=== PATIENT | male | born 1955 | race Caucasian/White ===

== ENCOUNTER 2017-05-09 07:26 | Observation (INO) | payer BC ==
[2017-05-09] MEDS ORDERED: SODIUM CHLORIDE 0.9% 1,000 ML IV STA (07:40)
[2017-05-09 07:41] LABS: Glucose,Whole Blood 170 mg/dL (75-99)
[2017-05-09 07:57] LABS: Basophils % (A) 0 %; CH 27.5; CHCM 32.9; Eosinophils # (A) 0.3 k/uL (0-0.7); Eosinophils % (A) 3 %; HCT 51.4 % (39.0-53.0); HGB 16.5 gm/dL (13.0-17.5); Luc # (Auto) 0.07; Luc % (Auto) 1; Lymphocytes # (A) 0.9 k/uL (1.0-4.8); Lymphocytes % (A) 9 %; MCH 27.1 pg (25.0-35.0); MCHC 32.1 g/dL (31.0-37.0); MCV 84.2 fL (80.0-100.0); Mean Platelet Volume 7.1; Monocytes # (A) 0.5 k/uL (0-1.0); Monocytes % (A) 5 %; Neutrophils # (A) 8.4 k/uL (1.3-7.7); Neutrophils % (A) 83 %; RDW 15.7 % (11.5-15.5); WBC 10.1 k/uL (3.8-10.6); WBC (Perox) 9.92
[2017-05-09 08:10] LABS: Partial Thromboplastin Time 23.2 sec (22.0-30.0); Prothrombin Time 9.5 sec (9.0-12.0)
--- NOTE | 2017-05-09 08:14 | XR ---
EXAMINATION TYPE: XR chest 2V DATE OF EXAM: 05/09/2017 COMPARISON: NONE HISTORY: Weakness and lightheadedness. TECHNIQUE: Frontal and lateral views of the chest are obtained. FINDINGS: Somewhat low lung volumes are present. There is no focal air space opacity, pleural effusio n, or pneumothorax seen. The cardiac silhouette size is within normal limits. There is multilevel sp urring in the thoracic spine. IMPRESSION: Low lung volumes without suspicious acute process.
[2017-05-09 08:22] LABS: ALT 59 U/L (21-72); AST 27 U/L (17-59); Alcohol <10 mg/dL; Alkaline Phosphatase 99 U/L (38-126); Anion Gap 13 mmol/L; Blood Urea Nitrogen 27 mg/dL (9-20); Calcium 10.1 mg/dL (8.4-10.2); Carbon Dioxide 23 mmol/L (22-30); Chloride 99 mmol/L (98-107); Glucose 185 mg/dL (74-99); Magnesium 2.1 mg/dL (1.6-2.3); Non-African American GFR(MDRD) >60 (>60 ml/min/1.73 sqM); Phosphorus 3.5 mg/dL (2.5-4.5); Potassium 4.6 mmol/L (3.5-5.1); Sodium 135 mmol/L (137-145); Total Bilirubin 0.6 mg/dL (0.2-1.3); Total Protein 7.4 g/dL (6.3-8.2)
[2017-05-09] MEDS ORDERED: SODIUM CHLORIDE 0.9% 500 ML IV STA (08:31)
[2017-05-09 08:33] LABS: Creatine Kinase 112 U/L (55-170)
--- NOTE | 2017-05-09 08:35 | ED ---
General Adult HPI - General Chief complaint: Dizziness Stated complaint: headache,nausea Time Seen by Provider: 05/09/17 07:38 Source: patient, RN notes reviewed, old records reviewed Mode of arrival: ambulatory Limitations: no limitations - History of Present Illness Initial comments: This is a 7-year-old male to the ER for evaluation of dizziness. Patient followed dizzy lightheaded and short of breath earlier today after work. 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 Patient has no prior issue of similar symptoms. Patient does admit to stroke about 8 years ago which symptoms had resolved. And patient admits vertiginous event about 2 weeks ago with the room was various suddenly spinning around as he got up out of bed but that has completely resolved. No symptoms of spinning today. No headache or chest pain. No shortness of breath currently. Patient does have history of diabetes and hypertension, no cardiac evaluation prior - Related Data Home Medications Medication Instructions Recorded Confirmed Aspirin [Adult Low Dose Aspirin EC] 81 mg PO DAILY 05/09/17 05/09/17 Dapagliflozin Propanediol [Farxiga] 10 mg PO DAILY 05/09/17 05/09/17 Lisinopril-Hctz 20-12.5 mg 1 tab PO BID 05/09/17 05/09/17 [Zestoretic 20-12.5] amLODIPine [Norvasc] 5 mg PO DAILY 05/09/17 05/09/17 metFORMIN HCL [Glucophage] 500 mg PO BID 05/09/17 05/09/17 Allergies Allergy/AdvReac Type Severity Reaction Status Date / Time Penicillins Allergy Itching Verified 05/09/17 08:21 Review of Systems ROS Statement: Those systems with pertinent positive or pertinent negative responses have been documented in the HPI. ROS Other: All systems not noted in ROS Statement are negative. Past Medical History Past Medical History: Diabetes Mellitus, Hypertension History of Any Multi-Drug Resistant Organisms: None Reported Past Surgical History: Tonsillectomy Past Psychological History: No Psychological Hx Reported Smoking Status: Never smoker Past Alcohol Use History: None Reported Past Drug Use History: None Reported General Exam Limitations: no limitations General appearance: alert, in no apparent distress Head exam: Present: atraumatic, normocephalic, normal inspection Eye exam: Present: normal appearance, PERRL, EOMI. Absent: scleral icterus, conjunctival injection, periorbital swelling ENT exam: Present: normal exam, mucous membranes moist Neck exam: Present: normal inspection. Absent: tenderness, meningismus, lymphadenopathy Respiratory exam: Present: normal lung sounds bilaterally. Absent: respiratory distress, wheezes, rales, rhonchi, stridor Cardiovascular Exam: Present: regular rate, normal rhythm, normal heart sounds. Absent: systolic murmur, diastolic murmur, rubs, gallop, clicks GI/Abdominal exam: Present: soft, normal bowel sounds. Absent: distended, tenderness, guarding, rebound, rigid Extremities exam: Present: normal inspection, full ROM, normal capillary refill. Absent: tenderness, pedal edema, joint swelling, calf tenderness Back exam: Present: normal inspection Neurological exam: Present: alert, oriented X3, CN II-XII intact Psychiatric exam: Present: normal affect, normal mood Skin exam: Present: warm, dry, intact, normal color. Absent: rash Course Vital Signs 05/09/17 05/09/17 05/09/17 07:30 08:28 10:00 Temperature 98.1 F Pulse Rate 116 H 95 99 Respiratory 18 18 18 Rate Blood Pressure 155/92 147/77 112/79 O2 Sat by Pulse 99 98 98 Oximetry - Reevaluation(s) Reevaluation #1: 05/09/17 10:43 Patient gets up still heart rate elevated in the 130s with activity, heart rate at 116 currently with rest EKG Findings - EKG Comments: EKG Findings:: EKG shows sinus tachycardia rate of 107, WA 150, QRS 96, QTc 440 Medical Decision Making - Medical Decision Making 61 male with nonspecific dizziness lightheadedness nausea not feeling right, patient does have history of high blood pressure diabetes, no prior cardiac evaluation history of TIA will be kept for cardiac observation - Lab Data Result diagrams: 05/09/17 07:44 05/09/17 07:44 Lab Results 05/09/17 05/09/17 05/09/17 Range/Units 07:38 07:44 07:44 WBC (3.8-10.6) k/uL RBC (4.30-5.90) m/uL Hgb (13.0-17.5) gm/dL Hct (39.0-53.0) % MCV (80.0-100.0) fL MCH (25.0-35.0) pg MCHC (31.0-37.0) g/dL RDW (11.5-15.5) % Plt Count (150-450) k/uL Neutrophils % % Lymphocytes % % Monocytes % % Eosinophils % % Basophils % % Neutrophils # (1.3-7.7) k/uL Lymphocytes # (1.0-4.8) k/uL Monocytes # (0-1.0) k/uL Eosinophils # (0-0.7) k/uL Basophils # (0-0.2) k/uL PT (9.0-12.0) sec INR (<1.2) APTT (22.0-30.0) sec D-Dimer (<0.60) mg/L FEU Sodium 135 L (137-145) mmol/L Potassium 4.6 (3.5-5.1) mmol/L Chloride 99 (98-107) mmol/L Carbon Dioxide 23 (22-30) mmol/L Anion Gap 13 mmol/L BUN 27 H (9-20) mg/dL Creatinine 1.04 (0.66-1.25) mg/dL Est GFR (MDRD) Af Amer >60 (>60 ml/min/1.73 sqM) Est GFR (MDRD) Non-Af >60 (>60 ml/min/1.73 sqM) Glucose 185 H (74-99) mg/dL POC Glucose (mg/dL) 170 H (75-99) mg/dL POC Glu Veterinary Surgeon ID Christa Richardn Plasma Lactic Acid Trevin (0.7-2.0) mmol/L Calcium 10.1 (8.4-10.2) mg/dL Phosphorus 3.5 (2.5-4.5) mg/dL Magnesium 2.1 (1.6-2.3) mg/dL Total Bilirubin 0.6 (0.2-1.3) mg/dL AST 27 (17-59) U/L ALT 59 (21-72) U/L Alkaline Phosphatase 99 (38-126) U/L Total Creatine Kinase 112 (55-170) U/L CK-MB (CK-2) 2.3 (0.0-2.4) ng/mL CK-MB (CK-2) Rel Index 2.1 Troponin I <0.012 (0.000-0.034) ng/mL Total Protein 7.4 (6.3-8.2) g/dL Albumin 4.6 (3.5-5.0) g/dL Lipase 67 (23-300) U/L TSH 1.570 (0.465-4.680) mIU/L Serum Alcohol <10 mg/dL 05/09/17 05/09/17 05/09/17 Range/Units 07:44 07:44 07:44 WBC 10.1 (3.8-10.6) k/uL RBC 6.10 H (4.30-5.90) m/uL Hgb 16.5 (13.0-17.5) gm/dL Hct 51.4 (39.0-53.0) % MCV 84.2 (80.0-100.0) fL MCH 27.1 (25.0-35.0) pg MCHC 32.1 (31.0-37.0) g/dL RDW 15.7 H (11.5-15.5) % Plt Count 246 (150-450) k/uL Neutrophils % 83 % Lymphocytes % 9 % Monocytes % 5 % Eosinophils % 3 % Basophils % 0 % Neutrophils # 8.4 H (1.3-7.7) k/uL Lymphocytes # 0.9 L (1.0-4.8) k/uL Monocytes # 0.5 (0-1.0) k/uL Eosinophils # 0.3 (0-0.7) k/uL Basophils # 0.0 (0-0.2) k/uL PT 9.5 (9.0-12.0) sec INR 1.0 (<1.2) APTT 23.2 (22.0-30.0) sec D-Dimer 0.35 (<0.60) mg/L FEU Sodium (137-145) mmol/L Potassium (3.5-5.1) mmol/L Chloride (98-107) mmol/L Carbon Dioxide (22-30) mmol/L Anion Gap mmol/L BUN (9-20) mg/dL Creatinine (0.66-1.25) mg/dL Est GFR (MDRD) Af Amer (>60 ml/min/1.73 sqM) Est GFR (MDRD) Non-Af (>60 ml/min/1.73 sqM) Glucose (74-99) mg/dL POC Glucose (mg/dL) (75-99) mg/dL POC Glu Veterinary Surgeon ID Plasma Lactic Acid Trevin 1.5 (0.7-2.0) mmol/L Calcium (8.4-10.2) mg/dL Phosphorus (2.5-4.5) mg/dL Magnesium (1.6-2.3) mg/dL Total Bilirubin (0.2-1.3) mg/dL AST (17-59) U/L ALT (21-72) U/L Alkaline Phosphatase (38-126) U/L Total Creatine Kinase (55-170) U/L CK-MB (CK-2) (0.0-2.4) ng/mL CK-MB (CK-2) Rel Index Troponin I (0.000-0.034) ng/mL Total Protein (6.3-8.2) g/dL Albumin (3.5-5.0) g/dL Lipase (23-300) U/L TSH (0.465-4.680) mIU/L Serum Alcohol mg/dL - Radiology Data Radiology results: report reviewed (Chest x-ray negative, CT brain negative), image reviewed Disposition Clinical Impression: Dizziness, Chest pain, Tachycardia Disposition: ADMITTED IP TO THIS [facility] Condition: Undetermined Referrals: Lakeisha Cleveland MD [Primary Care Provider] - 1-2 days
[2017-05-09 08:44] LABS: Creatine Kinase MB 2.3 ng/mL (0.0-2.4); Troponin I <0.012 ng/mL (0.000-0.034)
--- NOTE | 2017-05-09 09:04 | CT ---
EXAMINATION TYPE: CT brain wo con DATE OF EXAM: 05/09/2017 HISTORY: lightheaded for [address] DLP: 1198 mGycm. Automated Exposure Control for Dose Reduction was Utilized. TECHNIQUE: CT scan of the head is performed without contrast. COMPARISON: MRI brain 03/26/2012. FINDINGS: There is no acute intracranial hemorrhage or midline shift identified. There is diffuse v entricular and sulcal prominence consistent with diffuse age-related cerebral atrophy. There is low- attenuation in the periventricular white matter consistent with chronic small vessel ischemic change. Mild mucosal thickening involving inferior aspect of both maxillary sinuses is present otherwise par anasal sinuses are clear. Globes are intact bilaterally. No suspicious opacification of mastoid air cells is present. IMPRESSION: No acute intracranial hemorrhage or midline shift. There is mild to moderate diffuse ag e-related cerebral atrophy and chronic small vessel ischemic change redemonstrated without significan t change from prior MRI.
[2017-05-09] MEDS ORDERED: NITROGLYCERIN SL TABS 0.4 MG TAB SUBLINGUAL PRN (10:44)
[2017-05-09] MEDS ORDERED: ASPIRIN 81 MG PO STA (10:44)
[2017-05-09] MEDS ORDERED: SODIUM CHLORIDE 0.9% 1,000 ML IV SCH ×2 (10:45→13:15)
[2017-05-09 12:12] LABS: Glucose,Whole Blood 132 mg/dL (75-99)
[2017-05-09] MEDS ORDERED: LISINOPRIL-HCTZ 20-12.5 MG 1 EACH TAB PO SCH (13:15)
--- NOTE | 2017-05-09 14:24 | US ---
EXAMINATION TYPE: US carotid duplex BILAT DATE OF EXAM: 05/09/2017 COMPARISON: NONE CLINICAL HISTORY: dizziness. Near syncope EXAM MEASUREMENTS: RIGHT: Peak Systolic Velocity (PSV) cm/sec ----- Right CCA: 74.0 ----- Right ICA: 73.6 ----- Right ECA: 154.3 ICA/CCA ratio: 1.0 RIGHT: End Diastole cm/sec ----- Right CCA: 22.7 ----- Right ICA: 14.2 ----- Right ECA: 27.0 LEFT: Peak Systolic Velocity (PSV) cm/sec ----- Left CCA: 101.7 ----- Left ICA: 77.2 ----- Left ECA: 172.2 ICA/CCA ratio: 0.8 LEFT: End Diastole cm/sec ----- Left CCA: 30.5 ----- Left ICA: 25.1 ----- Left ECA: 24.0 VERTEBRALS (direction of flow): Right Vertebral: Antegrade Left Vertebral: Antegrade Rhythm: Normal Patient had short thick neck, technically difficult study. No significant velocity elevations. Grayscale, color Doppler, spectral Doppler imaging performed of the carotid arteries. Atheromatous ch anges are present at the carotid bulbs, proximal internal carotid arteries IMPRESSION: No hemodynamic significant stenosis of the proximal internal carotid arteries bilaterall y by Doppler criteria, an indirect measurement of carotid stenosis
--- NOTE | 2017-05-09 14:55 | CONS ---
CONSULTATION Mario Srinivasan is a gentleman who sees Dr. Cleveland in the outpatient setting. He has a history of type 2 diabetes mellitus, obesity, and also underlying hypertensive cardiovascular disease. He had an episode of lightheadedness, dizziness, near syncope about a 1-1/2 weeks ago and he was found to have upper respiratory infection, treated with antibiotics and bronchodilators and after that he felt better, but again this morning he had an episode when he felt lightheaded, did not quite pass out. Did not have as much dizziness, but he did feel lightheaded, felt concerned, had a sharp pain in the chest and came into the hospital. He has a remote history of CVA with good recovery. No documented evidence of any CAD or prior myocardial infarction. At the time of my evaluation, he feels well. He is resting comfortably and apparently he has received some IV fluids and feels much better without absolutely no symptoms. PAST MEDICAL HISTORY: 1. Type 2 diabetes mellitus. 2. History of CVA, details unclear. 3. Hypertensive cardiovascular disease. 4. No documented evidence of prior myocardial infarction. MEDICATIONS: At home include metformin 500 mg b.i.d., amlodipine 5 mg daily, lisinopril hydrochlorothiazide 20/12.5 one b.i.d. He also takes Farxiga and aspirin 81 mg daily. ALLERGIES: PENICILLIN. On examination, blood pressure is 130/80, pulse rate is about 94 per minute. HEENT: Unremarkable. Fundus was not examined by me. Neck is supple. There is no JVD. I do not hear a carotid bruit. Heart exam reveals S1, S2 with distant heart sounds. No significant murmurs. Lungs are clear. Abdomen is soft, nontender. Lower extremities reveal palpable pulses. No edema. Central nervous system is normal. EKG revealed a sinus mechanism with poor R-wave progression over precordial leads, raising the possibility of prior anterior TX without acute changes. Laboratory data suggests a normal D-dimer, troponin initial level is normal. His renal function appears to be normal. TSH is normal. IMPRESSION: 1. Atypical chest pain. 2. Dizziness and lightheadedness, probably some dehydration or a labyrinthitis-type issue should also be considered. 3. Type 2 diabetes mellitus. 4. Hypertension under fair control. 5. Cannot exclude coronary artery disease given the abnormal EKG, but no evidence to suggest any active ongoing myocardial ischemia. RECOMMENDATIONS: Given his dizzy episodes, I am recommending a carotid Doppler. Because of abnormal EKG and possibility of prior TX on the EKG, I will do an echocardiogram as well. We will obtain serial troponins and based on clinical course,. I will make further recommendations. Additionally, I will hydrate him with normal saline 75 mL/hour and obtain orthostatic vital signs in a few hours. Discussed my thoughts in detail with the patient. Thank you very much for the consult. QIAN / CHRISTINA: [id number] /
[2017-05-09 15:21] LABS: Creatine Kinase 90 U/L (55-170)
[2017-05-09 15:33] LABS: Troponin I <0.012 ng/mL (0.000-0.034)
--- NOTE | 2017-05-09 16:27 | P.HPIM ---
History of Present Illness H&P Date: 05/09/17 Chief Complaint: Dizziness This is a 61-year-old male with a past medical history of hypertension, diabetes type 2, history of CVA with mild right-sided weakness came to the ER for evaluation of dizziness. Patient followed dizzy lightheaded and short of breath yesterday morning after work. 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 Patient says that he rarely gets a break. Patient has no prior issue of similar symptoms. Patient does admit to stroke about 8 years ago which symptoms had resolved. And patient admits vertiginous event about 2 weeks ago with the room was various suddenly spinning around as he got up out of bed but that has completely resolved. No symptoms of spinning today. No headache or chest pain. No shortness of breath currently. Patient was found to have elevated BUN 27 on admission. Currently on IV fluids. Currently patient denied any dizziness or lightheadedness. Able to walk in the hallway. EKG showed sinus tachycardia CT head showed no acute intracranial hemorrhage or midline shift. There is diffuse ventricular and sulcal prominence consistent with diffuse age-related cerebral atrophy. Chest x-ray showed no acute cardiopulmonary process Review of Systems Constitutional: Patient denies any fever or chills . No generalized weakness or weight loss. Abdomen: Patient denied nausea vomiting and diarrhea and abdominal pain. Cardiovascular: Patient denies any chest pain or short of breath no palpitations. Respiratory: patient denied any cough is from production. No shortness of breath Neurologic: Patient denied any numbness or tingling headache. Musculoskeletal: Patient denies any complaints of joint swelling or deformity. Skin: Negative Psychiatric: Negative Endocrine: No heat or cold intolerance. No recent weight gain. Genitourinary: No dysuria or hematuria. All other 14 point ROS negative except the above Past Medical History Past Medical History: Diabetes Mellitus, Hypertension Additional Past Medical History / Comment(s): Recent bronchitis-completed ABX/ steroid, NIDDM type II, neuropathy R foot, 2009 CVA with very slight R sided weakness, recent vertigo, high cholesterol-not on RX yet, bilateral carpal tunnel syndrome. History of Any Multi-Drug Resistant Organisms: None Reported Past Surgical History: Tonsillectomy Past Anesthesia/Blood Transfusion Reactions: No Reported Reaction Past Psychological History: No Psychological Hx Reported Additional Psychological History / Comment(s): Pt resides alone in his apartment. 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 He drives. He has a glucometer. Smoking Status: Never smoker Past Alcohol Use History: None Reported Past Drug Use History: None Reported - Past Family History Father Additional Family Medical History / Comment(s): Father after a head injury with ruptured blood vessel at the age of 54 yrs. Mother Family Medical History: Cancer Additional Family Medical History / Comment(s): Mother had cervical cancer as a young person. She of colon cancer at the age of 72 yrs. Medications and Allergies Home Medications Medication Instructions Recorded Confirmed Type Aspirin [Adult Low Dose Aspirin EC] 81 mg PO DAILY 05/09/17 05/09/17 History Dapagliflozin Propanediol [Farxiga] 10 mg PO DAILY 05/09/17 05/09/17 History Lisinopril-Hctz 20-12.5 mg 1 tab PO BID 05/09/17 05/09/17 History [Zestoretic 20-12.5] amLODIPine [Norvasc] 5 mg PO DAILY 05/09/17 05/09/17 History metFORMIN HCL [Glucophage] 500 mg PO BID 05/09/17 05/09/17 History Allergies Allergy/AdvReac Type Severity Reaction Status Date / Time Penicillins Allergy Itching Verified 05/09/17 08:21 Physical Exam Vitals: Vital Signs Temp Pulse Pulse Pulse Pulse Pulse Resp 05/09/17 15:14 86 97 86 18 05/09/17 12:00 97.2 F L 97 18 05/09/17 11:12 105 H 18 05/09/17 10:00 99 18 05/09/17 08:28 95 18 05/09/17 07:30 98.1 F 116 H 18 BP BP BP BP BP Pulse Ox 05/09/17 15:14 137/77 118/68 113/69 96 05/09/17 12:00 136/77 95 05/09/17 11:12 133/81 95 05/09/17 10:00 112/79 98 05/09/17 08:28 147/77 98 05/09/17 07:30 155/92 99 Intake and Output 05/09/17 05/09/17 05/09/17 06:59 14:59 22:59 Other: Voiding Method Toilet Weight 122.2 kg Patient Weight 12/13/17 06:59 Weight 122.2 kg PHYSICAL EXAMINATION: Patient is lying in the bed comfortably, no acute distress, awake alert and oriented.. HEENT: Normocephalic. Neck is supple. Pupils reactive. Nostrils clear. Oral cavity is moist. Ears reveal no drainage. Neck reveals no JVD, carotid bruits, or thyromegaly. CHEST EXAMINATION: Trachea is central. Symmetrical expansion. Lung maldonado clear to auscultation and percussion. CARDIAC: Normal S1, S2 with no gallops. No murmurs ABDOMEN: Soft. Bowel sounds normal. No organomegaly. No abdominal bruits. Extremities: reveal no edema. No clubbing or cyanosis Neurologically awake, alert, oriented x3 with well-coordinated movements. No focal deficits noted Skin: No rash or skin lesions. Psychiatric: Cooperative. Nonsuicidal Musculoskeletal: No joint swelling or deformity. Normal range of motion. Results CBC & Chem 7: 05/09/17 07:44 05/09/17 07:44 Labs: Abnormal Lab Results - Last 24 Hours (Table) 05/09/17 05/09/17 05/09/17 Range/Units 07:38 07:44 07:44 RBC 6.10 H (4.30-5.90) m/uL RDW 15.7 H (11.5-15.5) % Neutrophils # 8.4 H (1.3-7.7) k/uL Lymphocytes # 0.9 L (1.0-4.8) k/uL Sodium 135 L (137-145) mmol/L BUN 27 H (9-20) mg/dL Glucose 185 H (74-99) mg/dL POC Glucose (mg/dL) 170 H (75-99) mg/dL 05/09/17 Range/Units 12:10 RBC (4.30-5.90) m/uL RDW (11.5-15.5) % Neutrophils # (1.3-7.7) k/uL Lymphocytes # (1.0-4.8) k/uL Sodium (137-145) mmol/L BUN (9-20) mg/dL Glucose (74-99) mg/dL POC Glucose (mg/dL) 132 H (75-99) mg/dL Thrombosis Risk Factor Assmnt - DVT/VTE Prophylaxis DVT/VTE Prophylaxis: Pharmacologic Prophylaxis ordered - Choose All That Apply Any of the Below Risk Factors Present?: Yes Each Factor Represents 1 point: Age 41-60 years, Obesity (BMI >25) Other Risk Factors: No Other congenital or acquired thrombophilia - If yes, enter type in comment: No Thrombosis Risk Factor Assessment Total Risk Factor Score: 2 Thrombosis Risk Factor Assessment Level: Low Risk Assessment and Plan Assessment: Dizziness and lightheadedness likely due to dehydration and volume depletion. Possible benign proximal positional vertigo Atypical chest pain. We'll rule out ACS Hypertension Hyperlipidemia Diabetes type 2 [id number] History of CVA with very minimal right upper extremity weakness DVT prophylaxis Morbid obesity with BMI 42.2 Plan: Patient will be continued on telemetry monitoring. Carotid duplex showed no significant stenosis. 2-D echo was ordered. Continue with serial troponins second and third troponin. 2-D echocardiogram was ordered as per cardiology. We will continue with IV hydration and follow closely. Orthostatic vitals was ordered but patient is already getting IV fluids at this time. We will continue to follow closely. Further recommendations based on the clinical course. Time with Patient: Greater than 30
[2017-05-09 17:15] LABS: Glucose,Whole Blood 132 mg/dL (75-99)
[2017-05-09] MEDS: amLODIPine 5 MG TAB PO SCH (17:47)
[2017-05-09 20:22] LABS: Creatine Kinase 85 U/L (55-170)
[2017-05-09 20:35] LABS: Troponin I <0.012 ng/mL (0.000-0.034)
[2017-05-09 20:52] LABS: Glucose,Whole Blood 154 mg/dL (75-99)
[2017-05-09] MEDS: METOPROLOL TARTRATE 25 MG TAB PO SCH (22:12)
[2017-05-09] MEDS: LISINOPRIL-HCTZ 20-12.5 MG 1 EACH TAB PO SCH (22:13)
[2017-05-10 00:34] VITALS: TEMP 98.1
[2017-05-10 03:14] LABS: Cholesterol 202 mg/dL (<200); HDL Cholesterol 55 mg/dL (40-60)
[2017-05-10 06:45] LABS: Glucose,Whole Blood 108 mg/dL (75-99)
[2017-05-10 08:32] VITALS: BP 111/77; PULSE 67; RESP 16
[2017-05-10] MEDS ORDERED: ASPIRIN 325 MG TAB PO SCH (09:00)
[2017-05-10] MEDS ORDERED: ASPIRIN 81 MG PO SCH (09:00)
[2017-05-10] MEDS ORDERED: ATORVASTATIN 80 MG TAB PO SCH (09:00)
[2017-05-10] MEDS: METOPROLOL TARTRATE 25 MG TAB PO SCH (09:14)
[2017-05-10] MEDS: LISINOPRIL-HCTZ 20-12.5 MG 1 EACH TAB PO SCH (09:14)
[2017-05-10] MEDS: amLODIPine 5 MG TAB PO SCH (09:14)
--- NOTE | 2017-05-10 11:52 | P.PN ---
Subjective Progress Note Date: 05/10/17 Mr. Srinivasan is a 61-year-old male past medical history significant for hypertension, diabetes mellitus and history of CVA. He presented to the hospital yesterday with an episode of dizziness and near syncope. He was recently being treated for an upper respiratory infection with antibiotics and steroids. We are seeing him today in follow-up. Diagnostic imaging performed yesterday is unremarkable. Telemetry tracings are unremarkable and show no signs of arrhythmia. He was hydrated through the night with sodium chloride. Serial cardiac enzymes are negative, blood pressure 111/77. Objective - Vital Signs Vital signs: Vital Signs Temp 98.1 F 05/10/17 08:00 Pulse 67 05/10/17 08:00 Resp 16 05/10/17 08:00 BP 111/77 05/10/17 08:00 Pulse Ox 96 05/10/17 08:00 Intake & Output 05/09/17 05/10/17 05/10/17 18:59 06:59 18:59 Intake Total 360 118 Balance 360 118 Weight 122.2 kg Intake: Oral 360 118 Other: Voiding Method Toilet Toilet Toilet # Voids 4 - Exam GENERAL: Well-appearing, well-nourished and in no acute distress. NECK: Supple without JVD or thyromegaly. LUNGS: Breath sounds clear to auscultation bilaterally. Respiration equal and unlabored. No wheezes, rales or rhonchi. HEART: Regular rate and rhythm without murmurs, rubs or gallops. S1 and S2 heard. EXTREMITIES: Normal range of motion, no edema. No clubbing or cyanosis. Peripheral pulses intact and strong. - Labs CBC & Chem 7: 05/09/17 07:44 05/09/17 07:44 Labs: Abnormal Lab Results - Last 24 Hours (Table) 05/09/17 05/09/17 05/09/17 Range/Units 07:44 12:10 17:13 POC Glucose (mg/dL) 132 H 132 H (75-99) mg/dL Cholesterol 202 H (<200) mg/dL LDL Cholesterol, Calc 125 H (0-99) mg/dL 05/09/17 05/10/17 Range/Units 20:51 06:36 POC Glucose (mg/dL) 154 H 108 H (75-99) mg/dL Cholesterol (<200) mg/dL LDL Cholesterol, Calc (0-99) mg/dL Assessment and Plan Assessment: ASSESSMENT 1. Dizziness most likely secondary to some dehydration and possible labyrinthitis type issue with recent URI. 2. Hypertension 3. Diabetes mellitus, type II PLAN Orthostatic blood pressures obtained yesterday did show a systolic drop with movement from sitting to standing. This may be secondary to dehydration. We have discussed slow movements from sitting to standing with increased water intake. From a cardiac perspective he is stable. He shows no signs of an acute arrhythmia or an acute coronary event. He should follow-up with Dr. NYDIA Araiza as an outpatient in 2-3 weeks. Nurse Practitioner note has been reviewed, I agree with a documented findings and plan of care. Patient was seen and examined.
--- NOTE | 2017-05-10 11:57 | ECHOF ---
Referral Reason:dizzy shortness of breath MEASUREMENTS -------- HEIGHT: 170.2 cm WEIGHT: 122.0 kg BP: 136/77 RVIDd: 3.0 cm (< 3.3) IVSd: 1.3 cm (0.6 - 1.1) LVIDd: 4.1 cm (3.9 - 5.3) LVPWd: 1.3 cm (0.6 - 1.1) IVSs: 1.7 cm LVIDs: 2.9 cm LVPWs: 1.5 cm LA Diam: 3.5 cm (2.7 - 3.8) LAESV Index (A-L): 18.58 ml/m Ao Diam: 3.4 cm (2.0 - 3.7) AV Cusp: 2.5 cm (1.5 - 2.6) MV EXCURSION: 15.965 mm (> 18.000) MV EF SLOPE: 87 mm/s (70 - 150) EPSS: 0.5 cm MV E Kit: 0.81 m/s MV DecT: 281 ms MV A Kit: 0.87 m/s MV E/A Ratio: 0.93 FINDINGS -------- Sinus rhythm. This was a technically good study. The left ventricular size is normal. There is mild concentric left ventricular hypertrophy. Overa ll left ventricular systolic function is normal with, an EF between 55 - 60 %. The right ventricle is normal in size. Normal LA size by volume 22+/-6 ml/m2. The right atrium is normal in size. There is mild aortic valve sclerosis. The mitral valve is normal. The tricuspid valve appears structurally normal. Trace/mild (physiologic) pulmonic regurgitation. The aortic root size is normal. IVC Not well visulized. There is no pericardial effusion. CONCLUSIONS -------- 1. Sinus rhythm. 2. This was a technically good study. 3. The left ventricular size is normal. 4. There is mild concentric left ventricular hypertrophy. 5. Overall left ventricular systolic function is normal with, an EF between 55 - 60 %. 6. The right ventricle is normal in size. 7. Normal LA size by volume 22+/-6 ml/m2. 8. The right atrium is normal in size. 9. There is mild aortic valve sclerosis. 10. The mitral valve is normal. 11. The tricuspid valve appears structurally normal. 12. Trace/mild (physiologic) pulmonic regurgitation. 13. The aortic root size is normal. 14. IVC Not well visulized. 15. There is no pericardial effusion. DIV[employer] MANAGER: Leonie Jenkins RDCS
[2017-05-10 12:00] LABS: Glucose,Whole Blood 116 mg/dL (75-99)
--- NOTE | 2017-05-10 23:07 | P.DS ---
Providers Date of admission: 05/09/17 10:44 Expected date of discharge: 05/10/17 Attending physician: Lucita Ventura Consults: 05/09/17 10:44 Consult Physician Urgent Consulting Provider: Moses Encarnacion Consult Reason/Comments: tachycardia Do you want consulting provider notified?: Yes [facility] Course: Discharge diagnosis Dizziness and lightheadedness likely due to dehydration and volume depletion. Possible benign proximal positional vertigo. Resolved now Atypical chest pain. ruled out ACS Hypertension Hyperlipidemia Diabetes type 2 [id number] History of CVA with very minimal right upper extremity weakness DVT prophylaxis Morbid obesity with BMI 42.2 Hospital course This is a 61-year-old male with a past medical history of hypertension, diabetes type 2, history of CVA with mild right-sided weakness came to the ER for evaluation of dizziness. Patient followed dizzy lightheaded and short of breath yesterday morning after work. 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 Patient says that he rarely gets a break. Patient has no prior issue of similar symptoms. Patient does admit to stroke about 8 years ago which symptoms had resolved. And patient admits vertiginous event about 2 weeks ago with the room was various suddenly spinning around as he got up out of bed but that has completely resolved. No symptoms of spinning today. No headache or chest pain. No shortness of breath currently. Patient was found to have elevated BUN 27 on admission. Currently on IV fluids. Currently patient denied any dizziness or lightheadedness. Able to walk in the hallway. EKG showed sinus tachycardia CT head showed no acute intracranial hemorrhage or midline shift. There is diffuse ventricular and sulcal prominence consistent with diffuse age-related cerebral atrophy. Chest x-ray showed no acute cardiopulmonary process 2-D echo showed normal ejection fraction Carotid duplex showed no significant stenosis Patient was continued on telemetry monitoring. Troponin 3 negative. Carotid duplex showed no significant stenosis. 2-D echo was ordered. Showed normal ejection fraction.continued with IV hydration and followed closely. Orthostatic vitals were positive. Patient did improve clinically with IV hydration. Patient was seen by cardiology and they wanted no further workup at this time. Otherwise patient is ambulating the hallway without any complaints of dizziness or lightheadedness. Patient is stable to discharge home. Discharge PHYSICAL EXAMINATION: Patient is lying in the bed comfortably, no acute distress, awake alert and oriented.. HEENT: Normocephalic. Neck is supple. Pupils reactive. Nostrils clear. Oral cavity is moist. Ears reveal no drainage. Neck reveals no JVD, carotid bruits, or thyromegaly. CHEST EXAMINATION: Trachea is central. Symmetrical expansion. Lung maldonado clear to auscultation and percussion. CARDIAC: Normal S1, S2 with no gallops. No murmurs ABDOMEN: Soft. Bowel sounds normal. No organomegaly. No abdominal bruits. Extremities: reveal no edema. No clubbing or cyanosis Neurologically awake, alert, oriented x3 with well-coordinated movements. No focal deficits noted Skin: No rash or skin lesions. Psychiatric: Operative. Nonsuicidal Musculoskeletal: No joint swelling or deformity. Normal range of motion. Patient Condition at Discharge: Undetermined Plan - Discharge Summary Discharge Rx Participant: No New Discharge Prescriptions: Continue amLODIPine [Norvasc] 5 mg PO DAILY metFORMIN HCL [Glucophage] 500 mg PO BID Lisinopril-Hctz 20-12.5 mg [Zestoretic 20-12.5] 1 tab PO BID Dapagliflozin Propanediol [Farxiga] 10 mg PO DAILY Aspirin [Adult Low Dose Aspirin EC] 81 mg PO DAILY Discharge Medication List Aspirin [Adult Low Dose Aspirin EC] 81 mg PO DAILY 05/09/17 [History] Dapagliflozin Propanediol [Farxiga] 10 mg PO DAILY 05/09/17 [History] Lisinopril-Hctz 20-12.5 mg [Zestoretic 20-12.5] 1 tab PO BID 05/09/17 [History] amLODIPine [Norvasc] 5 mg PO DAILY 05/09/17 [History] metFORMIN HCL [Glucophage] 500 mg PO BID 05/09/17 [History] Follow up Appointment(s)/Referral(s): Lakeisha Cleveland MD [Primary Care Provider] - 1-2 days Patient Instructions/Handouts: Dehydration (GEN), Dizziness (GEN) Discharge Disposition: HOME SELF-CARE
== END 2017-05-10 13:14 | disposition home or self-care (01) ==
LOC: EC 07:26 → 3OBS 10:44
PROVIDERS: ADMIT Hospitalist; ATTEND Hospitalist
DX: R42 Dizziness and giddiness (principal); E86.0 Dehydration; R07.89 Other chest pain; I11.9 Hypertensive heart disease without heart failure; E78.5 Hyperlipidemia, unspecified; E11.40 Type 2 diabetes mellitus with diabetic neuropathy, unspecified; I69.351 Hemiplegia and hemiparesis following cerebral infarction affecting right dominant side; Z68.41 Body mass index [BMI] 40.0-44.9, adult; E66.01 Morbid (severe) obesity due to excess calories; R06.02 Shortness of breath; R00.0 Tachycardia, unspecified; R55 Syncope and collapse; Z88.0 Allergy status to penicillin; Z79.84 Long term (current) use of oral hypoglycemic drugs; Z79.82 Long term (current) use of aspirin; Z79.899 Other long term (current) drug therapy; R94.31 Abnormal electrocardiogram [ECG] [EKG]
CPT/HCPCS: 96361 ×6; 96360 ×2; 99285; 36415; 93005; 93306; 85379; 80061; 80053; 82550; 82553; 83605; 83690; 83735; 84100; 84443; 84484; 85025; 85610; 85730; 80320; 71020; 93880; 70450; G0378 ×2

== ENCOUNTER 2019-08-20 05:12 | Inpatient (IN) | payer BC, OTHER ==
[2019-08-20] MEDS ORDERED: SODIUM CHLORIDE 0.9% 1,000 ML IV ONE ×2 (05:18→06:50)
--- NOTE | 2019-08-20 05:21 | ED ---
Altered Mental Status HPI <Harlan Richard - Last Filed: 08/20/19 08:26> - General Source: EMS Mode of arrival: EMS Limitations: altered mental status - History of Present Illness MD Complaint: altered mental status -: unknown Severity: severe Consistency of Symptoms: unknown <LizziePablo - Last Filed: 08/20/19 21:21> - General Stated Complaint: Altered Mental Status Time Seen by Provider: 08/20/19 05:18 - History of Present Illness Initial Comments: This patient is a 64-year-old man who is brought here by EMS to have evaluation. The patient was reportedly found lying in his driveway by neighbor. He was we aring clothes but they were wet. The patient is not able to give any history. He does answer simple yes and no questions but appears to be delirious. He does state no when asked if he is having any pain. (Pablo Samuel) - Related Data Home Medications Medication Instructions Recorded Confirmed No Known Home Medications 08/20/19 08/20/19 Allergies Allergy/AdvReac Type Severity Reaction Status Date / Time Penicillins Allergy Itching Verified 08/20/19 09:18 Review of Systems ROS Other: All systems not noted in ROS Statement are negative. <Jose ManuelHarlan - Last Filed: 08/20/19 08:26> ROS Other: All systems not noted in ROS Statement are negative. Limitations: ROS unobtainable due to patients medical condition <LucasanthonyPablo - Last Filed: 08/20/19 21:21> ROS Statement: Those systems with pertinent positive or pertinent negative responses have been documented in the HPI. Past Medical History Past Medical History: Diabetes Mellitus, Hypertension Additional Past Medical History / Comment(s): Recent bronchitis-completed ABX/steroid, NIDDM type II, neuropathy R foot, 2009 CVA with very slight R sided weakness, recent vertigo, high cholesterol-not on RX yet, bilateral carpal tunnel syndrome. History of Any Multi-Drug Resistant Organisms: None Reported Past Surgical History: Tonsillectomy Past Anesthesia/Blood Transfusion Reactions: No Reported Reaction Past Psychological History: No Psychological Hx Reported Additional Psychological History / Comment(s): Pt resides alone in his apartment. 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 He drives. He has a glucometer. Smoking Status: Never smoker Past Alcohol Use History: None Reported Past Drug Use History: None Reported - Past Family History Father Additional Family Medical History / Comment(s): Father after a head injury with ruptured blood vessel at the age of 54 yrs. Mother Family Medical History: Cancer Additional Family Medical History / Comment(s): Mother had cervical cancer as a young person. She of colon cancer at the age of 72 yrs. <LizziePablo - Last Filed: 08/20/19 21:21> General Exam General appearance: alert Head exam: Present: atraumatic, normocephalic Eye exam: Present: normal appearance, PERRL, EOMI. Absent: scleral icterus, conjunctival injection Neck exam: Present: normal inspection, full ROM. Absent: tenderness Respiratory exam: Present: normal lung sounds bilaterally. Absent: respiratory distress, wheezes, rales, rhonchi, stridor, chest wall tenderness, accessory muscle use Cardiovascular Exam: Present: normal rhythm, tachycardia, normal heart sounds. Absent: systolic murmur, diastolic murmur, rubs, gallop GI/Abdominal exam: Present: soft. Absent: distended, tenderness, guarding, rebound, rigid, mass, pulsatile mass Extremities exam: Present: normal inspection. Absent: tenderness, pedal edema, calf tenderness Back exam: Present: normal inspection. Absent: vertebral tenderness Neurological exam: Present: alert, CN II-XII intact, other (Patient is alert but is not oriented. He is able to follow only simple single step commands. GCS =13 (E=4, V=3, M=6)). Absent: motor sensory deficit Expanded Neurological exam: Present: protecting the airway Patient oriented to: Present: person Cranial nerves: EOM's Intact: Abnormal Right, Gag Reflex: Normal Upper motor neuron: Romario Neglect: Abnormal Right Motor strength exam: RUE: 4, LUE: 5, RLE: 4, LLE: 5 Eye Response: (4) open spontaneously Motor Response: (6) obeys commands Verbal Response: (3) inappropriate words Skin exam: Present: warm, dry, intact, normal color, abrasion (Patient has abrasions to bilateral hands and forearms, as well as his knees and feet.) <LizziePablo - Last Filed: 08/20/19 21:21> Course <Pablo Samuel - Last Filed: 08/20/19 21:21> Vital Signs 08/20/19 08/20/19 08/20/19 05:14 05:20 05:30 Temperature 98.9 F Pulse Rate 110 H 116 H 120 H Respiratory 18 18 19 Rate Blood Pressure 177/120 173/128 192/133 O2 Sat by Pulse 97 98 97 Oximetry 08/20/19 08/20/19 08/20/19 05:45 06:00 06:15 Temperature Pulse Rate 116 H 123 H 120 H Respiratory 18 19 18 Rate Blood Pressure 183/117 183/137 209/118 O2 Sat by Pulse 98 97 98 Oximetry 08/20/19 08/20/19 08/20/19 06:30 06:45 07:00 Temperature Pulse Rate 125 H 120 H 115 H Respiratory 17 17 18 Rate Blood Pressure 172/122 129/82 174/129 O2 Sat by Pulse 97 98 98 Oximetry 08/20/19 08/20/19 08/20/19 07:24 08:05 08:38 Temperature Pulse Rate 118 H 112 H Respiratory 16 22 Rate Blood Pressure 176/141 134/90 145/97 O2 Sat by Pulse 100 99 Oximetry 08/20/19 09:05 Temperature Pulse Rate 116 H Respiratory 22 Rate Blood Pressure O2 Sat by Pulse 99 Oximetry - Reevaluation(s) Reevaluation #1: 08/20/19 06:31 Case D/W Dr. Andrade, interventionalist who will review the CTs (Pablo Samuel) Medical Decision Making - Lab Data Result diagrams: 08/20/19 05:26 08/20/19 05:26 - Radiology Data Radiology results: report reviewed (Computed tomography scan of the brain shows no acute intercranial hemorrhage or shift. Atrophy and chronic small vessel ischemia.), image reviewed (1 view chest x-ray shows mild cardiac megaly without acute process) <Harlan Richard - Last Filed: 08/20/19 08:26> - Lab Data Result diagrams: 08/20/19 05:26 08/20/19 05:26 - EKG Data -: EKG Interpreted by Me EKG shows normal: sinus rhythm, axis (Normal), intervals (Normal), QRS complexes (Normal), ST-T waves (Normal) Rate: tachycardia (Rate approximately 117 bpm) <Pablo Samuel - Last Filed: 08/20/19 21:21> - Medical Decision Making 0 8:23 AM Case endorsed to me by Dr. Gamboa with presumed stroke. He did speak with Dr. Kidd a decision was made that patient was not a TPA candidate. Patient reexamined and reevaluated by myself, Dr. Richard. Patient has limited verbal capability and is unable to provide further history. Patient is unable to comply with CTA despite several doses of Ativan. This can be reattempted in the near future. Case was discussed in detail with Dr. Choudhary, who will admit covering for hospital call. He is made aware of this. He is in agreement with plan at this time. Neurology will be placed on consult. Blood pressure is improving on its own. Patient moves all extremities however does have some weakness of his right arm. Patient has difficulty following commands. Heart rate tachycardic Lungs: Clear to auscultation Capillary Refill less than 2 seconds Radial pulses 2/4 bilateral Skin: No rash Chart reviewed. (Harlan Richard) - Lab Data Lab Results 08/20/19 08/20/19 08/20/19 Range/Units 05:17 05:19 05:26 WBC (3.8-10.6) k/uL RBC (4.30-5.90) m/uL Hgb (13.0-17.5) gm/dL Hct (39.0-53.0) % MCV (80.0-100.0) fL MCH (25.0-35.0) pg MCHC (31.0-37.0) g/dL RDW (11.5-15.5) % Plt Count (150-450) k/uL Neutrophils % % Lymphocytes % % Monocytes % % Eosinophils % % Basophils % % Neutrophils # (1.3-7.7) k/uL Lymphocytes # (1.0-4.8) k/uL Monocytes # (0-1.0) k/uL Eosinophils # (0-0.7) k/uL Basophils # (0-0.2) k/uL PT (9.0-12.0) sec INR (<1.2) APTT (22.0-30.0) sec VBG pH 7.29 L (7.31-7.41) VBG pCO2 47 (37-51) mmHg VBG HCO3 22 L (24-28) mmol/L Sodium (137-145) mmol/L Potassium (3.5-5.1) mmol/L Chloride (98-107) mmol/L Carbon Dioxide (22-30) mmol/L Anion Gap mmol/L BUN (9-20) mg/dL Creatinine (0.66-1.25) mg/dL Est GFR (CKD-EPI)AfAm (>60 ml/min/1.73 sqM) Est GFR (CKD-EPI)NonAf (>60 ml/min/1.73 sqM) Glucose (74-99) mg/dL POC Glucose (mg/dL) 538 H 501 H (75-99) mg/dL POC Glu Personal Lines Account Manager Vangie Balbuena Vangie Lactic Ac Sepsis Rflx Plasma Lactic Acid Trevin (0.7-2.0) mmol/L Calcium (8.4-10.2) mg/dL Total Bilirubin (0.2-1.3) mg/dL AST (17-59) U/L ALT (4-49) U/L Alkaline Phosphatase (38-126) U/L Ammonia (<30) umol/L CK-MB (CK-2) (0.0-2.4) ng/mL Troponin I (0.000-0.034) ng/mL Total Protein (6.3-8.2) g/dL Albumin (3.5-5.0) g/dL Triglycerides (<150) mg/dL Cholesterol (<200) mg/dL LDL Cholesterol, Calc (0-99) mg/dL HDL Cholesterol (40-60) mg/dL Urine Color Urine Appearance (Clear) Urine pH (5.0-8.0) Ur Specific [place] (1.001-1.035) Urine Protein (Negative) Urine Glucose (UA) (Negative) Urine Ketones (Negative) Urine Blood (Negative) Urine Nitrite (Negative) Urine Bilirubin (Negative) Urine Urobilinogen (<2.0) mg/dL Ur Leukocyte Esterase (Negative) Urine RBC (0-5) /hpf Urine WBC (0-5) /hpf Amorphous Sediment (None) /hpf Urine Mucus (None) /hpf Urine Opiates Screen (NotDetected) Ur Oxycodone Screen (NotDetected) Urine Methadone Screen (NotDetected) Ur Propoxyphene Screen (NotDetected) Ur Barbiturates Screen (NotDetected) U Tricyclic Antidepress (NotDetected) Ur Phencyclidine Scrn (NotDetected) Ur Amphetamines Screen (NotDetected) U Methamphetamines Scrn (NotDetected) U Benzodiazepines Scrn (NotDetected) Urine Cocaine Screen (NotDetected) U Marijuana (THC) Screen (NotDetected) Serum Alcohol mg/dL Acetone, Qual (Negative) 08/20/19 08/20/19 08/20/19 Range/Units 05:26 05:26 05:26 WBC 12.7 H (3.8-10.6) k/uL RBC 6.34 H (4.30-5.90) m/uL Hgb 16.8 (13.0-17.5) gm/dL Hct 52.3 (39.0-53.0) % MCV 82.5 (80.0-100.0) fL MCH 26.5 (25.0-35.0) pg MCHC 32.2 (31.0-37.0) g/dL RDW 13.6 (11.5-15.5) % Plt Count 247 (150-450) k/uL Neutrophils % 86 % Lymphocytes % 9 % Monocytes % 3 % Eosinophils % 1 % Basophils % 0 % Neutrophils # 10.9 H (1.3-7.7) k/uL Lymphocytes # 1.2 (1.0-4.8) k/uL Monocytes # 0.4 (0-1.0) k/uL Eosinophils # 0.1 (0-0.7) k/uL Basophils # 0.0 (0-0.2) k/uL PT 9.8 (9.0-12.0) sec INR 0.9 (<1.2) APTT 20.6 L (22.0-30.0) sec VBG pH (7.31-7.41) VBG pCO2 (37-51) mmHg VBG HCO3 (24-28) mmol/L Sodium (137-145) mmol/L Potassium (3.5-5.1) mmol/L Chloride (98-107) mmol/L Carbon Dioxide (22-30) mmol/L Anion Gap mmol/L BUN (9-20) mg/dL Creatinine (0.66-1.25) mg/dL Est GFR (CKD-EPI)AfAm (>60 ml/min/1.73 sqM) Est GFR (CKD-EPI)NonAf (>60 ml/min/1.73 sqM) Glucose (74-99) mg/dL POC Glucose (mg/dL) (75-99) mg/dL POC Glu Personal Lines Account Manager ID Lactic Ac Sepsis Rflx Plasma Lactic Acid Trevin (0.7-2.0) mmol/L Calcium (8.4-10.2) mg/dL Total Bilirubin (0.2-1.3) mg/dL AST (17-59) U/L ALT (4-49) U/L Alkaline Phosphatase (38-126) U/L Ammonia (<30) umol/L CK-MB (CK-2) (0.0-2.4) ng/mL Troponin I (0.000-0.034) ng/mL Total Protein (6.3-8.2) g/dL Albumin (3.5-5.0) g/dL Triglycerides (<150) mg/dL Cholesterol (<200) mg/dL LDL Cholesterol, Calc (0-99) mg/dL HDL Cholesterol (40-60) mg/dL Urine Color Urine Appearance (Clear) Urine pH (5.0-8.0) Ur Specific [place] (1.001-1.035) Urine Protein (Negative) Urine Glucose (UA) (Negative) Urine Ketones (Negative) Urine Blood (Negative) Urine Nitrite (Negative) Urine Bilirubin (Negative) Urine Urobilinogen (<2.0) mg/dL Ur Leukocyte Esterase (Negative) Urine RBC (0-5) /hpf Urine WBC (0-5) /hpf Amorphous Sediment (None) /hpf Urine Mucus (None) /hpf Urine Opiates Screen (NotDetected) Ur Oxycodone Screen (NotDetected) Urine Methadone Screen (NotDetected) Ur Propoxyphene Screen (NotDetected) Ur Barbiturates Screen (NotDetected) U Tricyclic Antidepress (NotDetected) Ur Phencyclidine Scrn (NotDetected) Ur Amphetamines Screen (NotDetected) U Methamphetamines Scrn (NotDetected) U Benzodiazepines Scrn (NotDetected) Urine Cocaine Screen (NotDetected) U Marijuana (THC) Screen (NotDetected) Serum Alcohol mg/dL Acetone, Qual Negative (Negative) 08/20/19 08/20/19 08/20/19 Range/Units 05:26 05:26 05:26 WBC (3.8-10.6) k/uL RBC (4.30-5.90) m/uL Hgb (13.0-17.5) gm/dL Hct (39.0-53.0) % MCV (80.0-100.0) fL MCH (25.0-35.0) pg MCHC (31.0-37.0) g/dL RDW (11.5-15.5) % Plt Count (150-450) k/uL Neutrophils % % Lymphocytes % % Monocytes % % Eosinophils % % Basophils % % Neutrophils # (1.3-7.7) k/uL Lymphocytes # (1.0-4.8) k/uL Monocytes # (0-1.0) k/uL Eosinophils # (0-0.7) k/uL Basophils # (0-0.2) k/uL PT (9.0-12.0) sec INR (<1.2) APTT (22.0-30.0) sec VBG pH (7.31-7.41) VBG pCO2 (37-51) mmHg VBG HCO3 (24-28) mmol/L Sodium 132 L (137-145) mmol/L Potassium 4.2 (3.5-5.1) mmol/L Chloride 96 L (98-107) mmol/L Carbon Dioxide 20 L (22-30) mmol/L Anion Gap 16 mmol/L BUN 20 (9-20) mg/dL Creatinine 0.77 (0.66-1.25) mg/dL Est GFR (CKD-EPI)AfAm >90 (>60 ml/min/1.73 sqM) Est GFR (CKD-EPI)NonAf >90 (>60 ml/min/1.73 sqM) Glucose 532 H* (74-99) mg/dL POC Glucose (mg/dL) (75-99) mg/dL POC Glu Personal Lines Account Manager ID Lactic Ac Sepsis Rflx Plasma Lactic Acid Trevin 4.4 H* (0.7-2.0) mmol/L Calcium 9.8 (8.4-10.2) mg/dL Total Bilirubin 0.7 (0.2-1.3) mg/dL AST 25 (17-59) U/L ALT 21 (4-49) U/L Alkaline Phosphatase 175 H (38-126) U/L Ammonia 16 (<30) umol/L CK-MB (CK-2) 2.3 (0.0-2.4) ng/mL Troponin I <0.012 (0.000-0.034) ng/mL Total Protein 6.8 (6.3-8.2) g/dL Albumin 4.6 (3.5-5.0) g/dL Triglycerides (<150) mg/dL Cholesterol (<200) mg/dL LDL Cholesterol, Calc (0-99) mg/dL HDL Cholesterol (40-60) mg/dL Urine Color Urine Appearance (Clear) Urine pH (5.0-8.0) Ur Specific [place] (1.001-1.035) Urine Protein (Negative) Urine Glucose (UA) (Negative) Urine Ketones (Negative) Urine Blood (Negative) Urine Nitrite (Negative) Urine Bilirubin (Negative) Urine Urobilinogen (<2.0) mg/dL Ur Leukocyte Esterase (Negative) Urine RBC (0-5) /hpf Urine WBC (0-5) /hpf Amorphous Sediment (None) /hpf Urine Mucus (None) /hpf Urine Opiates Screen (NotDetected) Ur Oxycodone Screen (NotDetected) Urine Methadone Screen (NotDetected) Ur Propoxyphene Screen (NotDetected) Ur Barbiturates Screen (NotDetected) U Tricyclic Antidepress (NotDetected) Ur Phencyclidine Scrn (NotDetected) Ur Amphetamines Screen (NotDetected) U Methamphetamines Scrn (NotDetected) U Benzodiazepines Scrn (NotDetected) Urine Cocaine Screen (NotDetected) U Marijuana (THC) Screen (NotDetected) Serum Alcohol <10 mg/dL Acetone, Qual (Negative) 08/20/19 08/20/19 08/20/19 Range/Units 05:26 05:52 06:06 WBC (3.8-10.6) k/uL RBC (4.30-5.90) m/uL Hgb (13.0-17.5) gm/dL Hct (39.0-53.0) % MCV (80.0-100.0) fL MCH (25.0-35.0) pg MCHC (31.0-37.0) g/dL RDW (11.5-15.5) % Plt Count (150-450) k/uL Neutrophils % % Lymphocytes % % Monocytes % % Eosinophils % % Basophils % % Neutrophils # (1.3-7.7) k/uL Lymphocytes # (1.0-4.8) k/uL Monocytes # (0-1.0) k/uL Eosinophils # (0-0.7) k/uL Basophils # (0-0.2) k/uL PT (9.0-12.0) sec INR (<1.2) APTT (22.0-30.0) sec VBG pH (7.31-7.41) VBG pCO2 (37-51) mmHg VBG HCO3 (24-28) mmol/L Sodium (137-145) mmol/L Potassium (3.5-5.1) mmol/L Chloride (98-107) mmol/L Carbon Dioxide (22-30) mmol/L Anion Gap mmol/L BUN (9-20) mg/dL Creatinine (0.66-1.25) mg/dL Est GFR (CKD-EPI)AfAm (>60 ml/min/1.73 sqM) Est GFR (CKD-EPI)NonAf (>60 ml/min/1.73 sqM) Glucose (74-99) mg/dL POC Glucose (mg/dL) (75-99) mg/dL POC Glu Personal Lines Account Manager ID Lactic Ac Sepsis Rflx Y Plasma Lactic Acid Trevin (0.7-2.0) mmol/L Calcium (8.4-10.2) mg/dL Total Bilirubin (0.2-1.3) mg/dL AST (17-59) U/L ALT (4-49) U/L Alkaline Phosphatase (38-126) U/L Ammonia (<30) umol/L CK-MB (CK-2) (0.0-2.4) ng/mL Troponin I (0.000-0.034) ng/mL Total Protein (6.3-8.2) g/dL Albumin (3.5-5.0) g/dL Triglycerides 173 H (<150) mg/dL Cholesterol 239 H (<200) mg/dL LDL Cholesterol, Calc 160 H (0-99) mg/dL HDL Cholesterol 44 (40-60) mg/dL Urine Color Light Yellow Urine Appearance Clear (Clear) Urine pH 5.5 (5.0-8.0) Ur Specific [place] 1.035 (1.001-1.035) Urine Protein 1+ H (Negative) Urine Glucose (UA) 4+ H (Negative) Urine Ketones 2+ H (Negative) Urine Blood Negative (Negative) Urine Nitrite Negative (Negative) Urine Bilirubin Negative (Negative) Urine Urobilinogen <2.0 (<2.0) mg/dL Ur Leukocyte Esterase Negative (Negative) Urine RBC <1 (0-5) /hpf Urine WBC 2 (0-5) /hpf Amorphous Sediment Rare H (None) /hpf Urine Mucus Rare H (None) /hpf Urine Opiates Screen Not Detected (NotDetected) Ur Oxycodone Screen Not Detected (NotDetected) Urine Methadone Screen Not Detected (NotDetected) Ur Propoxyphene Screen Not Detected (NotDetected) Ur Barbiturates Screen Not Detected (NotDetected) U Tricyclic Antidepress Not Detected (NotDetected) Ur Phencyclidine Scrn Not Detected (NotDetected) Ur Amphetamines Screen Not Detected (NotDetected) U Methamphetamines Scrn Not Detected (NotDetected) U Benzodiazepines Scrn Not Detected (NotDetected) Urine Cocaine Screen Not Detected (NotDetected) U Marijuana (THC) Screen Not Detected (NotDetected) Serum Alcohol mg/dL Acetone, Qual (Negative) 08/20/19 Range/Units 07:02 WBC (3.8-10.6) k/uL RBC (4.30-5.90) m/uL Hgb (13.0-17.5) gm/dL Hct (39.0-53.0) % MCV (80.0-100.0) fL MCH (25.0-35.0) pg MCHC (31.0-37.0) g/dL RDW (11.5-15.5) % Plt Count (150-450) k/uL Neutrophils % % Lymphocytes % % Monocytes % % Eosinophils % % Basophils % % Neutrophils # (1.3-7.7) k/uL Lymphocytes # (1.0-4.8) k/uL Monocytes # (0-1.0) k/uL Eosinophils # (0-0.7) k/uL Basophils # (0-0.2) k/uL PT (9.0-12.0) sec INR (<1.2) APTT (22.0-30.0) sec VBG pH (7.31-7.41) VBG pCO2 (37-51) mmHg VBG HCO3 (24-28) mmol/L Sodium (137-145) mmol/L Potassium (3.5-5.1) mmol/L Chloride (98-107) mmol/L Carbon Dioxide (22-30) mmol/L Anion Gap mmol/L BUN (9-20) mg/dL Creatinine (0.66-1.25) mg/dL Est GFR (CKD-EPI)AfAm (>60 ml/min/1.73 sqM) Est GFR (CKD-EPI)NonAf (>60 ml/min/1.73 sqM) Glucose (74-99) mg/dL POC Glucose (mg/dL) 333 H (75-99) mg/dL POC Glu Personal Lines Account Manager ID Monday, Tamara Lactic Ac Sepsis Rflx Plasma Lactic Acid Trevin (0.7-2.0) mmol/L Calcium (8.4-10.2) mg/dL Total Bilirubin (0.2-1.3) mg/dL AST (17-59) U/L ALT (4-49) U/L Alkaline Phosphatase (38-126) U/L Ammonia (<30) umol/L CK-MB (CK-2) (0.0-2.4) ng/mL Troponin I (0.000-0.034) ng/mL Total Protein (6.3-8.2) g/dL Albumin (3.5-5.0) g/dL Triglycerides (<150) mg/dL Cholesterol (<200) mg/dL LDL Cholesterol, Calc (0-99) mg/dL HDL Cholesterol (40-60) mg/dL Urine Color Urine Appearance (Clear) Urine pH (5.0-8.0) Ur Specific [place] (1.001-1.035) Urine Protein (Negative) Urine Glucose (UA) (Negative) Urine Ketones (Negative) Urine Blood (Negative) Urine Nitrite (Negative) Urine Bilirubin (Negative) Urine Urobilinogen (<2.0) mg/dL Ur Leukocyte Esterase (Negative) Urine RBC (0-5) /hpf Urine WBC (0-5) /hpf Amorphous Sediment (None) /hpf Urine Mucus (None) /hpf Urine Opiates Screen (NotDetected) Ur Oxycodone Screen (NotDetected) Urine Methadone Screen (NotDetected) Ur Propoxyphene Screen (NotDetected) Ur Barbiturates Screen (NotDetected) U Tricyclic Antidepress (NotDetected) Ur Phencyclidine Scrn (NotDetected) Ur Amphetamines Screen (NotDetected) U Methamphetamines Scrn (NotDetected) U Benzodiazepines Scrn (NotDetected) Urine Cocaine Screen (NotDetected) U Marijuana (THC) Screen (NotDetected) Serum Alcohol mg/dL Acetone, Qual (Negative) Disposition Is patient prescribed a controlled substance at d/c from ED?: No Decision Time: 08:26 <Harlan Richard - Last Filed: 08/20/19 08:26> <Pablo Samuel - Last Filed: 08/20/19 21:21> Clinical Impression: Altered mental status, Hyperglycemia, Lactic acidosis, Tachycardia, Hypertension, Aphasia Narrative: suspected ischemic stroke (Pablo Samuel) Disposition: ADMITTED IP TO THIS HOSP Condition: Critical
[2019-08-20 05:22] LABS: Glucose,Whole Blood 538 mg/dL (75-99)
[2019-08-20 05:22] LABS: Glucose,Whole Blood 501 mg/dL (75-99)
[2019-08-20] MEDS ORDERED: ONDANSETRON 4 MG/2 ML VIAL IVP STA (05:34)
[2019-08-20 05:46] LABS: Basophils % (A) 0 %; Eosinophils # (A) 0.1 k/uL (0-0.7); Eosinophils % (A) 1 %; HCT 52.3 % (39.0-53.0); HGB 16.8 gm/dL (13.0-17.5); Lymphocytes # (A) 1.2 k/uL (1.0-4.8); Lymphocytes % (A) 9 %; MCH 26.5 pg (25.0-35.0); MCHC 32.2 g/dL (31.0-37.0); MCV 82.5 fL (80.0-100.0); Mean Platelet Volume 7.7; Monocytes # (A) 0.4 k/uL (0-1.0); Monocytes % (A) 3 %; Neutrophils # (A) 10.9 k/uL (1.3-7.7); Neutrophils % (A) 86 %; Platelet Count 247 k/uL (150-450); RBC 6.34 m/uL (4.30-5.90); RDW 13.6 % (11.5-15.5); WBC 12.7 k/uL (3.8-10.6)
[2019-08-20 05:47] LABS: VBG PH 7.29 (7.31-7.41)
[2019-08-20] MEDS ORDERED: INSULIN REGULAR 100 UNIT/ML VIAL IV STA (05:48)
[2019-08-20 05:58] LABS: ALT 21 U/L (4-49); AST 25 U/L (17-59); African American GFR (CKD) >90 (>60 ml/min/1.73 sqM); Albumin 4.6 g/dL (3.5-5.0); Alcohol <10 mg/dL; Alkaline Phosphatase 175 U/L (38-126); Anion Gap 16 mmol/L; Blood Urea Nitrogen 20 mg/dL (9-20); Calcium 9.8 mg/dL (8.4-10.2); Carbon Dioxide 20 mmol/L (22-30); Chloride 96 mmol/L (98-107); Non-African American GFR(CKD) >90 (>60 ml/min/1.73 sqM); Potassium 4.2 mmol/L (3.5-5.1); Sodium 132 mmol/L (137-145); Total Bilirubin 0.7 mg/dL (0.2-1.3); Total Protein 6.8 g/dL (6.3-8.2)
[2019-08-20 06:05] LABS: Amorphous Sediment,Urine Rare /hpf; Appearance,Urine Clear (Clear); Bilirubin,Urine Negative (Negative); Blood,Urine Negative (Negative); Color,Urine Light Yellow; Glucose,Urine (UA) 4+ (Negative); Leukocyte Esterase,Urine Negative (Negative); Mucus,Urine Rare /hpf; Nitrite,Urine Negative (Negative); PH, Urine 5.5 (5.0-8.0); Protein,Urine 1+ (Negative); RBC,Urine <1 /hpf (0-5); Specific Gravity,Urine 1.035 (1.001-1.035); Urobilinogen,Urine <2.0 mg/dL (<2.0); WBC,Urine 2 /hpf (0-5)
[2019-08-20 06:06] LABS: Glucose 532 mg/dL (74-99); Lactic Acid, Venous 4.4 mmol/L (0.7-2.0)
--- NOTE | 2019-08-20 06:07 | CT ---
EXAMINATION TYPE: CT brain wo con DATE OF EXAM: 08/20/2019 HISTORY: AMS CT DLP: 1158.4 mGycm. Automated Exposure Control for Dose Reduction was Utilized. TECHNIQUE: CT scan of the head is performed without contrast. COMPARISON: CT brain May 09, 2017. FINDINGS: There is no acute intracranial hemorrhage or midline shift identified. There is diffuse v entricular and sulcal prominence consistent with diffuse age-related cerebral atrophy. There is low- attenuation in the periventricular white matter consistent with chronic small vessel ischemic change. The globes are intact and the visualized sinuses are clear. IMPRESSION: No acute intracranial hemorrhage or midline shift. There is moderate diffuse age-relate d cerebral atrophy and chronic small vessel ischemic change redemonstrated. No significant change fr om prior.
--- NOTE | 2019-08-20 06:07 | XR ---
EXAMINATION TYPE: XR chest 1V portable DATE OF EXAM: 08/20/2019 COMPARISON: Chest x-ray May 09, 2017. HISTORY: Altered mental status and weakness. TECHNIQUE: Single AP portable frontal semiupright view of the chest is obtained. FINDINGS: Low lung volumes are present. Overlying EKG leads. There is no focal air space opacity, ple ural effusion, or pneumothorax seen. The cardiac silhouette size is mildly enlarged. Osseous structu res are intact. IMPRESSION: Mild cardiomegaly without acute pulmonary process.
[2019-08-20 06:09] LABS: INR 0.9 (<1.2); Prothrombin Time 9.8 sec (9.0-12.0)
[2019-08-20 06:20] LABS: Creatine Kinase MB 2.3 ng/mL (0.0-2.4); Troponin I <0.012 ng/mL (0.000-0.034)
[2019-08-20 06:29] LABS: Partial Thromboplastin Time 20.6 sec (22.0-30.0)
[2019-08-20] MEDS ORDERED: LORazepam 2 MG/ML INJ IV STA ×3 (06:30→07:26)
[2019-08-20 06:35] LABS: Ketones,Urine 2+ (Negative)
[2019-08-20 06:44] LABS: Amphetamine Screen,Urine Not Detected (NotDetected); Barbiturate Screen,Urine Not Detected (NotDetected); Benzodiazepines Screen,Urine Not Detected (NotDetected); Cocaine Screen,Urine Not Detected (NotDetected); Methadone Screen, Urine Not Detected (NotDetected); Opiate Screen,Urine Not Detected (NotDetected); Oxycodone Screen, Urine Not Detected (NotDetected); Phencyclidine Screen,Urine Not Detected (NotDetected); Tricyclic Antidepressant,Urine Not Detected (NotDetected); Urn Cannabinoid Scrn Not Detected (NotDetected)
[2019-08-20] MEDS ORDERED: SODIUM CHLORIDE 0.9% 1,000 ML IV STA (06:50)
[2019-08-20 07:04] LABS: Glucose,Whole Blood 333 mg/dL (75-99)
[2019-08-20] MEDS ORDERED: ESMOLOL IN SODIUM CHLORIDE PMX 2.5 GM in SALINE 1 250ML.BAG IV ONE (07:28)
[2019-08-20] MEDS ORDERED: ASPIRIN 325 MG TAB PO STA (08:27)
[2019-08-20] MEDS ORDERED: SODIUM CHLORIDE 0.9% 1,000 ML IV SCH (08:30)
[2019-08-20 08:51] LABS: Glucose,Whole Blood 322 mg/dL (75-99)
--- NOTE | 2019-08-20 09:31 | US ---
EXAMINATION TYPE: US carotid duplex BILAT DATE OF EXAM: 08/20/2019 COMPARISON: Carotid US dictated 05/09/2017. CLINICAL HISTORY: Stenosis. Altered mental status. Very limited due to patient unable to be still EXAM MEASUREMENTS: RIGHT: Peak Systolic Velocity (PSV) cm/sec ----- Right CCA: 49.6 ----- Right ICA: 53.1 ----- Right ECA: 98.4 ICA/CCA ratio: 1.1 RIGHT: End Diastole cm/sec ----- Right CCA: 0.0 ----- Right ICA: 0.0 ----- Right ECA: 11.1 LEFT: Peak Systolic Velocity (PSV) cm/sec ----- Left CCA: 61.9 ----- Left ICA: 76.2 ----- Left ECA: 108.1 ICA/CCA ratio: 1.2 LEFT: End Diastole cm/sec ----- Left CCA: 0.0 ----- Left ICA: 15.4 ----- Left ECA: 11.1 VERTEBRALS (direction of flow): Right Vertebral: Antegrade Left Vertebral: Antegrade Rhythm: Normal Martinez scale images show mild eccentric plaque left carotid bulb level. Velocity measurements and ratio s remain within normal limits bilaterally. IMPRESSION: No hemodynamically significant stenosis seen in either internal carotid artery. No signi ficant change from prior. Criteria for Assigning % of Stenosis / Diameter reduction (Estimation based on the indirect measurements of the internal carotid artery velocities (ICA PSV). 1. Normal (no stenosis)=ICA PSV < 125 cm/s: ratio < 2.0: ICA EDV<40 cm/s. 2. Less than 50% stenosis=ICA PSV < 125 cm/s: ratio < 2.0: ICA EDV<40 cm/s. 3. 50 to 69% stenosis=ICA PSV of 125 to 230 cm/s: ration 2.0 ? 4.0: ICA EDV 40-100 cm/s. 4. Greater than 70% stenosis to near occlusion= ICA PSV > 230 cm/s: ratio > 4.0: ICA EDV > 100 cm/s. 5. Near occlusion= ICA PSV velocities may be low or undetectable: variable ratio and ICA EDV. 6. Total occlusion=unable to detect flow.
[2019-08-20 09:45] LABS: Glucose,Whole Blood 333 mg/dL (75-99)
--- NOTE | 2019-08-20 10:34 | P.HPIM ---
History of Present Illness 63-year-old male that was brought in after he was found lying in the driveway by the neighbors. Patient is unable to provide any history to me patient received a few doses of Ativan the process of obtaining CT angios the head and neck. Although we were unable to obtain this test that patient is unable to provide any history probably because of Ativan apparently he was negative even before Ativan. Patient urine drug screen is negative chest x-ray did not show any infection UDS is negative for any drugs. Urine analysis did not show any infection does have glucose in the urine patient is hyperglycemic with blood sugars above 500 beyond that there is no other significant abnormality. Patient blood pressure was elevated as well which has come down with aspirin or any patient does have leukocytosis without any fever. Carotid Doppler and CT of the head are essentially within normal limits. I'm obtaining EEG patient will be continued on IV fluids and as needed insulin subcutaneous patient but sugars have come down to 300. Review of Systems Unable to obtain Past Medical History Past Medical History: Diabetes Mellitus, Hypertension Additional Past Medical History / Comment(s): Recent bronchitis-completed ABX/steroid, NIDDM type II, neuropathy R foot, 2009 CVA with very slight R sided weakness, recent vertigo, high cholesterol-not on RX yet, bilateral carpal tunnel syndrome. History of Any Multi-Drug Resistant Organisms: None Reported Past Surgical History: Tonsillectomy Past Anesthesia/Blood Transfusion Reactions: No Reported Reaction Past Psychological History: No Psychological Hx Reported Additional Psychological History / Comment(s): Pt resides alone in his apartment. 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 He drives. He has a glucometer. Smoking Status: Never smoker Past Alcohol Use History: None Reported Past Drug Use History: None Reported - Past Family History Father Additional Family Medical History / Comment(s): Father after a head injury with ruptured blood vessel at the age of 54 yrs. Mother Family Medical History: Cancer Additional Family Medical History / Comment(s): Mother had cervical cancer as a young person. She of colon cancer at the age of 72 yrs. Medications and Allergies Home Medications Medication Instructions Recorded Confirmed Type No Known Home Medications 08/20/19 08/20/19 History Allergies Allergy/AdvReac Type Severity Reaction Status Date / Time Penicillins Allergy Itching Verified 08/20/19 09:18 Physical Exam Vitals: Vital Signs Temp Pulse Pulse Resp BP BP Pulse Ox 08/20/19 09:40 99.1 F 115 H 20 184/98 97 08/20/19 09:05 116 H 22 99 08/20/19 08:38 112 H 22 145/97 99 08/20/19 08:05 118 H 16 134/90 100 08/20/19 07:24 176/141 08/20/19 07:00 115 H 18 174/129 98 08/20/19 06:45 120 H 17 129/82 98 08/20/19 06:30 125 H 17 172/122 97 08/20/19 06:15 120 H 18 209/118 98 08/20/19 06:00 123 H 19 183/137 97 08/20/19 05:45 116 H 18 183/117 98 08/20/19 05:30 120 H 19 192/133 97 08/20/19 05:20 116 H 18 173/128 98 08/20/19 05:14 98.9 F 110 H 18 177/120 97 Intake and Output 08/19/19 08/20/19 08/20/19 22:59 06:59 14:59 Output Total 1500 Balance -1500 Output: Urine 1500 Other: Weight 104.326 kg PHYSICAL EXAMINATION: GENERAL: Patient is drowsy arousable but unable to obtain any history from the patient. HEENT: Pupils are round and equally reacting to light. EOMI. No scleral icterus. No conjunctival pallor. Normocephalic, atraumatic. No pharyngeal erythema. No thyromegaly. CARDIOVASCULAR: S1 and S2 present. No murmurs, rubs, or gallops. PULMONARY: Chest is clear to auscultation, no wheezing or crackles. ABDOMEN: Soft, nontender, nondistended, normoactive bowel sounds. No palpable organomegaly. Has a Stovall catheter in place MUSCULOSKELETAL: No joint swelling or deformity. EXTREMITIES: No cyanosis, clubbing, or pedal edema. NEUROLOGICAL: Unable to assess does move all his 4 limbs SKIN: No rashes. Results CBC & Chem 7: 08/20/19 05:26 08/20/19 05:26 Labs: Abnormal Lab Results - Last 24 Hours (Table) 08/20/19 08/20/19 08/20/19 Range/Units 05:17 05:19 05:26 WBC (3.8-10.6) k/uL RBC (4.30-5.90) m/uL Neutrophils # (1.3-7.7) k/uL APTT (22.0-30.0) sec VBG pH 7.29 L (7.31-7.41) VBG HCO3 22 L (24-28) mmol/L Sodium (137-145) mmol/L Chloride (98-107) mmol/L Carbon Dioxide (22-30) mmol/L Glucose (74-99) mg/dL POC Glucose (mg/dL) 538 H 501 H (75-99) mg/dL Plasma Lactic Acid Trevin (0.7-2.0) mmol/L Alkaline Phosphatase (38-126) U/L Urine Protein (Negative) Urine Glucose (UA) (Negative) Urine Ketones (Negative) Amorphous Sediment (None) /hpf Urine Mucus (None) /hpf 08/20/19 08/20/19 08/20/19 Range/Units 05:26 05:26 05:26 WBC 12.7 H (3.8-10.6) k/uL RBC 6.34 H (4.30-5.90) m/uL Neutrophils # 10.9 H (1.3-7.7) k/uL APTT 20.6 L (22.0-30.0) sec VBG pH (7.31-7.41) VBG HCO3 (24-28) mmol/L Sodium 132 L (137-145) mmol/L Chloride 96 L (98-107) mmol/L Carbon Dioxide 20 L (22-30) mmol/L Glucose 532 H* (74-99) mg/dL POC Glucose (mg/dL) (75-99) mg/dL Plasma Lactic Acid Trevin (0.7-2.0) mmol/L Alkaline Phosphatase 175 H (38-126) U/L Urine Protein (Negative) Urine Glucose (UA) (Negative) Urine Ketones (Negative) Amorphous Sediment (None) /hpf Urine Mucus (None) /hpf 08/20/19 08/20/19 08/20/19 Range/Units 05:26 05:52 07:02 WBC (3.8-10.6) k/uL RBC (4.30-5.90) m/uL Neutrophils # (1.3-7.7) k/uL APTT (22.0-30.0) sec VBG pH (7.31-7.41) VBG HCO3 (24-28) mmol/L Sodium (137-145) mmol/L Chloride (98-107) mmol/L Carbon Dioxide (22-30) mmol/L Glucose (74-99) mg/dL POC Glucose (mg/dL) 333 H (75-99) mg/dL Plasma Lactic Acid Trevin 4.4 H* (0.7-2.0) mmol/L Alkaline Phosphatase (38-126) U/L Urine Protein 1+ H (Negative) Urine Glucose (UA) 4+ H (Negative) Urine Ketones 2+ H (Negative) Amorphous Sediment Rare H (None) /hpf Urine Mucus Rare H (None) /hpf 08/20/19 08/20/19 Range/Units 08:49 09:42 WBC (3.8-10.6) k/uL RBC (4.30-5.90) m/uL Neutrophils # (1.3-7.7) k/uL APTT (22.0-30.0) sec VBG pH (7.31-7.41) VBG HCO3 (24-28) mmol/L Sodium (137-145) mmol/L Chloride (98-107) mmol/L Carbon Dioxide (22-30) mmol/L Glucose (74-99) mg/dL POC Glucose (mg/dL) 322 H 333 H (75-99) mg/dL Plasma Lactic Acid Trevin (0.7-2.0) mmol/L Alkaline Phosphatase (38-126) U/L Urine Protein (Negative) Urine Glucose (UA) (Negative) Urine Ketones (Negative) Amorphous Sediment (None) /hpf Urine Mucus (None) /hpf Assessment and Plan Plan: Encephalopathy most probably metabolic: Etiology is not clear probably hyperglycemia and intravascular depletion is contributing to that patient was started on IV fluids no evidence of sepsis at this time. We'll Allso obtain an EEG. Patient received quite a bit of Ativan because of which his probably still drowsy now. Possibility of stroke is low -Hypertension, essential uncontrolled will monitor the blood pressure depending on that will start him on antidepressant medications. -Hypoglycemia without DKA but cannot rule out hyperosmolar state his blood sugars have come down because of which he will not require any IV insulin pat ient will be started on sliding scale insulin with need to verify his home medications -hyponatremia probably pseudohyponatremia from hyperglycemia -DVT prophylaxis. Heparin
[2019-08-20] MEDS: SODIUM CHLORIDE 0.9% 1,000 ML IV SCH ×2 (10:39→14:39)
[2019-08-20 11:23] LABS: Glucose,Whole Blood 279 mg/dL (75-99)
[2019-08-20] MEDS: INSULIN ASPART (NovoLOG) 100 UNIT/ML VIAL SQ SCH ×2 (11:45→17:39)
--- NOTE | 2019-08-20 13:00 | ECHOF ---
Referral Reason:Thrombus MEASUREMENTS -------- HEIGHT: 172.7 cm WEIGHT: 104.3 kg BP: 145/97 RVIDd: 3.2 cm (< 3.3) IVSd: 1.3 cm (0.6 - 1.1) LVIDd: 4.2 cm (3.9 - 5.3) LVPWd: 1.2 cm (0.6 - 1.1) IVSs: 1.7 cm LVIDs: 3.7 cm LVPWs: 1.5 cm LA Diam: 4.0 cm (2.7 - 3.8) Ao Diam: 3.3 cm (2.0 - 3.7) AV Cusp: 2.1 cm (1.5 - 2.6) LA Diam: 4.1 cm (2.7 - 3.8) MV EXCURSION: 12.148 mm (> 18.000) MV EF SLOPE: 114 mm/s (70 - 150) EPSS: 0.8 cm MV E Kit: 1.14 m/s MV DecT: 71 ms MV A Kit: 0.04 m/s MV E/A Ratio: 31.56 RAP: 5.00 mmHg RVSP: 12.45 mmHg FINDINGS -------- Atrial fibrillation. This was a techncally difficult study with suboptimal views, , Lumason utilized for enhancement of im ages. The left ventricular size is normal. There is mild concentric left ventricular hypertrophy. Overa ll left ventricular systolic function is mildly impaired with, an EF between 45 - 50 %. The right ventricle is normal in size. The left atrial size is normal. The right atrial size is normal. 5.0mg OF Lumason UTLIZED: 2 OR MORE WALL SEGMENTS NOT VISUALIZED. There is mild aortic valve sclerosis. There is no evidence of aortic regurgitation. Mild mitral annular calcification present. Mild mitral regurgitation is present. Mild tricuspid regurgitation present. Right ventricular systolic pressure is normal at < 35 mmHg. There is no evidence of pulmonary hypertension. There is no pulmonic regurgitation present. The aortic root size is normal. There is no pericardial effusion. CONCLUSIONS -------- 1. Atrial fibrillation. 2. This was a techncally difficult study with suboptimal views, , Lumason utilized for enhancement of images. 3. The left ventricular size is normal. 4. There is mild concentric left ventricular hypertrophy. 5. Overall left ventricular systolic function is mildly impaired with, an EF between 45 - 50 %. 6. The right ventricle is normal in size. 7. The left atrial size is normal. 8. The right atrial size is normal. 9. 5.0mg OF Lumason UTLIZED: 2 OR MORE WALL SEGMENTS NOT VISUALIZED. 10. There is mild aortic valve sclerosis. 11. Mild mitral annular calcification present. 12. Mild mitral regurgitation is present. 13. Mild tricuspid regurgitation present. 14. Right ventricular systolic pressure is normal at < 35 mmHg. 15. There is no evidence of pulmonary hypertension. 16. There is no pulmonic regurgitation present. 17. The aortic root size is normal. 18. There is no pericardial effusion. SLACK LINE YARDER: Arlyn Hansen RDCS
--- NOTE | 2019-08-20 14:44 | P.CNNES ---
History of Present Illness Consult date: 08/20/19 Requesting physician: Harlan Richard Reason for Consult: Altered mental status, possible CVA History of Present Illness: Patient is a 64-year-old male brought to the hospital by EMS at 5:12 AM today, after he was reportedly found laying in his driveway on his knees and forearms by a neighbor. Patient not able to provide history on arrival. According to EMS flow sheet, when they arrived, his GCS was 11. EMS noted abrasions on the patient forearms. Unknown time of last time he was seen well. His blood glucose was 139. Patient was unable to answer questions. Patient's blood pressure was 190/127, pulse rate for 14, saturation 100% impression 98.7. When he arrived to the ER, patient was able to answer simple questions. CTA was attempted, but patient was not cooperative despite giving multiple doses of Ativan. Patient underwent CT head showed no acute intracranial hemorrhage or midline shift. There is moderate diffuse age-related cerebral atrophy and chronic small vessel ischemic change redemonstrated. No significant change from prior study. Chest x-ray showed mild cardiomegaly without acute process. EKG showed sinus tachycardia, septal infarct, age undetermined. 2-D echo showed atrial fibrillation. Left-ventricular size is normal. Mild concentric LVH. EF is 45-50%. Left atrial size is normal. There is mild aortic valve sclerosis. Patient's WBC is 12.7 hemoglobin 16.8 and platelets 247. PT/PTT normal. VBG showed pH 7.29, pCO2 47. Sodium 132 potassium 4.2 and renal functions normal. Patient's blood glucose is 532, A1c 7.2 on 12/02/2015. Rheumatoid factor negative, ANH and dsDNA negative in 2014. Patient had a carotid Doppler, which revealed no hemodynamically significant stenosis in either ICA. Antegrade flow in both vertebral arteries. Patient is currently on aspirin 325 mg, heparin subcu and NovoLog. No family members have been contacted. He has a brother who apparently had . Patient still not able to speak any words. He did open eyes, but appears enc ephalopathic. Right side appears slightly weaker than the left as per examination below. Review of Systems ROS unobtainable: due to mental status Past Medical History Past Medical History: Diabetes Mellitus, Hyperlipidemia, Hypertension Additional Past Medical History / Comment(s): NIDDM type II, neuropathy R foot, 2009 CVA with very slight R sided weakness, bronchitis, vertigo, bilateral ca rpal tunnel syndrome. History of Any Multi-Drug Resistant Organisms: None Reported Past Surgical History: Tonsillectomy Past Anesthesia/Blood Transfusion Reactions: No Reported Reaction Smoking Status: Never smoker - Past Family History Father Additional Family Medical History / Comment(s): Father after a head injury with ruptured blood vessel at the age of 54 yrs. Mother Family Medical History: Cancer Additional Family Medical History / Comment(s): Mother had cervical cancer as a young person. She of colon cancer at the age of 72 yrs. Medications and Allergies Home Medications Medication Instructions Recorded Confirmed Type No Known Home Medications 08/20/19 08/20/19 History Allergies Allergy/AdvReac Type Severity Reaction Status Date / Time Penicillins Allergy Itching Verified 08/20/19 09:18 Physical Examination - Vital Signs Vital Signs: Vital Signs Temp Pulse Pulse Resp BP BP Pulse Ox 08/20/19 11:23 99.6 F 117 H 20 167/89 97 08/20/19 09:40 99.1 F 115 H 20 184/98 97 08/20/19 09:05 116 H 22 99 08/20/19 08:38 112 H 22 145/97 99 08/20/19 08:05 118 H 16 134/90 100 08/20/19 07:24 176/141 08/20/19 07:00 115 H 18 174/129 98 08/20/19 06:45 120 H 17 129/82 98 08/20/19 06:30 125 H 17 172/122 97 08/20/19 06:15 120 H 18 209/118 98 08/20/19 06:00 123 H 19 183/137 97 08/20/19 05:45 116 H 18 183/117 98 08/20/19 05:30 120 H 19 192/133 97 08/20/19 05:20 116 H 18 173/128 98 08/20/19 05:14 98.9 F 110 H 18 177/120 97 Intake and Output 08/19/19 08/20/19 08/20/19 22:59 06:59 14:59 Output Total 1500 Balance -1500 Output: Urine 1500 Other: Voiding Method Indwelling Catheter Weight 104.326 kg 104.326 kg On examination patient is a 64-year-old male, who is somewhat disheveled, has multiple bruises over his forearms, back of his hands. He has a lot of dirt on his extremities. Patient not able to speak any words. He does say "yes" but did not tell me his name, or name any objects that are presented. Face appears symmetric. Pupils are round and reacting. Visual maldonado could not be tested. He keeps his eyes closed. Patient's right arm appears slightly weaker than the left. He does move his right arm, but not as well as left. He moves his legs equally. Reflexes symmetric and plantars are withdrawal. Tone is equal bilaterally. No obvious seizure activity noted. No obvious bruit S1 and S2 audible. Results - Laboratory Findings CBC and BMP: 08/20/19 05:26 08/20/19 05:26 Abnormal Lab Findings: Abnormal Labs 08/20/19 08/20/19 08/20/19 05:17 05:19 05:26 WBC RBC Neutrophils # APTT VBG pH 7.29 L VBG HCO3 22 L Sodium Chloride Carbon Dioxide Glucose POC Glucose (mg/dL) 538 H 501 H Plasma Lactic Acid Trevin Alkaline Phosphatase Urine Protein Urine Glucose (UA) Urine Ketones Amorphous Sediment Urine Mucus 08/20/19 08/20/19 08/20/19 05:26 05:26 05:26 WBC 12.7 H RBC 6.34 H Neutrophils # 10.9 H APTT 20.6 L VBG pH VBG HCO3 Sodium 132 L Chloride 96 L Carbon Dioxide 20 L Glucose 532 H* POC Glucose (mg/dL) Plasma Lactic Acid Trevin Alkaline Phosphatase 175 H Urine Protein Urine Glucose (UA) Urine Ketones Amorphous Sediment Urine Mucus 08/20/19 08/20/19 08/20/19 05:26 05:52 07:02 WBC RBC Neutrophils # APTT VBG pH VBG HCO3 Sodium Chloride Carbon Dioxide Glucose POC Glucose (mg/dL) 333 H Plasma Lactic Acid Trevin 4.4 H* Alkaline Phosphatase Urine Protein 1+ H Urine Glucose (UA) 4+ H Urine Ketones 2+ H Amorphous Sediment Rare H Urine Mucus Rare H 08/20/19 08/20/19 08/20/19 08:49 09:42 11:21 WBC RBC Neutrophils # APTT VBG pH VBG HCO3 Sodium Chloride Carbon Dioxide Glucose POC Glucose (mg/dL) 322 H 333 H 279 H Plasma Lactic Acid Trevin Alkaline Phosphatase Urine Protein Urine Glucose (UA) Urine Ketones Amorphous Sediment Urine Mucus Assessment and Plan Assessment: * 64-year-old male admitted after he was found unresponsive in the driveway, now with altered mental status. Patient appears aphasic, with slight weakness of the right arm as compared to the left. Rule out acute CVA. Patient's blood sugar at the scene was 139. Rule out toxic metabolic encephalopathy. * Diabetes, poorly controlled * Atrial fibrillation noted on 2-D echo report. * Hyponatremia Plan: * Patient has evidence of mild focality to the examination. Also has evidence of possible atrial fibrillation documented on the 2-D echo report. CVA with aphasia is the likely possibility. Suggest cardiology consultation. Patient does have mild leukocytosis and low-grade temperature. No definitive signs of intracranial infection at this time. * Agree with checking MRI of the brain to evaluate for an acute stroke, and MRA of the head. * Carotid Doppler showed no hemodynamically significant stenosis of either ICA. Antegrade flow in both vertebral arteries. * Await EEG to evaluate for encephalopathy. * We will check hemoglobin A1c, fasting a.m. lipid panel. * Continue telemetry monitoring. * Patient has received aspirin in the ER. Continue aspirin 325 mg daily.
[2019-08-20] MEDS: HEPARIN SODIUM,PORCINE 5,000 UNIT/ML 1 ML VIAL SQ SCH (15:19)
[2019-08-20 15:32] LABS: Cholesterol 239 mg/dL (<200); HDL Cholesterol 44 mg/dL (40-60); LDL Cholesterol,Calculated 160 mg/dL (0-99); Triglycerides 173 mg/dL (<150)
[2019-08-20 17:26] LABS: Glucose,Whole Blood 227 mg/dL (75-99)
[2019-08-21] MEDS: HEPARIN SODIUM,PORCINE 5,000 UNIT/ML 1 ML VIAL SQ SCH ×4 (00:06→23:39)
[2019-08-21] MEDS: INSULIN ASPART (NovoLOG) 100 UNIT/ML VIAL SQ SCH ×5 (00:06→21:18)
[2019-08-21] MEDS: SODIUM CHLORIDE 0.9% 1,000 ML IV SCH (00:11)
[2019-08-21 00:24] LABS: Glucose,Whole Blood 205 mg/dL (75-99)
[2019-08-21 03:27] LABS: Hemoglobin A1C 15.3 % (4.0-6.0)
[2019-08-21 06:12] LABS: Glucose,Whole Blood 202 mg/dL (75-99)
[2019-08-21 06:31] LABS: HCT 44.2 % (39.0-53.0); HGB 14.5 gm/dL (13.0-17.5); MCH 27.3 pg (25.0-35.0); MCHC 32.8 g/dL (31.0-37.0); MCV 83.3 fL (80.0-100.0); Mean Platelet Volume 7.4; Platelet Count 205 k/uL (150-450); WBC 10.2 k/uL (3.8-10.6)
[2019-08-21 06:42] LABS: African American GFR (CKD) >90 (>60 ml/min/1.73 sqM); Anion Gap 7 mmol/L; Blood Urea Nitrogen 20 mg/dL (9-20); Carbon Dioxide 24 mmol/L (22-30); Chloride 104 mmol/L (98-107); Cholesterol 189 mg/dL (<200); Glucose 223 mg/dL (74-99); HDL Cholesterol 39 mg/dL (40-60); LDL Cholesterol,Calculated 121 mg/dL (0-99); Non-African American GFR(CKD) >90 (>60 ml/min/1.73 sqM); Sodium 135 mmol/L (137-145); Triglycerides 144 mg/dL (<150)
[2019-08-21] MEDS: ASPIRIN 325 MG TAB PO SCH (08:08)
[2019-08-21 11:08] VITALS: BMI 36.0
[2019-08-21] MEDS: LISINOPRIL 10 MG TAB PO SCH (11:20)
[2019-08-21] MEDS: metFORMIN 500 MG TAB PO SCH ×2 (11:20→16:06)
[2019-08-21] MEDS: LINAGLIPTIN 5 MG TABLET PO SCH (11:20)
--- NOTE | 2019-08-21 11:42 | P.PN ---
Subjective 64-year-old the female was admitted secondary to significant confusion, altered mental status and unresponsiveness patient is presently alert oriented 3. May try to get medication list for the patient patient is apparently diabetic has not seen primary care physician for longtime has not been taking his medications patient probably has metabolic encephalopathy because of hyperglycemia and electrolyte derangement. Possibility of stroke is low although I'm still awaiting on MRA results. Patient will be started on lisinopril does have decrea sed ejection fraction of 45-50% hopefully this is transient echocardiogram need to be repeated in 3-6 months patient is euvolemic IV fluids will be discontinued patient is able to drink water. Physical therapy evaluated the patient is recommending subacute rehabilitation. social group worker will evaluate the patient as well. Patient was started on oral hypoglycemic agents will continue to monitor his blood sugars. Disposition to subacute rehabilitation whenever he is accepted there. Constitutional: Denied any fatigue denied any fever. Cardio vascular: denied any chest pain, palpitations Gastrointestinal denied any nausea vomiting Pulmonary: Denied any shortness of breath cough Neurologic denied any new focal deficits All inpatient medications were reviewed and appropriate changes in these medications as dictated in the interval history and assessment and plan. Objective - Vital Signs Vital signs: Vital Signs Temp 98.5 F 08/21/19 08:40 Pulse 91 08/21/19 08:40 Resp 18 08/21/19 08:40 BP 157/94 08/21/19 08:40 Pulse Ox 96 08/21/19 08:40 Intake & Output 08/20/19 08/21/19 08/21/19 18:59 06:59 18:59 Intake Total 1050 800 Output Total 2750 850 500 Balance -1700 -50 -500 Weight 104.326 kg 107.5 kg 107.5 kg Intake: IV 1050 750 Sodium Chloride 0.9% 1, 1000 750 000 ml @ 125 mls/hr IV . Q8H ANGELITO Rx#:[id number] 1 gm In 50 Sodium Chloride 0.9% 50 ml @ 100 mls/hr IVPB ONCE STA Rx#:[id number] Oral 50 Output: Urine 2750 850 500 Uretheral (Stovall) 300 500 Other: Voiding Method Indwelling Catheter Indwelling Catheter Indwelling Catheter - Exam PHYSICAL EXAMINATION: GENERAL: The patient is alert and oriented x3, not in any acute distress. Well developed, well nourished. HEENT: Pupils are round and equally reacting to light. EOMI. No scleral icterus. No conjunctival pallor. Normocephalic, atraumatic. No pharyngeal erythema. No thyromegaly. CARDIOVASCULAR: S1 and S2 present. No murmurs, rubs, or gallops. PULMONARY: Chest is clear to auscultation, no wheezing or crackles. ABDOMEN: Soft, nontender, nondistended, normoactive bowel sounds. No palpable organomegaly. MUSCULOSKELETAL: No joint swelling or deformity. EXTREMITIES: No cyanosis, clubbing, or pedal edema. NEUROLOGICAL: Gross neurological examination did not reveal any focal deficits. SKIN: All table bruises from fall and lying on the floor - Labs CBC & Chem 7: 08/21/19 05:43 08/21/19 05:43 Labs: Abnormal Lab Results - Last 24 Hours (Table) 08/20/19 08/20/19 08/20/19 Range/Units 05:26 05:26 17:25 Sodium (137-145) mmol/L Glucose (74-99) mg/dL POC Glucose (mg/dL) 227 H (75-99) mg/dL Hemoglobin A1c 15.3 H (4.0-6.0) % Triglycerides 173 H (<150) mg/dL Cholesterol 239 H (<200) mg/dL LDL Cholesterol, Calc 160 H (0-99) mg/dL HDL Cholesterol (40-60) mg/dL 08/20/19 08/21/19 08/21/19 Range/Units 23:57 05:43 06:01 Sodium 135 L (137-145) mmol/L Glucose 223 H (74-99) mg/dL POC Glucose (mg/dL) 205 H 202 H (75-99) mg/dL Hemoglobin A1c (4.0-6.0) % Triglycerides (<150) mg/dL Cholesterol (<200) mg/dL LDL Cholesterol, Calc 121 H (0-99) mg/dL HDL Cholesterol 39 L (40-60) mg/dL Microbiology - Last 24 Hours (Table) 08/20/19 05:26 Blood Culture - Preliminary Blood No Growth after 24 hours Assessment and Plan Plan: Encephalopathy most probably metabolic: Etiology is not clear probably hyperg lycemia and intravascular depletion and the left might abnormalities all of which improved and patient is alert oriented 3. Patient is awaiting MRI as recommended by neurology echocardiogram was done as a part of for a stroke workup showed decreased EF of around 50-50% although patient is not in heart failure exacerbation. -Generalized deconditioning: Patient will need the placement in subacute rehabilitation -congestive heart failure possible chronic systolic dysfunction without any acute exacerbation patient was started on lisinopril will not require any Lasix at this time -Hypertension, essential uncontrolled patient is being started on lisinopril -Hypoglycemia without DKA hyperglycemia improved patient was started on Januvia and metformin -hyponatremia probably pseudohyponatremia from hyperglycemia improved now -DVT prophylaxis. Heparin
[2019-08-21 11:54] LABS: Glucose,Whole Blood 202 mg/dL (75-99)
--- NOTE | 2019-08-21 14:29 | P.PN ---
Subjective Progress Note Date: 08/21/19 Patient much more alert and awake. Patient still appears slightly encephalopathic/delirious. Patient apparently getting a bath. Patient denies any history of seizures. Patient states that he does remember passing out, and then woke up in the hospital. He has history of CVA in 2008, which affected the right side. Objective - Vital Signs Vital signs: Vital Signs Temp 98.2 F 08/21/19 12:19 Pulse 99 08/21/19 12:19 Resp 18 08/21/19 12:19 BP 154/84 08/21/19 12:19 Pulse Ox 96 08/21/19 12:19 Intake & Output 08/20/19 08/21/19 08/21/19 18:59 06:59 18:59 Intake Total 1050 800 Output Total 2750 850 500 Balance -1700 -50 -500 Weight 104.326 kg 107.5 kg 107.5 kg Intake: IV 1050 750 Sodium Chloride 0.9% 1, 1000 750 000 ml @ 125 mls/hr IV . [facility] Rx#:[id number] cefTRIAXone 1 gm In 50 Sodium Chloride 0.9% 50 ml @ 100 mls/hr IVPB ONCE STA Rx#:[id number] Oral 50 Output: Urine 2750 850 500 Uretheral (Stovall) 300 500 Other: Voiding Method Indwelling Catheter Indwelling Catheter Incontinent - Exam Patient is alert and awake. States that he is in [facility]. He states it's end of June and the year is 2019. He thinks he is 56 years old. He knows name of the current president. Patient's speech is mildly slurred. At times difficult to understand. Patient sometimes rambles. Face is symmetric. Visual maldonado are full. He does move her extremities well, he does have poor posture while sitting, and tends to veer to one or the other side. - Labs CBC & Chem 7: 08/21/19 05:43 08/21/19 05:43 Labs: Abnormal Lab Results - Last 24 Hours (Table) 08/20/19 08/20/19 08/20/19 Range/Units 05:26 05:26 17:25 Sodium (137-145) mmol/L Glucose (74-99) mg/dL POC Glucose (mg/dL) 227 H (75-99) mg/dL Hemoglobin A1c 15.3 H (4.0-6.0) % Triglycerides 173 H (<150) mg/dL Cholesterol 239 H (<200) mg/dL LDL Cholesterol, Calc 160 H (0-99) mg/dL HDL Cholesterol (40-60) mg/dL 08/20/19 08/21/19 08/21/19 Range/Units 23:57 05:43 06:01 Sodium 135 L (137-145) mmol/L Glucose 223 H (74-99) mg/dL POC Glucose (mg/dL) 205 H 202 H (75-99) mg/dL Hemoglobin A1c (4.0-6.0) % Triglycerides (<150) mg/dL Cholesterol (<200) mg/dL LDL Cholesterol, Calc 121 H (0-99) mg/dL HDL Cholesterol 39 L (40-60) mg/dL 08/21/19 Range/Units 11:52 Sodium (137-145) mmol/L Glucose (74-99) mg/dL POC Glucose (mg/dL) 202 H (75-99) mg/dL Hemoglobin A1c (4.0-6.0) % Triglycerides (<150) mg/dL Cholesterol (<200) mg/dL LDL Cholesterol, Calc (0-99) mg/dL HDL Cholesterol (40-60) mg/dL Microbiology - Last 24 Hours (Table) 08/20/19 05:26 Blood Culture - Preliminary Blood No Growth after 24 hours Assessment and Plan Assessment: * 64-year-old male admitted after he was found unresponsive in the driveway, with altered mental status. Patient has mild encephalopathy at this time. Mentation is much improved today as compared to yesterday. Rule out acute CVA. Patient's blood sugar at the scene was 139. Rule out toxic metabolic encephalopathy. * Diabetes, poorly controlled * Atrial fibrillation noted on 2-D echo report. * Hyponatremia Plan: * Patient has clinically improved. Still has significant gait imbalance, rule out CVA. Await MRI and MRA of the brain. * Carotid Doppler showed no hemodynamically significant stenosis of either ICA. Antegrade flow in both vertebral arteries. * EEG showed showed mild background slowing and disorganization, consistent with encephalopathy. No epileptiform activity was seen. * Hemoglobin A1c 15.3, consistent with very poorly controlled diabetes, need to optimize control of diabetes to target A1c <7.0. * We will check B12, folate, RPR, TSH, vitamin B1 level. We will start thiamine 100 mg daily. * Fasting a.m. lipid panel with cholesterol 189, LDL 121, HDL 39 and triglycerides 144. We will start Lipitor 20 mg daily. * Telemetry monitoring showed no evidence of atrial fibrillation, only sinus rhythm, controlled at rate 90 with some PVCs.. * Continue aspirin 325 mg daily. Addendum 4:07 pm: MRI of the brain revealed scattered small foci of acute ischemic change left lee radiate and subcortical white matter with an additional subcortical ischemic changes within the posterior right centrum semiovale. As reviewed the MRI on the computer, and agree with the findings. MRA of brain appears normal, official report still pending. Patient's 2-D echo report documented "atrial fibrillation". Suggest cardiology consultation for possible GIOVANNY, and also to rule out atrial fibrillation. Patient may be a candidate for long-term anticoagulation.
--- NOTE | 2019-08-21 15:42 | MR ---
EXAMINATION TYPE: MR brain wo con DATE OF EXAM: 08/21/2019 COMPARISON: None HISTORY: Altered mental status CONTRAST: Performed utilizing 0 mL intravenous Gadavist gadolinium contrast. TECHNIQUE: Multiplanar, multiecho imaging on a 3.0 Meg magnet is performed through the brain. Stud y is performed within 24 hours of arrival to the hospital. Fast protocol was utilized due to patient condition. The craniovertebral junction is normal. The pituitary is normal. Diffusion-weighted imaging is performed. There is some faint increased signal within the left lee radiata. A left parietal subcortical white matter change in the deep white matter change within the subcortical white matter of the parietal and occipital lobes is present. Series 305 images 200, 192, 176, 160. Small focus in the subcortical right centrum semiovale is present. Series 305 image 192. Sm all foci of acute ischemic change is present. Periventricular white matter changes are present. There is a focus of increased signal within the rig ht thalamus. Findings are compatible with chronic white matter ischemic changes. Couple of these do c orrelate with the diffusion-weighted imaging at the acute ischemic change areas. Ventricles and sulci are prominent for the patient age. IMPRESSIONS: 1. Scattered small foci of acute ischemic change left lee radiata and subcortical white matter wit h an additional subcortical ischemic change within the posterior right centrum semiovale. 2. Prominent atrophy with periventricular chronic appearing white matter ischemic type changes discus sed above.
--- NOTE | 2019-08-21 15:50 | EEG ---
ELECTROENCEPHALOGRAM REPORT DATE OF SERVICE: 08/21/2019 PREAMBLE: This is a 64-year-old male who was admitted for altered mental status. This study is performed to evaluate for any epileptiform activity. EEG FINDINGS: A routine 21-channel awake digital EEG recording was accomplished utilizing the 10/20 international system with bipolar and referential montages. The background consists of well-developed, moderately well-regulated, mixed frequency of 7-8 Hz, intermixed with some theta and delta activity. Background does not seem to be clearly reactive to eye opening and closing. Photic driving response was not clearly seen. Some drowsiness was seen, but deeper stages of sleep were not attained. No focal or generalized epileptiform activity was seen. IMPRESSION: This is a mildly abnormal EEG due to background slowing and disorganization. This is suggestive of mild generalized cerebral dysfunction, nonspecific etiology, can be seen with encephalopathies of metabolic, vascular or degenerative causes. No epileptiform activity was seen. MMODL / IJN: [id number] / [id number]
[2019-08-21] MEDS: THIAMINE 100 MG TAB PO SCH (16:06)
[2019-08-21] MEDS: ATORVASTATIN 20 MG TAB PO SCH (16:06)
--- NOTE | 2019-08-21 16:12 | MR ---
EXAMINATION TYPE: MR angio head wo con DATE OF EXAM: 08/21/2019 COMPARISON: 11/25/2011 HISTORY: Altered mental status CONTRAST: None TECHNIQUE: Multiplanar multiecho imaging on a 3.0 Meg magnet is performed through the [place]. 3-D [id number] imaging is performed. Source images are reviewed on the computer in the axi al plane. Reconstructed images rotating on the computer are reviewed. Motion artifact on source imag es causes some limitation. FINDINGS: The internal carotid arteries bifurcate normally into A1 and M1 segments. The A2 segments are normal. Middle cerebral artery branches are normal. Anterior communicating artery is patent. The right posterior communicating artery is absent. The left posterior communicating artery is absent. Vertebrobasilar arteries within the [id number] are normal. Posterior cerebral vasculature is norm al. No suspicious aneurysm or aneurysmal dilatation is evident. No obstructions are identified. No significant flow-limiting stenosis is evident. IMPRESSIONS: 1. NORMAL MRA [place].
[2019-08-21 16:57] LABS: Glucose,Whole Blood 303 mg/dL (75-99)
[2019-08-21 20:52] LABS: Glucose,Whole Blood 430 mg/dL (75-99)
[2019-08-21 23:42] LABS: Glucose,Whole Blood 176 mg/dL (75-99)
[2019-08-22 06:54] LABS: Glucose,Whole Blood 194 mg/dL (75-99)
[2019-08-22] MEDS: INSULIN ASPART (NovoLOG) 100 UNIT/ML VIAL SQ SCH ×4 (08:34→20:14)
[2019-08-22] MEDS: ASPIRIN 325 MG TAB PO SCH (08:35)
[2019-08-22] MEDS: HEPARIN SODIUM,PORCINE 5,000 UNIT/ML 1 ML VIAL SQ SCH ×3 (08:35→23:59)
[2019-08-22] MEDS: ATORVASTATIN 20 MG TAB PO SCH (08:35)
[2019-08-22] MEDS: metFORMIN 500 MG TAB PO SCH ×2 (08:35→17:14)
[2019-08-22] MEDS: THIAMINE 100 MG TAB PO SCH (08:35)
[2019-08-22] MEDS: LISINOPRIL 10 MG TAB PO SCH (08:35)
[2019-08-22 11:10] LABS: Glucose,Whole Blood 246 mg/dL (75-99)
[2019-08-22] MEDS: LINAGLIPTIN 5 MG TABLET PO SCH (13:31)
--- NOTE | 2019-08-22 14:49 | P.PN ---
Subjective Progress Note Date: 08/22/19 Principal diagnosis: 64-year-old male was admitted secondary to significant confusion, altered mental status and unresponsiveness patient is presently alert oriented 3. May try to get medication list for the patient patient is apparently diabetic has not seen primary care physician for longtime has not been taking his medications patient probably has metabolic encephalopathy because of hyperglycemia and electrolyte derangement. Possibility of stroke is low although I'm still awaiting on MRA results. Patient will be started on lisinopril does have decreased ejection fraction of 45-50% hopefully this is transient echocardiogram need to be repeated in 3-6 months patient is euvolemic IV fluids will be discontinued patient is able to drink water. Physical therapy evaluated the patient is recommending subacute rehabilitation. personal service workers will evaluate the patient as well. Patient was started on oral hypoglycemic agents will continue to monitor his blood sugars. Disposition to subacute rehabilitation whenever he is accepted there. Constitutional: Denied any fatigue denied any fever. Cardio vascular: denied any chest pain, palpitations Gastrointestinal denied any nausea vomiting Pulmonary: Denied any shortness of breath cough Neurologic denied any new focal deficits 08/22/2019 Patient is seen and evaluated in follow-up today and is much more alert and re sponsive today. Patient is being evaluated by speech pathology and currently undergoing cognition testing. Per tech at the bedside his mentation is much improved from yesterday. Neurology is following. Yesterday patient underwent EEG showing some background slowing and disorganization suggestive of generalized cerebral dysfunction mild degree with no epileptiform perform activity seen. MRI of the brain was done showing scattered small foci of acute ischemic change left lee radiata and subcortical white matter with an additional subcortical ischemic change within the posterior right centrum semiovale and prominent atrophy with periventricular chronic appearing white matter ischemic type changes. MRA of the brain showed normal MRA [place]. Case management and social work following as patient is now agreeable to rehab upon discharge for continued PT/OT therapy. Plan is for possible [facility] once accepted and insurance is verified. Currently no reports of chest pain, shortness of breath, or palpitations. Patient is afebrile. No reports of nausea or vomiting and patient is tolerating diet. Patient bilateral lower extremity strength is 4-5 and upper extremity strength is also 4-5 showing some right-sided residual drifting noted of the upper extremity. Objective - Vital Signs Vital signs: Vital Signs Temp 98.2 F 08/22/19 11:03 Pulse 91 08/22/19 11:03 Resp 18 08/22/19 11:03 BP 183/97 08/22/19 11:03 Pulse Ox 96 08/22/19 11:03 Intake & Output 08/21/19 08/22/19 08/22/19 18:59 06:59 18:59 Intake Total 597 220 Output Total 700 Balance -103 220 Weight 107.5 kg Intake: Oral 597 220 Output: Urine 700 Uretheral (Stovall) 500 Other: Voiding Method Incontinent Incontinent # Voids 1 400 1 - Exam GENERAL: The patient is alert and oriented x3, not in any acute distress. Well developed, well nourished. HEENT: Pupils are round and equally reacting to light. EOMI. No scleral icterus. No conjunctival pallor. Normocephalic, atraumatic. No pharyngeal erythema. No thyromegaly. CARDIOVASCULAR: S1 and S2 present. No murmurs, rubs, or gallops. PULMONARY: Chest is clear to auscultation, no wheezing or crackles. ABDOMEN: Soft, nontender, nondistended, normoactive bowel sounds. No palpable organomegaly. MUSCULOSKELETAL: No joint swelling or deformity. EXTREMITIES: No cyanosis, clubbing, or pedal edema. 4/5 strength noted of the bilateral upper extremities with some right-sided residual drifting noted. 4/5 strength noted in bilateral lower extremities NEUROLOGICAL: Gross neurological examination did not reveal any focal deficits. SKIN: Multiple bruises noted on the hands, knees, and lower extremities from fall and lying on the floor - Labs CBC & Chem 7: 08/21/19 05:43 08/21/19 05:43 Labs: Abnormal Lab Results - Last 24 Hours (Table) 08/21/19 08/21/19 08/21/19 Range/Units 16:56 20:51 23:41 POC Glucose (mg/dL) 303 H 430 H 176 H (75-99) mg/dL 08/22/19 08/22/19 Range/Units 06:52 11:06 POC Glucose (mg/dL) 194 H 246 H (75-99) mg/dL Microbiology - Last 24 Hours (Table) 08/20/19 05:26 Blood Culture - Preliminary Blood No Growth after 48 hours Assessment and Plan Assessment: -Encephalopathy most probably metabolic: Etiology is not clear probably hyperglycemia and intravascular depletion, all of which improved and patient is alert oriented 3. Patient underwent MRI showing scattered small foci of acute ischemic change left lee radiata and subcortical white matter with an celsa tional subcortical ischemic change within the posterior right centrum semi- ovale, and prominent atrophy with periventricular chronic appearing white matter ischemic type changes noted. Head MRA done showing normal MRA [place]. Neurology is following. -Generalized deconditioning: Patient will need the placement in subacute rehabilitation, social work following for possible placement at [facility] for continued rehab once insurance is verified. -congestive heart failure possible chronic systolic dysfunction without any acute exacerbation patient was started on lisinopril will not require any Lasix at this time. echocardiogram was done as a part of for a stroke workup showed decreased EF of around 50-55% although patient is not in heart failure exacerbation. -Hypertension, essential uncontrolled. Lisinopril initiated. -Hypoglycemia without DKA hyperglycemia improved patient was started on Januvia and metformin -hyponatremia probably pseudohyponatremia from hyperglycemia, improved now -DVT prophylaxis with subq heparin
[2019-08-22 16:48] LABS: Glucose,Whole Blood >600 mg/dL (75-99)
[2019-08-22 16:48] LABS: Glucose,Whole Blood 213 mg/dL (75-99)
--- NOTE | 2019-08-22 16:52 | P.PN ---
Subjective Progress Note Date: 08/22/19 Patient now fully alert and awake, still perplexed how he passed out and woke up in the hospital. Patient is noticing right-sided weakness including right facial droopiness. This is new since arrival to the hospital. Patient denies any history of seizures. He has history of CVA in 2008, which affected the right side. Objective - Vital Signs Vital signs: Vital Signs Temp 98.2 F 08/22/19 11:03 Pulse 97 08/22/19 16:42 Resp 18 08/22/19 11:03 BP 168/96 08/22/19 16:42 Pulse Ox 96 08/22/19 11:03 Intake & Output 08/21/19 08/22/19 08/22/19 18:59 06:59 18:59 Intake Total 597 220 Output Total 700 Balance -103 220 Weight 107.5 kg Intake: Oral 597 220 Output: Urine 700 Uretheral (Stovall) 500 Other: Voiding Method Incontinent Incontinent # Voids 1 400 1 - Exam Patient is alert and awake. States that he is in [facility], in [facility]. He thinks it's June and the year is 2019. Knows name of t he current president. Patient's speech is mildly slurred. No aphasia. On cranial nerve examination, pupils are round and reactive to light, visual maldonado are full on confrontation. Patient has very subtle right-sided asymmetry. Patient has right pronator drift. The strength is normal in the left arm and left leg. His right deltoid is 3, optometric coordinator 5-, biceps and triceps appears normal. Ankle dorsiflexion is 5-, hip flexion appears fairly normal. Sensation is slightly decreased in the right arm as compared to left. - Labs CBC & Chem 7: 08/21/19 05:43 08/21/19 05:43 Labs: Abnormal Lab Results - Last 24 Hours (Table) 08/21/19 08/21/19 08/21/19 Range/Units 16:56 20:51 23:41 POC Glucose (mg/dL) 303 H 430 H 176 H (75-99) mg/dL 08/22/19 08/22/19 Range/Units 06:52 11:06 POC Glucose (mg/dL) 194 H 246 H (75-99) mg/dL Microbiology - Last 24 Hours (Table) 08/20/19 05:26 Blood Culture - Preliminary Blood No Growth after 48 hours Assessment and Plan Assessment: * 64-year-old male admitted after he was found unresponsive in the driveway, with altered mental status. Patient's metabolic encephalopathy seems to have resolved. * Acute ischemic stroke, multiple small foci, the larger one involving left lee radiata. Patient has mild right hemiparesis. * Diabetes, poorly controlled * Atrial fibrillation noted on 2-D echo report. * Hyponatremia Plan: * Patient has multifocal strokes. Patient's right hemiparesis slightly worse today. We will start Plavix 75 mg daily along with aspirin. * Carotid Doppler showed no hemodynamically significant stenosis of either ICA. Antegrade flow in both vertebral arteries. * EEG showed showed mild background slowing and disorganization, consistent with encephalopathy. No epileptiform activity was seen. * Hemoglobin A1c 15.3, consistent with very poorly controlled diabetes, need to optimize control of diabetes to target A1c <7.0. * B12, folate and vitamin B1 level still pending, RPR nonreactive, TSH normal. Continue thiamine 100 mg daily. * Fasting a.m. lipid panel with cholesterol 189, LDL 121, HDL 39 and triglycerides 144. Continue Lipitor 20 mg daily. * Suggest cardiology consultation for possible GIOVANNY, and also to rule out atrial fibrillation. Patient may be a candidate for long-term anticoagulation.
[2019-08-22 17:01] LABS: Folate, Serum 14.7 ng/mL
[2019-08-22] MEDS: CLOPIDOGREL 75 MG TAB PO SCH (17:14)
[2019-08-22 20:08] LABS: Glucose,Whole Blood 267 mg/dL (75-99)
[2019-08-22 20:08] LABS: Glucose,Whole Blood 555 mg/dL (75-99)
[2019-08-23 07:14] LABS: Glucose,Whole Blood 312 mg/dL (75-99)
[2019-08-23 07:39] LABS: Basophils % (A) 0 %; Eosinophils # (A) 0.2 k/uL (0-0.7); Eosinophils % (A) 2 %; HCT 45.3 % (39.0-53.0); HGB 14.7 gm/dL (13.0-17.5); Lymphocytes # (A) 1.2 k/uL (1.0-4.8); Lymphocytes % (A) 15 %; MCH 26.7 pg (25.0-35.0); MCHC 32.4 g/dL (31.0-37.0); MCV 82.4 fL (80.0-100.0); Mean Platelet Volume 7.2; Monocytes # (A) 0.6 k/uL (0-1.0); Monocytes % (A) 7 %; Neutrophils # (A) 5.8 k/uL (1.3-7.7); Neutrophils % (A) 74 %; Platelet Count 209 k/uL (150-450); RDW 13.7 % (11.5-15.5); WBC 7.8 k/uL (3.8-10.6)
[2019-08-23 08:00] LABS: African American GFR (CKD) >90 (>60 ml/min/1.73 sqM); Anion Gap 9 mmol/L; Blood Urea Nitrogen 20 mg/dL (9-20); Calcium 9.3 mg/dL (8.4-10.2); Carbon Dioxide 24 mmol/L (22-30); Chloride 103 mmol/L (98-107); Glucose 217 mg/dL (74-99); Non-African American GFR(CKD) >90 (>60 ml/min/1.73 sqM); Potassium 3.7 mmol/L (3.5-5.1); Sodium 136 mmol/L (137-145)
[2019-08-23] MEDS: metFORMIN 500 MG TAB PO SCH (08:48)
[2019-08-23] MEDS: CLOPIDOGREL 75 MG TAB PO SCH (08:48)
[2019-08-23] MEDS: HEPARIN SODIUM,PORCINE 5,000 UNIT/ML 1 ML VIAL SQ SCH ×2 (08:48→16:14)
[2019-08-23] MEDS: ASPIRIN 325 MG TAB PO SCH (08:48)
[2019-08-23] MEDS: INSULIN ASPART (NovoLOG) 100 UNIT/ML VIAL SQ SCH ×2 (08:48→12:30)
[2019-08-23] MEDS: THIAMINE 100 MG TAB PO SCH (08:49)
[2019-08-23] MEDS: LINAGLIPTIN 5 MG TABLET PO SCH (08:49)
[2019-08-23] MEDS ORDERED: HYDROCHLOROTHIAZIDE 25 MG TAB PO SCH (09:00)
[2019-08-23] MEDS ORDERED: LISINOPRIL 20 MG TAB PO SCH (09:00)
[2019-08-23] MEDS ORDERED: ATORVASTATIN 40 MG TAB PO SCH (09:00)
[2019-08-23] MEDS ORDERED: fentaNYL (PF) 50 MCG/ML 2 ML AMP ONE (09:03)
--- NOTE | 2019-08-23 09:15 | P.CRDCN ---
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 He denies prior history of coronary artery disease and does not follow in the office with a nib inspector for any reason. We have been asked to see in consultation for GIOVANNY. He presented to the hospital 08/20/2019 after being found altered on the ground in his driveway. EMS reports indicate his blood pressure was 190/107 and blood sugar was 139 on arrival. MRI obtained revealed scattered small foci of acute ischemic change left lee radiata and subcortical white matter ischemia within the posterior right centrum semiovale with prominent atrophy. He has been diagnosed with a CVA and is being closely followed by radiology. He is seen and examined sitting up in bed in no acute distress. He is somewhat confused regrading the circumstances of his hospitalization as well as his past medical history. He denies prior cardiac history and has never been seen in our office. He does not recall the circumstances prior to his episode. He denies ever feeling palpitations. He has no chest pain, shortness of breath, dizziness, nausea, vomiting or diaphoresis. Echocardiogram obtained on admission revealed impaired LV systolic function with ejection fraction 45-50%, mild MR, mild TR and a documented rhythm is atrial fibrillation. However, this is not an appropriate diagnostic tool to diagnose a- fib. Bilateral carotid Doppler reveals no hemodynamically significant stenosis. DIAGNOSTICS EKG reveals sinus tachycardia heart rate 117 with poor . Chest xray on admission revealed mild cardiomegaly with no acute process. Laboratory reviewed, CBC unremarkable, sodium 136, potassium 3.7, creatinine 0.6, LDL 121, HDL 39. Home medications have yet to be verified, he has been non-compliant with taking any medications recently. He has been started on aspirin 325 mg daily, plavix 75 mg daily, atorvastatin 20 mg daily and lisinopril 10 mg daily. Back in 2016 when he was seen in consultation by Dr. Araiza he was on lisinopril, amlodipine and hydrochlorothiazide. REVIEW OF SYSTEMS At the time of my exam: CONSTITUTIONAL: Denies fever or chills. CARDIOVASCULAR: Denies chest pain, shortness of breath, orthopnea, PND or palpitations. RESPIRATORY: Denies cough. GASTROINTESTINAL: Denies abdominal pain, diarrhea, constipation, nausea or vomiting. MUSCULOSKELETAL: Denies myalgias. NEUROLOGIC: Denies numbness, tingling or weakness. ENDOCRINE: Denies fatigue, weight change, polydipsia or polyurina. GENITOURINARY: Denies burning, hematuria or urgency with micturation. HEMATOLOGIC: Denies history of anemia or bleeding. PHYSICAL EXAMINATION Blood pressure 179/104 heart rate 85 afebrile and maintaining oxygen saturation on room air. CONSTITUTIONAL: No apparent distress. HEENT: Head is normocephalic. Pupils are equal, round. Sclerae anicteric. Mucous membranes of the mouth are moist. No JVD. No carotid bruit. CHEST EXAMINATION: Lungs are clear to auscultation. No chest wall tenderness is noted on palpation or with deep breathing. HEART EXAMINATION: Regular rate and rhythm. S1, S2 heard. No murmurs, gallops or rub. ABDOMEN: Soft, nontender. Positive bowel sounds. EXTREMITIES: 2+ peripheral pulses, no lower extremity edema and no calf tenderness. NEUROLOGIC EXAMINATION: Patient is awake, alert and oriented. ASSESSMENT Acute CVA Hypertension, uncontrolled Lactic acidosis, resolved Hyperglycemia on admission Diabetes mellitus Dyslipidemia Obesity, BMI 36 PLAN He was seen and evaluated prior to eating breakfast. We will schedule him for a GIOVANNY this morning to assess for LV thrombus or PFO. As far as atrial fibrillation diagnosis, apply cardiac monitor technician for the duration of his hospital stay. If no definitive diagnosis can be made we will consider outpatient event monitoring and possible loop recorder placement. Increase lisinopril to 20 mg daily and initiate hydrochlorothiazide 25 mg daily for optimal blood pressure control. Increase atorvastatin to 40 mg daily. Follow up in the office with Dr. Encarnacion for further testing regarding possible arrhythmia. Thank you kindly for this consultation. Nurse Practitioner note has been reviewed, I agree with a documented findings and plan of care. Patient was seen and examined. Past Medical History Past Medical History: Diabetes Mellitus, Hypertension Additional Past Medical History / Comment(s): Recent bronchitis-completed ABX/st eroid, NIDDM type II, neuropathy R foot, 2009 CVA with very slight R sided weakness, recent vertigo, high cholesterol-not on RX yet, bilateral carpal tunnel syndrome. History of Any Multi-Drug Resistant Organisms: None Reported Past Surgical History: Tonsillectomy Past Anesthesia/Blood Transfusion Reactions: No Reported Reaction Past Psychological History: No Psychological Hx Reported Additional Psychological History / Comment(s): Pt resides alone in his apartment. 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 He drives. He has a glucometer. Smoking Status: Never smoker Past Alcohol Use History: None Reported Past Drug Use History: None Reported - Past Family History Father Additional Family Medical History / Comment(s): Father after a head injury with ruptured blood vessel at the age of 54 yrs. Mother Family Medical History: Cancer Additional Family Medical History / Comment(s): Mother had cervical cancer as a young person. She of colon cancer at the age of 72 yrs. Medications and Allergies Home Medications Medication Instructions Recorded Confirmed Type No Known Home Medications 08/20/19 08/20/19 History Allergies Allergy/AdvReac Type Severity Reaction Status Date / Time Penicillins Allergy Itching Verified 08/20/19 09:18 Physical Exam Vitals: Vital Signs Temp Pulse Pulse Resp BP Pulse Ox 08/23/19 05:00 98.2 F 85 16 179/104 97 08/22/19 20:45 98.7 F 91 22 155/95 94 L 08/22/19 16:42 97 168/96 08/22/19 16:39 95 180/98 08/22/19 11:03 98.2 F 91 18 183/97 96 Intake and Output 08/22/19 08/23/19 08/23/19 22:59 06:59 14:59 Intake Total 480 590 Balance 480 590 Intake: Oral 480 590 Other: Voiding Method Toilet Urinal Incontinent # Voids 1 3 Results 08/23/19 07:08 08/23/19 07:08 CBC 08/23/19 Range/Units 07:08 WBC 7.8 (3.8-10.6) k/uL RBC 5.50 (4.30-5.90) m/uL Hgb 14.7 (13.0-17.5) gm/dL Hct 45.3 (39.0-53.0) % Plt Count 209 (150-450) k/uL Comprehensive Metabolic Panel 08/23/19 Range/Units 07:08 Sodium 136 L (137-145) mmol/L Potassium 3.7 (3.5-5.1) mmol/L Chloride 103 (98-107) mmol/L Carbon Dioxide 24 (22-30) mmol/L BUN 20 (9-20) mg/dL Creatinine 0.60 L (0.66-1.25) mg/dL Glucose 217 H (74-99) mg/dL Calcium 9.3 (8.4-10.2) mg/dL Current Medications Generic Name Dose Route Start Last Admin Trade Name Dennis PRN Reason Stop Dose Admin Aspirin 325 mg 08/21/19 09:00 08/22/19 08:35 Aspirin PO 325 mg DAILY ANGELITO Administration Atorvastatin Calcium 20 mg 08/21/19 14:45 08/22/19 08:35 Lipitor PO 20 mg DAILY ANGELITO Administration Clopidogrel Bisulfate 75 mg 08/22/19 15:45 08/22/19 17:14 Plavix PO 75 mg DAILY ANGELITO Administration Heparin Sodium (Porcine) 5,000 unit 08/20/19 16:00 08/22/19 23:59 Heparin SQ 5,000 unit Q8HR ANGELITO Administration Insulin Aspart 0 unit 08/21/19 17:30 08/22/19 20:14 Novolog SQ 6 unit ACHS ANGELITO Administration Protocol Linagliptin 5 mg 08/21/19 10:15 08/22/19 13:31 Tradjenta PO 5 mg DAILY ANGELITO Administration Lisinopril 10 mg 08/21/19 09:15 08/22/19 08:35 Zestril PO 10 mg DAILY ANGELITO Administration Metformin HCl 500 mg 08/21/19 10:15 08/22/19 17:14 Glucophage PO 500 mg BID-W/MEALS ANGELITO Administration Thiamine HCl 100 mg 08/21/19 14:45 08/22/19 08:35 Vitamin B-1 PO 100 mg DAILY ANGELITO Administration Intake and Output 08/22/19 08/23/19 08/23/19 22:59 06:59 14:59 Intake Total 480 590 Balance 480 590 Intake: Oral 480 590 Other: Voiding Method Toilet Urinal Incontinent # Voids 1 3 08/23/19 07:08 08/23/19 07:08
[2019-08-23] MEDS ORDERED: BENZOCAINE SPRAY 1 CAN TOPICAL ONE (09:43)
[2019-08-23] MEDS ORDERED: SODIUM CHLORIDE 0.9% 500 ML 500 ML IV ONE (09:43)
[2019-08-23] MEDS ORDERED: MIDAZOLAM 2 MG/2 ML VIAL IV ONE ×2 (09:58→10:01)
[2019-08-23] MEDS ORDERED: fentaNYL (PF) 50 MCG/ML 2 ML AMP IV ONE (09:58)
--- NOTE | 2019-08-23 10:19 | P.PCN ---
Date of Procedure: 08/23/19 Operative Findings: TRANSESOPHAGEAL ECHOCARDIOGRAM CORPORATE AFFAIRS MANAGER: RISSA PARDO MD, RPVI INDICATION: This is a very pleasant 61-year-old gentleman with hypertension and dyslipidemia who was admitted to the hospital with a stroke. The GIOVANNY is to rule out any cardiac source of embolization. SEDATION: Conscious sedation with a sedation level of 15 minutes COMPLICATION: None PROCEDURE DESCRIPTION: After obtaining an informed consent, the patient was brought to transesophageal echocardiogram room. Pulse oximetry and heart monitors were attached to the p atient. The patient throat was sprayed using lidocaine. The patient was turned into left lateral position. After that a bite guard was placed. After an appropriate conscious sedation was initiated, the transesophageal echocardiogram was advanced through a bite guard into the mid esophagus. A 2-D echocardiogram images, color Doppler images, continuous wave images, pulse-wave images, of various cardiac structure were performed. After that the transesophageal echocardiogram probe was advanced into the stomach and fixed to obtain transgastric view was. The probe was brought into the mid esophagus. Inter- atrial septum was interrogated using 2D images, color Doppler images, and then contrast study. After that transesophageal echocardiogram was withdrawn out and upon withdrawing the descending thoracic aorta all the way up to the arch was evaluated. FINDING: The left ventricular dimension and systolic function appeared to be within normal limits. Ejection fraction appeared to be in the range of 50-55%. There was mild concentric LVH seen. The right ventricle is of normal size and function. The left atrium appeared to be mildly dilated. Left atrial appendage appeared to be normal without any evidence of thrombus. The interatrial septum appears to be intact without any evidence of shunt. The aortic valve appeared to be thickened and calcified without stenosis and without regurgitations. The mitral valve seems to be thickened with mild to moderate MR. There was mild tricuspid regurgitation seen. The pulmonic valve was not well visualized. CONCLUSION: 1. No evidence of cardiac source of embolization 2. Intact interatrial septum without any evidence of shunt or PFO 3. Normal left atrial appendage without any thrombus 4. Normal left ventricular dimension and systolic function 5. Mild concentric left ventricular hypertrophy 6. Aortic sclerosis without stenosis and without insufficiency 7. Thickened anterior and posterior mitral leaflet was [id number] MR 8. Normal tricuspid valve was mild TR only 9. Normal aortic root dimension 10 Mild atherosclerotic plaque was seen in the descending aorta
[2019-08-23 12:28] LABS: Glucose,Whole Blood 186 mg/dL (75-99)
--- NOTE | 2019-08-23 12:36 | P.PN ---
Subjective Progress Note Date: 08/23/19 Patient now fully alert and awake, sitting in the chair, very pleasant, in no distress. He states that he is exercising his legs. His bruises have improved. Right side feels better. He was able to walk to the bathroom, felt more steady. No new focal symptoms. Patient denies any history of seizures. He has history of CVA in 2009, which affected the right side. Objective - Vital Signs Vital signs: Vital Signs Temp 98.2 F 08/23/19 10:27 Pulse 106 H 08/23/19 10:30 Resp 16 08/23/19 10:27 BP 154/103 08/23/19 10:27 Pulse Ox 96 08/23/19 10:27 Intake & Output 08/22/19 08/23/19 08/23/19 18:59 06:59 18:59 Intake Total 1070 200 Balance 1070 200 Intake: IV 200 Oral 1070 Other: Voiding Method Toilet Toilet Urinal Urinal Incontinent Incontinent # Voids 2 3 - Exam Patient is alert and awake. Patient is fairly well oriented. Patient's speech is mildly slurred. No aphasia. On cranial nerve examination, pupils are round and reactive to light, visual maldonado are full on confrontation. Patient has very subtle right-sided asymmetry. Patient has right pronator drift. Patient has bilateral weak deltoids, right more than left. Suspect some degree of arthritis/rotator cuff issues. Otherwise strength is normal in the left arm and left leg. His right deltoid is 3, tile mechanic 5-, biceps and triceps appears normal. Ankle dorsiflexion is 5-, hip flexion appears fairly normal. Sensation is slightly decreased in the right arm as compared to left. Patient has ataxia for [id number] testing on the right. - Labs CBC & Chem 7: 08/23/19 07:08 08/23/19 07:08 Labs: Abnormal Lab Results - Last 24 Hours (Table) 08/22/19 08/22/19 08/22/19 Range/Units 16:45 16:46 20:04 Sodium (137-145) mmol/L Creatinine (0.66-1.25) mg/dL Glucose (74-99) mg/dL POC Glucose (mg/dL) >600 H 213 H 555 H (75-99) mg/dL 03/08/23/19 08/23/19 Range/Units 20:06 07:08 07:12 Sodium 136 L (137-145) mmol/L Creatinine 0.60 L (0.66-1.25) mg/dL Glucose 217 H (74-99) mg/dL POC Glucose (mg/dL) 267 H 312 H (75-99) mg/dL 08/23/19 Range/Units 12:22 Sodium (137-145) mmol/L Creatinine (0.66-1.25) mg/dL Glucose (74-99) mg/dL POC Glucose (mg/dL) 186 H (75-99) mg/dL Microbiology - Last 24 Hours (Table) 08/20/19 05:26 Blood Culture - Preliminary Blood No Growth after 72 hours Assessment and Plan Assessment: * 64-year-old male admitted after he was found unresponsive in the driveway, with altered mental status. Patient's metabolic encephalopathy seems to have resolved. * Acute ischemic stroke, multiple small foci, the larger one involving left lee radiata. Patient has mild right hemiparesis. * Diabetes, poorly controlled * Hyponatremia Plan: * Patient has multifocal strokes. Patient's right hemiparesis slightly worse today. Continue dual antiplatelet medications including Plavix 75 mg daily along with aspirin. * Patient had a GIOVANNY performed today, which revealed no evidence of cardiac source of embolization. Intact interatrial septum without evidence of shunt or PFO. Normal left atrial appendage without any thrombus. Normal left ventricular dimension and systolic function. Mild concentric LVH. Aortic valve sclerosis without stenosis. * Carotid Doppler showed no hemodynamically significant stenosis of either ICA. Antegrade flow in both vertebral arteries. * EEG showed showed mild background slowing and disorganization, consistent with encephalopathy. No epileptiform activity was seen. * Hemoglobin A1c 15.3, consistent with very poorly controlled diabetes, need to optimize control of diabetes to target A1c <7.0. * B12 705, folate 14.7 and vitamin B1 level still pending, RPR nonreactive, TSH normal. Continue thiamine 100 mg daily. * Fasting a.m. lipid panel with cholesterol 189, LDL 121, HDL 39 and triglycerides 144. Continue Lipitor 20 mg daily. * No evidence of atrial fibrillation at this time. Patient may need an event monitor as outpatient. * Neurologically clear for discharge to rehab or home with PT, as recommended by PT and OT.
[2019-08-23 14:19] VITALS: BP 130/81
[2019-08-23 14:20] VITALS: PULSE 94; RESP 20; TEMP 97.7
[2019-08-23] MEDS ORDERED: SODIUM CHLORIDE 0.9% 1,000 ML IV STA (14:40)
--- NOTE | 2019-08-23 16:07 | P.DS ---
Providers Date of admission: 08/20/19 08:27 Expected date of discharge: 08/23/19 Attending physician: Heriberto Choudhary Consults: 08/20/19 08:28 Consult Physician Urgent Consulting Provider: Hardeep Elias Consult Reason/Comments: ams, eval for possible cva Do you want consulting provider notified?: Yes 08/22/19 15:31 Consult Physician Routine Consulting Provider: Esteban Hernandez Consult Reason/Comments: QUESTIONABLE AFIB, EVAL FOR POSSIBLE CVA, MAY NEED GIOVANNY Do you want consulting provider notified?: Yes Primary care physician: Stated None Hospital Course: Final diagnosis -Encephalopathy most probably metabolic: Etiology is not clear probably hyperglycemia and intravascular depletion -Generalized deconditioning -congestive heart failure possible chronic systolic dysfunction without any acute exacerbation, EF 50-55% -Hypertension, essential uncontrolled -Hypoglycemia without DKA hyperglycemia -hyponatremia probably pseudohyponatremia from hyperglycemia -DVT prophylaxis Discharge disposition Patient is being discharged in a stable condition with guarded prognosis to home and will continue with home care in the outpatient setting. Patient will need to reestablish with Dr. Cleveland. Patient will also be following up with cardiology in the outpatient setting. Total time taken is 35 minutes. History of present illness This is a 64-year-old male who was recently admitted with significant confusion, altered mental status and unresponsiveness and was being closely monitored. Patient is noncompliant with outpatient follow-up and medications and has no insurance. Patient was being seen and evaluated by cardiology and neurology and being worked up for possibility of acute stroke. During hospitalization patient underwent an echo showing an EF of 45-50% and also underwent GIOVANNY which was normal. Patient underwent EEG showing background slowing and disorganization suggestive of generalized cerebral dysfunction of mild degree with no seizure- like activity noted. An MRI of the brain was done showing scattered small foci of acute ischemic changes. MRA was normal. Per patient he did have a stroke back in 2008 with some right-sided deficits. Patient continues to have some right side upper extremity drifting and weakness that is slightly improved. Patient's mentation and speech has improved. Patient was seen and evaluated by PT/OT recommending rehab but given he has no insurance there are no accepting facilities at this time without insurance. Will be going home with home care and will need to reestablish with primary care provider. Patient has a neighbor Sharri that lives nearby and helps him out. Patient received a walker prior to discharge and will be getting medications filled here before discharge as well. Patient was also given a glucometer for continued testing in the outpatient setting as his blood sugars have been elevated. Patient was initiated on aspirin and Plavix, lisinopril and hydrochlorothiazide for blood pressure control, and metformin and glipizide for tighter diabetes control. Currently no reports of chest pain, shortness of breath, or palpitations. Patient is afebrile. No reports of nausea or vomiting and patient is tolerating diet. Guarded prognosis. On exam vital signs are stable. Temp is 97.7F, pulse is 114, respirations are 20, blood pressure is 130/81, oxygen saturation is 97% on room air. Cardio S1, S2 are muffled. Respiratory shows clear to auscultation. Abdomen is soft and nontender. Nervous system shows no focal deficits with some mild right side upper extremity 4/5 strength. Please refer to medication reconciliation sheet for a list of medications. Patient Condition at Discharge: Stable Plan - Discharge Summary Discharge Rx Participant: No New Discharge Prescriptions: New Aspirin 325 mg PO DAILY 30 Days #30 tab metFORMIN HCL [Glucophage] 500 mg PO BID-W/MEALS 30 Days #60 tab Hydrochlorothiazide [Hydrodiuril] 25 mg PO DAILY 30 Days #30 tab Atorvastatin [Lipitor] 40 mg PO DAILY 30 Days #30 tab Clopidogrel [Plavix] 75 mg PO DAILY 30 Days #30 tab Thiamine [Vitamin B-1] 100 mg PO DAILY 30 Days #30 tab Lisinopril [Zestril] 20 mg PO DAILY 30 Days #30 tab glipiZIDE [Glucotrol] 5 mg PO BID 30 Days #60 tab Discharge Medication List Aspirin 325 mg PO DAILY 30 Days #30 tab 08/23/19 [Rx] Atorvastatin [Lipitor] 40 mg PO DAILY 30 Days #30 tab 08/23/19 [Rx] Clopidogrel [Plavix] 75 mg PO DAILY 30 Days #30 tab 08/23/19 [Rx] Hydrochlorothiazide [Hydrodiuril] 25 mg PO DAILY 30 Days #30 tab 08/23/19 [Rx] Lisinopril [Zestril] 20 mg PO DAILY 30 Days #30 tab 08/23/19 [Rx] Thiamine [Vitamin B-1] 100 mg PO DAILY 30 Days #30 tab 08/23/19 [Rx] glipiZIDE [Glucotrol] 5 mg PO BID 30 Days #60 tab 08/23/19 [Rx] metFORMIN HCL [Glucophage] 500 mg PO BID-W/MEALS 30 Days #60 tab 08/23/19 [Rx] Follow up Appointment(s)/Referral(s): Lakeisha Cleveland MD [REFERRING] - 1-2 Days (PLEASE CALL AND SCHEDULE APPOINTMENT ) Moses Encarnacion MD [STAFF PHYSICIAN] - 09/09/19 1:30 pm [facility], [NON-STAFF] - 1 Week Patient Instructions/Handouts: Type 2 Diabetes in Adults: New Diagnosis (DC), Altered Mental Status (GEN), Tachycardia (GEN) Activity/Diet/Wound Care/Special Instructions: Patient is using indigent funds for medications and prescriptions sent to [facility] in [facility] Activity Limited until follow-up Continue diabetic diet Continue with medications Follow up with cardiology in the outpatient setting Obtain medical insurance Follow-up with primary care provider in the outpatient setting Continue to monitor blood sugars and keep a diary of the readings and bring with primary care follow-up appointment. Discharge Disposition: HOME WITH HOME HEALTH SERVICES
== END 2019-08-23 16:32 | disposition home health service (06) | DRG 64 ==
LOC: EC 05:12 → 3SCARD 08:27 → 5NMEDONC 08-21 21:56 → 6NMEDSUR 08-23 12:07
PROVIDERS: ADMIT Internal Medicine; ATTEND Internal Medicine
DX: I63.9 Cerebral infarction, unspecified (principal); G93.41 Metabolic encephalopathy; G81.91 Hemiplegia, unspecified affecting right dominant side; E87.2 Acidosis; E87.1 Hypo-osmolality and hyponatremia; I50.22 Chronic systolic (congestive) heart failure; R47.01 Aphasia; E11.42 Type 2 diabetes mellitus with diabetic polyneuropathy; E86.9 Volume depletion, unspecified; E11.65 Type 2 diabetes mellitus with hyperglycemia; G83.21 Monoplegia of upper limb affecting right dominant side; R29.711 NIHSS score 11; I08.3 Combined rheumatic disorders of mitral, aortic and tricuspid valves; I48.91 Unspecified atrial fibrillation; E78.5 Hyperlipidemia, unspecified; E66.9 Obesity, unspecified; D72.829 Elevated white blood cell count, unspecified; R40.2421 Glasgow coma scale score 9-12, in the field [EMT or ambulance]; I11.0 Hypertensive heart disease with heart failure; R32 Unspecified urinary incontinence; G56.03 Carpal tunnel syndrome, bilateral upper limbs; S50.812A Abrasion of left forearm, initial encounter; S50.811A Abrasion of right forearm, initial encounter; S60.512A Abrasion of left hand, initial encounter; S60.511A Abrasion of right hand, initial encounter; S80.212A Abrasion, left knee, initial encounter; S80.211A Abrasion, right knee, initial encounter; S90.812A Abrasion, left foot, initial encounter; S90.811A Abrasion, right foot, initial encounter; Z68.36 Body mass index [BMI] 36.0-36.9, adult; E78.00 Pure hypercholesterolemia, unspecified; Z88.0 Allergy status to penicillin; T50.916A Underdosing of multiple unspecified drugs, medicaments and biological substances, initial encounter; Z91.128 Patient's intentional underdosing of medication regimen for other reason; Z80.0 Family history of malignant neoplasm of digestive organs
CPT/HCPCS: 36415; 70450; 70544; 70551; 71045; 80048; 80053; 80061; 80306; 80320; 81001; 82009; 82140; 82553; 82607; 82746; 82803; 83036; 83605; 84425; 84443; 84484; 85025; 85027; 85610; 85730; 86780; 87040; 93005; 93306; 93312; 93325; 93880; 95816; 96361; 96365; 96374; 96375; 96376; 99285

== ENCOUNTER 2020-12-31 13:37 | Emergency (ER) | payer BC, OTHER ==
[2020-12-31 13:44] VITALS: BP 125/70; PULSE 122; RESP 16; TEMP 98.1
--- NOTE | 2020-12-31 14:02 | ED ---
Fall HPI - General Chief Complaint: Fall Stated Complaint: fall, L eye injury Time Seen by Provider: 12/31/20 13:45 Source: patient Mode of arrival: wheelchair - History of Present Illness Initial Comments: 65-year-old male presents to emergency department with a chief complaint of injury to the head. Status occurred yesterday while he was attempting to take the garbage out. Patient reports he bumped his left side of the head. States he noticed small amounts of bleeding and swelling on the left periorbital region. States he woke up this morning and noticed his whole eye is black. He denies any visual changes or discharge from the eye. Denies any pain with extra ocular movements. Is not on blood thinners. There was no loss of consciousness at the time of incident. - Related Data Home Medications Medication Instructions Recorded Confirmed No Known Home Medications 12/31/20 12/31/20 Allergies Allergy/AdvReac Type Severity Reaction Status Date / Time Penicillins Allergy Itching Verified 12/31/20 14:17 Review of Systems ROS Statement: Those systems with pertinent positive or pertinent negative responses have been documented in the HPI. ROS Other: All systems not noted in ROS Statement are negative. Past Medical History Past Medical History: Diabetes Mellitus, Hypertension Additional Past Medical History / Comment(s): Recent bronchitis-completed ABX /steroid, NIDDM type II, neuropathy R foot, 2009 CVA with very slight R sided weakness, recent vertigo, high cholesterol-not on RX yet, bilateral carpal tunnel syndrome. History of Any Multi-Drug Resistant Organisms: None Reported Past Surgical History: Tonsillectomy Past Anesthesia/Blood Transfusion Reactions: No Reported Reaction Past Psychological History: No Psychological Hx Reported Smoking Status: Former smoker Past Alcohol Use History: None Reported Past Drug Use History: None Reported - Past Family History Father Additional Family Medical History / Comment(s): Father after a head injury with ruptured blood vessel at the age of 54 yrs. Mother Family Medical History: Cancer Additional Family Medical History / Comment(s): Mother had cervical cancer as a young person. She of colon cancer at the age of 72 yrs. General Exam Limitations: no limitations General appearance: alert, in no apparent distress Head exam: Present: atraumatic, normocephalic, normal inspection. Absent: other (negative Allen sign, raccoon eyes, hemotympanum.) Eye exam: Present: normal appearance, PERRL, EOMI, periorbital swelling, periorbital tenderness, other (Left periorbital swelling. Left-sided hematoma. Hyphema) Pupils: Present: normal accommodation ENT exam: Present: normal exam, normal oropharynx, mucous membranes moist, TM's normal bilaterally, normal external ear exam Neck exam: Present: normal inspection, full ROM Respiratory exam: Present: normal lung sounds bilaterally. Absent: respiratory distress Cardiovascular Exam: Present: regular rate, normal rhythm, normal heart sounds Extremities exam: Present: normal inspection, full ROM. Absent: tenderness Back exam: Present: normal inspection, full ROM. Absent: tenderness Neurological exam: Present: alert, oriented X3 Psychiatric exam: Present: normal affect, normal mood Skin exam: Present: warm, dry, intact, normal color Course Vital Signs 12/31/20 13:40 Temperature 98.1 F Pulse Rate 122 H Respiratory 16 Rate Blood Pressure 125/70 O2 Sat by Pulse 95 Oximetry Medical Decision Making - Medical Decision Making 65-year-old male presents to emergency department with a chief complaint of injury to the head. On physical examination, left-sided periorbital hematoma. Hyphema noted in the left eye. He has no difficulty seeing. CT of the brain and C-spine shows no acute findings. CT of the facial bones reveals no fractures or dislocations. Only mild soft tissue swelling. Patient will be discharged and advised to apply cold compresses. Return parameters were thoroughly discussed patient is an attending agreeable. Case discussed physician. Disposition Clinical Impression: Fall, Head injury, Periorbital hematoma Disposition: HOME SELF-CARE Condition: Stable Instructions (If sedation given, give patient instructions): Fall Prevention (ED), Hematoma (ED) Additional Instructions: Please return to the Emergency Department if symptoms worsen or any other concerns. Is patient prescribed a controlled substance at d/c from ED?: No Referrals: None,Stated [Primary Care Provider] - 1-2 days Time of Disposition: 14:55
--- NOTE | 2020-12-31 14:44 | CT ---
EXAMINATION TYPE: CT brain aj petty DATE OF EXAM: 12/31/2020 COMPARISON: HISTORY: fall, left orbital contusion CT DLP: 1278.3 mGycm, Automated exposure control for dose reduction was used. CONTRAST: Patient injected with mL of . CT of the brain is performed utilizing 3 mm thick sections through the posterior fossa and 3 mm thick sections through the remaining calvarium. Study is performed within 24 hours of arrival to the hospital. No abnormal hyperdensity is present to suggest an acute intracranial hemorrhage. No mass lesion is evident. No acute infarcts are evident. Periventricular white matter hypodensity is present, likely on the ba sis of chronic white matter ischemic changes. Ventricles and sulci are prominent for the patient age. There is soft tissue swelling over the left lateral orbital region. Small hematoma may be present wi th the tip 1.1 cm. No underlying fractures evident. IMPRESSIONS: 1. Atrophy with periventricular white matter ischemic-type changes. Findings appear stable from cris rison. 2. Small hematoma and soft tissue swelling left periorbital region CT cervical spine. COMPARISON: None CT of the cervical spine is performed in the axial plane at 2 mm thick sections. Reconstructed image s in the coronal, and sagittal plane are reviewed on the computer. No acute fractures are evident. There is kyphosis through the cervical spine centered at approximately C5. Loss of disc height is present throughout the cervical spine but greatest at C5-6 C6-7 and C7-T1. Vertebral body heights are preserved. No spinal canal stenosis is evident. Uncovertebral joint hypertrophy is present. This is contributing to moderate foraminal stenosis bilat erally at C3-4. Moderate right and severe left foraminal stenosis is present at C5-6. Endplate spurri ng extends from the superior endplate of C6 into the left paracentral region. Correlate with left C6 radicular symptoms. Moderate to severe left and moderate right foraminal stenosis is present C6-7. IMPRESSIONS: 1. No acute osseous abnormality. 2. Degenerative disc changes. 3. Foraminal narrowing discussed above. 4. Endplate spurring and left paracentral region and C6. Correlate with left C6 radicular symptoms.
--- NOTE | 2020-12-31 14:46 | CT ---
EXAMINATION TYPE: CT facial bones wo con DATE OF EXAM: 12/31/2020 COMPARISON: CT brain HISTORY: fall, left orbital contusion CT DLP: 410.4 mGycm CONTRAST: 0 mL of Isovue 300 The paranasal sinuses are examined in the axial plane at 2 mm thick sections. Reconstructed images i n the coronal plane were obtained. There is soft tissue swelling over the left periorbital region laterally. This may have a small hemat naga measuring 1.1 cm in depth. Fractures evident. The maxillary sinuses are clear. Mild mucosal thickening is throughout the ethmoid air cells. The s phenoid sinuses are clear. The frontal sinuses are clear. The septum is evaluated. There is septal deviation to the right. The ostiomeatal units are patent. IMPRESSIONS: 1. No acute fractures. 2. Soft tissue swelling left periorbital region
== END 2020-12-31 15:04 | disposition home or self-care (01) ==
LOC: EC 13:37
DX: S00.12XA Contusion of left eyelid and periocular area, initial encounter (principal); E11.9 Type 2 diabetes mellitus without complications; I10 Essential (primary) hypertension; Z90.89 Acquired absence of other organs; Z87.891 Personal history of nicotine dependence; Z88.0 Allergy status to penicillin; W18.09XA Striking against other object with subsequent fall, initial encounter
CPT/HCPCS: 70450; 70486; 72125; 99283; 99284

== ENCOUNTER 2021-02-08 00:37 | Inpatient (IN) | payer OTHER ==
[2021-02-08] MEDS ORDERED: SODIUM CHLORIDE 0.9% 1,000 ML IV STA ×2 (01:09)
--- NOTE | 2021-02-08 01:09 | ED ---
Weakness HPI - General Stated complaint: Altered Mental Time Seen by Provider: 02/08/21 00:40 - Related Data Home Medications Medication Instructions Recorded Confirmed No Known Home Medications 12/31/20 12/31/20 Allergies Allergy/AdvReac Type Severity Reaction Status Date / Time Penicillins Allergy Itching Verified 02/08/21 01:16 Review of Systems ROS Statement: Those systems with pertinent positive or pertinent negative responses have been documented in the HPI. ROS Other: All systems not noted in ROS Statement are negative. Past Medical History Past Medical History: Diabetes Mellitus, Hypertension Additional Past Medical History / Comment(s): Recent bronchitis-completed ABX/steroid, NIDDM type II, neuropathy R foot, 2009 CVA with very slight R sided weakness, recent vertigo, high cholesterol-not on RX yet, bilateral carpal tunnel syndrome. History of Any Multi-Drug Resistant Organisms: None Reported Past Surgical History: Tonsillectomy Past Anesthesia/Blood Transfusion Reactions: No Reported Reaction Past Psychological History: No Psychological Hx Reported Smoking Status: Former smoker Past Alcohol Use History: None Reported Past Drug Use History: None Reported - Past Family History Father Additional Family Medical History / Comment(s): Father after a head injury with ruptured blood vessel at the age of 54 yrs. Mother Family Medical History: Cancer Additional Family Medical History / Comment(s): Mother had cervical cancer as a young person. She of colon cancer at the age of 72 yrs. Course Vital Signs 02/08/21 01:10 Temperature 98.7 F Pulse Rate 107 H Respiratory 18 Rate Blood Pressure 139/89 O2 Sat by Pulse 98 Oximetry EKG Findings - EKG Comments: EKG Findings:: EKG is sinus rhythm 87 NH 158 QRS 94 QTC 474 Medical Decision Making - Lab Data Result diagrams: 02/08/21 01:20 02/08/21 01:20 Lab Results 02/08/21 02/08/21 02/08/21 Range/Units 01:20 01:20 01:20 WBC 9.8 (3.8-10.6) k/uL RBC 5.17 (4.30-5.90) m/uL Hgb 13.9 (13.0-17.5) gm/dL Hct 41.9 (39.0-53.0) % MCV 81.0 (80.0-100.0) fL MCH 26.9 (25.0-35.0) pg MCHC 33.2 (31.0-37.0) g/dL RDW 14.1 (11.5-15.5) % Plt Count 341 (150-450) k/uL MPV 6.7 Neutrophils % 75 % Lymphocytes % 16 % Monocytes % 5 % Eosinophils % 2 % Basophils % 1 % Neutrophils # 7.3 (1.3-7.7) k/uL Lymphocytes # 1.6 (1.0-4.8) k/uL Monocytes # 0.5 (0-1.0) k/uL Eosinophils # 0.2 (0-0.7) k/uL Basophils # 0.1 (0-0.2) k/uL PT 10.6 (9.0-12.0) sec INR 1.0 (<1.2) APTT 23.5 (22.0-30.0) sec Sodium 126 L (137-145) mmol/L Potassium 4.5 (3.5-5.1) mmol/L Chloride 88 L (98-107) mmol/L Carbon Dioxide 27 (22-30) mmol/L Anion Gap 11 mmol/L BUN 15 (9-20) mg/dL Creatinine 0.62 L (0.66-1.25) mg/dL Est GFR (CKD-EPI)AfAm >90 (>60 ml/min/1.73 sqM) Est GFR (CKD-EPI)NonAf >90 (>60 ml/min/1.73 sqM) Glucose 450 H (74-99) mg/dL Plasma Lactic Acid Trevin (0.7-2.0) mmol/L Calcium 9.6 (8.4-10.2) mg/dL Phosphorus 3.7 (2.5-4.5) mg/dL Magnesium 1.9 (1.6-2.3) mg/dL Total Bilirubin 0.8 (0.2-1.3) mg/dL AST 22 (17-59) U/L ALT 15 (4-49) U/L Alkaline Phosphatase 156 H (38-126) U/L Creatine Kinase 141 (55-170) U/L Total Protein 6.2 L (6.3-8.2) g/dL Albumin 3.7 (3.5-5.0) g/dL Serum Alcohol <10 mg/dL 02/08/21 Range/Units 01:20 WBC (3.8-10.6) k/uL RBC (4.30-5.90) m/uL Hgb (13.0-17.5) gm/dL Hct (39.0-53.0) % MCV (80.0-100.0) fL MCH (25.0-35.0) pg MCHC (31.0-37.0) g/dL RDW (11.5-15.5) % Plt Count (150-450) k/uL MPV Neutrophils % % Lymphocytes % % Monocytes % % Eosinophils % % Basophils % % Neutrophils # (1.3-7.7) k/uL Lymphocytes # (1.0-4.8) k/uL Monocytes # (0-1.0) k/uL Eosinophils # (0-0.7) k/uL Basophils # (0-0.2) k/uL PT (9.0-12.0) sec INR (<1.2) APTT (22.0-30.0) sec Sodium (137-145) mmol/L Potassium (3.5-5.1) mmol/L Chloride (98-107) mmol/L Carbon Dioxide (22-30) mmol/L Anion Gap mmol/L BUN (9-20) mg/dL Creatinine (0.66-1.25) mg/dL Est GFR (CKD-EPI)AfAm (>60 ml/min/1.73 sqM) Est GFR (CKD-EPI)NonAf (>60 ml/min/1.73 sqM) Glucose (74-99) mg/dL Plasma Lactic Acid Trevin 1.5 (0.7-2.0) mmol/L Calcium (8.4-10.2) mg/dL Phosphorus (2.5-4.5) mg/dL Magnesium (1.6-2.3) mg/dL Total Bilirubin (0.2-1.3) mg/dL AST (17-59) U/L ALT (4-49) U/L Alkaline Phosphatase (38-126) U/L Creatine Kinase (55-170) U/L Total Protein (6.3-8.2) g/dL Albumin (3.5-5.0) g/dL Serum Alcohol mg/dL Disposition Referrals: None,Stated [Primary Care Provider] - 1-2 days
--- NOTE | 2021-02-08 01:41 | XR ---
EXAMINATION TYPE: XR chest 2V DATE OF EXAM: 02/08/2021 COMPARISON: 08/20/2019 HISTORY: Weakness TECHNIQUE: FINDINGS: Heart and mediastinum are normal. Lungs are clear. Diaphragm is normal. Bony thorax is inta ct. Pulmonary vascularity is normal. IMPRESSION: Normal chest. No change.
[2021-02-08 01:51] LABS: Basophils # (A) 0.1 k/uL (0-0.2); Basophils % (A) 1 %; Eosinophils # (A) 0.2 k/uL (0-0.7); Eosinophils % (A) 2 %; HCT 41.9 % (39.0-53.0); HGB 13.9 gm/dL (13.0-17.5); Lymphocytes # (A) 1.6 k/uL (1.0-4.8); Lymphocytes % (A) 16 %; MCH 26.9 pg (25.0-35.0); MCHC 33.2 g/dL (31.0-37.0); Mean Platelet Volume 6.7; Monocytes # (A) 0.5 k/uL (0-1.0); Monocytes % (A) 5 %; Neutrophils # (A) 7.3 k/uL (1.3-7.7); Neutrophils % (A) 75 %; Platelet Count 341 k/uL (150-450); RBC 5.17 m/uL (4.30-5.90); RDW 14.1 % (11.5-15.5); WBC 9.8 k/uL (3.8-10.6)
[2021-02-08 02:00] LABS: Partial Thromboplastin Time 23.5 sec (22.0-30.0); Prothrombin Time 10.6 sec (9.0-12.0)
[2021-02-08 02:03] LABS: ALT 15 U/L (4-49); AST 22 U/L (17-59); African American GFR (CKD) >90 (>60 ml/min/1.73 sqM); Albumin 3.7 g/dL (3.5-5.0); Alcohol <10 mg/dL; Alkaline Phosphatase 156 U/L (38-126); Anion Gap 11 mmol/L; Blood Urea Nitrogen 15 mg/dL (9-20); Calcium 9.6 mg/dL (8.4-10.2); Carbon Dioxide 27 mmol/L (22-30); Chloride 88 mmol/L (98-107); Creatine Kinase 141 U/L (55-170); Glucose 450 mg/dL (74-99); Magnesium 1.9 mg/dL (1.6-2.3); Non-African American GFR(CKD) >90 (>60 ml/min/1.73 sqM); Phosphorus 3.7 mg/dL (2.5-4.5); Potassium 4.5 mmol/L (3.5-5.1); Sodium 126 mmol/L (137-145); Total Bilirubin 0.8 mg/dL (0.2-1.3); Total Protein 6.2 g/dL (6.3-8.2)
[2021-02-08] MEDS ORDERED: NALOXONE 0.4 MG/ML 1 ML VIAL IV PRN (02:23)
[2021-02-08] MEDS ORDERED: ONDANSETRON 4 MG/2 ML VIAL IVP PRN (02:23)
[2021-02-08] MEDS ORDERED: INSULIN REGULAR 100 UNIT/ML VIAL (IV) IV ONE (02:46)
[2021-02-08] MEDS ORDERED: SODIUM CHLORIDE 0.9% 1,000 ML IV ONE (02:48)
[2021-02-08] MEDS: SODIUM CHLORIDE 0.9% 1,000 ML IV SCH ×3 (02:53→19:09)
[2021-02-08] MEDS ORDERED: cefTRIAXone IN SWFI 1,000 MG/10 ML SYRINGE IVP STA (03:00)
[2021-02-08 03:23] LABS: Amorphous Sediment,Urine Rare /hpf; Appearance,Urine Turbid (Clear); Bacteria,Urine Many /hpf; Bilirubin,Urine Negative (Negative); Blood,Urine Small (Negative); Color,Urine Light Yellow; Glucose,Urine (UA) 4+ (Negative); Ketones,Urine 1+ (Negative); Leukocyte Esterase,Urine Large (Negative); Mucus,Urine Rare /hpf; Nitrite,Urine Negative (Negative); PH, Urine 5.5 (5.0-8.0); Protein,Urine Trace (Negative); RBC,Urine 6 /hpf (0-5); Specific Gravity,Urine 1.025 (1.001-1.035); Squamous Epithelial Cell,Urine <1 /hpf (0-4); Urobilinogen,Urine <2.0 mg/dL (<2.0); WBC,Urine >182 /hpf (0-5)
--- NOTE | 2021-02-08 03:39 | P.HPIM ---
History of Present Illness H&P Date: 02/08/21 The patient is a 65-year-old male with a PMH of type II DM, hypertension, hyperlipidemia who presented to the emergency room after he was found in the floor of his apartment covered in feces. The patient reports that this past , he was putting his groceries away in the fridge that her friend had brought him when he slipped on some spilled milk. He fell on the floor of his kitchen, and was subsequently not able to get back up. He crawled onto his living room carpet where he laid on the ground for the following 2 days. Earlier today, the patient started yelling to try and get the attention of his neighbors, one of whom subsequently heard him, and came in to get him off the ground. The patient was found covered in feces and appeared to be dehydrated. EMS was subsequently activated and the patient was brought into the emergency room. The patient denied having any pain. Reported no trauma from the fall and states that he just felt "too weak"to get up off the ground. She denied any prior history of such falls. He further denied experiencing loss of consciousness, chest discomfort, shortness of breath, or palpitations. Denied nausea, vomiting, abdominal pain, diarrhea. Laboratory evaluation in the emergency room was remarkable for troponin of 0.224, glucose 450, sodium 126, chloride 88, proBNP 96, and creatinine kinase of 141. EKG revealed normal sinus rhythm at [address]/T-wave changes noted as reviewed by me. Chest x-ray was unremarkable. Review of systems: Pertinent positives and negatives as discussed in HPI, a complete review of systems was performed and all other systems are negative. Physical examination: General: Disheveled, no distress, appears older than stated age, normal weight Derm: Bruising throughout arms and legs in multiple stages of healing, warm, dry Head: atraumatic, normocephalic, symmetric Eyes: EOMI, no lid lag, anicteric sclera, pupils equal round reactive to light ENT: Nose and ears atraumatic, no thrush, no pharyngeal erythema Neck: No thyromegaly, no cervical lymphadenopathy, trachea midline, supple Mouth: no lip lesion, mucus membranes moist Cardiovascular: S1S2 reg, no murmur, positive posterior tibial pulse bilateral, no edema, capillary refill less than 2 seconds Lungs: CTA bilateral, no rhonchi, no rales , no accessory muscle use Abdominal: soft, nontender to palpation, no guarding, no appreciable org anomegaly, normal bowel sounds Ext: no gross muscle atrophy, muscle strength 4 out of 5 in all 4 extremities grossly, no contractures, Neuro: CN II-XI grossly intact, light touch intact all 4 extremities, finger to nose within normal limits, Psych: Alert, oriented, appropriate affect Assessment/plan Severe hypochloremic hyponatremia -Likely due to poor oral intake -Continue IV fluids and monitor BMP Debility with fall -Fall precautions -PT evaluation Troponin elevation, possibly due to recent LA -Patient denying any complaints -Cardiac monitoring -Trend troponin -Cardiology consult Type II DM with hyperglycemia -Check A1c -Levemir 10 units daily at bedtime -Lispro insulin sliding scale blood glucose monitoring UTI -Continue with ceftriaxone -Follow-up urine culture DVT prophylaxis -Heparin subcu The patient is admitted with an anticipated greater than 2 midnight stay for evaluation of elev troponin CODE STATUS: Full Code Discussed with: Patient Anticipated discharge date: 2-[address]: [facility] Past Medical History Past Medical History: Diabetes Mellitus, Hypertension Additional Past Medical History / Comment(s): Recent bronchitis-completed ABX/steroid, NIDDM type II, neuropathy R foot, 2009 CVA with very slight R sided weakness, recent vertigo, high cholesterol-not on RX yet, bilateral carpal tunnel syndrome. History of Any Multi-Drug Resistant Organisms: None Reported Past Surgical History: Tonsillectomy Past Anesthesia/Blood Transfusion Reactions: No Reported Reaction Past Psychological History: No Psychological Hx Reported Smoking Status: Former smoker Past Alcohol Use History: None Reported Past Drug Use History: None Reported - Past Family History Father Additional Family Medical History / Comment(s): Father after a head injury with ruptured blood vessel at the age of 54 yrs. Mother Family Medical History: Cancer Additional Family Medical History / Comment(s): Mother had cervical cancer as a young person. She of colon cancer at the age of 72 yrs. Medications and Allergies Home Medications Medication Instructions Recorded Confirmed Type No Known Home Medications 12/31/20 12/31/20 History Allergies Allergy/AdvReac Type Severity Reaction Status Date / Time Penicillins Allergy Itching Verified 02/08/21 01:16 Physical Exam Vitals: Vital Signs Temp Pulse Resp BP Pulse Ox 02/08/21 01:10 98.7 F 107 H 18 139/89 98 Intake and Output 02/07/21 02/07/21 02/08/21 14:59 22:59 06:59 Other: Weight 81.647 kg Results CBC & Chem 7: 02/08/21 01:20 02/08/21 01:20 Labs: Abnormal Lab Results - Last 24 Hours (Table) 02/08/21 02/08/21 Range/Units 01:20 01:20 Sodium 126 L (137-145) mmol/L Chloride 88 L (98-107) mmol/L Creatinine 0.62 L (0.66-1.25) mg/dL Glucose 450 H (74-99) mg/dL Alkaline Phosphatase 156 H (38-126) U/L Troponin I 0.224 H* (0.000-0.034) ng/mL Total Protein 6.2 L (6.3-8.2) g/dL
[2021-02-08 04:34] LABS: Glucose,Whole Blood 254 mg/dL (75-99)
[2021-02-08 07:25] LABS: Glucose,Whole Blood 274 mg/dL (75-99)
[2021-02-08] MEDS: INSULIN DETEMIR (LEVEMIR) 100 UNIT/ML SYR SQ SCH (07:33)
[2021-02-08 09:11] LABS: African American GFR (CKD) >90 (>60 ml/min/1.73 sqM); Anion Gap 8 mmol/L; Blood Urea Nitrogen 14 mg/dL (9-20); Calcium 9.4 mg/dL (8.4-10.2); Carbon Dioxide 27 mmol/L (22-30); Chloride 95 mmol/L (98-107); Glucose 268 mg/dL (74-99); Non-African American GFR(CKD) >90 (>60 ml/min/1.73 sqM); Potassium 3.8 mmol/L (3.5-5.1); Sodium 130 mmol/L (137-145)
[2021-02-08] MEDS: PANTOPRAZOLE 40 MG/10 ML VIAL IV SCH (09:55)
[2021-02-08] MEDS: HEPARIN SODIUM,PORCINE/PF 5,000 UNIT/0.5 ML SYRINGE SQ SCH ×2 (09:56→19:16)
--- NOTE | 2021-02-08 10:25 | P.NPCON ---
History of Present Illness - Reason for Consult hyponatremia - History of Present Illness Reason for consultation: Hyponatremia History of present illness: Patient is a 65-year-old male seen in consultation for hyponatremia. Patient was seen and examined in the emergency room. He was brought to the hospital after he was found down covered in his own feces at his house. Patient states he slipped on milk in his kitchen about 2 days ago and then crawled over on the carpet and remained there. Patient states he was too weak to get up. Patient's sodium level was 126 on admission with blood glucose of 450. This morning his sodium was 130 with blood glucose of 268. His corrected sodium remains near 134. He denies regular use of nonsteroidals. No fever or chills. No vomiting or diarrhea. No chest pain or shortness of breath. No edema. He does a long- standing history of diabetes mellitus. He is currently receiving normal saline at 130 mL an hour. TSH is normal. Serum alcohol level negative. He was digestive of UTI. Vital signs are stable. General: The patient appeared well nourished and normally developed. HEENT: Head exam is unremarkable. LUNGS: Breath sounds decreased. HEART: Rate and Rhythm are regular. ABDOMEN: Soft, no distention. EXTREMITITES: No edema. Past Medical History Past Medical History: Diabetes Mellitus, Hypertension Additional Past Medical History / Comment(s): Recent bronchitis-completed AB X/steroid, NIDDM type II, neuropathy R foot, 2009 CVA with very slight R sided weakness, recent vertigo, high cholesterol-not on RX yet, bilateral carpal tunnel syndrome. History of Any Multi-Drug Resistant Organisms: None Reported Past Surgical History: Tonsillectomy Past Anesthesia/Blood Transfusion Reactions: No Reported Reaction Past Psychological History: No Psychological Hx Reported Smoking Status: Former smoker Past Alcohol Use History: None Reported Past Drug Use History: None Reported - Past Family History Father Additional Family Medical History / Comment(s): Father after a head injury with ruptured blood vessel at the age of 54 yrs. Mother Family Medical History: Cancer Additional Family Medical History / Comment(s): Mother had cervical cancer as a young person. She of colon cancer at the age of 72 yrs. Medications and Allergies Home Medications Medication Instructions Recorded Confirmed Type No Known Home Medications 12/31/20 02/08/21 History Allergies Allergy/AdvReac Type Severity Reaction Status Date / Time Penicillins Allergy Itching Verified 02/08/21 07:05 Physical Exam Vitals: Vital Signs Temp Pulse Resp BP Pulse Ox 02/08/21 09:56 89 20 113/92 97 02/08/21 07:17 98.6 F 88 20 122/79 97 02/08/21 07:00 87 18 122/79 97 02/08/21 05:00 90 18 107/79 97 02/08/21 02:36 67 18 134/67 97 02/08/21 01:10 98.7 F 107 H 18 139/89 98 Intake and Output 02/07/21 02/08/21 02/08/21 22:59 06:59 14:59 Other: Weight 81.647 kg Results - Lab Results Most recent lab results Calcium 9.4 mg/dL (8.4-10.2) 02/08/21 04:59 Phosphorus 3.7 mg/dL (2.5-4.5) 02/08/21 01:20 Magnesium 1.9 mg/dL (1.6-2.3) 02/08/21 01:20 02/08/21 01:20 02/08/21 04:59 Assessment and Plan Plan: Assessment: 1. Hyponatremia secondary to hypertonicity from hyperglycemia. Corrected sodium near 134. TSH normal. 2. Diabetes mellitus. 3. UTI maintained on antibiotics. Plan: Decrease rate of normal saline to 75 mL an hour. Blood sugar control. Follow-up cultures. Thank you for the consultation. I will continue to follow the patient with you during his hospital stay.
[2021-02-08 11:50] LABS: Glucose,Whole Blood 259 mg/dL (75-99)
[2021-02-08] MEDS: INSULIN ASPART (NovoLOG) 100 UNIT/ML VIAL SQ SCH ×3 (12:10→21:08)
[2021-02-08 12:12] LABS: Chol/HDL Ratio 4.11; Cholesterol 144 mg/dL (0-200); LDL Cholesterol,Calculated 90.4 mg/dL (0.0-131.0)
--- NOTE | 2021-02-08 12:45 | ECHOF ---
Referral Reason:LV function MEASUREMENTS -------- HEIGHT: 177.8 cm WEIGHT: 81.6 kg BP: 122/79 RVIDd: 3.9 cm (< 3.3) IVSd: 1.4 cm (0.6 - 1.1) LVIDd: 4.1 cm (3.9 - 5.3) LVPWd: 1.3 cm (0.6 - 1.1) IVSs: 1.8 cm LVIDs: 3.4 cm LVPWs: 1.5 cm LAESV Index (A-L): 26.26 ml/m Ao Diam: 3.9 cm (2.0 - 3.7) AV Cusp: 1.6 cm (1.5 - 2.6) LA Diam: 4.3 cm (2.7 - 3.8) MV EXCURSION: 16.312 mm (> 18.000) MV EF SLOPE: 88 mm/s (70 - 150) EPSS: 1.7 cm MV E Kit: 0.46 m/s MV DecT: 220 ms MV A Kit: 0.96 m/s MV E/A Ratio: 0.48 RAP: 5.00 mmHg RVSP: 19.53 mmHg FINDINGS -------- Sinus rhythm. This was a technically adequate study. The left ventricular size is normal. There is moderate concentric left ventricular hypertrophy. O verall left ventricular systolic function is mild-moderately impaired with, an EF between 40 - 45 %. Mitral Doppler inflow pattern suggests diastolic filling abnormality 14.00. The right ventricle is mild to moderately enlarged. Normal LA size by volume 22+/-6 ml/m2. The right atrial size is normal. Interatrial and interventricular septum intact. There is no evidence of aortic regurgitation. There is no evidence of aortic stenosis. Mild mitral regurgitation is present. Mild tricuspid regurgitation present. There is no evidence of pulmonary hypertension. There is no pulmonic regurgitation present. The aortic root size is normal. IVC Not well visulized. There is no pericardial effusion. CONCLUSIONS -------- 1. The left ventricular size is normal. 2. There is moderate concentric left ventricular hypertrophy. 3. Overall left ventricular systolic function is mild-moderately impaired with, an EF between 40 - 45 %. 4. Mitral Doppler inflow pattern suggest diastolic filling abnormality 14.00. 5. The right ventricle is mild to moderately enlarged. 6. Mild mitral regurgitation is present. 7. Mild tricuspid regurgitation present. BUSINESS [employer] INTERN: Yudi Hoffman RDCS
--- NOTE | 2021-02-08 14:42 | P.CRDCN ---
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 We have been asked to see in consultation for elevated troponin. Patient presents to the emergency department with weakness and a fall at home. The patient reports last week on , he was putting his groceries away in the fridge, he spilled milk and then fell on the floor of his kitchen after slipping on the milk and was subsequently not able to get back up. He crawled onto his living room carpet where he laid on the ground for 4 days. He states that he was yelling to try and get the attention of his neighbors, one of whom subsequently heard him, and came in to get him off the ground. The patient was found covered in feces and appeared to be dehydrated. EMS was called, and patient brought to the emergency department. Patient denies chest pain, shortness of breath, orthopnea, PND, lightheadedness, dizziness, syncope, diaphoresis, nausea, abdominal pain. He currently denies any pain9. Reported no trauma from the fall and states that he just felt "too weak"to get up off the ground. He denies history of coronary artery disease or [place]. He is a former smoker, he denies smoking currently, or alcohol use. DIAGNOSTICS EKG reveals sinus rhythm, heart rate 87, no significant ST history of abnormalities, prior echocardiogram in 07/2019 with similar findings. Chest xray no acute cardiopulmonary process. GIOVANNY 08/23/2019- EF 50-55%, aortic sclerosis without stenosis, mild to moderate mitral regurgitation, mild TR. Laboratory reviewed, troponin 0.23, sodium 130, potassium 3.8, BUN 14, serum creatinine 0.4 REVIEW OF SYSTEMS At the time of my exam: CONSTITUTIONAL: Denies fever or chills. CARDIOVASCULAR: Denies chest pain, shortness of breath, orthopnea, PND or palpitations. RESPIRATORY: Denies cough. GASTROINTESTINAL: Denies abdominal pain, diarrhea, constipation, nausea or vomiting. MUSCULOSKELETAL: Denies myalgias. NEUROLOGIC: +weakness Denies numbness, tingling, headache ENDOCRINE: Denies fatigue, weight change, polydipsia or polyurina. GENITOURINARY: Denies burning, hematuria or urgency with micturation. HEMATOLOGIC: Denies history of anemia or bleeding. PHYSICAL EXAMINATION Blood pressure 116/74 heart rate 86afebrile and maintaining oxygen saturation on 97% on room air CONSTITUTIONAL: No apparent distress. HEENT: Head is normocephalic. Pupils are equal, round. Sclerae anicteric. Mucous membranes of the mouth are moist. No JVD. No carotid bruit. CHEST EXAMINATION: Lungs are clear to auscultation. No chest wall tenderness is noted on palpation or with deep breathing. HEART EXAMINATION: Regular rate and rhythm. S1, S2 heard. Systolic murmur at apex, No gallops or rub. ABDOMEN: Soft, nontender. Positive bowel sounds. EXTREMITIES: 2+ peripheral pulses, no lower extremity edema and no calf tenderness. Bilateral ulcers on legs and feet NEUROLOGIC EXAMINATION: Patient is awake, alert and oriented x3. ASSESSMENT Hyponatremia, improved Weakness Fall, mechanical per patient's description Elevated troponin, not indicative of acute coronary syndrome, patient without chest pain, no evidence of acute ischemia noted on EKG History of hypertension Type 2 diabetes History CVA in 2009 Dyslipidemia PLAN Obtain 2D echocardiogram Start aspirin and statin Patient with diabetic ulcers, recommend follow up as outpatient for treatment Further recommendations based on clinical course Nurse Practitioner note has been reviewed, I agree with a documented findings and plan of care. Patient was seen and examined. Past Medical History Past Medical History: Diabetes Mellitus, Hypertension Additional Past Medical History / Comment(s): Recent bronchitis-completed ABX/steroid, NIDDM type II, neuropathy R foot, 2009 CVA with very slight R sided weakness, recent vertigo, high cholesterol-not on RX yet, bilateral carpal tunnel syndrome. History of Any Multi-Drug Resistant Organisms: None Reported Past Surgical History: Tonsillectomy Past Anesthesia/Blood Transfusion Reactions: No Reported Reaction Past Psychological History: No Psychological Hx Reported Smoking Status: Former smoker Past Alcohol Use History: None Reported Past Drug Use History: None Reported - Past Family History Father Additional Family Medical History / Comment(s): Father after a head injury with ruptured blood vessel at the age of 54 yrs. Mother Family Medical History: Cancer Additional Family Medical History / Comment(s): Mother had cervical cancer as a young person. She of colon cancer at the age of 72 yrs. Medications and Allergies Home Medications Medication Instructions Recorded Confirmed Type No Known Home Medications 12/31/20 02/08/21 History Allergies Allergy/AdvReac Type Severity Reaction Status Date / Time Penicillins Allergy Itching Verified 02/08/21 07:05 Physical Exam Vitals: Vital Signs Temp Pulse Resp BP Pulse Ox 02/08/21 07:17 98.6 F 88 20 122/79 97 02/08/21 07:00 87 18 122/79 97 02/08/21 05:00 90 18 107/79 97 02/08/21 02:36 67 18 134/67 97 02/08/21 01:10 98.7 F 107 H 18 139/89 98 Intake and Output 02/07/21 02/08/21 02/08/21 22:59 06:59 14:59 Other: Weight 81.647 kg Results 02/08/21 01:20 02/08/21 04:59 Cardiac Enzymes 02/08/21 02/08/21 02/08/21 Range/Units 01:20 01:20 04:59 AST 22 (17-59) U/L Troponin I 0.224 H* 0.207 H* (0.000-0.034) ng/mL Coagulation 02/08/21 Range/Units 01:20 PT 10.6 (9.0-12.0) sec APTT 23.5 (22.0-30.0) sec CBC 02/08/21 Range/Units 01:20 WBC 9.8 (3.8-10.6) k/uL RBC 5.17 (4.30-5.90) m/uL Hgb 13.9 (13.0-17.5) gm/dL Hct 41.9 (39.0-53.0) % Plt Count 341 (150-450) k/uL Comprehensive Metabolic Panel 02/08/21 Range/Units 01:20 Sodium 126 L (137-145) mmol/L Potassium 4.5 (3.5-5.1) mmol/L Chloride 88 L (98-107) mmol/L Carbon Dioxide 27 (22-30) mmol/L BUN 15 (9-20) mg/dL Creatinine 0.62 L (0.66-1.25) mg/dL Glucose 450 H (74-99) mg/dL Calcium 9.6 (8.4-10.2) mg/dL AST 22 (17-59) U/L ALT 15 (4-49) U/L Alkaline Phosphatase 156 H (38-126) U/L Total Protein 6.2 L (6.3-8.2) g/dL Albumin 3.7 (3.5-5.0) g/dL Current Medications Generic Name Dose Route Start Last Admin Trade Name Freq PRN Reason Stop Dose Admin Heparin Sodium (Porcine) 5,000 unit 02/08/21 08:00 Heparin Sodium,Porcine/Pf 5,000 Unit/0.5 Ml Syringe SQ Q8HR ANGELITO Sodium Chloride 1,000 mls @ 130 mls/hr 02/08/21 01:09 02/08/21 01:52 Saline 0.9% IV 02/08/21 08:50 130 mls/hr .Q7H42M STA Administration Sodium Chloride 1,000 mls @ 130 mls/hr 02/08/21 02:30 02/08/21 07:33 Saline 0.9% IV 130 mls/hr .Q7H42M ANGELITO Administration Ceftriaxone Sodium 1 gm/ 50 mls @ 100 mls/hr 02/09/21 04:00 Sodium Chloride IVPB Q24H ANGELITO Insulin Detemir 10 unit 02/08/21 07:00 02/08/21 07:33 Insulin Detemir (Levemir) 100 Unit/Ml Syr SQ 10 unit DAILY@0700 ANGELITO Administration Naloxone HCl 0.2 mg 02/08/21 02:23 Naloxone 0.4 Mg/Ml 1 Ml Vial IV Q2M PRN Opioid Reversal Ondansetron HCl 4 mg 02/08/21 02:23 Ondansetron 4 Mg/2 Ml Vial IVP Q8HR PRN Nausea And Vomiting Pantoprazole Sodium 40 mg 02/08/21 09:00 Pantoprazole 40 Mg/10 Ml Vial IV DAILY ANGELITO Intake and Output 02/07/21 02/08/21 02/08/21 22:59 06:59 14:59 Other: Weight 81.647 kg 02/08/21 01:20 02/08/21 01:20
[2021-02-08 15:42] LABS: African American GFR (CKD) >90 (>60 ml/min/1.73 sqM); Anion Gap 6 mmol/L; Blood Urea Nitrogen 15 mg/dL (9-20); Calcium 9.2 mg/dL (8.4-10.2); Carbon Dioxide 28 mmol/L (22-30); Chloride 97 mmol/L (98-107); Glucose 274 mg/dL (74-99); Non-African American GFR(CKD) >90 (>60 ml/min/1.73 sqM); Potassium 4.3 mmol/L (3.5-5.1); Sodium 131 mmol/L (137-145)
--- NOTE | 2021-02-08 19:03 | P.PN ---
Progress Note - Text Progress Note Date: 02/08/21 Patient was seen and examined by my partner after midnight. Patient reevaluated in the ER. Patient seen and examined at bedside. He reports that he felt weak and then fell at home and was unable to get up. He states he is no longer seeing a physician and she was told never to see Dr. Leos down so he took himself off all medications and has not been taking anything for his diabetes. He denies any chest pain or shortness of breath. He states he is not taking B12 which has felt everything. Agree with initial diagnoses -Additionally add sliding scale insulin Multiple ulcerations on bilateral toes - wound care consult
[2021-02-08 21:02] LABS: Glucose,Whole Blood 239 mg/dL (75-99)
[2021-02-09] MEDS ORDERED: lisinopriL 5 MG TAB PO STA (00:28)
[2021-02-09] MEDS: HEPARIN SODIUM,PORCINE/PF 5,000 UNIT/0.5 ML SYRINGE SQ SCH ×4 (00:35→22:45)
[2021-02-09 06:06] LABS: Glucose,Whole Blood 296 mg/dL (75-99)
[2021-02-09] MEDS: SODIUM CHLORIDE 0.9% 1,000 ML IV SCH ×2 (06:48→22:34)
[2021-02-09] MEDS: INSULIN DETEMIR (LEVEMIR) 100 UNIT/ML SYR SQ SCH (06:48)
[2021-02-09] MEDS: INSULIN ASPART (NovoLOG) 100 UNIT/ML VIAL SQ SCH ×5 (06:48→22:45)
[2021-02-09 07:33] LABS: Basophils % (A) 0 %; Eosinophils # (A) 0.2 k/uL (0-0.7); Eosinophils % (A) 2 %; HCT 41.9 % (39.0-53.0); HGB 13.8 gm/dL (13.0-17.5); Lymphocytes # (A) 1.4 k/uL (1.0-4.8); Lymphocytes % (A) 19 %; MCH 27.4 pg (25.0-35.0); MCHC 32.9 g/dL (31.0-37.0); MCV 83.4 fL (80.0-100.0); Monocytes # (A) 0.4 k/uL (0-1.0); Monocytes % (A) 6 %; Neutrophils # (A) 5.1 k/uL (1.3-7.7); Neutrophils % (A) 71 %; Platelet Count 272 k/uL (150-450); RBC 5.03 m/uL (4.30-5.90); RDW 13.9 % (11.5-15.5); WBC 7.2 k/uL (3.8-10.6)
[2021-02-09 08:05] LABS: African American GFR (CKD) >90 (>60 ml/min/1.73 sqM); Anion Gap 7 mmol/L; Blood Urea Nitrogen 15 mg/dL (9-20); Calcium 8.9 mg/dL (8.4-10.2); Carbon Dioxide 27 mmol/L (22-30); Chloride 99 mmol/L (98-107); Glucose 265 mg/dL (74-99); Non-African American GFR(CKD) >90 (>60 ml/min/1.73 sqM); Sodium 133 mmol/L (137-145)
[2021-02-09] MEDS: PANTOPRAZOLE 40 MG/10 ML VIAL IV SCH (08:32)
[2021-02-09] MEDS: ASPIRIN 81 MG PO SCH (08:32)
[2021-02-09] MEDS: lisinopriL 5 MG TAB PO SCH (08:32)
[2021-02-09] MEDS: ATORVASTATIN 40 MG TAB PO SCH (08:32)
--- NOTE | 2021-02-09 09:32 | P.PN ---
Subjective Patient is seen in follow-up for hyponatremia. Corrected sodium near 135 today. Oral intake is fair. No vomiting or diarrhea. Good urine output. GFR at baseline. Vital signs are stable. General: The patient appeared well nourished and normally developed. HEENT: Head exam is unremarkable. Neck is without jugular venous distension. LUNGS: Breath sounds decreased. HEART: Rate and Rhythm are regular. ABDOMEN: Soft, no distention. EXTREMITITES: No edema. Objective - Vital Signs Vital signs: Vital Signs Temp 98.5 F 02/09/21 08:15 Pulse 91 02/09/21 08:15 Resp 16 02/09/21 08:15 BP 111/73 02/09/21 08:15 Pulse Ox 97 02/09/21 08:15 Intake & Output 02/08/21 02/09/21 02/09/21 18:59 06:59 18:59 Intake Total 20 240 Output Total 625 300 Balance -605 -60 Weight 83.6 kg Intake: IV 20 Invasive Line 1 10 Invasive Line 2 10 Oral 240 Output: Urine 625 300 Other: Voiding Method Urinal Diaper # Voids 1 - Labs CBC & Chem 7: 02/09/21 07:04 02/09/21 07:04 Labs: Abnormal Lab Results - Last 24 Hours (Table) 02/08/21 02/08/21 02/08/21 Range/Units 04:59 11:49 15:11 Sodium 131 L (137-145) mmol/L Chloride 97 L (98-107) mmol/L Creatinine 0.59 L (0.66-1.25) mg/dL Glucose 274 H (74-99) mg/dL POC Glucose (mg/dL) 259 H (75-99) mg/dL HDL Cholesterol 35.0 L (40.0-60.0) mg/dL 02/08/21 02/09/21 02/09/21 Range/Units 21:00 06:05 07:04 Sodium 133 L (137-145) mmol/L Chloride (98-107) mmol/L Creatinine 0.49 L (0.66-1.25) mg/dL Glucose 265 H (74-99) mg/dL POC Glucose (mg/dL) 239 H 296 H (75-99) mg/dL HDL Cholesterol (40.0-60.0) mg/dL Microbiology - Last 24 Hours (Table) 02/08/21 01:20 Urine Culture - Preliminary Urine,Catheterized Assessment and Plan Plan: Assessment: 1. Hyponatremia secondary to hypertonicity from hyperglycemia. Corrected sodium near 135. TSH normal. 2. Diabetes mellitus. 3. UTI maintained on antibiotics. Plan: Decrease rate of normal saline to 50 mL an hour. Blood sugar control. Follow-up cultures.
--- NOTE | 2021-02-09 10:28 | P.CONS ---
History of Present Illness - Reason for Consult Consult date: 02/09/21 wound care - History of Present Illness Is a 65-year-old gentleman being seen on [address] for nonhealing ulcerations to bilateral lower extremities. Patient has multiple ulcerations to bilateral feet. There are Limited to skin breakdown. Patient states that she had fallen and his home and use his feet to push him into a different room to yell for help. Ulcerations have minimal to no granulation seen within the wound bed and significant amount of slough and devitalized tissue. There is no tunneling or undermining noted. All ulcerations or open to air at this time. Patient's past medical history is significant for type 2 diabetes, hypertension, hyperlipidemia. Review Of Systems: Constitutional: No fever, no chills, no night sweats. No weight change. No weakness, fatigue or lethargy. No daytime sleepiness. Integumentary:reports wounds, no lesions. No rash or pruritus. No unusual bruising. No change in hair or nails. Physical exam: General Appearance: Alert, cooperative, no distress, appears stated age. Skin: See HPI all other Skin color, texture, tugor normal, no rashes or lesions. Neurologic: Alert oriented x3 Assessment: 1. Nonhealing ulcerations to multiple sites of right lower extremity Limited to skin breakdown 2. Nonhealing ulcerations to multiple sites of left lower extremity Limited to skin breakdown 3. Diabetic foot ulcer Plan: 1. Apply honey gel to all open ulcerations, dry gauze rolled gauze and secure with paper tape. Change Monday. Thank you for the consultation any questions please contact the wound care center DNP note has been reviewed and discussed with Dr. Carter and the impression and plan of care has been directed as dictated. Past Medical History Past Medical History: Diabetes Mellitus, Hypertension Additional Past Medical History / Comment(s): Recent bronchitis-completed ABX/steroid, NIDDM type II, neuropathy R foot, 2009 CVA with very slight R sided weakness, recent vertigo, high cholesterol-not on RX yet, bilateral carpal tunne l syndrome. History of Any Multi-Drug Resistant Organisms: None Reported Past Surgical History: Tonsillectomy Past Anesthesia/Blood Transfusion Reactions: No Reported Reaction Past Psychological History: No Psychological Hx Reported Additional Psychological History / Comment(s): Pt resides alone in his apartment. 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 He drives. He has a glucometer. Smoking Status: Never smoker Past Alcohol Use History: None Reported Past Drug Use History: None Reported - Past Family History Father Additional Family Medical History / Comment(s): Father after a head injury with ruptured blood vessel at the age of 54 yrs. Mother Family Medical History: Cancer Additional Family Medical History / Comment(s): Mother had cervical cancer as a young person. She of colon cancer at the age of 72 yrs. Medications and Allergies Home Medications Medication Instructions Recorded Confirmed Type No Known Home Medications 12/31/20 02/08/21 History Allergies Allergy/AdvReac Type Severity Reaction Status Date / Time Penicillins Allergy Itching Verified 02/08/21 07:05 Physical Exam Vitals: Vital Signs Temp Pulse Pulse Resp BP BP Pulse Ox 02/09/21 08:15 98.5 F 91 16 111/73 97 02/09/21 04:00 98.3 F 92 18 138/87 96 02/09/21 01:30 148/86 02/09/21 00:00 98.4 F 87 18 160/105 97 02/08/21 20:39 99.6 F 94 16 132/88 96 02/08/21 20:00 98.7 F 97 18 148/75 94 L 02/08/21 14:18 86 20 116/74 97 02/08/21 11:49 98.6 F 87 20 137/90 97 Intake and Output 02/08/21 02/09/21 02/09/21 22:59 06:59 14:59 Intake Total 20 240 Output Total 625 300 Balance 20 -625 -60 Intake: IV 20 Invasive Line 1 10 Invasive Line 2 10 Oral 240 Output: Urine 625 300 Other: Voiding Method Urinal Urinal Urinal Diaper Diaper Diaper # Voids 1 1 Weight 81.647 kg 83.6 kg Results CBC & Chem 7: 02/09/21 07:04 02/09/21 07:04 Labs: Abnormal Lab Results - Last 24 Hours (Table) 02/08/21 02/08/21 02/08/21 Range/Units 04:59 11:49 15:11 Sodium 131 L (137-145) mmol/L Chloride 97 L (98-107) mmol/L Creatinine 0.59 L (0.66-1.25) mg/dL Glucose 274 H (74-99) mg/dL POC Glucose (mg/dL) 259 H (75-99) mg/dL HDL Cholesterol 35.0 L (40.0-60.0) mg/dL 02/08/21 02/09/21 02/09/21 Range/Units 21:00 06:05 07:04 Sodium 133 L (137-145) mmol/L Chloride (98-107) mmol/L Creatinine 0.49 L (0.66-1.25) mg/dL Glucose 265 H (74-99) mg/dL POC Glucose (mg/dL) 239 H 296 H (75-99) mg/dL HDL Cholesterol (40.0-60.0) mg/dL Microbiology - Last 24 Hours (Table) 02/08/21 01:20 Urine Culture - Preliminary Urine,Catheterized Assessment and Plan (1) Non-healing ulcer of multiple sites, limited to breakdown of skin Current Visit: Yes Status: Acute Code(s): L98.491 - NON-PRS CHRONIC ULCER SKIN/ SITES LIMITED TO BRKDWN SKIN SNOMED Code(s): 14195313 (2) Diabetic foot ulcer Current Visit: Yes Status: Acute Code(s): E11.621 - TYPE 2 DIABETES MELLITUS WITH FOOT ULCER; L97.509 - NON-PRESSURE CHRONIC ULCER OTH PRT UNSP FOOT W UNSP SEVERITY SNOMED Code(s): 893575449
[2021-02-09 11:33] LABS: Glucose,Whole Blood 244 mg/dL (75-99)
[2021-02-09] MEDS: METOPROLOL TARTRATE 25 MG TAB PO SCH ×2 (11:38→19:50)
--- NOTE | 2021-02-09 12:12 | P.PN ---
Subjective Progress Note Date: 02/09/21 Pt is feeling well today, near his normal baseline in terms of energy. Mentation is baseline. He is able to ambulate in the halls with walker and min- assist, but still a bit unsteady. WC recs regarding diabetic ulcer are appreciated. A1c pending. Pt is uninsured and CM working on discharge planning regarding medications, home care services, and coordinating medicaid application. Objective - Vital Signs Vital signs: Vital Signs Temp 97.8 F 02/09/21 11:34 Pulse 83 02/09/21 11:34 Resp 16 02/09/21 11:34 BP 118/81 02/09/21 11:34 Pulse Ox 98 02/09/21 11:34 Intake & Output 02/08/21 02/09/21 02/09/21 18:59 06:59 18:59 Intake Total 20 240 Output Total 625 300 Balance -605 -60 Weight 83.6 kg Intake: IV 20 Invasive Line 1 10 Invasive Line 2 10 Oral 240 Output: Urine 625 300 Other: Voiding Method Urinal Urinal Diaper Diaper # Voids 1 - Exam Gen: awake, alert HEENT: normocephalic, atraumatic, good hearing acuity, moist mucous membranes Resp: good air exchange, breathing comfortably with no accessory muscle use CVS: good distal perfusion x 4, GI: soft, NTTP, ND : no SPT, no CVAT, us catheter not present MSK: no pitting edema, no clubbing Neuro: non-focal, moving all extremities Psych: cooperative, euthymic mood - Labs CBC & Chem 7: 02/09/21 07:04 02/09/21 07:04 Labs: Abnormal Lab Results - Last 24 Hours (Table) 02/08/21 02/08/21 02/08/21 Range/Units 04:59 15:11 21:00 D-Dimer (<0.60) mg/L FEU Sodium 131 L (137-145) mmol/L Chloride 97 L (98-107) mmol/L Creatinine 0.59 L (0.66-1.25) mg/dL Glucose 274 H (74-99) mg/dL POC Glucose (mg/dL) 239 H (75-99) mg/dL HDL Cholesterol 35.0 L (40.0-60.0) mg/dL 02/09/21 02/09/2121 Range/Units 06:05 07:04 10:26 D-Dimer 1.25 H (<0.60) mg/L FEU Sodium 133 L (137-145) mmol/L Chloride (98-107) mmol/L Creatinine 0.49 L (0.66-1.25) mg/dL Glucose 265 H (74-99) mg/dL POC Glucose (mg/dL) 296 H (75-99) mg/dL HDL Cholesterol (40.0-60.0) mg/dL 02/09/21 Range/Units 11:31 D-Dimer (<0.60) mg/L FEU Sodium (137-145) mmol/L Chloride (98-107) mmol/L Creatinine (0.66-1.25) mg/dL Glucose (74-99) mg/dL POC Glucose (mg/dL) 244 H (75-99) mg/dL HDL Cholesterol (40.0-60.0) mg/dL Microbiology - Last 24 Hours (Table) 02/08/21 01:20 Urine Culture - Preliminary Urine,Catheterized Assessment and Plan Assessment: Severe hypochloremic hyponatremia -Likely due to poor oral intake -Continue IV fluids and monitor BMP -nephrology consulted and following Debility with fall -Fall precautions -PT/OT evaluation -ambulate TID with walker Troponin elevation, possibly due to recent NE -Patient denying any complaints -Cardiac monitoring -Trend troponin -Cardiology consult pending Type II DM with hyperglycemia -Check A1c, pending -Levemir 10 units daily at bedtime -Lispro insulin sliding scale blood glucose monitoring UTI -Continue with ceftriaxone -Follow-up urine culture, NGTD DVT prophylaxis -Heparin subcu Dispo: Medicaid application needed, pt requires walker, likely to warrant insulin supplies, oral abx for UTI for 7 days CODE STATUS: Full Code Discussed with: Patient Anticipated discharge date: 02/[address]: Home with home care
--- NOTE | 2021-02-09 13:23 | P.PN ---
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 We have been asked to see in consultation for elevated troponin. Patient presents to the emergency department with weakness and a fall at home. The patient reports last week on , he was putting his groceries away in the fridge, he spilled milk and then fell on the floor of his kitchen after slipping on the milk and was subsequently not able to get back up. He crawled onto his living room carpet where he laid on the ground for 4 days. He states that he was yelling to try and get the attention of his neighbors, one of whom subsequently heard him, and came in to get him off the ground. The patient was found covered in feces and appeared to be dehydrated. EMS was called, and patient brought to the emergency department. Patient denies chest pain, shortness of breath, orthopnea, PND, lightheadedness, dizziness, syncope, diaphoresis, nausea, abdominal pain. He currently denies any pain9. Reported no trauma from the fall and states that he just felt "too weak"to get up off the ground. He denies history of coronary artery disease or [place]. He is a former smoker, he denies smoking currently, or alcohol use. 02/09/2021 Patient seen and examined resting comfortably lying flat in no acute distress. She denies symptoms of chest pain, shortness of breath, dizziness or palpitations. Echocardiogram obtained reveals impaired LV systolic function with ejection fraction 40-45%, mildly impaired diastolic filling pattern, mild to moderately enlarged right ventricle, mild MR and mild TR. This is a change compared to echocardiogram from 07/2019. Blood pressure 118/81 afebrile maintaining oxygen saturation on room air. Laboratory data reviewed, CBC unremarkable, d-dimer 1.25, sodium 133, potassium 4, creatinine 0.49 and magnesium 2. PHYSICAL EXAMINATION CONSTITUTIONAL: No apparent distress. HEENT: Head is normocephalic. Pupils are equal, round. Sclerae anicteric. Mucous membranes of the mouth are moist. No JVD. No carotid bruit. CHEST EXAMINATION: Lungs are clear to auscultation. No chest wall tenderness is noted on palpation or with deep breathing. HEART EXAMINATION: Regular rate and rhythm. S1, S2 heard. Systolic murmur at apex, No gallops or rub. EXTREMITIES: 2+ peripheral pulses, no lower extremity edema and no calf tenderness. Bilateral ulcers on legs and feet ASSESSMENT Hyponatremia, improved Weakness Fall, mechanical per patient's description Elevated troponin, not indicative of acute coronary syndrome, patient without chest pain, no evidence of acute ischemia noted on EKG History of hypertension Type 2 diabetes History CVA in 2008 Dyslipidemia PLAN We will optimize his current regimen. Add lopressor 25 mg BID to his daily regimen. Obtain CTA to rule out PE. Further recommendations based on clinical course Nurse Practitioner note has been reviewed, I agree with a documented findings and plan of care. Patient was seen and examined. Objective - Vital Signs Vital signs: Vital Signs Temp 97.8 F 02/09/21 11:34 Pulse 83 02/09/21 11:34 Resp 16 02/09/21 11:34 BP 118/81 02/09/21 11:34 Pulse Ox 98 02/09/21 11:34 Intake & Output 02/08/21 02/09/21 02/09/21 18:59 06:59 18:59 Intake Total 20 240 Output Total 625 300 Balance -605 -60 Weight 83.6 kg Intake: IV 20 Invasive Line 1 10 Invasive Line 2 10 Oral 240 Output: Urine 625 300 Other: Voiding Method Urinal Urinal Diaper Diaper # Voids 1 - Labs CBC & Chem 7: 02/09/21 07:04 02/09/21 07:04 Labs: Abnormal Lab Results - Last 24 Hours (Table) 02/08/21 02/08/21 02/09/21 Range/Units 15:11 21:00 06:05 D-Dimer (<0.60) mg/L FEU Sodium 131 L (137-145) mmol/L Chloride 97 L (98-107) mmol/L Creatinine 0.59 L (0.66-1.25) mg/dL Glucose 274 H (74-99) mg/dL POC Glucose (mg/dL) 239 H 296 H (75-99) mg/dL 02/09/21 02/09/21 02/09/21 Range/Units 07:04 10:26 11:31 D-Dimer 1.25 H (<0.60) mg/L FEU Sodium 133 L (137-145) mmol/L Chloride (98-107) mmol/L Creatinine 0.49 L (0.66-1.25) mg/dL Glucose 265 H (74-99) mg/dL POC Glucose (mg/dL) 244 H (75-99) mg/dL Microbiology - Last 24 Hours (Table) 02/08/21 01:20 Urine Culture - Preliminary Urine,Catheterized
--- NOTE | 2021-02-09 14:24 | CT ---
EXAMINATION TYPE: CT angio chest DATE OF EXAM: 02/09/2021 COMPARISON: Chest x-ray 02/08/2021 HISTORY: Elevated D-dimer CT DLP: 363.7 mGycm Automated exposure control for dose reduction was used. CONTRAST: CTA scan of the thorax is performed without and with IV Contrast, patient injected with 100 ml mL of Isovue 370, pulmonary embolism protocol. MIP images are created and reviewed. 3D reconstructed imag es are created on an independent workstation and reviewed. FINDINGS: LUNGS: The lungs are grossly clear, there is no concerning parenchymal mass or nodule identified. T here is no pleural effusion or pneumothorax seen. The tracheobronchial tree is patent. AORTA: No additional significant abnormality is seen. MEDIASTINUM: There is satisfactory enhancement of the pulmonary artery and its branches, there is no CT evidence for pulmonary embolism. There are no greater than 1 cm hilar or mediastinal lymph nodes. No pericardial effusion is seen. OTHER: No additional significant abnormality is seen. IMPRESSION: NO EVIDENT PULMONARY EMBOLISM.
[2021-02-09 16:36] LABS: Glucose,Whole Blood 412 mg/dL (75-99)
[2021-02-09 16:36] LABS: Glucose,Whole Blood 515 mg/dL (75-99)
[2021-02-09] MEDS ORDERED: INSULIN DETEMIR (LEVEMIR) 100 UNIT/ML SYR SQ ONE (17:00)
[2021-02-09 19:34] LABS: Glucose,Whole Blood >600 mg/dL (75-99)
[2021-02-09 19:35] LABS: Glucose,Whole Blood 378 mg/dL (75-99)
[2021-02-09 21:08] LABS: Glucose,Whole Blood 412 mg/dL (75-99)
[2021-02-10 07:00] LABS: Glucose,Whole Blood 154 mg/dL (75-99)
[2021-02-10] MEDS ORDERED: INSULIN DETEMIR (LEVEMIR) 100 UNIT/ML SYR SQ SCH (07:00)
[2021-02-10] MEDS: INSULIN ASPART (NovoLOG) 100 UNIT/ML VIAL SQ SCH ×4 (07:07→12:57)
[2021-02-10] MEDS ORDERED: PANTOPRAZOLE 40 MG TABLET PO SCH (07:30)
[2021-02-10 07:56] LABS: African American GFR (CKD) >90 (>60 ml/min/1.73 sqM); Anion Gap 8 mmol/L; Blood Urea Nitrogen 17 mg/dL (9-20); Calcium 9.5 mg/dL (8.4-10.2); Carbon Dioxide 27 mmol/L (22-30); Chloride 102 mmol/L (98-107); Glucose 179 mg/dL (74-99); Non-African American GFR(CKD) >90 (>60 ml/min/1.73 sqM); Potassium 4.5 mmol/L (3.5-5.1); Sodium 137 mmol/L (137-145)
[2021-02-10] MEDS: HEPARIN SODIUM,PORCINE/PF 5,000 UNIT/0.5 ML SYRINGE SQ SCH (10:28)
[2021-02-10] MEDS: ASPIRIN 81 MG PO SCH (10:29)
[2021-02-10] MEDS: lisinopriL 5 MG TAB PO SCH (10:29)
[2021-02-10] MEDS: ATORVASTATIN 40 MG TAB PO SCH (10:29)
[2021-02-10] MEDS: METOPROLOL TARTRATE 25 MG TAB PO SCH (10:29)
[2021-02-10 11:40] LABS: Glucose,Whole Blood 371 mg/dL (75-99)
--- NOTE | 2021-02-10 11:44 | P.PN ---
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 He denies prior history of coronary artery disease and does not follow in the office with a development coordinator for any reason. We have been asked to see in consultation for elevated troponin. Patient presents to the emergency department with weakness and a fall at home. The patient reports last week on , he was putting his groceries away in the fridge, he spilled milk and then fell on the floor of his kitchen after slipping on the milk and was subsequently not able to get back up. He crawled onto his living room carpet where he laid on the ground for 4 days. He states that he was yelling to try and get the attention of his neighbors, one of whom subsequently heard him, and came in to get him off the ground. The patient was found covered in feces and appeared to be dehydrated. EMS was called, and patient brought to the emergency department. Patient denies chest pain, shortness of breath, orthopnea, PND, lightheadedness, dizziness, syncope, diaphoresis, nausea, abdominal pain. He currently denies any pain9. Reported no trauma from the fall and states that he just felt "too weak"to get up off the ground. He denies history of coronary artery disease or [place]. He is a former smoker, he denies smoking currently, or alcohol use. 02/10/2021 Patient seen and examined sitting up in the recliner in no acute distress. He continues to feel unsteady and overall generally weak. He does feel so it's improving since admission however not completely back to baseline. He denies symptoms of chest pain or shortness of breath. Blood pressure 115/79 heart rate 75 afebrile maintaining oxygen saturation on room air. Laboratory data reviewed, sodium 137, potassium 4.5, creatinine 0.6. Telemetry tracings reveals sinus mechanism with no significant arrhythmia noted. Currently maintained on aspirin 81 mg daily, atorvastatin 40 mg daily, lisinopril 5 mg daily and metoprolol 25 mg twice a day. CT angiogram negative for PE. PHYSICAL EXAMINATION CONSTITUTIONAL: No apparent distress. HEENT: Head is normocephalic. Pupils are equal, round. Sclerae anicteric. Mucous membranes of the mouth are moist. No JVD. No carotid bruit. CHEST EXAMINATION: Lungs are clear to auscultation. No chest wall tenderness is noted on palpation or with deep breathing. HEART EXAMINATION: Regular rate and rhythm. S1, S2 heard. Systolic murmur at apex, No gallops or rub. EXTREMITIES: 2+ peripheral pulses, no lower extremity edema and no calf tenderness. Bilateral ulcers on legs and feet ASSESSMENT Hyponatremia, improved Weakness Fall, mechanical per patient's description Elevated troponin, not indicative of acute coronary syndrome, patient without chest pain, no evidence of acute ischemia noted on EKG History of hypertension Type 2 diabetes History CVA in 2008 Dyslipidemia PLAN Continue current medical regimen. Overall he is stable from a cardiac perspective. Recommend close follow up in the outpatient setting. Discussed with him the importance of medical compliance. Nurse Practitioner note has been reviewed, I agree with a documented findings and plan of care. Patient was seen and examined. Objective - Vital Signs Vital signs: Vital Signs Temp 98.2 F 02/10/21 10:08 Pulse 75 02/10/21 10:08 Resp 16 02/10/21 10:08 BP 115/79 02/10/21 10:08 Pulse Ox 95 02/10/21 10:08 Intake & Output 02/09/21 02/10/21 02/10/21 18:59 06:59 18:59 Intake Total 1060 240 Output Total 577 1000 Balance 483 -1000 240 Weight 82.1 kg Intake: Oral 1060 240 Output: Urine 575 1000 Stool 2 Other: Voiding Method Urinal Urinal Urinal Diaper Diaper Diaper - Labs CBC & Chem 7: 02/09/21 07:04 02/10/21 07:11 Labs: Abnormal Lab Results - Last 24 Hours (Table) 02/09/21 02/09/21 02/09/21 Range/Units 07:04 16:32 16:34 Creatinine (0.66-1.25) mg/dL Glucose (74-99) mg/dL POC Glucose (mg/dL) 515 H 412 H (75-99) mg/dL Hemoglobin A1c 14.0 H (4.0-6.0) % 02/09/21 02/09/21 02/09/21 Range/Units 19:32 19:33 21:07 Creatinine (0.66-1.25) mg/dL Glucose (74-99) mg/dL POC Glucose (mg/dL) >600 H 378 H 412 H (75-99) mg/dL Hemoglobin A1c (4.0-6.0) % 02/10/21 02/10/21 Range/Units 06:59 07:11 Creatinine 0.60 L (0.66-1.25) mg/dL Glucose 179 H (74-99) mg/dL POC Glucose (mg/dL) 154 H (75-99) mg/dL Hemoglobin A1c (4.0-6.0) % Microbiology - Last 24 Hours (Table) 02/08/21 01:20 Urine Culture - Final Urine,Catheterized Klebsiella oxytoca
[2021-02-10 12:55] VITALS: BP 112/75; PULSE 83; RESP 18; TEMP 98.3
--- NOTE | 2021-02-10 13:10 | P.PN ---
Subjective Patient is seen in follow-up for hyponatremia. Sodium level 137 today. Oral intake is fair. No vomiting or diarrhea. Good urine output. GFR at baseline. Vital signs are stable. General: The patient appeared well nourished and normally developed. HEENT: Head exam is unremarkable. Neck is without jugular venous distension. LUNGS: Breath sounds decreased. HEART: Rate and Rhythm are regular. ABDOMEN: Soft, no distention. EXTREMITITES: No edema. Objective - Vital Signs Vital signs: Vital Signs Temp 98.3 F 02/10/21 12:54 Pulse 83 02/10/21 12:54 Resp 18 02/10/21 12:54 BP 112/75 02/10/21 12:54 Pulse Ox 99 02/10/21 12:54 Intake & Output 02/09/21 02/10/21 02/10/21 18:59 06:59 18:59 Intake Total 1060 1440 Output Total 577 1000 Balance 483 -1000 1440 Weight 82.1 kg Intake: Oral 1060 1440 Output: Urine 575 1000 Stool 2 Other: Voiding Method Urinal Urinal Urinal Diaper Diaper Diaper # Voids 2 - Labs CBC & Chem 7: 02/09/21 07:04 02/10/21 07:11 Labs: Abnormal Lab Results - Last 24 Hours (Table) 02/09/21 02/09/21 02/09/21 Range/Units 07:04 16:32 16:34 Creatinine (0.66-1.25) mg/dL Glucose (74-99) mg/dL POC Glucose (mg/dL) 515 H 412 H (75-99) mg/dL Hemoglobin A1c 14.0 H (4.0-6.0) % 02/09/21 02/09/21 02/09/21 Range/Units 19:32 19:33 21:07 Creatinine (0.66-1.25) mg/dL Glucose (74-99) mg/dL POC Glucose (mg/dL) >600 H 378 H 412 H (75-99) mg/dL Hemoglobin A1c (4.0-6.0) % 02/10/21 02/10/21 02/10/21 Range/Units 06:59 07:11 11:36 Creatinine 0.60 L (0.66-1.25) mg/dL Glucose 179 H (74-99) mg/dL POC Glucose (mg/dL) 154 H 371 H (75-99) mg/dL Hemoglobin A1c (4.0-6.0) % Microbiology - Last 24 Hours (Table) 02/08/21 01:20 Urine Culture - Final Urine,Catheterized Klebsiella oxytoca Assessment and Plan Plan: Assessment: 1. Hyponatremia secondary to hypertonicity from hyperglycemia. Resolved. TSH normal. 2. Diabetes mellitus. 3. UTI maintained on antibiotics. Plan: Hep-Lock IV fluids. Blood sugar control. I will sign off. Please call with any questions or concerns.
--- NOTE | 2021-02-10 20:50 | P.DS ---
Providers Date of admission: 02/08/21 02:23 Expected date of discharge: 02/10/21 Attending physician: Cornell Garcia MD Consults: 02/08/21 02:47 Consult Physician Routine Consulting Provider: Lorene Nice Consult Reason/Comments: nstemi Do you want consulting provider notified?: Yes 02/08/21 08:24 Consult Physician Routine Consulting Provider: Morales Tapia Consult Reason/Comments: hyponatremia Do you want consulting provider notified?: Yes Primary care physician: Stated None Hospital Course: Discharge Diagnosis: Diabetes mellitus type 2 with suboptimal control and A1c greater than 14 Pseudohyponatremia Type II non-STEMI secondary to dehydration Debility and fall Klebsiella Urinary tract infection, present on admission Chronic systolic cardiomyopathy Hospital Course: Patient is a 65-year-old male with a past medical history of diabetes mellitus type 2, hypertension, and dyslipidemia who presented to the emergency department after a fall on the floor he was unable to stand. On arrival he was covered in feces. He had been down for approximately 2 days when his neighbor found him and brought him to the hospital. Patient had stopped taking all his medications and has not had insurance or PCP follow-up in quite some time. In the ER he underwent an extensive evaluation. He was found to have slightly elevated troponin at 0.224, glucose 250, sodium 126, and an EKG with no significant ST-T wave changes and normal sinus rhythm. Chest x-ray was unremarkable. He was admitted for hyperglycemia with hyponatremia and fall with weakness. He was started on IV fluids and insulin. Nephrology was consulted and stated that his hyponatremia was pseudo-secondary to hyperglycemia. His troponin levels remain flat. He was seen by cardiology and found have an ejection fraction of 40-45% with moderate LVH, this is unchanged from his last echo in 2020. He was subsequently cleared by cardiology who suggested that he maintain an PATRICIA inhibitor, beta fran, statin, and aspirin. He is also cleared for discharge by nephrology. He continued to have hyperglycemia during his hospital stay. His hemoglobin A1c was 14. We discussed the patient the possibility of insulin, he is not comfortable taking this at home. Though it is suboptimal we will start him on metformin and glyburide as he has no insurance and does not want to take insulin at this time. We discussed that if he remains hyperglycemic he can have kidney failure, retinopathy, anicteric may lead to amputation. Patient understands the risk and plans on changing his diet and following up with her primary care provider. Follow-up: Establish at [facility]'s clinic as patient currently has no insurance. He was informed that he will need to obtain an ID card for this. He was given a 30 day supply of metformin, lisinopril, glyburide, Lopressor, Lipitor, and aspirin. He will also follow-up with cardiology in 2 weeks. Patient seen and examined at bedside. Feeling well, asking to go home, weakness is improved. Discussion as above about the importance of taking diabetic medications and optimizing blood sugars control. He also is aware of the importance of following up with cardiology. Vital signs reviewed and stable. General: non toxic, no distress, appears older than stated age, disheveled Derm: warm, dry Head: atraumatic, normocephalic, symmetric Eyes: EOMI, no lid lag, anicteric sclera Mouth: no lip lesion, mucus membranes moist, poor dentition Cardiovascular: S1S2 reg, no murmur, positive posterior tibial pulse bilateral, Lungs: CTA bilateral, no rhonchi, no rales , no accessory muscle use Abdominal: soft, nontender to palpation, no guarding, no appreciable organomegaly Ext: no gross muscle atrophy, no edema, no contractures Neuro: CN II-XI grossly intact, no focal neuro deficits Psych: Alert, oriented, appropriate affect A total of 32 minutes of time were spent preparing this complex discharge summary . Plan - Discharge Summary Discharge Rx Participant: No New Discharge Prescriptions: New glyBURIDE [Diabeta] 5 mg PO AC-BRKFST #30 tablet metFORMIN HCL [Glucophage] 850 mg PO BID #60 tab Atorvastatin [Lipitor] 40 mg PO DAILY #30 tab Aspirin 81 mg PO DAILY #30 tab Metoprolol Tartrate [Lopressor] 25 mg PO BID #30 tab lisinopriL [Zestril] 5 mg PO DAILY #30 tab Discharge Medication List Aspirin 81 mg PO DAILY #30 tab 02/10/21 [Rx] Atorvastatin [Lipitor] 40 mg PO DAILY #30 tab 02/10/21 [Rx] Metoprolol Tartrate [Lopressor] 25 mg PO BID #30 tab 02/10/21 [Rx] glyBURIDE [Diabeta] 5 mg PO AC-BRKFST #30 tablet 02/10/21 [Rx] lisinopriL [Zestril] 5 mg PO DAILY #30 tab 02/10/21 [Rx] metFORMIN HCL [Glucophage] 850 mg PO BID #60 tab 02/10/21 [Rx] Follow up Appointment(s)/Referral(s): Chavo Aviles DO [STAFF PHYSICIAN] - 2 Weeks ([facility] will call you to make a followup appt. ) [facility] [NON-STAFF] - 1 Week (To make followup appointment, must have ID. ) Patient Instructions/Handouts: Foot Care for People with Diabetes (DC), Diabetic Foot Ulcers (DC), Near Syncope (DC), Mediterranean Diet (DC) Discharge Disposition: HOME SELF-CARE
== END 2021-02-10 16:18 | disposition home or self-care (01) | DRG 637 ==
LOC: EC 00:37 → 4SSUR 02:23 → 3SCARD 02:52
PROVIDERS: ADMIT Internal Medicine; ATTEND Internal Medicine
DX: E11.65 Type 2 diabetes mellitus with hyperglycemia (principal); I21.A1 Myocardial infarction type 2; E87.1 Hypo-osmolality and hyponatremia; I42.9 Cardiomyopathy, unspecified; N39.0 Urinary tract infection, site not specified; I69.351 Hemiplegia and hemiparesis following cerebral infarction affecting right dominant side; I08.3 Combined rheumatic disorders of mitral, aortic and tricuspid valves; L97.519 Non-pressure chronic ulcer of other part of right foot with unspecified severity; L97.529 Non-pressure chronic ulcer of other part of left foot with unspecified severity; E11.42 Type 2 diabetes mellitus with diabetic polyneuropathy; I10 Essential (primary) hypertension; E11.621 Type 2 diabetes mellitus with foot ulcer; B96.1 Klebsiella pneumoniae [K. pneumoniae] as the cause of diseases classified elsewhere; E78.5 Hyperlipidemia, unspecified; E86.0 Dehydration; J40 Bronchitis, not specified as acute or chronic; E87.8 Other disorders of electrolyte and fluid balance, not elsewhere classified; Z20.822 Contact with and (suspected) exposure to COVID-19; Z88.0 Allergy status to penicillin; W18.30XA Fall on same level, unspecified, initial encounter; Z79.82 Long term (current) use of aspirin; Z87.891 Personal history of nicotine dependence; Z91.14 Patient's other noncompliance with medication regimen; Z79.899 Other long term (current) drug therapy; Y92.009 Unspecified place in unspecified non-institutional (private) residence as the place of occurrence of the external cause; Z79.84 Long term (current) use of oral hypoglycemic drugs
CPT/HCPCS: 36415; 71046; 71275; 80048; 80053; 80061; 80320; 81001; 82550; 83036; 83605; 83735; 83880; 84100; 84443; 84484; 85025; 85379; 85610; 85730; 87077; 87086; 87186; 87635; 93005; 93306; 99285

== ENCOUNTER 2021-02-27 14:35 | Inpatient (IN) | payer OTHER ==
--- NOTE | 2021-02-27 15:38 | ED ---
General Adult HPI - General Chief complaint: Neuro Symptoms/Deficit Stated complaint: poss stroke Time Seen by Provider: 02/27/21 15:14 Source: EMS Mode of arrival: EMS Limitations: no limitations - History of Present Illness Initial comments: Dictation was produced using [email or web address] dictation software. please excuse any grammatical, word or spelling errors. Chief Complaint: 65-year-old male past medical history of stroke presents with s trokelike symptoms. History of Present Illness: Patient is a 65-year-old male he presents to the em ergency Department with strokelike symptoms. Patient reports history of CVA which affected the right side. Patient is a limited historian. Patient states he feels fine. According to EMS he was brought because of erratic driving. Upon EMS evaluation there was noticeable right-sided droop, some dysarthria and mild aphasia.. Patient also had some drift to his right extremities. Nurse initially evaluated patient give patient an NIH score of 12. Upon my evaluation patient states he feels fine. Denies any symptoms. At the bedside upon my evaluation patient has no complaints. States he feels fine currently. States that he had a stroke several years ago. He denies having any residual symptoms from previous stroke. The ROS documented in this emergency department record has been reviewed and confirmed by me. Those systems with pertinent positive or negative responses have been documented in the HPI. All other systems are other negative and/or noncontributory. PHYSICAL EXAM: General Impression: Alert and oriented x3, not in acute distress HEENT: Normocephalic atraumatic, extra-ocular movements intact, pupils equal and reactive to light bilaterally, mucous membranes moist. Cardiovascular: Heart regular rate and rhythm Chest: Able to complete full sentences, no retractions, no tachypnea Abdomen: abdomen soft, non-tender, non-distended, no organomegaly Musculoskeletal: Pulses present and equal in all extremities, no peripheral edema Motor: no focal deficits noted Neurological: CN II-XII grossly intact, no focal motor or sensory deficits noted, NIH 0 Skin: Intact with no visualized rashes Psych: Normal affect and mood ED course: 65-year-old male presents with clinical presentation concerning for transient ischemic attack. Patient NIH 0 at the bedside. He allegedly has a previous history of CVA. Some clear what patient's residual deficits if any dizzy is a poor historian. vital signs upon arrival are within acceptable limits. EKG is unremarkable. Laboratory evaluation obtained. CBC, coag panel, metabolic panel is unremarkable. Chest x-ray is nonacute. CT brain shows no acute processes. CT angios shows mild plaque formation at both internal carotid arteries. Otherwise no large vessel occlusion. Patient be admitted for neurology consult. Clinical presentation concerning for transient ischemic attack. - Related Data Previous Rx's Medication Instructions Recorded Aspirin 81 mg PO DAILY #30 tab 02/10/21 Atorvastatin [Lipitor] 40 mg PO DAILY #30 tab 02/10/21 Metoprolol Tartrate [Lopressor] 25 mg PO BID #30 tab 02/10/21 glyBURIDE [Diabeta] 5 mg PO AC-BRKFST #30 tablet 02/10/21 lisinopriL [Zestril] 5 mg PO DAILY #30 tab 02/10/21 metFORMIN HCL [Glucophage] 850 mg PO BID #60 tab 02/10/21 Allergies Allergy/AdvReac Type Severity Reaction Status Date / Time Penicillins Allergy Itching Verified 02/27/21 17:01 Review of Systems ROS Statement: Those systems with pertinent positive or pertinent negative responses have been documented in the HPI. ROS Other: All systems not noted in ROS Statement are negative. Past Medical History Past Medical History: Diabetes Mellitus, Hypertension Additional Past Medical History / Comment(s): Recent bronchitis-completed ABX/steroid, NIDDM type II, neuropathy R foot, 2009 CVA with very slight R sided weakness, recent vertigo, high cholesterol-not on RX yet, bilateral carpal tunnel syndrome. History of Any Multi-Drug Resistant Organisms: None Reported Past Surgical History: Tonsillectomy Past Anesthesia/Blood Transfusion Reactions: No Reported Reaction Past Psychological History: No Psychological Hx Reported Smoking Status: Former smoker Past Alcohol Use History: None Reported Past Drug Use History: None Reported - Past Family History Father Additional Family Medical History / Comment(s): Father after a head injury with ruptured blood vessel at the age of 54 yrs. Mother Family Medical History: Cancer Additional Family Medical History / Comment(s): Mother had cervical cancer as a young person. She of colon cancer at the age of 72 yrs. General Exam Limitations: no limitations Course Vital Signs 02/27/21 02/27/21 15:00 15:07 Temperature 98.2 F 98.3 F Pulse Rate 82 82 Respiratory 16 16 Rate Blood Pressure 114/79 114/79 O2 Sat by Pulse 97 98 Oximetry Medical Decision Making - Lab Data Result diagrams: 02/27/21 15:25 02/27/21 15:25 Lab Results 02/27/21 02/27/21 02/27/21 Range/Units 15:25 15:25 16:33 WBC 8.2 (3.8-10.6) k/uL RBC 4.96 (4.30-5.90) m/uL Hgb 13.2 (13.0-17.5) gm/dL Hct 41.5 (39.0-53.0) % MCV 83.8 (80.0-100.0) fL MCH 26.6 (25.0-35.0) pg MCHC 31.8 (31.0-37.0) g/dL RDW 14.5 (11.5-15.5) % Plt Count 297 (150-450) k/uL MPV 6.9 Neutrophils % 72 % Lymphocytes % 18 % Monocytes % 6 % Eosinophils % 2 % Basophils % 1 % Neutrophils # 6.0 (1.3-7.7) k/uL Lymphocytes # 1.4 (1.0-4.8) k/uL Monocytes # 0.5 (0-1.0) k/uL Eosinophils # 0.2 (0-0.7) k/uL Basophils # 0.1 (0-0.2) k/uL PT 10.6 (9.0-12.0) sec INR 1.0 (<1.2) APTT 23.5 (22.0-30.0) sec Sodium 135 L (137-145) mmol/L Potassium 4.1 (3.5-5.1) mmol/L Chloride 101 (98-107) mmol/L Carbon Dioxide 26 (22-30) mmol/L Anion Gap 8 mmol/L BUN 12 (9-20) mg/dL Creatinine 0.65 L (0.66-1.25) mg/dL Est GFR (CKD-EPI)AfAm >90 (>60 ml/min/1.73 sqM) Est GFR (CKD-EPI)NonAf >90 (>60 ml/min/1.73 sqM) Glucose 132 H (74-99) mg/dL Calcium 9.6 (8.4-10.2) mg/dL Magnesium 1.7 (1.6-2.3) mg/dL Disposition Clinical Impression: TIA (transient ischemic attack) Disposition: ADMITTED IP TO THIS HOSP Condition: Fair Referrals: None,Stated [Primary Care Provider] - 1-2 days
--- NOTE | 2021-02-27 15:55 | XR ---
EXAMINATION TYPE: XR chest 1V portable DATE OF EXAM: 02/27/2021 COMPARISON: 02/08/2021 HISTORY: Weakness TECHNIQUE: FINDINGS: Heart and mediastinum are normal. Lungs are clear. Diaphragm is normal. Bony thorax appears normal. IMPRESSION: Normal chest. No change.
[2021-02-27 16:04] LABS: Basophils # (A) 0.1 k/uL (0-0.2); Basophils % (A) 1 %; Eosinophils # (A) 0.2 k/uL (0-0.7); Eosinophils % (A) 2 %; HCT 41.5 % (39.0-53.0); HGB 13.2 gm/dL (13.0-17.5); Lymphocytes # (A) 1.4 k/uL (1.0-4.8); Lymphocytes % (A) 18 %; MCH 26.6 pg (25.0-35.0); MCHC 31.8 g/dL (31.0-37.0); MCV 83.8 fL (80.0-100.0); Mean Platelet Volume 6.9; Monocytes # (A) 0.5 k/uL (0-1.0); Monocytes % (A) 6 %; Neutrophils % (A) 72 %; Platelet Count 297 k/uL (150-450); RBC 4.96 m/uL (4.30-5.90); RDW 14.5 % (11.5-15.5); WBC 8.2 k/uL (3.8-10.6)
[2021-02-27 16:18] LABS: African American GFR (CKD) >90 (>60 ml/min/1.73 sqM); Anion Gap 8 mmol/L; Blood Urea Nitrogen 12 mg/dL (9-20); Calcium 9.6 mg/dL (8.4-10.2); Carbon Dioxide 26 mmol/L (22-30); Chloride 101 mmol/L (98-107); Glucose 132 mg/dL (74-99); Magnesium 1.7 mg/dL (1.6-2.3); Non-African American GFR(CKD) >90 (>60 ml/min/1.73 sqM); Potassium 4.1 mmol/L (3.5-5.1); Sodium 135 mmol/L (137-145)
--- NOTE | 2021-02-27 16:38 | CT ---
EXAMINATION TYPE: CT brain wo con DATE OF EXAM: 02/27/2021 COMPARISON: 12/31/2020 HISTORY: weakness CT DLP: mGycm Automated exposure control for dose reduction was used. There is cerebral cortical atrophy. There is no mass effect nor midline shift. There is no sign of in tracranial hemorrhage. There is some hypodensity in the periventricular white matter. There is mild e nlargement of the ventricles. IMPRESSION: Cerebral atrophy and chronic small vessel ischemia. No acute intracranial abnormality. No change.
[2021-02-27 16:49] LABS: Partial Thromboplastin Time 23.5 sec (22.0-30.0); Prothrombin Time 10.6 sec (9.0-12.0)
--- NOTE | 2021-02-27 16:50 | CT ---
EXAMINATION TYPE: CT angio head neck DATE OF EXAM: 02/27/2021 COMPARISON: Weakness HISTORY: weakness CT DLP: 534.6 mGycm Automated exposure control for dose reduction was used. CONTRAST: Performed with IV Contrast, patient injected with 65 mL of Isovue 370. There are 3-D post processed images. Images obtained from the aortic arch to the vertex of the brain with IV contrast. There is normal branching pattern of the great vessels on the aortic arch. There is bilateral arteria l flow in the subclavian arteries. There is arterial flow in the common internal and external carotid arteries bilaterally. There is plaque formation at the carotid artery bifurcations and estimated elodia rowing 20% bilaterally of the internal carotid arteries. There is arterial flow in both vertebral art eries. There is arterial flow in the vertebrobasilar artery system. There is no evidence of carotid o r vertebral artery aneurysm or dissection. There is arterial flow in the anterior middle and posterior cerebral arteries. There is no mass effec t. There is no evidence of intracranial hemodynamic stenosis. There is no evidence of intracranial an eurysm or neovascularity. There is normal enhancement of the venous sinuses. IMPRESSION: Negative CT angiogram of the brain. Mild plaque at the carotid artery bifurcations and less than 20% stenosis of both internal carotid ar teries.
[2021-02-27] MEDS ORDERED: ASPIRIN 81 MG PO STA (18:08)
[2021-02-28] MEDS ORDERED: ASPIRIN 325 MG TAB PO SCH (09:00)
--- NOTE | 2021-02-28 10:03 | P.HPIM ---
History of Present Illness This is a pleasant 65-year-old the male came in with the speech abnormality and possible x-ray weakness.. Patient has a right-sided facial droop and right sided hemiparesis which as per the patient is old. Patient evidently was bit confused and at the symptoms are transient. Patient did have a old CVA CT of the head did shoulder several vascular accident (was ordered CT angios the head and neck did not show any [place] carotid occlusion. Patient was evaluated by neurology patient will undergo computed tomography scan of the head patient had recent echocardiogram which showed decreased EF of around 45-50%. Patient denied any symptoms of UTI or pneumonia. Patient doesn't have any fever or leukocytosis. REVIEW OF SYSTEMS: CONSTITUTIONAL: No fever, no malaise, no fatigue. HEENT: No recent visual problems or hearing problems. Denied any sore throat. CARDIOVASCULAR: No chest pain, orthopnea, PND, no palpitations, no syncope. PULMONARY: No shortness of breath, no cough, no hemoptysis. GASTROINTESTINAL: No diarrhea, no nausea, no vomiting, no abdominal pain. NEUROLOGICAL: No headaches. HEMATOLOGICAL: Denies any bleeding or petechiae. GENITOURINARY: Denies any burning micturition, frequency, or urgency. MUSCULOSKELETAL/RHEUMATOLOGICAL: Denies any joint pain, swelling, or any muscle pain. ENDOCRINE: Denies any polyuria or polydipsia. The rest of the 14-point review of systems is negative. PHYSICAL EXAMINATION: GENERAL: The patient is alert and oriented x3, not in any acute distress. Well developed, well nourished. HEENT: Pupils are round and equally reacting to light. EOMI. No scleral icterus. No conjunctival pallor. Normocephalic, atraumatic. No pharyngeal erythema. No thyromegaly. CARDIOVASCULAR: S1 and S2 present. No murmurs, rubs, or gallops. PULMONARY: Chest is clear to auscultation, no wheezing or crackles. ABDOMEN: Soft, nontender, nondistended, normoactive bowel sounds. No palpable organomegaly. MUSCULOSKELETAL: No joint swelling or deformity. EXTREMITIES: No cyanosis, clubbing, or pedal edema. NEUROLOGICAL: Patient has focal deficits as mentioned above and speech ab normalities from his old stroke. SKIN: No rashes. Assessment and plan Possibly of a transient ischemic attack. Patient had history of CVA in the past patient will be continued on aspirin and statin neurology evaluated the patient clinically unable to differentiate if his symptoms are secondary to his old stroke and had a new CVA or TIA because of which MRI of the brain is being obtained. Recent echo cardiac because of which we are not repeating echocardiogram again -Type 2 diabetes mellitus: Hold off on oral hypertensive medications and patient will be continued on sliding scale insulin -Continue start failure chronic systolic dysfunction without any acute exacerbation patient is not on any diuretics at this time -Hypertension DVT prophylaxis: Lovenox Past Medical History Past Medical History: Diabetes Mellitus, Hypertension Additional Past Medical History / Comment(s): Recent bronchitis-completed ABX/steroid, NIDDM type II, neuropathy R foot, 2009 CVA with very slight R sided weakness, recent vertigo, high cholesterol-not on RX yet, bilateral carpal tunnel syndrome. History of Any Multi-Drug Resistant Organisms: None Reported Past Surgical History: Tonsillectomy Past Anesthesia/Blood Transfusion Reactions: No Reported Reaction Past Psychological History: No Psychological Hx Reported Additional Psychological History / Comment(s): Pt resides alone in his apartment. 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 He drives. He has a glucometer. Smoking Status: Never smoker Past Alcohol Use History: None Reported Past Drug Use History: None Reported - Past Family History Father Additional Family Medical History / Comment(s): Father after a head injury with ruptured blood vessel at the age of 54 yrs. Mother Family Medical History: Cancer Additional Family Medical History / Comment(s): Mother had cervical cancer as a young person. She of colon cancer at the age of 72 yrs. Medications and Allergies Home Medications Medication Instructions Recorded Confirmed Type Aspirin 81 mg PO DAILY #30 tab 02/10/21 02/27/21 Rx Atorvastatin [Lipitor] 40 mg PO DAILY #30 tab 02/10/21 02/27/21 Rx Metoprolol Tartrate [Lopressor] 25 mg PO BID #30 tab 02/10/21 02/27/21 Rx glyBURIDE [Diabeta] 5 mg PO AC-BRKFST #30 tablet 02/10/21 02/27/21 Rx lisinopriL [Zestril] 5 mg PO DAILY #30 tab 02/10/21 02/27/21 Rx metFORMIN HCL [Glucophage] 850 mg PO BID #60 tab 02/10/21 02/27/21 Rx Allergies Allergy/AdvReac Type Severity Reaction Status Date / Time Penicillins Allergy Itching Verified 02/27/21 17:01 Physical Exam Vitals: Vital Signs Temp Pulse Pulse Resp BP BP Pulse Ox 02/28/21 04:15 97.9 F 72 16 149/78 100 02/28/21 02:00 98 F 65 16 137/90 99 02/27/21 22:19 66 16 124/58 97 02/27/21 18:50 98.0 F 72 16 132/82 98 02/27/21 15:07 98.3 F 82 16 114/79 98 02/27/21 15:00 98.2 F 82 16 114/79 97 Intake and Output 02/27/21 02/28/21 02/28/21 22:59 06:59 14:59 Output Total 375 Balance -375 Output: Urine 375 Other: Voiding Method Diaper Weight 83.915 kg 79 kg Results CBC & Chem 7: 02/27/21 15:25 02/27/21 15:25 Labs: Abnormal Lab Results - Last 24 Hours (Table) 02/27/21 Range/Units 15:25 Sodium 135 L (137-145) mmol/L Creatinine 0.65 L (0.66-1.25) mg/dL Glucose 132 H (74-99) mg/dL Thrombosis Risk Factor Assmnt - Choose All That Apply Any of the Below Risk Factors Present?: Yes Each Factor Represents 1 point: Age 41-60 years, Obesity (BMI >25) Thrombosis Risk Factor Assessment Total Risk Factor Score: 2 Thrombosis Risk Factor Assessment Level: Low Risk
--- NOTE | 2021-02-28 10:46 | P.CNNES ---
History of Present Illness Consult date: 02/28/21 Requesting physician: Alexei Cheek Reason for Consult: TIA History of Present Illness: This is a 65-year-old gentleman with history of stroke in 07/2019, diabetes mellitus, peripheraly neuropathy, hypertension who presented to the emergency department on the 02/27/2021 for possible strokelike symptoms. Patient is a poor historian and some of the history is obtained from medical record. Per the ED note, the EMS brought because of erratic driving but on their evaluation they noticed the patient had right facial droop, some dysarthria, mild aphasia and a drift on the right side. He was given NIH of a 12. But per the ED team, they evaluated the patient that he notified them that he was feeling fine. He denies of any symptoms. And they did not feel he had any symptoms. But the patient notified me that he got a call recently to check if he had a flu and he could not tell me who called them. Upon asking him if he had that covid-19 vaccine recently he said no. He notified me he denies any new weakness but he has old weakness on the right side from an old stroke. He cannot tell me who contacted EMS or what transpired him of come to the hospital. He denies any recollection that he had any erratic driving. Patient home medication consist of aspirin 81mg daily, Lipitor 40mg daily, metoprolol, glyburide and metformin. He was seen by Dr. Elias, neuro-hospitalist and 07/[address] Elias (Neuro-H ospitalist) stated that the patient has an acute ischemic stroke with multiple foci the larger 01 involving left lee radiata. Patient has mild right hemiparesis. Recommended the patient to continue dual antiplatelets of aspirin and Plavix. She also had a routine EEG and a showed mild encephalopathy. There are no seizure detected on the EEG. Please refer to Dr. Elias's note for further details. Some other workup in the hospital consisted of: Initial vital signs his blood pressure of 114/79, heart rate of 82, respiratory of 16, temperature of 98.2 Fahrenheit oral pulse ox of 97% at room air. CBC with differential is unremarkable. Sodium is 135 otherwise the rest of chemistry panel is unremarkable Coronavirus patient was not detected. CT of the head is reported as cerebral atrophy and chronic small vessel ischemia. No acute intracranial abnormality. No change. CT angiography of the brain is negative that is reported. CT angiography of the neck was reported as mild plaque at the carotid artery bifurcation less than 20% stenosis of both internal carotid arteries. We'll IV tPA per the ED team since they felt was TIA with NIH 0 and that he did not have any symptoms. Review of Systems Review of system: The 12 point system was reviewed and apparent positive and negative per HPI. Past Medical History Past Medical History: Diabetes Mellitus, Hypertension Additional Past Medical History / Comment(s): Recent bronchitis-completed ABX/steroid, NIDDM type II, neuropathy R foot, 2009 CVA with very slight R sided weakness, recent vertigo, high cholesterol-not on RX yet, bilateral carpal tunnel syndrome. History of Any Multi-Drug Resistant Organisms: None Reported Past Surgical History: Tonsillectomy Past Anesthesia/Blood Transfusion Reactions: No Reported Reaction Past Psychological History: No Psychological Hx Reported Additional Psychological History / Comment(s): Pt resides alone in his apartment. 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 He drives. He has a glucometer. Smoking Status: Never smoker Past Alcohol Use History: None Reported Past Drug Use History: None Reported - Past Family History Father Additional Family Medical History / Comment(s): Father after a head injury with ruptured blood vessel at the age of 54 yrs. Mother Family Medical History: Cancer Additional Family Medical History / Comment(s): Mother had cervical cancer as a young person. She of colon cancer at the age of 72 yrs. Medications and Allergies Home Medications Medication Instructions Recorded Confirmed Type Aspirin 81 mg PO DAILY #30 tab 02/10/21 02/27/21 Rx Atorvastatin [Lipitor] 40 mg PO DAILY #30 tab 02/10/21 02/27/21 Rx Metoprolol Tartrate [Lopressor] 25 mg PO BID #30 tab 02/10/21 02/27/21 Rx glyBURIDE [Diabeta] 5 mg PO AC-BRKFST #30 tablet 02/10/21 02/27/21 Rx lisinopriL [Zestril] 5 mg PO DAILY #30 tab 02/10/21 02/27/21 Rx metFORMIN HCL [Glucophage] 850 mg PO BID #60 tab 02/10/21 02/27/21 Rx Allergies Allergy/AdvReac Type Severity Reaction Status Date / Time Penicillins Allergy Itching Verified 02/27/21 17:01 Physical Examination - Vital Signs Vital Signs: Vital Signs Temp Pulse Pulse Resp BP BP Pulse Ox 02/28/21 04:15 97.9 F 72 16 149/78 100 02/28/21 02:00 98 F 65 16 137/90 99 02/27/21 22:19 66 16 124/58 97 02/27/21 18:50 98.0 F 72 16 132/82 98 02/27/21 15:07 98.3 F 82 16 114/79 98 02/27/21 15:00 98.2 F 82 16 114/79 97 Intake and Output 02/27/21 02/28/21 02/28/21 22:59 06:59 14:59 Output Total 375 Balance -375 Output: Urine 375 Other: Voiding Method Diaper Weight 83.915 kg 79 kg GENERAL: The patient is lying in bed and is not in acute distress. CHEST: The heart rate is regular rate rhythm. No murmurs to auscultation. No carotid bruit bilaterally. LUNG: Clear to auscultation bilaterally no wheezing noted throughout. Not labored breathing. ABDOMEN/GI: Bowel sounds present in all 4 quadrants. No tenderness to palpation throughout. NEUROLOGICAL: Higher mental function: The patient is awake, alert, oriented to self and place. Initially he stated the year is 1979' and after multiple tries he stated it was 2020. For month he said it was 2020. He correctly stated current stated we are in. He is able to name objects (pen, watch and glasses). Patient is following commands. Does not appear to have aphasia and no neglect. Cranial nerves: The pupils are round, equal and reactive to light and accommodation. Visual maldonado are full to confrontation throughout. Extraocular movement is intact no nystagmus is noted. Facial sensation is normal to touch throughout. The facial strength is normal throughout. Hearing is mildly decreased bilaterally to hand rub. Tongue is midline and moved [id number] without any difficulty. No dysarthria is noted. Shoulder shrug is normal b ilaterally. Motor: Gait is deferred. The strength is 4+ over the right side and right lower extremity is 5- over proximal (per patient old). Otherwise 5 over 5 throughout. Normal tone and bulk. Cerebellum: Has slow in performing finger to nose on the right and normal over the left. Sensation: Sensation is normal to touch throughout. Reflexes (right/left): 3+ over the right patellar. Otherwise 2+ throughout. Plantars are mute bilaterally. Results - Laboratory Findings CBC and BMP: 02/27/21 15:25 02/27/21 15:25 Abnormal Lab Findings: Abnormal Labs 02/27/21 15:25 Sodium 135 L Creatinine 0.65 L Glucose 132 H Assessment and Plan Assessment: Questionable symptoms of right-sided weakness facial droop, mild dysarthria, aphasia per the EMS. Per the ED team at resolved on presentation). On my examination he had weakness over the right but he stated it was old and his NIH 0. Possible TIA. Mild Encephalopathy of unknown etiology History of stroke and 2020 and per patient has residual weakness over the right (but denied that to ED) Diabetes mellitus Peripheral neuropathy Plan: Patient was given aspirin 324 mg once in the ED. And was started on aspirin 325mg daily. I decrease aspirin to 81 mg daily and started the patient on Plavix 75mg daily for now. Continue Lipitor 40 mg daily at bedtime for secondary stroke prophylaxis Lipid panel is ordered and is pending. Ordered MRI Brain, 2-D echo, TSH. Every 4 hours neuro checks On cardiac monitoring PT, OT and DEVELOPMENTAL BEHAVIORAL PHYSICIAN are consulted Ordered routine EEG because of some confusion. I will not start the patient on antiepileptic drug unless there is epileptiform discharges or seizure on EEG. Ordered Vitamin B12 and folate level. Started the patient on thiamine 100mg daily. We'll defer the rest of the medical management to the primary team Upon discharge the patient needs to follow-up with a neurologist within 1-2 weeks. For DVT prophylaxis: On Enoxaparin. The plan is discussed with the primary team. Thank you for the consultation. Dr. Elias will take over neurology coverage tomorrow AM. Carlos Arrington MD Neuro-Hospitalist Time with Patient: Greater than 30
[2021-02-28 12:12] LABS: Chol/HDL Ratio 3.45 Ratio; HDL Cholesterol 35.1 mg/dL (40.00-60.00); LDL Cholesterol,Calculated 69.2 mg/dL (0.0-131.0); Triglycerides 83.3 mg/dL (0.00-149.00); VLDL Calculation 16.66 mg/dL (5.00-40.00)
[2021-02-28 12:33] LABS: Glucose,Whole Blood 95 mg/dL (75-99)
[2021-02-28] MEDS: INSULIN ASPART (NovoLOG) 100 UNIT/ML VIAL SQ SCH ×3 (12:50→20:35)
[2021-02-28] MEDS: THIAMINE 100 MG TAB PO SCH (13:07)
[2021-02-28] MEDS: CLOPIDOGREL 75 MG TAB PO SCH (13:07)
[2021-02-28 16:45] LABS: Glucose,Whole Blood 71 mg/dL (75-99)
[2021-02-28] MEDS: METOPROLOL TARTRATE 25 MG TAB PO SCH (20:37)
[2021-02-28 20:39] LABS: Glucose,Whole Blood 126 mg/dL (75-99)
[2021-03-01 06:04] LABS: Glucose,Whole Blood 123 mg/dL (75-99)
[2021-03-01] MEDS: INSULIN ASPART (NovoLOG) 100 UNIT/ML VIAL SQ SCH ×4 (06:41→20:53)
[2021-03-01 07:54] LABS: African American GFR (CKD) >90 (>60 ml/min/1.73 sqM); Anion Gap 8 mmol/L; Blood Urea Nitrogen 15 mg/dL (9-20); Calcium 9.8 mg/dL (8.4-10.2); Carbon Dioxide 28 mmol/L (22-30); Chloride 101 mmol/L (98-107); Glucose 130 mg/dL (74-99); Non-African American GFR(CKD) >90 (>60 ml/min/1.73 sqM); Potassium 4.3 mmol/L (3.5-5.1); Sodium 137 mmol/L (137-145)
[2021-03-01] MEDS: METOPROLOL TARTRATE 25 MG TAB PO SCH ×2 (09:12→20:53)
[2021-03-01] MEDS: lisinopriL 5 MG TAB PO SCH (09:12)
[2021-03-01] MEDS: ASPIRIN 81 MG PO SCH (09:12)
[2021-03-01] MEDS: ENOXAPARIN 40 MG/0.4 ML SYRINGE SQ SCH (09:12)
[2021-03-01] MEDS: THIAMINE 100 MG TAB PO SCH (09:12)
[2021-03-01] MEDS: ATORVASTATIN 40 MG TAB PO SCH (09:12)
[2021-03-01] MEDS: CLOPIDOGREL 75 MG TAB PO SCH (09:12)
[2021-03-01 11:33] LABS: Glucose,Whole Blood 199 mg/dL (75-99)
--- NOTE | 2021-03-01 12:14 | MR ---
EXAMINATION TYPE: MR brain wo/w con DATE OF EXAM: 03/01/2021 COMPARISON: CT brain 02/27/2021, MR brain 08/21/2019 HISTORY: Right sided weakness, confusion. TECHNIQUE: Multiplanar, multisequence images of the brain and brainstem is performed without and with IV contras t, utilizing 7 mL intravenous Gadavist . FINDINGS: Restricted diffusion is noted in the region of the thalamus on the left, punctate focus may be present adjacent to the posterior horn of left lateral ventricle, axial image 13 of series 408. E xtensive periventricular, pericallosal, subcortical confluence and scattered hyperintensities are aga in noted on inversion recovery and T2-weighted sequences. There is no extra-axial fluid. The ventric ular system and cisternal spaces are normal in size and appearance. The brain volume is age appropri ate, cortical atrophy shows a similar appearance. Some scattered areas of low signal suggest punctate foci of encephalomalacia likely due to chronic small vessel ischemia. Midline structures demonstrate stable morphology, abnormal signal noted within the corpus callosum, s uggestive Braswell's fingers and the pericallosal region. The craniocervical junction appears within n ormal limits. Post contrast images demonstrate no abnormal enhancement. The dural venous sinuses sunil ear patent. The visualized sinuses are for inflammatory change in the ethmoid air cells, there is muc osal disease in the maxillary sinuses and the globes are intact. IMPRESSION: Findings consistent with cerebrovascular accident, questionable punctate focus also prese nt in the left occipital lobe suggestive of possibility of embolic phenomenon. Demyelinating disease is not excluded.
--- NOTE | 2021-03-01 13:20 | ECHOF ---
Referral Reason:tia MEASUREMENTS -------- HEIGHT: 167.6 cm WEIGHT: 80.7 kg BP: 134/81 IVSd: 1.4 cm (0.6 - 1.1) LVIDd: 3.9 cm (3.9 - 5.3) LVPWd: 1.8 cm (0.6 - 1.1) IVSs: 1.8 cm LVIDs: 2.8 cm LVPWs: 2.0 cm FINDINGS -------- Sinus rhythm. This was a technically adequate study. Limited Study The left ventricular size is normal. There is moderate concentric left ventricular hypertrophy. O verall left ventricular systolic function is low-normal with, an EF between 50 - 55 %. There is mild aortic valve sclerosis. There is no pericardial effusion. CONCLUSIONS -------- 1. The left ventricular size is normal. 2. There is moderate concentric left ventricular hypertrophy. 3. Overall left ventricular systolic function is low-normal with, an EF between 50 - 55 %. 4. There is mild aortic valve sclerosis. [employer]: Yudi Hoffman, [employer]
[2021-03-01 16:42] LABS: Glucose,Whole Blood 175 mg/dL (75-99)
[2021-03-01 20:44] LABS: Glucose,Whole Blood 200 mg/dL (75-99)
--- NOTE | 2021-03-01 23:38 | P.PN ---
Subjective Progress Note Date: 03/01/21 Patient was initially seen by Dr. Carlos Arrington. Please refer to his note for details. Patient is a 65-year-old male with history of CVA in July 2019, with right- sided weakness. Patient was pulled over by EMS because he was driving erratically. His NIH stroke scale was 12, but in the ER the NIH stroke scale dropped down to 0. He was not a candidate for TPA. He underwent testing including MRI and EEG as below. Telemetry monitoring showing sinus rhythm. Objective - Vital Signs Vital signs: Vital Signs Temp 98.4 F 03/01/21 08:00 Pulse 85 03/01/21 08:00 Resp 16 03/01/21 03:15 BP 138/70 03/01/21 08:00 Pulse Ox 98 03/01/21 08:00 Intake & Output 02/28/21 03/01/21 03/01/21 18:59 06:59 18:59 Intake Total 240 Output Total 900 700 Balance -660 -700 Weight 81 kg Intake: Oral 240 Output: Urine 900 700 Other: Voiding Method Urinal External Catheter External Catheter Diaper # Voids 1 - Exam Patient is an elderly male, in no distress. Patient is alert awake and alert. Patient states it is the month of April and the year is 2020. He knows he is in [facility] and name of the current president. Speech and language functions are normal. Attention, concentration and fund of knowledge is adequate. Patient can name and repeat very well. On cranial examination, pupils are round and reacting to light, visual maldonado are full on confrontation, extraocular muscles are intact with no nystagmus. Patient has right facial asymmetry. His tongue protrudes to the midline. Palatal elevation and sensation normal, hearing and shoulder shrug normal, facial sensation normal. On muscle strength testing, there is right pronator drift and the strength is (right/left) deltoid 4to4-/5-, biceps 4+5-/5, paint and table edger 4+5-/5-. In the lower limbs hip flexion is 5-/5, ankle dorsiflexion 4+5-/5. Deep tendon reflexes are slightly brisk on the right. Sensory to touch is equal with no neglect. Cerebellar function showed slowing for [id number] testing on the right, normal on the left. Tone and bulk of muscles normal. Gait not checked. On general examination, there is no carotid bruit or murmur, S1-S2 audible. Chest is clear. Abdomen is soft nontender. Chest is clear. Peripheral pulses are present. - Labs CBC & Chem 7: 02/27/21 15:25 03/01/21 07:03 Labs: Abnormal Lab Results - Last 24 Hours (Table) 02/28/21 02/28/21 02/28/21 Range/Units 06:54 16:43 20:20 Creatinine (0.66-1.25) mg/dL Glucose (74-99) mg/dL POC Glucose (mg/dL) 71 L 126 H (75-99) mg/dL HDL Cholesterol 35.10 L (40.00-60.00) mg/dL 03/01/21 03/01/21 Range/Units 05:48 07:03 Creatinine 0.62 L (0.66-1.25) mg/dL Glucose 130 H (74-99) mg/dL POC Glucose (mg/dL) 123 H (75-99) mg/dL HDL Cholesterol (40.00-60.00) mg/dL Assessment and Plan Assessment: Acute left thalamic infarct. There is possibility of another punctate focus of acute ischemia involving the left occipital lobe, suggestive of possible embolic phenomenon. Mild encephalopathy of unknown etiology History of stroke in 2020 and per patient has residual weakness over the right (but denied that to ED) Diabetes mellitus, poorly controlled Peripheral neuropathy Plan: Continue patient on dual antiplatelet medication for now including aspirin 81 mg and Plavix 75 mg daily. Patient was on aspirin 81 mg daily at home. Lipid panel with cholesterol 121, LDL 69.2, HDL 35 and triglycerides 83. Continue Lipitor 40 mg daily at bedtime for secondary stroke prophylaxis MRI Brain revealed acute left thalamic infarct. Another punctate focus also present in the left occipital lobe, suggestive of possibility of embolic phenomenon. Demyelinating disease is not excluded. Suspect stroke is related to poorly controlled vascular risk factors. 2-D echo revealed normal left ventricular size. Moderate concentric LVH. EF is low-normal 50-55%, mild aortic valve sclerosis. We will check bubble study to rule out PFO. Hemoglobin A1c 14.0 on 02/09/2021 consistent with poorly controlled diabetes. Suggest optimize diabetes controlled to target A1c <7.0. CTA of head showed no stenosis. CTA of the neck reported as mild plaque at the carotid artery bifurcations and less than 20% stenosis of both ICA. TSH 2.17. Cardiac monitoring shows sinus rhythm. PT, OT and HAND ROLLER ENGRAVER are consulted EEG preliminary report revealed mild disorganization, mild slowing, consistent with encephalopathy. No epileptiform activity was seen. Vitamin B12 861 and folate level 10.5. Continue thiamine 100mg daily. We'll defer the rest of the medical management to the primary team Upon discharge the patient needs to follow-up with a neurologist within 1-2 weeks. For DVT prophylaxis: On Enoxaparin.
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
[2021-03-02 06:00] LABS: Glucose,Whole Blood 144 mg/dL (75-99)
[2021-03-02] MEDS: INSULIN ASPART (NovoLOG) 100 UNIT/ML VIAL SQ SCH ×4 (06:06→20:37)
[2021-03-02] MEDS: THIAMINE 100 MG TAB PO SCH (08:37)
[2021-03-02] MEDS: CLOPIDOGREL 75 MG TAB PO SCH (08:37)
[2021-03-02] MEDS: ATORVASTATIN 40 MG TAB PO SCH (08:37)
[2021-03-02] MEDS: ASPIRIN 81 MG PO SCH (08:37)
[2021-03-02] MEDS: METOPROLOL TARTRATE 25 MG TAB PO SCH ×2 (08:37→19:47)
[2021-03-02] MEDS: lisinopriL 5 MG TAB PO SCH (08:37)
[2021-03-02] MEDS: ENOXAPARIN 40 MG/0.4 ML SYRINGE SQ SCH (08:37)
--- NOTE | 2021-03-02 11:36 | EEG ---
ELECTROENCEPHALOGRAM REPORT DATE OF SERVICE: 03/01/2021 PREAMBLE: This is a 65-year-old male with possible CVA, presented with episode of altered mental status. EEG FINDINGS: This is a 21-channel routine digital EEG recording, along with video, in a patient utilizing 10/20 international system with referential and bipolar montages. Background consists of well- developed, moderately well regulated, mixed frequencies of 8-9 hertz alpha, intermixed with some theta and some occasional delta activities. Background seems to be reactive to eye opening and closing. Photic driving response was not clearly seen. Different stages of sleep were not seen. No focal or generalized epileptiform activity was seen. EKG channel showed no obvious arrhythmia. Hyperventilation was not done. IMPRESSION: This is a mildly abnormal EEG due to background disorganization with mild generalized slowing. This is suggestive of generalized cerebral dysfunction as can be seen with encephalopathy of metabolic, vascular or medication effect. No obvious epileptiform activity was seen. Clinical correlation is recommended. MMARSENIO / GRADYN: [id number] / [facility] CENTERJoaquina
[2021-03-02 11:49] LABS: Glucose,Whole Blood 157 mg/dL (75-99)
--- NOTE | 2021-03-02 13:01 | ECHOF ---
Referral Reason:limited study for bubble studym rule out PFO MEASUREMENTS -------- HEIGHT: 167.6 cm WEIGHT: 86.6 kg BP: FINDINGS -------- Sinus rhythm. Limited Study Contrast study was performed with 2 iv injections of 8 ccs of agitated normal saline, at rest, and wi th cough. Negative saline bubbles study. No shunt noted CONCLUSIONS -------- 1. Contrast study was performed with 2 iv injections of 8 ccs of agitated normal saline, at rest, and with cough. 2. Negative saline bubbles study. No shunt noted AUDIO VIDEO TECHNICIAN: Leonie Jenkins RDCS
[2021-03-02 16:25] LABS: Glucose,Whole Blood 183 mg/dL (75-99)
[2021-03-02 20:22] LABS: Glucose,Whole Blood 120 mg/dL (75-99)
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
[2021-03-03 06:19] LABS: Basophils % (A) 1 %; Eosinophils # (A) 0.2 k/uL (0-0.7); Eosinophils % (A) 3 %; HGB 14.7 gm/dL (13.0-17.5); Lymphocytes # (A) 1.5 k/uL (1.0-4.8); Lymphocytes % (A) 19 %; MCH 27.5 pg (25.0-35.0); MCHC 33.4 g/dL (31.0-37.0); MCV 82.4 fL (80.0-100.0); Mean Platelet Volume 6.6; Monocytes # (A) 0.4 k/uL (0-1.0); Monocytes % (A) 5 %; Neutrophils # (A) 5.9 k/uL (1.3-7.7); Neutrophils % (A) 71 %; Platelet Count 277 k/uL (150-450); RBC 5.34 m/uL (4.30-5.90); RDW 14.8 % (11.5-15.5); WBC 8.3 k/uL (3.8-10.6)
[2021-03-03 06:38] LABS: African American GFR (CKD) >90 (>60 ml/min/1.73 sqM); Anion Gap 10 mmol/L; Blood Urea Nitrogen 18 mg/dL (9-20); Calcium 9.7 mg/dL (8.4-10.2); Carbon Dioxide 23 mmol/L (22-30); Chloride 103 mmol/L (98-107); Glucose 153 mg/dL (74-99); Non-African American GFR(CKD) >90 (>60 ml/min/1.73 sqM); Potassium 4.2 mmol/L (3.5-5.1); Sodium 136 mmol/L (137-145)
[2021-03-03 07:36] LABS: Glucose,Whole Blood 129 mg/dL (75-99)
[2021-03-03] MEDS: INSULIN ASPART (NovoLOG) 100 UNIT/ML VIAL SQ SCH ×4 (08:45→20:44)
[2021-03-03] MEDS: METOPROLOL TARTRATE 25 MG TAB PO SCH ×2 (08:54→20:44)
[2021-03-03] MEDS: THIAMINE 100 MG TAB PO SCH (08:54)
[2021-03-03] MEDS: ENOXAPARIN 40 MG/0.4 ML SYRINGE SQ SCH (08:54)
[2021-03-03] MEDS: ATORVASTATIN 40 MG TAB PO SCH (08:54)
[2021-03-03] MEDS: ASPIRIN 81 MG PO SCH (08:54)
[2021-03-03] MEDS: CLOPIDOGREL 75 MG TAB PO SCH (08:54)
[2021-03-03 12:49] LABS: Glucose,Whole Blood 231 mg/dL (75-99)
[2021-03-03 17:59] LABS: Glucose,Whole Blood 150 mg/dL (75-99)
[2021-03-03 20:37] LABS: Glucose,Whole Blood 170 mg/dL (75-99)
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
[2021-03-04 07:33] LABS: Glucose,Whole Blood 157 mg/dL (75-99)
[2021-03-04] MEDS: METOPROLOL TARTRATE 25 MG TAB PO SCH ×2 (07:53→07:54)
[2021-03-04] MEDS: INSULIN ASPART (NovoLOG) 100 UNIT/ML VIAL SQ SCH ×4 (07:54→20:15)
[2021-03-04] MEDS: CLOPIDOGREL 75 MG TAB PO SCH (07:54)
[2021-03-04] MEDS: ASPIRIN 81 MG PO SCH (07:54)
[2021-03-04] MEDS: ENOXAPARIN 40 MG/0.4 ML SYRINGE SQ SCH (07:54)
[2021-03-04] MEDS: ATORVASTATIN 40 MG TAB PO SCH (07:54)
[2021-03-04] MEDS: THIAMINE 100 MG TAB PO SCH (07:54)
--- NOTE | 2021-03-04 09:53 | P.PN ---
Subjective Progress Note Date: 03/03/21 03/03/2021: Patient is a right-handed male, seen for a follow-up. Patient is sitting comfortably on the side of the bed. Offers no new complaints. The right side is still weak. Patient states that he lives by himself. He has no children. Never been . 03/02/2021: Patient is laying comfortably in the bed. Patient offers no new complaints. Denies headache. 03/01/2021: Patient was initially seen by Dr. Carlos Arrington. Please refer to his note for details. Patient is a 65-year-old male with history of CVA in July 2019, with right- sided weakness. Patient was pulled over by EMS because he was driving erratically. His NIH stroke scale was 12, but in the ER the NIH stroke scale d ropped down to 0. He was not a candidate for TPA. He underwent testing including MRI and EEG as below. Telemetry monitoring showing sinus rhythm. Objective - Vital Signs Vital signs: Vital Signs Temp 98.4 F 03/04/21 04:34 Pulse 62 03/04/21 04:34 Resp 16 03/04/21 04:34 BP 149/96 03/04/21 04:34 Pulse Ox 98 03/04/21 04:34 Intake & Output 03/03/21 03/04/21 03/04/21 18:59 06:59 18:59 Intake Total 240 600 Output Total 200 Balance 240 400 Weight 71.5 kg Intake: Oral 240 600 Output: Urine 200 Other: Voiding Method Urinal Urinal Urinal Diaper Diaper Diaper Incontinent Incontinent Incontinent # Voids 3 4 - Exam Patient is an elderly male, in no distress. Patient is alert awake and alert. Speech is mildly dysarthric and language functions are normal. Attention, concentration and fund of knowledge is adequate. Patient can name and repeat very well. On cranial examination, pupils are round and reacting to light, visual maldonado are full on confrontation, extraocular muscles are intact with no nystagmus. Patient has right facial asymmetry. His tongue protrudes to the midline. Palatal elevation and sensation normal, hearing and shoulder shrug normal, facial sensation normal. On muscle strength testing, there is right pronator drift and the strength is (right/left) deltoid 4to4-/5-, biceps 4+5-/5, piping manager 4+5-/5-. In the lower limbs hip flexion is 5-/5, ankle dorsiflexion 4+5-/5. Deep tendon reflexes are slightly brisk on the right. Sensory to touch is equal with no neglect. Cerebellar function showed slowing for [id number] testing on the right, normal on the left. Tone is slightly increased on the right and bulk of muscles normal. Gait not checked. On general examination, there is no carotid bruit or murmur, S1-S2 audible. Chest is clear. Abdomen is soft nontender. Chest is clear. Peripheral pulses are present. - Labs CBC & Chem 7: 03/03/21 05:46 03/03/21 05:46 Labs: Abnormal Lab Results - Last 24 Hours (Table) 03/03/21 03/03/21 03/03/21 Range/Units 12:46 17:58 20:35 POC Glucose (mg/dL) 231 H 150 H 170 H (75-99) mg/dL 03/04/21 Range/Units 07:31 POC Glucose (mg/dL) 157 H (75-99) mg/dL Assessment and Plan Assessment: Acute left thalamic infarct. There is possibility of another punctate focus of acute ischemia involving the left occipital lobe, suggestive of possible embolic phenomenon. Mild encephalopathy of unknown etiology History of stroke in 2020 and per patient has residual weakness over the r ight (but denied that to ED) Diabetes mellitus, poorly controlled Peripheral neuropathy Plan: Continue patient on dual antiplatelet medication for now including aspirin 81 mg and Plavix 75 mg daily. Patient was on aspirin 81 mg daily at home prior to this stroke. Lipid panel with cholesterol 121, LDL 69.2, HDL 35 and triglycerides 83. Continue Lipitor 40 mg daily at bedtime for secondary stroke prophylaxis MRI Brain revealed acute left thalamic infarct. Another punctate focus also present in the left occipital lobe, suggestive of possibility of embolic phenom enon. Demyelinating disease is not excluded. Suspect stroke is related to poorly controlled vascular risk factors. 2-D echo revealed normal left ventricular size. Moderate concentric LVH. EF is low-normal 50-55%, mild aortic valve sclerosis. Patient had a bubble study performed 03/02/2021. Negative for any shunts. Hemoglobin A1c 14.0 on 02/09/2021 consistent with poorly controlled diabetes. Suggest optimize diabetes controlled to target A1c <7.0. CTA of head showed no stenosis. CTA of the neck reported as mild plaque at the carotid artery bifurcations and less than 20% stenosis of both ICA. TSH 2.17. Cardiac monitoring shows sinus rhythm. PT, OT and [employer] are consulted EEG preliminary report revealed mild disorganization, mild slowing, consistent with encephalopathy. No epileptiform activity was seen. Vitamin B12 861 and folate level 10.5. Continue thiamine 100mg daily. We'll defer the rest of the medical management to the primary team Upon discharge the patient needs to follow-up with a neurologist within 1-2 weeks. Neurologically clear for discharge. Please call for any other concerns. For DVT prophylaxis: On Enoxaparin.
[2021-03-04 11:36] VITALS: BMI 25.4
[2021-03-04 12:24] LABS: Glucose,Whole Blood 184 mg/dL (75-99)
[2021-03-04 12:26] LABS: Appearance,Urine Turbid (Clear); Bacteria,Urine Many /hpf; Bilirubin,Urine Negative (Negative); Blood,Urine Small (Negative); Color,Urine Yellow; Glucose,Urine (UA) Negative (Negative); Ketones,Urine Negative (Negative); Leukocyte Esterase,Urine Large (Negative); Mucus,Urine Rare /hpf; Nitrite,Urine Negative (Negative); PH, Urine 6.5 (5.0-8.0); Protein,Urine 1+ (Negative); RBC,Urine 14 /hpf (0-5); Specific Gravity,Urine 1.016 (1.001-1.035); Squamous Epithelial Cell,Urine 1 /hpf (0-4); Urobilinogen,Urine <2.0 mg/dL (<2.0); WBC,Urine >182 /hpf (0-5)
[2021-03-04 17:13] LABS: Glucose,Whole Blood 175 mg/dL (75-99)
[2021-03-04 20:12] LABS: Glucose,Whole Blood 173 mg/dL (75-99)
--- NOTE | 2021-03-05 01:28 | P.PN ---
Subjective Progress Note Date: 03/04/21 This is a pleasant 65-year-old the male came in with the speech abnormality and possible x-ray weakness.. Patient has a right-sided facial droop and right sided hemiparesis which as per the patient is old. Patient evidently was bit confused and at the symptoms are transient. Patient did have a old CVA CT of the head did shoulder several vascular accident (was ordered CT angios the head and neck did not show any [place] carotid occlusion. Patient was evaluated by neurology patient will undergo computed tomography scan of the head patient had recent echocardiogram which showed decreased EF of around 45-50%. Patient denied any symptoms of UTI or pneumonia. Patient doesn't have any fever or le ukocytosis. 03/01/2021 Patient is seen this morning and MRI of the brain is ordered with neurology following closely. Patient states that he feels fine and is requesting to go home. Awaiting MRI currently. BMP within normal limits as well as TSH, vitamin b12 and folate. Maintained on sliding scale and will continue accuchecks achs. will have PT/OT evaluate the patient and social work consulted. 03/02/2021 Patient seen in follow up this morning with no acute overnight issues. Patient denies any headache. Patient continues to be weak and would benefit from ECF for rehab. PT/OT following. Social work following and attempting to obtain public guardian as patient is unable to care for himself and has poor social support and non-compliance with follow up and medical care of self. 03/03/2021 Patient is seen this morning on med/surg unit and resting comfortably with no acute issues noted. Patient continues to be weak and awaiting possible placement. Patient has no insurance and unable to make adequate decisions for himself and social work in the process of attempting for temporary guardian. Labs within normal limits. 03/04/2021 Patient is seen and evaluated this morning and continues to be weak and requires assistance with getting up and per nursing staff while sitting the patient up on the side of the bed, patient continues to fall over requiring assistance. Will have PT/OT see patient and work with daily. Patient having some odorous, cloudy urine and urinalysis was positive for leukocytes esterace and will send culture. IV rocephin started and will await culture to finalize. Patient is afebrile. Review of systems: Constitutional: No reports of fatigue, fever, or chills Cardiovascular: No reports of chest pain or palpitations Respiratory: No reports of shortness of breath or cough GI: No reports of nausea, vomiting, or diarrhea : No reports of dysuria or retention Neurovascular: Reports generalized weakness PHYSICAL EXAMINATION: GENERAL: The patient is alert and oriented x2-3, not in any acute distress. Well developed, well nourished. HEENT: Pupils are round and equally reacting to light. EOMI. No scleral icterus. No conjunctival pallor. Normocephalic, atraumatic. No pharyngeal erythema. No thyromegaly. CARDIOVASCULAR: S1 and S2 present. No murmurs, rubs, or gallops. PULMONARY: Chest is clear to auscultation, no wheezing or crackles. ABDOMEN: Soft, nontender, nondistended, normoactive bowel sounds. No palpable organomegaly. MUSCULOSKELETAL: No joint swelling or deformity. EXTREMITIES: No cyanosis, clubbing, or pedal edema. NEUROLOGICAL: Patient has focal deficits as mentioned above and speech abnormalities from his old stroke. asleep, but easily arousable. SKIN: No rashes. Assessment and plan: -Acute CVA. embolic as noted on MRI, bubble study negative -possible acute urinary tract infection, will start IV rocephin and culture sent and pending. -Type 2 diabetes mellitus: uncontrolled with hyperglycemia, poorly controlled previously secondary to non-compliance with medications and no insurance coverage and unable to afford medications. continued on sliding scale insulin -Congestive heart failure chronic systolic dysfunction without any acute exacerbation patient is not on any diuretics at this time -History of CVA/TIA in the past -poor social support -gait dysfunction -Hypertension -noncompliance with medical treatment and follow up -DVT prophylaxis: Lovenox Plan: Continue aspirin and plavix. Patient will need neurology follow up outpatient. Social work following and working on possible public guardian and insurance iss ues as patient would benefit from ECF placement for continued PT/OT therapy. Continue accuchecks and insulin. Encouraged increased activity as tolerated. PT/OT daily as patient continues to be weak. Urine found to be cloudy and odorous and urinalysis with culture sent. Will start IV rocephin and await cultures. Will discuss with social work of any updates in regards to possible guardian and placement. Objective - Vital Signs Vital signs: Vital Signs Temp 98.4 F 03/04/21 04:34 Pulse 62 03/04/21 04:34 Resp 16 03/04/21 04:34 BP 149/96 03/04/21 04:34 Pulse Ox 98 03/04/21 04:34 Intake & Output 03/03/21 03/04/21 03/04/21 18:59 06:59 18:59 Intake Total 240 600 Output Total 200 Balance 240 400 Weight 71.5 kg Intake: Oral 240 600 Output: Urine 200 Other: Voiding Method Urinal Urinal Urinal Diaper Diaper Diaper Incontinent Incontinent Incontinent # Voids 3 4 - Labs CBC & Chem 7: 03/03/21 05:46 03/03/21 05:46 Labs: Abnormal Lab Results - Last 24 Hours (Table) 03/03/21 03/03/21 03/03/21 Range/Units 12:46 17:58 20:35 POC Glucose (mg/dL) 231 H 150 H 170 H (75-99) mg/dL 03/04/21 Range/Units 07:31 POC Glucose (mg/dL) 157 H (75-99) mg/dL
[2021-03-05 07:32] LABS: Glucose,Whole Blood 186 mg/dL (75-99)
[2021-03-05] MEDS: CLOPIDOGREL 75 MG TAB PO SCH (07:56)
[2021-03-05] MEDS: METOPROLOL TARTRATE 25 MG TAB PO SCH ×2 (07:56→19:49)
[2021-03-05] MEDS: ENOXAPARIN 40 MG/0.4 ML SYRINGE SQ SCH (07:56)
[2021-03-05] MEDS: INSULIN ASPART (NovoLOG) 100 UNIT/ML VIAL SQ SCH ×4 (07:56→20:48)
[2021-03-05] MEDS: ATORVASTATIN 40 MG TAB PO SCH (07:56)
[2021-03-05] MEDS: THIAMINE 100 MG TAB PO SCH (07:56)
[2021-03-05] MEDS: ASPIRIN 81 MG PO SCH (07:56)
[2021-03-05 11:42] LABS: Glucose,Whole Blood 201 mg/dL (75-99)
--- NOTE | 2021-03-05 16:57 | P.PN ---
Subjective Progress Note Date: 03/05/21 This is a pleasant 65-year-old the male came in with the speech abnormality and possible x-ray weakness.. Patient has a right-sided facial droop and right sided hemiparesis which as per the patient is old. Patient evidently was bit confused and at the symptoms are transient. Patient did have a old CVA CT of the head did shoulder several vascular accident (was ordered CT angios the head and neck did not show any [place] carotid occlusion. Patient was evaluated by neurology patient will undergo computed tomography scan of the head patient had recent echocardiogram which showed decreased EF of around 45-50%. Patient denied any symptoms of UTI or pneumonia. Patient doesn't have any fever or le ukocytosis. 03/01/2021 Patient is seen this morning and MRI of the brain is ordered with neurology following closely. Patient states that he feels fine and is requesting to go home. Awaiting MRI currently. BMP within normal limits as well as TSH, vitamin b12 and folate. Maintained on sliding scale and will continue accuchecks achs. will have PT/OT evaluate the patient and social work consulted. 03/02/2021 Patient seen in follow up this morning with no acute overnight issues. Patient denies any headache. Patient continues to be weak and would benefit from ECF for rehab. PT/OT following. Social work following and attempting to obtain public guardian as patient is unable to care for himself and has poor social support and non-compliance with follow up and medical care of self. 03/03/2021 Patient is seen this morning on med/surg unit and resting comfortably with no acute issues noted. Patient continues to be weak and awaiting possible placement. Patient has no insurance and unable to make adequate decisions for himself and social work in the process of attempting for temporary guardian. Labs within normal limits. 03/04/2021 Patient is seen and evaluated this morning and continues to be weak and requires assistance with getting up and per nursing staff while sitting the patient up on the side of the bed, patient continues to fall over requiring assistance. Will have PT/OT see patient and work with daily. Patient having some odorous, cloudy urine and urinalysis was positive for leukocytes esterace and will send culture. IV rocephin started and will await culture to finalize. Patient is afebrile. 03/05/2021 Patient seen and evaluated and follow-up as morning continues to have periods of confusion and having difficulty with ADLs. Patient currently has a brief on and is often incontinent. Patient attempting to use urinal although urinated all over himself in the bed and still the urinal. Continues to be weak and working with physical therapy daily. Patient was started on IV ceftriaxone for possible urinary tract infection and awaiting for cultures to finalize. Patient denies that he dysuria or pain with urination, urinary frequency or difficulty in urinating. No new labs available today will repeat a.m. labs. Patient needs assistance with obtaining Medicaid and possible placement with social work following. Plan is for possible guardianship although not until March 15. Review of systems: Constitutional: No reports of fatigue, fever, or chills Cardiovascular: No reports of chest pain or palpitations Respiratory: No reports of shortness of breath or cough GI: No reports of nausea, vomiting, or diarrhea : No reports of dysuria or retention Neurovascular: Reports generalized weakness Active Medications Aspirin (Aspirin 81 Mg) 81 mg PO DAILY [facility] Last Admin: 03/05/21 07:56 Dose: 81 mg Documented by: Atorvastatin Calcium (Atorvastatin 40 Mg Tab) 40 mg PO DAILY [facility] Last Admin: 03/05/21 07:56 Dose: 40 mg Documented by: Clopidogrel Bisulfate (Clopidogrel 75 Mg Tab) 75 mg PO DAILY [facility] Last Admin: 03/05/21 07:56 Dose: 75 mg Documented by: Enoxaparin Sodium (Enoxaparin 40 Mg/0.4 Ml Syringe) 40 mg SQ DAILY [facility] Last Admin: 03/05/21 07:56 Dose: 40 mg Documented by: Ceftriaxone Sodium 2 gm/ (Sodium Chloride) 50 mls @ 100 mls/hr IVPB Q24HR [facility] Last Admin: 03/05/21 07:56 Dose: 100 mls/hr Documented by: Insulin Aspart (Insulin Aspart (Novolog) 100 Unit/Ml Vial) 0 unit SQ ACHS [facility]; Protocol Last Admin: 03/05/21 11:53 Dose: 2 unit Documented by: Metoprolol Tartrate (Metoprolol Tartrate 25 Mg Tab) 25 mg PO BID [facility] Last Admin: 03/05/21 07:56 Dose: 25 mg Documented by: Thiamine HCl (Thiamine 100 Mg Tab) 100 mg PO DAILY [facility] Last Admin: 03/05/21 07:56 Dose: 100 mg Documented by: PHYSICAL EXAMINATION: GENERAL: The patient is alert and oriented x2-3, and what confused at times. Well developed, well nourished. Temp is 98F, pulse is 73, respirations are 18, blood pressure is 130/84, oxygen saturation is 98% on room air. HEENT: Pupils are round and equally reacting to light. EOMI. No scleral icterus. No conjunctival pallor. Normocephalic, atraumatic. No pharyngeal erythema. No thyromegaly. CARDIOVASCULAR: S1 and S2 muffled PULMONARY: Diminished breath sounds bilaterally with no wheezing or rhonchi noted ABDOMEN: Soft, nontender, nondistended, normoactive bowel sounds. No palpable organomegaly. MUSCULOSKELETAL: No joint swelling or deformity. EXTREMITIES: No cyanosis, clubbing, or pedal edema. NEUROLOGICAL: Patient has focal deficits as mentioned above and speech abnormalities from his old stroke. asleep, but easily arousable. SKIN: No rashes. Assessment and plan: -Acute CVA. embolic as noted on MRI, bubble study negative -possible acute urinary tract infection, will start IV rocephin and culture sent and pending. -Type 2 diabetes mellitus: uncontrolled with hyperglycemia, poorly controlled previously secondary to non-compliance with medications and no insurance coverage and unable to afford medications. continued on sliding scale insulin -Congestive heart failure chronic systolic dysfunction without any acute exacerbation patient is not on any diuretics at this time -History of CVA/TIA in the past -poor social support -gait dysfunction -Hypertension -noncompliance with medical treatment and follow up -DVT prophylaxis: Lovenox Plan: Continue aspirin and plavix. Patient will need neurology follow up outpatient. Social work following and working on possible public guardian and insurance issues as patient would benefit from ECF placement for continued PT/OT therapy. Continue accuchecks and insulin. Encouraged increased activity as tolerated. PT/OT daily as patient continues to be weak. Awaiting urine culture to finalize and will continue with IV Rocephin. Will discuss with social work of any updates in regards to possible guardian and placement. Patient needs assistance with obtaining Medicaid and will need ECF placement as he is unable to care for himself and continues to be extremely weak requiring assistance. Will repeat a.m. labs and continue to monitor closely. Due to multiple complex medical issues, prognosis is guarded. Objective - Vital Signs Vital signs: Vital Signs Temp 98.4 F 03/05/21 04:31 Pulse 84 03/05/21 04:31 Resp 16 03/05/21 04:31 BP 137/82 03/05/21 04:31 Pulse Ox 99 03/05/21 04:31 Intake & Output 03/04/21 03/05/21 03/05/21 18:59 06:59 18:59 Intake Total 600 Output Total 350 300 Balance -350 300 Weight 71.5 kg 80.5 kg Intake: Oral 600 Output: Urine 350 300 Other: Voiding Method Urinal Urinal Urinal Diaper Diaper Diaper Incontinent Incontinent Incontinent # Voids 2 1 - Labs CBC & Chem 7: 03/03/21 05:46 03/03/21 05:46 Labs: Abnormal Lab Results - Last 24 Hours (Table) 03/04/21 03/04/21 03/04/21 Range/Units 10:45 12:22 17:12 POC Glucose (mg/dL) 184 H 175 H (75-99) mg/dL Urine Protein 1+ H (Negative) Urine Blood Small H (Negative) Ur Leukocyte Esterase Large H (Negative) Urine RBC 14 H (0-5) /hpf Urine WBC >182 H (0-5) /hpf Urine WBC Clumps Many H (None) /hpf Urine Bacteria Many H (None) /hpf Urine Mucus Rare H (None) /hpf 03/04/21 03/05/21 Range/Units 20:10 07:30 POC Glucose (mg/dL) 173 H 186 H (75-99) mg/dL Urine Protein (Negative) Urine Blood (Negative) Ur Leukocyte Esterase (Negative) Urine RBC (0-5) /hpf Urine WBC (0-5) /hpf Urine WBC Clumps (None) /hpf Urine Bacteria (None) /hpf Urine Mucus (None) /hpf Microbiology - Last 24 Hours (Table) 03/04/21 10:45 Urine Culture - Preliminary Urine,Voided
[2021-03-05 17:20] LABS: Glucose,Whole Blood 178 mg/dL (75-99)
[2021-03-05 20:31] LABS: Glucose,Whole Blood 190 mg/dL (75-99)
[2021-03-06 07:01] LABS: Glucose,Whole Blood 162 mg/dL (75-99)
[2021-03-06 07:39] LABS: Basophils % (A) 0 %; Eosinophils # (A) 0.1 k/uL (0-0.7); Eosinophils % (A) 2 %; HCT 43.4 % (39.0-53.0); HGB 14.4 gm/dL (13.0-17.5); Lymphocytes # (A) 1.7 k/uL (1.0-4.8); Lymphocytes % (A) 24 %; MCH 27.4 pg (25.0-35.0); MCHC 33.1 g/dL (31.0-37.0); MCV 82.7 fL (80.0-100.0); Mean Platelet Volume 6.9; Monocytes # (A) 0.4 k/uL (0-1.0); Monocytes % (A) 6 %; Neutrophils # (A) 4.5 k/uL (1.3-7.7); Neutrophils % (A) 65 %; Platelet Count 244 k/uL (150-450); RBC 5.25 m/uL (4.30-5.90); WBC 6.9 k/uL (3.8-10.6)
[2021-03-06 07:53] LABS: Potassium 4.5 mmol/L (3.5-5.1)
[2021-03-06 07:54] LABS: African American GFR (CKD) >90 (>60 ml/min/1.73 sqM); Anion Gap 7 mmol/L; Blood Urea Nitrogen 18 mg/dL (9-20); Calcium 9.7 mg/dL (8.4-10.2); Carbon Dioxide 26 mmol/L (22-30); Chloride 103 mmol/L (98-107); Glucose 187 mg/dL (74-99); Non-African American GFR(CKD) >90 (>60 ml/min/1.73 sqM); Sodium 136 mmol/L (137-145)
[2021-03-06] MEDS: ASPIRIN 81 MG PO SCH (08:06)
[2021-03-06] MEDS: METOPROLOL TARTRATE 25 MG TAB PO SCH ×2 (08:06→20:43)
[2021-03-06] MEDS: INSULIN ASPART (NovoLOG) 100 UNIT/ML VIAL SQ SCH ×4 (08:06→20:43)
[2021-03-06] MEDS: CLOPIDOGREL 75 MG TAB PO SCH (08:06)
[2021-03-06] MEDS: ENOXAPARIN 40 MG/0.4 ML SYRINGE SQ SCH (08:06)
[2021-03-06] MEDS: THIAMINE 100 MG TAB PO SCH (08:06)
[2021-03-06] MEDS: ATORVASTATIN 40 MG TAB PO SCH (08:06)
[2021-03-06 11:27] LABS: Glucose,Whole Blood 216 mg/dL (75-99)
[2021-03-06 17:10] LABS: Glucose,Whole Blood 195 mg/dL (75-99)
--- NOTE | 2021-03-06 20:22 | PN ---
PROGRESS NOTE DATE OF SERVICE: 03/06/2021 This 65-year-old gentleman who was admitted with acute CVA and embolic stroke is being closely monitored. No chest pain. The patient has acute UTI also. No fever. No cough. PHYSICAL EXAMINATION: Alert and oriented x2. Dysarthric. Pulse 70, blood pressure 120/87, respiration 18, temperature 97.9, pulse ox 98% on room air. HEENT: Conjunctivae normal. NECK: No jugular venous distention. CARDIOVASCULAR: S1, S2 muffled. RESPIRATION: Breath sounds diminished at the bases. A few scattered rhonchi and crackles. ABDOMEN: Soft. NERVOUS SYSTEM: No focal deficit. LABS: Sodium 136. CBC noted. Glucose noted. ASSESSMENT: 1. Acute cerebrovascular accident, embolic stroke. 2. Possible acute urinary tract infection. 3. Diabetes mellitus, type 2. 4. History of noncompliance. 5. History of congestive heart failure with chronic systolic dysfunction. 6. History of cerebrovascular accident, transient ischemic attack in the past. 7. Poor social support. 8. Gait dysfunction. 9. Hypertension. 10.Hyponatremia, mild. RECOMMENDATIONS AND DISCUSSION: In this 65-year-old gentleman who presented with multiple complex medical issues, we will monitor the patient closely, continue the antiplatelet agents, continue with Lipitor. Continue the rest of the medications. PT/OT evaluation; possible ECF rehab. Guarded prognosis. Further recommendations to follow. QIAN / CHRISTINA: [id number] /
[2021-03-06 20:38] LABS: Glucose,Whole Blood 201 mg/dL (75-99)
[2021-03-06 20:43] LABS: Glucose,Whole Blood 172 mg/dL (75-99)
[2021-03-07 07:14] LABS: Glucose,Whole Blood 130 mg/dL (75-99)
[2021-03-07] MEDS: ATORVASTATIN 40 MG TAB PO SCH (08:32)
[2021-03-07] MEDS: THIAMINE 100 MG TAB PO SCH (08:32)
[2021-03-07] MEDS: ENOXAPARIN 40 MG/0.4 ML SYRINGE SQ SCH (08:32)
[2021-03-07] MEDS: CLOPIDOGREL 75 MG TAB PO SCH (08:32)
[2021-03-07] MEDS: ASPIRIN 81 MG PO SCH (08:32)
[2021-03-07] MEDS: METOPROLOL TARTRATE 25 MG TAB PO SCH ×2 (08:32→20:16)
[2021-03-07] MEDS: INSULIN ASPART (NovoLOG) 100 UNIT/ML VIAL SQ SCH ×4 (08:33→20:15)
[2021-03-07 11:48] LABS: Glucose,Whole Blood 227 mg/dL (75-99)
--- NOTE | 2021-03-07 13:18 | P.PN ---
Subjective Progress Note Date: 03/07/21 This is a pleasant 65-year-old the male came in with the speech abnormality and possible x-ray weakness.. Patient has a right-sided facial droop and right sided hemiparesis which as per the patient is old. Patient evidently was bit confused and at the symptoms are transient. Patient did have a old CVA CT of the head did shoulder several vascular accident (was ordered CT angios the head and neck did not show any [place] carotid occlusion. Patient was evaluated by neurology patient will undergo computed tomography scan of the head patient had recent echocardiogram which showed decreased EF of around 45-50%. Patient denied any symptoms of UTI or pneumonia. Patient doesn't have any fever or le ukocytosis. 03/01/2021 Patient is seen this morning and MRI of the brain is ordered with neurology following closely. Patient states that he feels fine and is requesting to go home. Awaiting MRI currently. BMP within normal limits as well as TSH, vitamin b12 and folate. Maintained on sliding scale and will continue accuchecks achs. will have PT/OT evaluate the patient and social work consulted. 03/02/2021 Patient seen in follow up this morning with no acute overnight issues. Patient denies any headache. Patient continues to be weak and would benefit from ECF for rehab. PT/OT following. Social work following and attempting to obtain public guardian as patient is unable to care for himself and has poor social support and non-compliance with follow up and medical care of self. 03/03/2021 Patient is seen this morning on med/surg unit and resting comfortably with no acute issues noted. Patient continues to be weak and awaiting possible placement. Patient has no insurance and unable to make adequate decisions for himself and social work in the process of attempting for temporary guardian. Labs within normal limits. 03/04/2021 Patient is seen and evaluated this morning and continues to be weak and requires assistance with getting up and per nursing staff while sitting the patient up on the side of the bed, patient continues to fall over requiring assistance. Will have PT/OT see patient and work with daily. Patient having some odorous, cloudy urine and urinalysis was positive for leukocytes esterace and will send culture. IV rocephin started and will await culture to finalize. Patient is afebrile. 03/05/2021 Patient seen and evaluated and follow-up as morning continues to have periods of confusion and having difficulty with ADLs. Patient currently has a brief on and is often incontinent. Patient attempting to use urinal although urinated all over himself in the bed and still the urinal. Continues to be weak and working with physical therapy daily. Patient was started on IV ceftriaxone for possible urinary tract infection and awaiting for cultures to finalize. Patient denies that he dysuria or pain with urination, urinary frequency or difficulty in urinating. No new labs available today will repeat a.m. labs. Patient needs assistance with obtaining Medicaid and possible placement with social work following. Plan is for possible guardianship although not until March 15. 03/07/2021 Patient seen on reevaluation resting in bed comfortably, he is moving all of his extremities today, appears in no acute distress, vital signs are stable. He is receiving antimicrobial therapy with Rocephin for UTI, urine culture growing Klebsiella, he is afebrile. Review of systems: Constitutional: No reports of fatigue, fever, or chills Cardiovascular: No reports of chest pain or palpitations Respiratory: No reports of shortness of breath or cough GI: No reports of nausea, vomiting, or diarrhea : No reports of dysuria or retention Neurovascular: Reports generalized weakness Active Medications Aspirin (Aspirin 81 Mg) 81 mg PO DAILY [facility] Last Admin: 03/05/21 07:56 Dose: 81 mg Documented by: Atorvastatin Calcium (Atorvastatin 40 Mg Tab) 40 mg PO DAILY [facility] Last Admin: 03/05/21 07:56 Dose: 40 mg Documented by: Clopidogrel Bisulfate (Clopidogrel 75 Mg Tab) 75 mg PO DAILY [facility] Last Admin: 03/05/21 07:56 Dose: 75 mg Documented by: Enoxaparin Sodium (Enoxaparin 40 Mg/0.4 Ml Syringe) 40 mg SQ DAILY [facility] Last Admin: 03/05/21 07:56 Dose: 40 mg Documented by: Ceftriaxone Sodium 2 gm/ (Sodium Chloride) 50 mls @ 100 mls/hr IVPB Q24HR [facility] Last Admin: 03/05/21 07:56 Dose: 100 mls/hr Documented by: Insulin Aspart (Insulin Aspart (Novolog) 100 Unit/Ml Vial) 0 unit SQ ACHS [facility]; Protocol Last Admin: 03/05/21 11:53 Dose: 2 unit Documented by: Metoprolol Tartrate (Metoprolol Tartrate 25 Mg Tab) 25 mg PO BID [facility] Last Admin: 03/05/21 07:56 Dose: 25 mg Documented by: Thiamine HCl (Thiamine 100 Mg Tab) 100 mg PO DAILY [facility] Last Admin: 03/05/21 07:56 Dose: 100 mg Documented by: PHYSICAL EXAMINATION: GENERAL: The patient is alert and oriented x2-3, and what confused at times. Well developed, well nourished. Temp is 98F, pulse is 73, respirations are 18, blood pressure is 130/84, oxygen saturation is 98% on room air. HEENT: Pupils are round and equally reacting to light. EOMI. No scleral icterus. No conjunctival pallor. Normocephalic, atraumatic. No pharyngeal erythema. No thyromegaly. CARDIOVASCULAR: S1 and S2 muffled PULMONARY: Diminished breath sounds bilaterally with no wheezing or rhonchi noted ABDOMEN: Soft, nontender, nondistended, normoactive bowel sounds. No palpable organomegaly. MUSCULOSKELETAL: No joint swelling or deformity. EXTREMITIES: No cyanosis, clubbing, or pedal edema. NEUROLOGICAL: Patient has focal deficits as mentioned above and speech abnormalities from his old stroke. asleep, but easily arousable. SKIN: No rashes. Assessment and plan: -Acute CVA. embolic as noted on MRI, bubble study negative -possible acute urinary tract infection, will start IV rocephin and culture sent and pending. -Type 2 diabetes mellitus: uncontrolled with hyperglycemia, poorly controlled previously secondary to non-compliance with medications and no insurance coverage and unable to afford medications. continued on sliding scale insulin -Congestive heart failure chronic systolic dysfunction without any acute exacerbation patient is not on any diuretics at this time -History of CVA/TIA in the past -poor social support -gait dysfunction -Hypertension -noncompliance with medical treatment and follow up -DVT prophylaxis: Lovenox Plan: Patient is continued on dual antiplatelet therapy with aspirin and Plavix, will need outpatient neurological follow-up. Social work is following patient will likely need a public guardian and insurance. Continue with PT/OT, patient likely benefit from ECF placement, case management is following. Urine culture is growing Klebsiella, he is continued on antimicrobial therapy with Rocephin. Continue with current medication regimen. DVT and GI prophylaxis. Discharge planning We will continue to follow, further recommendations pending clinical course Objective - Vital Signs Vital signs: Vital Signs Temp 98.1 F 03/07/21 12:05 Pulse 70 03/07/21 12:05 Resp 17 03/07/21 12:05 BP 123/76 03/07/21 12:05 Pulse Ox 100 03/07/21 12:05 Intake & Output 03/06/21 03/07/21 03/07/21 18:59 06:59 18:59 Intake Total 600 Balance 600 Weight 81 kg Intake: Oral 600 Other: Voiding Method Urinal Diaper Incontinent # Voids 2 2 - Labs CBC & Chem 7: 03/06/21 07:02 03/06/21 07:02 Labs: Abnormal Lab Results - Last 24 Hours (Table) 03/06/21 03/06/21 03/06/21 Range/Units 17:08 20:07 20:36 POC Glucose (mg/dL) 195 H 172 H 201 H (75-99) mg/dL 03/07/21 03/07/21 Range/Units 07:12 11:47 POC Glucose (mg/dL) 130 H 227 H (75-99) mg/dL Microbiology - Last 24 Hours (Table) 03/04/21 10:45 Urine Culture - Preliminary Urine,Voided Gram Neg Bacilli Klebsiella oxytoca
[2021-03-07 17:21] LABS: Glucose,Whole Blood 174 mg/dL (75-99)
[2021-03-07 20:07] LABS: Glucose,Whole Blood 135 mg/dL (75-99)
[2021-03-08 07:43] LABS: Glucose,Whole Blood 131 mg/dL (75-99)
[2021-03-08] MEDS: METOPROLOL TARTRATE 25 MG TAB PO SCH ×2 (08:52→20:26)
[2021-03-08] MEDS: CLOPIDOGREL 75 MG TAB PO SCH (08:52)
[2021-03-08] MEDS: ATORVASTATIN 40 MG TAB PO SCH (08:52)
[2021-03-08] MEDS: ENOXAPARIN 40 MG/0.4 ML SYRINGE SQ SCH (08:52)
[2021-03-08] MEDS: ASPIRIN 81 MG PO SCH (08:52)
[2021-03-08] MEDS: THIAMINE 100 MG TAB PO SCH (08:52)
[2021-03-08] MEDS: INSULIN ASPART (NovoLOG) 100 UNIT/ML VIAL SQ SCH ×4 (08:53→20:26)
[2021-03-08 12:09] LABS: Glucose,Whole Blood 234 mg/dL (75-99)
--- NOTE | 2021-03-08 16:43 | P.PN ---
Subjective Progress Note Date: 03/08/21 This is a pleasant 65-year-old the male came in with the speech abnormality and possible x-ray weakness.. Patient has a right-sided facial droop and right sided hemiparesis which as per the patient is old. Patient evidently was bit confused and at the symptoms are transient. Patient did have a old CVA CT of the head did shoulder several vascular accident (was ordered CT angios the head and neck did not show any [place] carotid occlusion. Patient was evaluated by neurology patient will undergo computed tomography scan of the head patient had recent echocardiogram which showed decreased EF of around 45-50%. Patient denied any symptoms of UTI or pneumonia. Patient doesn't have any fever or le ukocytosis. 03/01/2021 Patient is seen this morning and MRI of the brain is ordered with neurology following closely. Patient states that he feels fine and is requesting to go home. Awaiting MRI currently. BMP within normal limits as well as TSH, vitamin b12 and folate. Maintained on sliding scale and will continue accuchecks achs. will have PT/OT evaluate the patient and social work consulted. 03/02/2021 Patient seen in follow up this morning with no acute overnight issues. Patient denies any headache. Patient continues to be weak and would benefit from ECF for rehab. PT/OT following. Social work following and attempting to obtain public guardian as patient is unable to care for himself and has poor social support and non-compliance with follow up and medical care of self. 03/03/2021 Patient is seen this morning on med/surg unit and resting comfortably with no acute issues noted. Patient continues to be weak and awaiting possible placement. Patient has no insurance and unable to make adequate decisions for himself and social work in the process of attempting for temporary guardian. Labs within normal limits. 03/04/2021 Patient is seen and evaluated this morning and continues to be weak and requires assistance with getting up and per nursing staff while sitting the patient up on the side of the bed, patient continues to fall over requiring assistance. Will have PT/OT see patient and work with daily. Patient having some odorous, cloudy urine and urinalysis was positive for leukocytes esterace and will send culture. IV rocephin started and will await culture to finalize. Patient is afebrile. 03/05/2021 Patient seen and evaluated and follow-up as morning continues to have periods of confusion and having difficulty with ADLs. Patient currently has a brief on and is often incontinent. Patient attempting to use urinal although urinated all over himself in the bed and still the urinal. Continues to be weak and working with physical therapy daily. Patient was started on IV ceftriaxone for possible urinary tract infection and awaiting for cultures to finalize. Patient denies that he dysuria or pain with urination, urinary frequency or difficulty in urinating. No new labs available today will repeat a.m. labs. Patient needs assistance with obtaining Medicaid and possible placement with social work following. Plan is for possible guardianship although not until March 15. 03/07/2021 Patient seen on reevaluation resting in bed comfortably, he is moving all of his extremities today, appears in no acute distress, vital signs are stable. He is receiving antimicrobial therapy with Rocephin for UTI, urine culture growing Klebsiella, he is afebrile. 03/08/2021 Patient is seen and evaluated in follow-up this morning. Patient was maintained on IV ceftriaxone and urine culture showing gram-negative bacilli with Klebsiella oxytoca with ESBL multi-resistant and will consult infectious disease and appreciate input and antibiotic recommendations. Will reorder urinalysis with culture which is currently pending. Discussed with nursing staff about [facility] catheterization for specimen. Patient continues to be incontinent and difficulty using the urinal but also is using the urinal as much as possible. Patient denies any dysuria or pain with urination or frequency or hesitancy. Patient is afebrile. Patient tolerating diet with no reports of nausea or vomiting noted. Review of systems: Constitutional: No reports of fatigue, fever, or chills Cardiovascular: No reports of chest pain or palpitations Respiratory: No reports of shortness of breath or cough GI: No reports of nausea, vomiting, or diarrhea : No reports of dysuria or retention Neurovascular: Reports generalized weakness Active Medications Aspirin (Aspirin 81 Mg) 81 mg PO DAILY [facility] Last Admin: 03/08/21 08:52 Dose: 81 mg Documented by: Atorvastatin Calcium (Atorvastatin 40 Mg Tab) 40 mg PO DAILY [facility] Last Admin: 03/08/21 08:52 Dose: 40 mg Documented by: Clopidogrel Bisulfate (Clopidogrel 75 Mg Tab) 75 mg PO DAILY [facility] Last Admin: 03/08/21 08:52 Dose: 75 mg Documented by: Enoxaparin Sodium (Enoxaparin 40 Mg/0.4 Ml Syringe) 40 mg SQ DAILY [facility] Last Admin: 03/08/21 08:52 Dose: 40 mg Documented by: Ceftriaxone Sodium 2 gm/ (Sodium Chloride) 50 mls @ 100 mls/hr IVPB Q24HR [facility] Last Admin: 03/08/21 08:52 Dose: 100 mls/hr Documented by: Insulin Aspart (Insulin Aspart (Novolog) 100 Unit/Ml Vial) 0 unit SQ ACHS [facility]; Protocol Last Admin: 03/08/21 12:47 Dose: 3 unit Documented by: Metoprolol Tartrate (Metoprolol Tartrate 25 Mg Tab) 25 mg PO BID [facility] Last Admin: 03/08/21 08:52 Dose: 25 mg Documented by: Thiamine HCl (Thiamine 100 Mg Tab) 100 mg PO DAILY [facility] Last Admin: 03/08/21 08:52 Dose: 100 mg Documented by: PHYSICAL EXAMINATION: GENERAL: The patient is alert and oriented x2-3, and what confused at times. Well developed, well nourished. Temp is 97.8F, pulse is 61, respirations are 16, blood pressure is 143/86, oxygen saturation is 98% on room air. HEENT: Pupils are round and equally reacting to light. EOMI. No scleral icterus. No conjunctival pallor. Normocephalic, atraumatic. No pharyngeal erythema. No thyromegaly. CARDIOVASCULAR: S1 and S2 muffled PULMONARY: Diminished breath sounds bilaterally with no wheezing or rhonchi noted ABDOMEN: Soft, nontender, nondistended, normoactive bowel sounds. No palpable organomegaly. MUSCULOSKELETAL: No joint swelling or deformity. EXTREMITIES: No cyanosis, clubbing, or pedal edema. NEUROLOGICAL: Patient has focal deficits as mentioned above and speech abnormalities from his old stroke. asleep, but easily arousable. SKIN: No rashes. Assessment and plan: -Acute CVA. embolic as noted on MRI, bubble study negative -acute urinary tract infection, with culture showing ESBL and Klebsiella oxytoca gram-negative bacilli -Type 2 diabetes mellitus: uncontrolled with hyperglycemia, poorly controlled previously secondary to non-compliance with medications and no insurance coverage and unable to afford medications. continued on sliding scale insulin -Congestive heart failure chronic systolic dysfunction without any acute exacerbation patient is not on any diuretics at this time -History of CVA/TIA in the past -poor social support -gait dysfunction -Hypertension -noncompliance with medical treatment and follow up -DVT prophylaxis: Lovenox Plan: Continue aspirin and plavix. Patient will need neurology follow up outpatient. Social work following and working on possible public guardian and insurance issues as patient would benefit from ECF placement for continued PT/OT therapy. Continue accuchecks and insulin. Encouraged increased activity as tolerated. PT/OT daily as patient continues to be weak. urine culture finalized showing Klebsiella oxytoca with gram-negative bacilli with ESBL and have consulted infectious disease and appreciate antibiotic recommendations. Repeat urinalysis was ordered and discussed with nursing staff about obtaining straight cath specimen. Will discuss with social work of any updates in regards to possible guardian and placement. Will continue to monitor closely. Due to multiple complex medical issues, prognosis is guarded. Objective - Vital Signs Vital signs: Vital Signs Temp 97.8 F 03/08/21 04:20 Pulse 71 03/08/21 08:56 Resp 16 03/08/21 04:20 BP 120/76 03/08/21 08:56 Pulse Ox 98 03/08/21 04:20 Intake & Output 03/07/21 03/08/21 03/08/21 18:59 06:59 18:59 Output Total 350 300 Balance -350 -300 Weight 81 kg Output: Urine 350 300 Other: Voiding Method Urinal Diaper Incontinent # Voids 4 # Bowel Movements 1 - Labs CBC & Chem 7: 03/06/21 07:02 03/06/21 07:02 Labs: Abnormal Lab Results - Last 24 Hours (Table) 03/07/21 03/07/21 03/07/21 Range/Units 11:47 17:19 20:05 POC Glucose (mg/dL) 227 H 174 H 135 H (75-99) mg/dL 03/08/21 Range/Units 07:34 POC Glucose (mg/dL) 131 H (75-99) mg/dL Microbiology - Last 24 Hours (Table) 03/04/21 10:45 Urine Culture - Final Urine,Voided Gram Neg Bacilli Klebsiella oxytoca
[2021-03-08 17:28] LABS: Appearance,Urine Turbid (Clear); Bacteria,Urine Occasional /hpf; Bilirubin,Urine Negative (Negative); Blood,Urine Small (Negative); Color,Urine Yellow; Glucose,Urine (UA) 4+ (Negative); Ketones,Urine Negative (Negative); Leukocyte Esterase,Urine Large (Negative); Mucus,Urine Occasional /hpf; Nitrite,Urine Negative (Negative); PH, Urine 5.5 (5.0-8.0); Protein,Urine Trace (Negative); RBC,Urine 70 /hpf (0-5); Specific Gravity,Urine 1.021 (1.001-1.035); Squamous Epithelial Cell,Urine 1 /hpf (0-4); Urobilinogen,Urine <2.0 mg/dL (<2.0); WBC,Urine >182 /hpf (0-5)
[2021-03-08 17:46] LABS: Glucose,Whole Blood 177 mg/dL (75-99)
[2021-03-08 20:14] LABS: Glucose,Whole Blood 255 mg/dL (75-99)
--- NOTE | 2021-03-09 07:01 | P.CONS ---
History of Present Illness - Reason for Consult Consult date: 03/08/21 ESBL Klebsiella UTI Requesting physician: Linda Flaherty - Chief Complaint cloudy urine x few days - History of Present Illness History of present illness : Patient is 65-year-old male who has presented to the hospital about 9 days ago for apparently strokelike symptoms according to EMS he was brought because of erratic driving upon EMS evaluation there was noticeable right-sided droop some dysarthria and mild aphasia with the symptom the patient has been evaluated her by ER physician and has been admitted to hospital for CVA work-up patient did have an MRI of the brain completed with the findings suggestive of CVA left occipital lobe and is being evaluated by neurology services the patient has been afebrile throughout his hospital stay and he did have a normal white count on 10 7 the patient was noticed to have a cloudy urine and this patient has not been catheterized during this admission and the patient was started on Rocephin 2 g daily with a urine culture has been finalized with ESBL Klebsiella and gram-negative that has prompted this infecti ous disease consultation patient denies having any difficulty urination some cloudy urine however that has slightly lightened per the patient denies having any suprapubic or flank pain no nausea no vomiting no abdominal pain or diarrhea Review of system: CONSTITUTIONAL: Positive for weakness denies fever. EYES: No complaint. ENT: No complaint. RESPIRATORY: No complaint. CARDIOVASCULAR: No complaint. GENITOURINARY: As per history of present illness. GASTROINTESTINAL: No complaint. MUSCULOSKELETAL: No complaint. INTEGUMENTARY: No complaint. PSYCHOLOGIC: No complaint. ENDOCRINE: No complaint. NEUROLOGIC: As per history of present illness. Past medical history : Reviewed, documented below Past surgical history : Reviewed, documented below Social history: Reviewed, documented below Medications: Reviewed, as documented below EXAMINATION: Vital sigans= Reviewed and documented below GENERAL DESCRIPTION: Elderly male lying in bed, no distress. No tachypnea or accessory muscle of respiration use. HEENT: Shows Pallor , no scleral icterus. Oral mucous membrane is dry. NECK: Trachea central, no thyromegaly. LUNGS: Unlabored breathing. Clear to auscultation anteriorly. No wheeze or crackle. HEART: S1, S2, regular rate and rhythm. ABDOMEN: Soft, no tenderness , guarding or rigidity EXTREMITIES: No edema of feet. SKIN: No rash, no masses palpable. NEUROLOGICAL: The patient is awake, alert, oriented x3, mood and affect normal. LABS AND RADIOLOGY: Reviewed results see below Assessment : Patient presented to hospital with weakness erratic behavior and concern for CVA that has been confirmed on a MRI of the brain this patient was noticed to have a cloudy urine on March 04 and the culture has been positive for gram-negative bacilli and ESBL Klebsiella the patient seem to have improvement in urinary symptoms but not complete resolution Plan: 1-obtained another sample of the urine for UA and cultures straight cath for clean-catch sample 2-continue with Rocephin in view of his clinical improvement however if the repeat urine is still significantly positive we will switch him over to Invanz We will follow on clinical condition and cultures to further adjust medication if needed Thank you for this consultation we will follow the patient along with you Past Medical History Past Medical History: Diabetes Mellitus, Hypertension Additional Past Medical History / Comment(s): Recent bronchitis-completed ABX/steroid, NIDDM type II, neuropathy R foot, 2009 CVA with very slight R sided weakness, recent vertigo, high cholesterol-not on RX yet, bilateral carpal tunnel syndrome. History of Any Multi-Drug Resistant Organisms: None Reported Past Surgical History: Tonsillectomy Past Anesthesia/Blood Transfusion Reactions: No Reported Reaction Past Psychological History: No Psychological Hx Reported Additional Psychological History / Comment(s): Pt resides alone in his apartm ent. 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 He drives. He has a glucometer. Smoking Status: Never smoker Past Alcohol Use History: None Reported Past Drug Use History: None Reported - Past Family History Father Additional Family Medical History / Comment(s): Father after a head injury with ruptured blood vessel at the age of 54 yrs. Mother Family Medical History: Cancer Additional Family Medical History / Comment(s): Mother had cervical cancer as a young person. She of colon cancer at the age of 72 yrs. Medications and Allergies Home Medications Medication Instructions Recorded Confirmed Type Aspirin 81 mg PO DAILY #30 tab 02/10/21 02/27/21 Rx Atorvastatin [Lipitor] 40 mg PO DAILY #30 tab 02/10/21 02/27/21 Rx Metoprolol Tartrate [Lopressor] 25 mg PO BID #30 tab 02/10/21 02/27/21 Rx glyBURIDE [Diabeta] 5 mg PO AC-BRKFST #30 tablet 02/10/21 02/27/21 Rx lisinopriL [Zestril] 5 mg PO DAILY #30 tab 02/10/21 02/27/21 Rx metFORMIN HCL [Glucophage] 850 mg PO BID #60 tab 02/10/21 02/27/21 Rx Allergies Allergy/AdvReac Type Severity Reaction Status Date / Time Penicillins Allergy Itching Verified 02/27/21 17:01 Physical Exam Vitals: Vital Signs Temp Pulse Pulse Resp BP Pulse Ox 03/08/21 08:56 71 120/76 03/08/21 04:20 97.8 F 61 16 143/86 98 03/07/21 19:50 17 03/07/21 18:28 97.8 F 61 17 151/89 03/07/21 12:05 98.1 F 70 17 123/76 100 Intake and Output 03/07/21 03/08/21 03/08/21 22:59 06:59 14:59 Output Total 350 300 Balance -350 -300 Output: Urine 350 300 Other: Voiding Method Urinal Diaper Incontinent # Voids 4 # Bowel Movements 1 Weight 81 kg Results CBC & Chem 7: 03/06/21 07:02 03/06/21 07:02 Labs: Abnormal Lab Results - Last 24 Hours (Table) 03/07/21 03/07/21 03/07/21 Range/Units 11:47 17:19 20:05 POC Glucose (mg/dL) 227 H 174 H 135 H (75-99) mg/dL 03/08/21 Range/Units 07:34 POC Glucose (mg/dL) 131 H (75-99) mg/dL Microbiology - Last 24 Hours (Table) 03/04/21 10:45 Urine Culture - Final Urine,Voided Gram Neg Bacilli Klebsiella oxytoca
[2021-03-09 07:15] LABS: Glucose,Whole Blood 154 mg/dL (75-99)
[2021-03-09] MEDS: CLOPIDOGREL 75 MG TAB PO SCH (07:25)
[2021-03-09] MEDS: THIAMINE 100 MG TAB PO SCH (07:25)
[2021-03-09] MEDS: METOPROLOL TARTRATE 25 MG TAB PO SCH ×2 (07:25→21:26)
[2021-03-09] MEDS: ATORVASTATIN 40 MG TAB PO SCH (07:25)
[2021-03-09] MEDS: ASPIRIN 81 MG PO SCH (07:25)
[2021-03-09] MEDS: INSULIN ASPART (NovoLOG) 100 UNIT/ML VIAL SQ SCH ×4 (07:26→21:28)
[2021-03-09] MEDS: ENOXAPARIN 40 MG/0.4 ML SYRINGE SQ SCH (07:26)
[2021-03-09] MEDS: ERTAPENEM 1 GM in SODIUM CHLORIDE 0.9% 50 ML IVPB SCH (07:45)
[2021-03-09 12:18] LABS: Glucose,Whole Blood 170 mg/dL (75-99)
[2021-03-09 17:28] LABS: Glucose,Whole Blood 146 mg/dL (75-99)
[2021-03-09 21:25] LABS: Glucose,Whole Blood 146 mg/dL (75-99)
--- NOTE | 2021-03-09 22:30 | P.PN ---
Subjective Progress Note Date: 03/09/21 This is a pleasant 65-year-old the male came in with the speech abnormality and possible x-ray weakness.. Patient has a right-sided facial droop and right sided hemiparesis which as per the patient is old. Patient evidently was bit confused and at the symptoms are transient. Patient did have a old CVA CT of the head did shoulder several vascular accident (was ordered CT angios the head and neck did not show any [place] carotid occlusion. Patient was evaluated by neurology patient will undergo computed tomography scan of the head patient had recent echocardiogram which showed decreased EF of around 45-50%. Patient denied any symptoms of UTI or pneumonia. Patient doesn't have any fever or le ukocytosis. 03/01/2021 Patient is seen this morning and MRI of the brain is ordered with neurology following closely. Patient states that he feels fine and is requesting to go home. Awaiting MRI currently. BMP within normal limits as well as TSH, vitamin b12 and folate. Maintained on sliding scale and will continue accuchecks achs. will have PT/OT evaluate the patient and social work consulted. 03/02/2021 Patient seen in follow up this morning with no acute overnight issues. Patient denies any headache. Patient continues to be weak and would benefit from ECF for rehab. PT/OT following. Social work following and attempting to obtain public guardian as patient is unable to care for himself and has poor social support and non-compliance with follow up and medical care of self. 03/03/2021 Patient is seen this morning on med/surg unit and resting comfortably with no acute issues noted. Patient continues to be weak and awaiting possible placement. Patient has no insurance and unable to make adequate decisions for himself and social work in the process of attempting for temporary guardian. Labs within normal limits. 03/04/2021 Patient is seen and evaluated this morning and continues to be weak and requires assistance with getting up and per nursing staff while sitting the patient up on the side of the bed, patient continues to fall over requiring assistance. Will have PT/OT see patient and work with daily. Patient having some odorous, cloudy urine and urinalysis was positive for leukocytes esterace and will send culture. IV rocephin started and will await culture to finalize. Patient is afebrile. 03/05/2021 Patient seen and evaluated and follow-up as morning continues to have periods of confusion and having difficulty with ADLs. Patient currently has a brief on and is often incontinent. Patient attempting to use urinal although urinated all over himself in the bed and still the urinal. Continues to be weak and working with physical therapy daily. Patient was started on IV ceftriaxone for possible urinary tract infection and awaiting for cultures to finalize. Patient denies that he dysuria or pain with urination, urinary frequency or difficulty in urinating. No new labs available today will repeat a.m. labs. Patient needs assistance with obtaining Medicaid and possible placement with social work following. Plan is for possible guardianship although not until March 15. 03/07/2021 Patient seen on reevaluation resting in bed comfortably, he is moving all of his extremities today, appears in no acute distress, vital signs are stable. He is receiving antimicrobial therapy with Rocephin for UTI, urine culture growing Klebsiella, he is afebrile. 03/08/2021 Patient is seen and evaluated in follow-up this morning. Patient was maintained on IV ceftriaxone and urine culture showing gram-negative bacilli with Klebsiella oxytoca with ESBL multi-resistant and will consult infectious disease and appreciate input and antibiotic recommendations. Will reorder urinalysis with culture which is currently pending. Discussed with nursing staff about [facility] catheterization for specimen. Patient continues to be incontinent and difficulty using the urinal but also is using the urinal as much as possible. Patient denies any dysuria or pain with urination or frequency or hesitancy. Patient is afebrile. Patient tolerating diet with no reports of nausea or vomiting noted. 03/09/2021 Patient is evaluated this morning and infectious disease consulted and following. Patient found to have acute urinary tract infection with ESBL klebsiella. Repeat culture pending at this time. Patient was transitioned to IV invanz and will await finalized cultures. Patient afebrile. Denies any chest pain. Tolerating diet. PT/OT to evaluate. Review of systems: Constitutional: No reports of fatigue, fever, or chills Cardiovascular: No reports of chest pain or palpitations Respiratory: No reports of shortness of breath or cough GI: No reports of nausea, vomiting, or diarrhea : No reports of dysuria or retention Neurovascular: Reports generalized weakness Active Medications Aspirin (Aspirin 81 Mg) 81 mg PO DAILY [facility] Last Admin: 03/09/21 07:25 Dose: 81 mg Documented by: Atorvastatin Calcium (Atorvastatin 40 Mg Tab) 40 mg PO DAILY [facility] Last Admin: 03/09/21 07:25 Dose: 40 mg Documented by: Clopidogrel Bisulfate (Clopidogrel 75 Mg Tab) 75 mg PO DAILY [facility] Last Admin: 03/09/21 07:25 Dose: 75 mg Documented by: Enoxaparin Sodium (Enoxaparin 40 Mg/0.4 Ml Syringe) 40 mg SQ DAILY [facility] Last Admin: 03/09/21 07:26 Dose: 40 mg Documented by: Ertapenem 1 gm/ Sodium (Chloride) 50 mls @ 100 mls/hr IVPB DAILY [facility]; Protocol Last Admin: 03/09/21 07:45 Dose: 100 mls/hr Documented by: Insulin Aspart (Insulin Aspart (Novolog) 100 Unit/Ml Vial) 0 unit SQ ACHS [facility]; Protocol Last Admin: 03/09/21 21:28 Dose: 1 unit Documented by: Metoprolol Tartrate (Metoprolol Tartrate 25 Mg Tab) 25 mg PO BID [facility] Last Admin: 03/09/21 21:26 Dose: 25 mg Documented by: Thiamine HCl (Thiamine 100 Mg Tab) 100 mg PO DAILY [facility] Last Admin: 03/09/21 07:25 Dose: 100 mg Documented by: PHYSICAL EXAMINATION: GENERAL: The patient is alert and oriented x2-3, and confused at times. Well developed, well nourished. Temp is 97.9F, pulse is 62, respirations are 16, blood pressure is 131/72, oxygen saturation is 99% on room air. HEENT: Pupils are round and equally reacting to light. EOMI. No scleral icterus. No conjunctival pallor. Normocephalic, atraumatic. No pharyngeal erythema. No thyromegaly. CARDIOVASCULAR: S1 and S2 muffled PULMONARY: Diminished breath sounds bilaterally with no wheezing or rhonchi noted ABDOMEN: Soft, nontender, nondistended, normoactive bowel sounds. No palpable organomegaly. MUSCULOSKELETAL: No joint swelling or deformity. EXTREMITIES: No cyanosis, clubbing, or pedal edema. NEUROLOGICAL: Patient has focal deficits as mentioned above and speech abnormalities from his old stroke. awake, alert x2 SKIN: No rashes. 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 Patient will need neurology follow up outpatient. Social work following and working on possible public guardian and insurance issues as patient would benefit from ECF placement for continued PT/OT therapy. Continue accuchecks and insulin. Encouraged increased activity as tolerated. PT/OT daily as patient continues to be weak. urine culture finalized showing Klebsiella oxytoca with gram-negative bacilli with ESBL and infectious disease following. Repeat urinalysis culture pending. IV antibiotics transitioned to IV INvanz. Will discuss with ID about antibiotic recommendations. Will discuss with social work of any updates in regards to possible guardian and placement. Guardianship hearing is scheduled for 03/12. Will continue to monitor closely. Due to multiple complex medical issues, prognosis is guarded. Objective - Vital Signs Vital signs: Vital Signs Temp 98.7 F 03/09/21 13:00 Pulse 60 03/09/21 13:00 Resp 18 03/09/21 13:00 BP 122/79 03/09/21 13:00 Pulse Ox 97 03/09/21 13:00 Intake & Output 03/09/21 03/09/21 03/10/21 06:59 18:59 06:59 Intake Total 600 50 Balance 600 50 Weight 81 kg Intake: Intake, IV Titration 50 Amount Ertapenem 1 gm In Sodium 50 Chloride 0.9% 50 ml @ 100 mls/hr IVPB DAILY [facility] Rx #:[id number] Oral 600 Other: Voiding Method Urinal Urinal Urinal Diaper Diaper Diaper Incontinent Incontinent Incontinent # Voids 1 - Labs CBC & Chem 7: 03/06/21 07:02 03/06/21 07:02 Labs: Abnormal Lab Results - Last 24 Hours (Table) 03/09/21 03/09/21 03/09/21 Range/Units 07:12 12:17 17:27 POC Glucose (mg/dL) 154 H 170 H 146 H (75-99) mg/dL 10/12/21 Range/Units 21:16 POC Glucose (mg/dL) 146 H (75-99) mg/dL Microbiology - Last 24 Hours (Table) 03/08/21 17:14 Urine Culture - Final Urine,Voided
--- NOTE | 2021-03-09 22:48 | PN ---
PROGRESS NOTE DATE OF SERVICE: 03/09/2021 REASON FOR FOLLOWUP: ESBL and E coli urinary tract infection. INTERVAL HISTORY: The patient is afebrile, has been breathing comfortably. Denies having any chest pain, shortness of breath or cough. No abdominal pain or diarrhea. PHYSICAL EXAMINATION: Blood pressure is 122/79, pulse of 60, temperature 98.7. He is 97% on room air. General description is a middle-aged male lying in bed in no distress. RESPIRATORY SYSTEM: Unlabored breathing. Clear to auscultation anteriorly. HEART: S1, S2. Regular rate and rhythm. ABDOMEN: Soft. No tenderness. LABS: Repeat urine culture is currently pending. DIAGNOSTIC IMPRESSION AND PLAN: Patient with a positive urine culture with ESBL and Klebsiella with urinary symptoms of cloudy urine. The patient is covered with Invanz; to continue while waiting for the repeat urine culture to finalize and continue with supportive care. MMODL / IJN: [id number] /
[2021-03-10 07:03] LABS: Glucose,Whole Blood 148 mg/dL (75-99)
[2021-03-10] MEDS: ENOXAPARIN 40 MG/0.4 ML SYRINGE SQ SCH (08:04)
[2021-03-10] MEDS: ATORVASTATIN 40 MG TAB PO SCH (08:04)
[2021-03-10] MEDS: ASPIRIN 81 MG PO SCH (08:04)
[2021-03-10] MEDS: METOPROLOL TARTRATE 25 MG TAB PO SCH ×2 (08:04→20:53)
[2021-03-10] MEDS: CLOPIDOGREL 75 MG TAB PO SCH (08:04)
[2021-03-10] MEDS: THIAMINE 100 MG TAB PO SCH (08:04)
[2021-03-10] MEDS: ERTAPENEM 1 GM in SODIUM CHLORIDE 0.9% 50 ML IVPB SCH (08:05)
[2021-03-10] MEDS: INSULIN ASPART (NovoLOG) 100 UNIT/ML VIAL SQ SCH ×4 (08:05→20:53)
[2021-03-10 11:45] LABS: Glucose,Whole Blood 261 mg/dL (75-99)
--- NOTE | 2021-03-10 14:51 | PN ---
PROGRESS NOTE DATE OF SERVICE: 03/10/2021 REASON FOR FOLLOWUP: ESBL E coli urinary tract infection. INTERVAL HISTORY: Patient is afebrile. The patient is currently breathing comfortably. Denies having any chest pain, shortness of breath or cough. No vomiting. No abdominal pain or diarrhea. EXAM: Blood pressure 133/73 with a pulse of 56, temperature 98.2, sating 97% on room air. General description is a middle-aged male lying in bed in no distress. Respiratory system: Unlabored breathing, clear to auscultation anteriorly. Heart S1, S2. Regular rate and rhythm. Abdomen: Soft. No tenderness. LABS: No new labs have been obtained today. Repeat urine is so far negative. DIAGNOSTIC IMPRESSION AND PLAN: Patient with a positive culture with gram-negative Klebsiella. Concern for possible cystitis. Three days of should be more than enough. No need for antibiotic on discharge. Continue supportive care. MMODL / IJN: [id number] /
[2021-03-10 17:03] LABS: Glucose,Whole Blood 151 mg/dL (75-99)
--- NOTE | 2021-03-10 17:11 | P.PN ---
Subjective Progress Note Date: 03/10/21 This is a pleasant 65-year-old the male came in with the speech abnormality and possible x-ray weakness.. Patient has a right-sided facial droop and right sided hemiparesis which as per the patient is old. Patient evidently was bit confused and at the symptoms are transient. Patient did have a old CVA CT of the head did shoulder several vascular accident (was ordered CT angios the head and neck did not show any [place] carotid occlusion. Patient was evaluated by neurology patient will undergo computed tomography scan of the head patient had recent echocardiogram which showed decreased EF of around 45-50%. Patient denied any symptoms of UTI or pneumonia. Patient doesn't have any fever or le ukocytosis. 03/01/2021 Patient is seen this morning and MRI of the brain is ordered with neurology following closely. Patient states that he feels fine and is requesting to go home. Awaiting MRI currently. BMP within normal limits as well as TSH, vitamin b12 and folate. Maintained on sliding scale and will continue accuchecks achs. will have PT/OT evaluate the patient and social work consulted. 03/02/2021 Patient seen in follow up this morning with no acute overnight issues. Patient denies any headache. Patient continues to be weak and would benefit from ECF for rehab. PT/OT following. Social work following and attempting to obtain public guardian as patient is unable to care for himself and has poor social support and non-compliance with follow up and medical care of self. 03/03/2021 Patient is seen this morning on med/surg unit and resting comfortably with no acute issues noted. Patient continues to be weak and awaiting possible placement. Patient has no insurance and unable to make adequate decisions for himself and social work in the process of attempting for temporary guardian. Labs within normal limits. 03/04/2021 Patient is seen and evaluated this morning and continues to be weak and requires assistance with getting up and per nursing staff while sitting the patient up on the side of the bed, patient continues to fall over requiring assistance. Will have PT/OT see patient and work with daily. Patient having some odorous, cloudy urine and urinalysis was positive for leukocytes esterace and will send culture. IV rocephin started and will await culture to finalize. Patient is afebrile. 03/05/2021 Patient seen and evaluated and follow-up as morning continues to have periods of confusion and having difficulty with ADLs. Patient currently has a brief on and is often incontinent. Patient attempting to use urinal although urinated all over himself in the bed and still the urinal. Continues to be weak and working with physical therapy daily. Patient was started on IV ceftriaxone for possible urinary tract infection and awaiting for cultures to finalize. Patient denies that he dysuria or pain with urination, urinary frequency or difficulty in urinating. No new labs available today will repeat a.m. labs. Patient needs assistance with obtaining Medicaid and possible placement with social work following. Plan is for possible guardianship although not until March 15. 03/07/2021 Patient seen on reevaluation resting in bed comfortably, he is moving all of his extremities today, appears in no acute distress, vital signs are stable. He is receiving antimicrobial therapy with Rocephin for UTI, urine culture growing Klebsiella, he is afebrile. 03/08/2021 Patient is seen and evaluated in follow-up this morning. Patient was maintained on IV ceftriaxone and urine culture showing gram-negative bacilli with Klebsiella oxytoca with ESBL multi-resistant and will consult infectious disease and appreciate input and antibiotic recommendations. Will reorder urinalysis with culture which is currently pending. Discussed with nursing staff about [facility] catheterization for specimen. Patient continues to be incontinent and difficulty using the urinal but also is using the urinal as much as possible. Patient denies any dysuria or pain with urination or frequency or hesitancy. Patient is afebrile. Patient tolerating diet with no reports of nausea or vomiting noted. 03/09/2021 Patient is evaluated this morning and infectious disease consulted and following. Patient found to have acute urinary tract infection with ESBL klebsiella. Repeat culture pending at this time. Patient was transitioned to IV invanz and will await finalized cultures. Patient afebrile. Denies any chest pain. Tolerating diet. PT/OT to evaluate. 03/10/2021 Patient is seen this morning and continued on IV ertapenem with infectious disease following closely. Repeat urine culture is negative and original urine culture showing gram-negative bacilli with Klebsiella oxytoca. Will discuss with infectious disease about discharge antibiotics and possibility of needing them. Social work does have a scheduled court hearing this Monday for temporary guardianship as patient is unsafe to return home and will likely need placement. Denies any chest pain or shortness of breath. PT/OT following closely. Review of systems: Constitutional: No reports of fatigue, fever, or chills Cardiovascular: No reports of chest pain or palpitations Respiratory: No reports of shortness of breath or cough GI: No reports of nausea, vomiting, or diarrhea : No reports of dysuria or retention Neurovascular: Reports generalized weakness Active Medications Aspirin (Aspirin 81 Mg) 81 mg PO DAILY [facility] Last Admin: 03/10/21 08:04 Dose: 81 mg Documented by: Atorvastatin Calcium (Atorvastatin 40 Mg Tab) 40 mg PO DAILY [facility] Last Admin: 03/10/21 08:04 Dose: 40 mg Documented by: Clopidogrel Bisulfate (Clopidogrel 75 Mg Tab) 75 mg PO DAILY [facility] Last Admin: 03/10/21 08:04 Dose: 75 mg Documented by: Enoxaparin Sodium (Enoxaparin 40 Mg/0.4 Ml Syringe) 40 mg SQ DAILY [facility] Last Admin: 03/10/21 08:04 Dose: 40 mg Documented by: Ertapenem 1 gm/ Sodium (Chloride) 50 mls @ 100 mls/hr IVPB DAILY [facility]; Protocol Last Admin: 03/10/21 08:05 Dose: 100 mls/hr Documented by: Insulin Aspart (Insulin Aspart (Novolog) 100 Unit/Ml Vial) 0 unit SQ ACHS [facility]; Protocol Last Admin: 03/10/21 12:23 Dose: 4 unit Documented by: Metoprolol Tartrate (Metoprolol Tartrate 25 Mg Tab) 25 mg PO BID [facility] Last Admin: 03/10/21 08:04 Dose: 25 mg Documented by: Thiamine HCl (Thiamine 100 Mg Tab) 100 mg PO DAILY [facility] Last Admin: 03/10/21 08:04 Dose: 100 mg Documented by: PHYSICAL EXAMINATION: GENERAL: The patient is alert and oriented x2-3, and confused at times. Well developed, well nourished. Temp is 98.2 F, pulse is 62, respirations are 20, blood pressure is 136/87, oxygen saturation is 97% on room air. HEENT: Pupils are round and equally reacting to light. EOMI. No scleral icterus. No conjunctival pallor. Normocephalic, atraumatic. No pharyngeal erythema. No thyromegaly. CARDIOVASCULAR: S1 and S2 muffled PULMONARY: Diminished breath sounds bilaterally with no wheezing or rhonchi noted ABDOMEN: Soft, nontender, nondistended, normoactive bowel sounds. No palpable organomegaly. MUSCULOSKELETAL: No joint swelling or deformity. EXTREMITIES: No cyanosis, clubbing, or pedal edema. NEUROLOGICAL: Patient has focal deficits as mentioned above and speech abnormalities from his old stroke. awake, alert x2 SKIN: No rashes. 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 Continue IV Invanz at this time. Infectious disease following. Scheduled court hearing for this Monday to obtain guardianship as patient has no safe discharge plan and unable to return home as he is unable to care for himself and also has no insurance and needs ECF placem ent as he continues to be weak requiring assistance. Patient will need neurology follow up outpatient. Continue accuchecks and insulin. Encouraged increased activity as tolerated. PT/OT daily as patient continues to be weak. urine culture finalized showing Klebsiella oxytoca with gram-negative bacilli with ESBL and infectious disease following. Repeat urinalysis showing no growth. IV antibiotics transitioned to IV INvanz. Will discuss with ID about antibiotic recommendations. Will discuss with social work of any updates in regards to possible guardian and placement. Guardianship hearing is scheduled for 03/12. Will continue to monitor closely. Due to multiple complex medical issues, prognosis is guarded. Objective - Vital Signs Vital signs: Vital Signs Temp 98.2 F 03/10/21 05:00 Pulse 66 03/10/21 08:00 Resp 20 03/10/21 05:00 BP 136/89 03/10/21 08:00 Pulse Ox 97 03/10/21 05:00 Intake & Output 03/09/21 03/10/21 03/10/21 18:59 06:59 18:59 Intake Total 50 Balance 50 Weight 81 kg Intake: Intake, IV Titration 50 Amount Ertapenem 1 gm In Sodium 50 Chloride 0.9% 50 ml @ 100 mls/hr IVPB DAILY [facility] Rx #:[id number] Other: Voiding Method Urinal Urinal Urinal Diaper Diaper Diaper Incontinent Incontinent Incontinent # Voids 2 - Labs CBC & Chem 7: 03/06/21 07:02 03/06/21 07:02 Labs: Abnormal Lab Results - Last 24 Hours (Table) 03/09/21 03/09/21 03/09/21 Range/Units 12:17 17:27 21:16 POC Glucose (mg/dL) 170 H 146 H 146 H (75-99) mg/dL 03/10/21 Range/Units 06:50 POC Glucose (mg/dL) 148 H (75-99) mg/dL Microbiology - Last 24 Hours (Table) 03/08/21 17:14 Urine Culture - Final Urine,Voided
[2021-03-10 20:08] LABS: Glucose,Whole Blood 203 mg/dL (75-99)
[2021-03-11 06:59] LABS: Glucose,Whole Blood 132 mg/dL (75-99)
[2021-03-11] MEDS: ENOXAPARIN 40 MG/0.4 ML SYRINGE SQ SCH (08:45)
[2021-03-11] MEDS: INSULIN ASPART (NovoLOG) 100 UNIT/ML VIAL SQ SCH ×4 (08:45→20:37)
[2021-03-11] MEDS: METOPROLOL TARTRATE 25 MG TAB PO SCH ×2 (08:45→20:37)
[2021-03-11] MEDS: THIAMINE 100 MG TAB PO SCH (08:46)
[2021-03-11] MEDS: CLOPIDOGREL 75 MG TAB PO SCH (08:46)
[2021-03-11] MEDS: ERTAPENEM 1 GM in SODIUM CHLORIDE 0.9% 50 ML IVPB SCH (08:46)
[2021-03-11] MEDS: ASPIRIN 81 MG PO SCH (08:46)
[2021-03-11] MEDS: ATORVASTATIN 40 MG TAB PO SCH (08:46)
[2021-03-11 11:09] LABS: Glucose,Whole Blood 176 mg/dL (75-99)
--- NOTE | 2021-03-11 14:40 | PN ---
PROGRESS NOTE DATE OF SERVICE: 03/11/2021 REASON FOR FOLLOWUP: ESBL and E coli urinary tract infection. INTERVAL HISTORY: The patient is afebrile. The patient is currently breathing comfortably. No chest pain, shortness of breath or cough. No abdominal pain or diarrhea. PHYSICAL EXAMINATION: Blood pressure 125/86, pulse of 77, temperature 97.5. He is % on room air. General description is a middle-aged male lying in bed in no distress. RESPIRATORY SYSTEM: Unlabored breathing. Clear to auscultation anteriorly. HEART: S1, S2. Regular rate and rhythm. ABDOMEN: Soft. No tenderness. LABS: Repeat urine is negative. DIAGNOSTIC IMPRESSION AND PLAN: Patient with a positive antibiotic therapy. No need for any antibiotic on discharge. Continue supportive care. MMODL / IJN: [id number] /
--- NOTE | 2021-03-11 15:53 | P.PN ---
Subjective Progress Note Date: 03/11/21 This is a pleasant 65-year-old the male came in with the speech abnormality and possible x-ray weakness.. Patient has a right-sided facial droop and right sided hemiparesis which as per the patient is old. Patient evidently was bit confused and at the symptoms are transient. Patient did have a old CVA CT of the head did shoulder several vascular accident (was ordered CT angios the head and neck did not show any [place] carotid occlusion. Patient was evaluated by neurology patient will undergo computed tomography scan of the head patient had recent echocardiogram which showed decreased EF of around 45-50%. Patient denied any symptoms of UTI or pneumonia. Patient doesn't have any fever or le ukocytosis. 03/01/2021 Patient is seen this morning and MRI of the brain is ordered with neurology following closely. Patient states that he feels fine and is requesting to go home. Awaiting MRI currently. BMP within normal limits as well as TSH, vitamin b12 and folate. Maintained on sliding scale and will continue accuchecks achs. will have PT/OT evaluate the patient and social work consulted. 03/02/2021 Patient seen in follow up this morning with no acute overnight issues. Patient denies any headache. Patient continues to be weak and would benefit from ECF for rehab. PT/OT following. Social work following and attempting to obtain public guardian as patient is unable to care for himself and has poor social support and non-compliance with follow up and medical care of self. 03/03/2021 Patient is seen this morning on med/surg unit and resting comfortably with no acute issues noted. Patient continues to be weak and awaiting possible placement. Patient has no insurance and unable to make adequate decisions for himself and social work in the process of attempting for temporary guardian. Labs within normal limits. 03/04/2021 Patient is seen and evaluated this morning and continues to be weak and requires assistance with getting up and per nursing staff while sitting the patient up on the side of the bed, patient continues to fall over requiring assistance. Will have PT/OT see patient and work with daily. Patient having some odorous, cloudy urine and urinalysis was positive for leukocytes esterace and will send culture. IV rocephin started and will await culture to finalize. Patient is afebrile. 03/05/2021 Patient seen and evaluated and follow-up as morning continues to have periods of confusion and having difficulty with ADLs. Patient currently has a brief on and is often incontinent. Patient attempting to use urinal although urinated all over himself in the bed and still the urinal. Continues to be weak and working with physical therapy daily. Patient was started on IV ceftriaxone for possible urinary tract infection and awaiting for cultures to finalize. Patient denies that he dysuria or pain with urination, urinary frequency or difficulty in urinating. No new labs available today will repeat a.m. labs. Patient needs assistance with obtaining Medicaid and possible placement with social work following. Plan is for possible guardianship although not until March 15. 03/07/2021 Patient seen on reevaluation resting in bed comfortably, he is moving all of his extremities today, appears in no acute distress, vital signs are stable. He is receiving antimicrobial therapy with Rocephin for UTI, urine culture growing Klebsiella, he is afebrile. 03/08/2021 Patient is seen and evaluated in follow-up this morning. Patient was maintained on IV ceftriaxone and urine culture showing gram-negative bacilli with Klebsiella oxytoca with ESBL multi-resistant and will consult infectious disease and appreciate input and antibiotic recommendations. Will reorder urinalysis with culture which is currently pending. Discussed with nursing staff about [facility] catheterization for specimen. Patient continues to be incontinent and difficulty using the urinal but also is using the urinal as much as possible. Patient denies any dysuria or pain with urination or frequency or hesitancy. Patient is afebrile. Patient tolerating diet with no reports of nausea or vomiting noted. 03/09/2021 Patient is evaluated this morning and infectious disease consulted and following. Patient found to have acute urinary tract infection with ESBL klebsiella. Repeat culture pending at this time. Patient was transitioned to IV invanz and will await finalized cultures. Patient afebrile. Denies any chest pain. Tolerating diet. PT/OT to evaluate. 03/10/2021 Patient is seen this morning and continued on IV ertapenem with infectious disease following closely. Repeat urine culture is negative and original urine culture showing gram-negative bacilli with Klebsiella oxytoca. Will discuss with infectious disease about discharge antibiotics and possibility of needing them. Social work does have a scheduled court hearing this Monday for temporary guardianship as patient is unsafe to return home and will likely need placement. Denies any chest pain or shortness of breath. PT/OT following closely. 03/11/2021 Patient is seen and evaluated in follow-up continued on IV ertapenem. Repeat culture is negative and patient will not require antibiotics on discharge. Patient has been adequately treated for Klebsiella oxytoca ESBL in the urine. Infectious disease is following closely and this was discussed with him in detail. Court hearing scheduled for tomorrow and will await guardianship and social work following closely and patient apparently has Medicaid pending and will need possible placement. ReCommended continue with Accu-Cheks and sliding scale. Patient has been working with physical therapy and continues to be weak with assistance and is up in the halls walking with a walker. No reports of chest pain. Patient is afebrile. Review of systems: Constitutional: No reports of fatigue, fever, or chills Cardiovascular: No reports of chest pain or palpitations Respiratory: No reports of shortness of breath or cough GI: No reports of nausea, vomiting, or diarrhea : No reports of dysuria or retention Neurovascular: Reports generalized weakness Active Medications Aspirin (Aspirin 81 Mg) 81 mg PO DAILY [facility] Last Admin: 03/11/21 08:46 Dose: 81 mg Documented by: Atorvastatin Calcium (Atorvastatin 40 Mg Tab) 40 mg PO DAILY [facility] Last Admin: 03/11/21 08:46 Dose: 40 mg Documented by: Clopidogrel Bisulfate (Clopidogrel 75 Mg Tab) 75 mg PO DAILY [facility] Last Admin: 03/11/21 08:46 Dose: 75 mg Documented by: Enoxaparin Sodium (Enoxaparin 40 Mg/0.4 Ml Syringe) 40 mg SQ DAILY [facility] Last Admin: 03/11/21 08:45 Dose: 40 mg Documented by: Ertapenem 1 gm/ Sodium (Chloride) 50 mls @ 100 mls/hr IVPB DAILY [facility]; Protocol Last Admin: 03/11/21 08:46 Dose: 100 mls/hr Documented by: Insulin Aspart (Insulin Aspart (Novolog) 100 Unit/Ml Vial) 0 unit SQ ACHS [facility]; Protocol Last Admin: 03/11/21 13:16 Dose: 2 unit Documented by: Metoprolol Tartrate (Metoprolol Tartrate 25 Mg Tab) 25 mg PO BID [facility] Last Admin: 03/11/21 08:45 Dose: 25 mg Documented by: Thiamine HCl (Thiamine 100 Mg Tab) 100 mg PO DAILY [facility] Last Admin: 03/11/21 08:46 Dose: 100 mg Documented by: PHYSICAL EXAMINATION: GENERAL: The patient is alert and oriented x2-3, and confused at times. Well developed, well nourished. Temp is 97.9 F, pulse is 61, respirations are 20, blood pressure is 134/85, oxygen saturation is 98% on room air. HEENT: Pupils are round and equally reacting to light. EOMI. No scleral icterus. No conjunctival pallor. Normocephalic, atraumatic. No pharyngeal erythema. No thyromegaly. CARDIOVASCULAR: S1 and S2 muffled PULMONARY: Diminished breath sounds bilaterally with no wheezing or rhonchi noted ABDOMEN: Soft, nontender, nondistended, normoactive bowel sounds. No palpable organomegaly. MUSCULOSKELETAL: No joint swelling or deformity. EXTREMITIES: No cyanosis, clubbing, or pedal edema. NEUROLOGICAL: Patient has right side focal deficits as mentioned above and speech abnormalities from his old stroke. awake, alert x2 SKIN: No rashes. 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 Continue IV Invanz at this time. Infectious disease following. Discussed with infectious disease and repeat culture was negative and will not require antibiotics on discharge. Scheduled court hearing for tomorrow to obtain guardianship as patient has no safe discharge plan and unable to return home as he is unable to care for himself and also has no insurance and needs ECF placement as he continues to be weak requiring assistance. Patient will need neurology follow up outpatient. Continue accuchecks and insulin. Encouraged increased activity as tolerated. PT/OT daily as patient continues to be weak. Repeat urinalysis showing no growth. IV antibiotics transitioned to IV INvanz. Discussed with ID about antibiotic recommendations and patient has been adequately treated for UTI ESBL and will not require antibiotics on discharge. Will discuss with social work of any updates in regards to court hearing and placement. Will continue to monitor closely. Due to multiple complex medical issues, prognosis is guarded. Objective - Vital Signs Vital signs: Vital Signs Temp 97.9 F 03/11/21 05:00 Pulse 70 03/11/21 08:59 Resp 20 03/11/21 05:00 BP 127/85 03/11/21 08:59 Pulse Ox 98 03/11/21 05:00 Intake & Output 03/10/21 03/11/21 03/11/21 18:59 06:59 18:59 Intake Total 50 100 Balance 50 100 Weight 79 kg Intake: Intake, IV Titration 50 Amount Ertapenem 1 gm In Sodium 50 Chloride 0.9% 50 ml @ 100 mls/hr IVPB DAILY [facility] Rx #:[id number] Oral 100 Other: Voiding Method Urinal Urinal Diaper Diaper Incontinent Incontinent # Voids 4 # Bowel Movements 1 1 - Labs CBC & Chem 7: 03/06/21 07:02 03/06/21 07:02 Labs: Abnormal Lab Results - Last 24 Hours (Table) 03/10/21 03/10/21 03/10/21 Range/Units 11:44 16:52 20:06 POC Glucose (mg/dL) 261 H 151 H 203 H (75-99) mg/dL 03/11/21 Range/Units 06:58 POC Glucose (mg/dL) 132 H (75-99) mg/dL
[2021-03-11 17:03] LABS: Glucose,Whole Blood 145 mg/dL (75-99)
[2021-03-11 20:16] LABS: Glucose,Whole Blood 186 mg/dL (75-99)
[2021-03-12 07:10] LABS: Glucose,Whole Blood 126 mg/dL (75-99)
[2021-03-12] MEDS: INSULIN ASPART (NovoLOG) 100 UNIT/ML VIAL SQ SCH ×2 (07:37→12:57)
[2021-03-12] MEDS: ERTAPENEM 1 GM in SODIUM CHLORIDE 0.9% 50 ML IVPB SCH (08:08)
[2021-03-12] MEDS: METOPROLOL TARTRATE 25 MG TAB PO SCH (08:09)
[2021-03-12] MEDS: ATORVASTATIN 40 MG TAB PO SCH (08:09)
[2021-03-12] MEDS: ENOXAPARIN 40 MG/0.4 ML SYRINGE SQ SCH (08:10)
[2021-03-12] MEDS: ASPIRIN 81 MG PO SCH (08:10)
[2021-03-12] MEDS: THIAMINE 100 MG TAB PO SCH (08:10)
[2021-03-12] MEDS: CLOPIDOGREL 75 MG TAB PO SCH (08:10)
[2021-03-12 11:46] LABS: Glucose,Whole Blood 202 mg/dL (75-99)
[2021-03-12 12:31] VITALS: BP 103/75; PULSE 79; RESP 17; TEMP 97.9
--- NOTE | 2021-03-12 13:49 | PN ---
PROGRESS NOTE DATE OF SERVICE: 03/12/2021 REASON FOR FOLLOWUP: ESBL E coli urinary tract infection. INTERVAL HISTORY: The patient is afebrile. The patient is currently breathing comfortably. No chest pain, shortness of breath or cough. No abdominal pain or diarrhea. PHYSICAL EXAMINATION: Blood pressure 130/75 with a pulse of 79, temperature 97.9. He is 98% on room air. General description is a middle-aged male up in the bed in no distress. RESPIRATORY SYSTEM: Unlabored breathing. Clear to auscultation anteriorly. HEART: S1, S2. Regular rate and rhythm. ABDOMEN: Soft. No tenderness. LABS: No new labs have been obtained today. Repeat urine culture has been negative. DIAGNOSTIC IMPRESSION AND PLAN: Patient with a positive urine culture with ESBL Klebsiella in this patient who did have urinary symptoms of cloudy urine. Repeat urine culture has been negative. Possible mild cystitis that has been adequately treated. Hence recommend no antibiotic on discharge. Continue supportive care. MMODL / IJN: [id number] /
--- NOTE | 2021-03-12 14:46 | P.DS ---
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 Patient will follow-up with Dr. Bhat in the outpatient setting upon discharge. Patient will also need to follow-up with neurology Dr. Rawls in the outpatient setting. Total time taken is greater than 35 minutes. Hospital course This is a 65-year-old male who was recently admitted with weakness and speech abnormalities and was being closely monitored. Patient does have a past medical history of CVA with continued right-sided deficits and hemiparesis along with right-sided facial droop although patient was more confused and possible TIA. Patient was evaluated by neurology and underwent brain MRI which showed acute CVA embolic in nature with a negative bubble study. Patient also had an acute urinary tract infection with ESBL and was started on IV ceftriaxone and transitioned IV Invanz and repeat urinalysis is negative. Patient has diabetes mellitus type 2 and is noncompliant with medications recommend Accu-Cheks before meals and at bedtime and continue with home medications. Patient continued to be weak with gait dysfunction and given his extensive noncompliance patient was appointed a guardian and will need ECF placement for strengthening mobility. Medicaid is pending. Currently no reports of chest pain, shortness of breath, or palpitations. Patient is afebrile. No reports of nausea or vomiting and patient is tolerating diet. Patient will be going to [facility] today. Guarded prognosis On exam vital signs are stable. Cardio S1, S2 are muffled. Respiratory system shows diminished breath sounds at the bases with no wheezing or rhonchi noted. Abdomen is soft and obese, and nontender. Nervous system shows diffuse weakness. Please refer to medication reconciliation sheet for a list of medications. Patient Condition at Discharge: Stable Plan - Discharge Summary Discharge Rx Participant: No New Discharge Prescriptions: New Clopidogrel [Plavix] 75 mg PO DAILY tab Thiamine [Vitamin B-1] 100 mg PO DAILY tab Continue glyBURIDE [Diabeta] 5 mg PO AC-BRKFST #30 tablet metFORMIN HCL [Glucophage] 850 mg PO BID #60 tab Atorvastatin [Lipitor] 40 mg PO DAILY #30 tab Aspirin 81 mg PO DAILY #30 tab Metoprolol Tartrate [Lopressor] 25 mg PO BID #30 tab Discontinued lisinopriL [Zestril] 5 mg PO DAILY #30 tab Discharge Medication List Aspirin 81 mg PO DAILY #30 tab 02/10/21 [Rx] Atorvastatin [Lipitor] 40 mg PO DAILY #30 tab 02/10/21 [Rx] Metoprolol Tartrate [Lopressor] 25 mg PO BID #30 tab 02/10/21 [Rx] glyBURIDE [Diabeta] 5 mg PO AC-BRKFST #30 tablet 02/10/21 [Rx] metFORMIN HCL [Glucophage] 850 mg PO BID #60 tab 02/10/21 [Rx] Clopidogrel [Plavix] 75 mg PO DAILY tab 03/12/21 [Rx] Thiamine [Vitamin B-1] 100 mg PO DAILY tab 03/12/21 [Rx] Follow up Appointment(s)/Referral(s): Jesse Bhat MD [STAFF PHYSICIAN] - 1-2 Days Rufino Rawls MD [Medical Doctor] - 1 Week None,Stated [Primary Care Provider] - 1-2 days Activity/Diet/Wound Care/Special Instructions: [place] activity as tolerated Continue current diet Follow-up with primary care provider on discharge Recommend Accu-Cheks before meals and at bedtime Patient needs neurology evaluation in the outpatient setting upon discharge Discharge Disposition: TRANSFER TO SNF/ECF
== END 2021-03-12 17:55 | DRG 65 ==
LOC: EC 14:35 → EEVIPCON 18:12 → 3SCARD 18:12 → 5NMEDONC 03-02 21:43
PROVIDERS: ADMIT Hospitalist; ATTEND Hospitalist
DX: I63.40 Cerebral infarction due to embolism of unspecified cerebral artery (principal); I69.351 Hemiplegia and hemiparesis following cerebral infarction affecting right dominant side; N39.0 Urinary tract infection, site not specified; I50.22 Chronic systolic (congestive) heart failure; E87.1 Hypo-osmolality and hyponatremia; Z16.12 Extended spectrum beta lactamase (ESBL) resistance; G93.40 Encephalopathy, unspecified; I65.23 Occlusion and stenosis of bilateral carotid arteries; I11.0 Hypertensive heart disease with heart failure; R29.700 NIHSS score 0; Z20.822 Contact with and (suspected) exposure to COVID-19; E11.40 Type 2 diabetes mellitus with diabetic neuropathy, unspecified; E11.65 Type 2 diabetes mellitus with hyperglycemia; E66.9 Obesity, unspecified; R29.712 NIHSS score 12; R29.810 Facial weakness; R47.01 Aphasia; Z63.8 Other specified problems related to primary support group; Z79.82 Long term (current) use of aspirin; Z79.84 Long term (current) use of oral hypoglycemic drugs; Z79.899 Other long term (current) drug therapy; Z80.0 Family history of malignant neoplasm of digestive organs; Z87.891 Personal history of nicotine dependence; Z91.14 Patient's other noncompliance with medication regimen; Z91.19 Patient's noncompliance with other medical treatment and regimen; B96.20 Unspecified Escherichia coli [E. coli] as the cause of diseases classified elsewhere; R47.1 Dysarthria and anarthria; B96.1 Klebsiella pneumoniae [K. pneumoniae] as the cause of diseases classified elsewhere
CPT/HCPCS: 36415; 70450; 70496; 70498; 70553; 71045; 80048; 80061; 81001; 82607; 82746; 83735; 84443; 85025; 85610; 85730; 87077; 87086; 87186; 87635; 93005; 93308; 95816; 99285

== ENCOUNTER 2022-03-10 13:35 | Emergency (ER) | payer MEDICARE, OTHER ==
[2022-03-10 13:43] VITALS: RESP 18
[2022-03-10 14:13] LABS: Basophils # (A) 0.1 k/uL (0-0.2); Basophils % (A) 1 %; Eosinophils # (A) 0.2 k/uL (0-0.7); Eosinophils % (A) 3 %; HCT 41.2 % (39.0-53.0); HGB 13.8 gm/dL (13.0-17.5); Lymphocytes # (A) 1.7 k/uL (1.0-4.8); Lymphocytes % (A) 23 %; MCH 30.2 pg (25.0-35.0); MCHC 33.5 g/dL (31.0-37.0); MCV 90.2 fL (80.0-100.0); Mean Platelet Volume 7.7; Monocytes # (A) 0.4 k/uL (0-1.0); Monocytes % (A) 6 %; Neutrophils # (A) 4.8 k/uL (1.3-7.7); Neutrophils % (A) 66 %; Platelet Count 194 k/uL (150-450); RBC 4.57 m/uL (4.30-5.90); RDW 13.9 % (11.5-15.5); WBC 7.2 k/uL (3.8-10.6)
[2022-03-10 14:29] LABS: Partial Thromboplastin Time 25.4 sec (22.0-30.0); Prothrombin Time 10.9 sec (9.0-12.0)
[2022-03-10 14:35] LABS: ALT 66 U/L (4-49); AST 39 U/L (17-59); African American GFR (CKD) >90 (>60 ml/min/1.73 sqM); Albumin 3.7 g/dL (3.5-5.0); Alkaline Phosphatase 83 U/L (38-126); Anion Gap 9 mmol/L; Blood Urea Nitrogen 19 mg/dL (9-20); Calcium 8.9 mg/dL (8.4-10.2); Carbon Dioxide 28 mmol/L (22-30); Chloride 101 mmol/L (98-107); Glucose 89 mg/dL (74-99); Magnesium 2.1 mg/dL (1.6-2.3); Non-African American GFR(CKD) >90 (>60 ml/min/1.73 sqM); Potassium 4.2 mmol/L (3.5-5.1); Sodium 138 mmol/L (137-145); Total Bilirubin 0.6 mg/dL (0.2-1.3); Total Protein 5.5 g/dL (6.3-8.2)
--- NOTE | 2022-03-10 14:39 | ED ---
General Adult HPI - General Chief complaint: Syncope Stated complaint: Syncope Time Seen by Provider: 03/10/22 13:50 Source: patient, EMS Mode of arrival: ambulatory Limitations: no limitations - History of Present Illness Initial comments: 66-year-old male with past history of diabetes, hypertension, CVA with right- sided deficits presents from [facility]. Reportedly had a syncopal episode. He reports that he got up to go to the restroom. Urinated and then got back to his bed. He was awaiting lunch. He states that he woke up with a bunch of people around him. Denies any trauma. No pain at this time. Patient is unaware of why they sent him into the emergency department. He denies any complaint at this time. No other alleviating, precipitating or modifying factors - Related Data Home Medications Medication Instructions Recorded Confirmed Atorvastatin [Lipitor] 40 mg PO HS 03/10/22 03/10/22 Donepezil [Aricept] 10 mg PO HS 03/10/22 03/10/22 Multivitamins, Thera [Multivitamin 1 tab PO DAILY 03/10/22 03/10/22 (formulary)] Ondansetron [Zofran] 4 mg PO TID PRN 03/10/22 03/10/22 Pantoprazole [Protonix] 40 mg PO DAILY 03/10/22 03/10/22 glipiZIDE [Glucotrol] 5 mg PO DAILY 03/10/22 03/10/22 Previous Rx's Medication Instructions Recorded Aspirin 81 mg PO DAILY #30 tab 02/10/21 Metoprolol Tartrate [Lopressor] 25 mg PO BID #30 tab 02/10/21 Clopidogrel [Plavix] 75 mg PO DAILY tab 03/12/21 Allergies Allergy/AdvReac Type Severity Reaction Status Date / Time Penicillins Allergy Itching Verified 03/10/22 14:03 Review of Systems ROS Statement: Those systems with pertinent positive or pertinent negative responses have been documented in the HPI. ROS Other: All systems not noted in ROS Statement are negative. Past Medical History Past Medical History: Diabetes Mellitus, Hypertension Additional Past Medical History / Comment(s): Recent bronchitis-completed ABX/steroid, NIDDM type II, neuropathy R foot, 2009 CVA with very slight R sided weakness, recent vertigo, high cholesterol-not on RX yet, bilateral carpal tunnel syndrome. History of Any Multi-Drug Resistant Organisms: ESBL, MRSA Date of last positivie culture/infection: 03/04/21 MDRO Source:: URINE ESBL, MRSA FOOT Past Surgical History: Tonsillectomy Past Anesthesia/Blood Transfusion Reactions: No Reported Reaction Past Psychological History: No Psychological Hx Reported Smoking Status: Never smoker Past Alcohol Use History: None Reported Past Drug Use History: None Reported - Past Family History Father Additional Family Medical History / Comment(s): Father after a head injury with ruptured blood vessel at the age of 54 yrs. Mother Family Medical History: Cancer Additional Family Medical History / Comment(s): Mother had cervical cancer as a young person. She of colon cancer at the age of 72 yrs. General Exam Limitations: no limitations General appearance: alert, in no apparent distress Head exam: Present: atraumatic, normocephalic, normal inspection Eye exam: Present: normal appearance, PERRL, EOMI. Absent: scleral icterus, conjunctival injection, periorbital swelling ENT exam: Present: normal exam, mucous membranes moist Neck exam: Present: normal inspection. Absent: tenderness, meningismus, lymphadenopathy Respiratory exam: Present: normal lung sounds bilaterally. Absent: respiratory distress, wheezes, rales, rhonchi, stridor Cardiovascular Exam: Present: normal rhythm, bradycardia, normal heart sounds. Absent: systolic murmur, diastolic murmur, rubs, gallop, clicks GI/Abdominal exam: Present: soft, normal bowel sounds. Absent: distended, tenderness, guarding, rebound, rigid Extremities exam: Present: normal inspection, full ROM, normal capillary refill. Absent: tenderness, pedal edema, joint swelling, calf tenderness Back exam: Present: normal inspection Neurological exam: Present: alert, oriented X3, CN II-XII intact Psychiatric exam: Present: normal affect, normal mood Skin exam: Present: warm, dry, intact, normal color. Absent: rash Course Vital Signs 03/10/22 03/10/22 03/10/22 13:39 13:42 16:20 Temperature 99.5 F 97.6 F Pulse Rate 54 L 88 Respiratory 18 18 Rate Blood Pressure 142/93 122/74 O2 Sat by Pulse 98 98 Oximetry EKG Findings - EKG Comments: EKG Findings:: EKG demonstrates a sinus bradycardia with a rate of 50. CO interval 189. QRS 97. QTC of 433. No acute ST segment elevations Medical Decision Making - Medical Decision Making Upon arrival patient was placed into room 3. History and physical exam was performed. Patient is bradycardic with a rate of 50. Laboratory studies are conduct and within normal limits. Chest x-ray demonstrates no acute process. He is awake alert and answering questions appropriately. Patient will be discharged back to [facility] for further observation return for any new or worsening symptoms - Lab Data Result diagrams: 03/10/22 13:56 03/10/22 13:56 Lab Results 03/10/22 03/10/22 03/10/22 Range/Units 13:56 13:56 13:56 WBC 7.2 (3.8-10.6) k/uL RBC 4.57 (4.30-5.90) m/uL Hgb 13.8 (13.0-17.5) gm/dL Hct 41.2 (39.0-53.0) % MCV 90.2 (80.0-100.0) fL MCH 30.2 (25.0-35.0) pg MCHC 33.5 (31.0-37.0) g/dL RDW 13.9 (11.5-15.5) % Plt Count 194 (150-450) k/uL MPV 7.7 Neutrophils % 66 % Lymphocytes % 23 % Monocytes % 6 % Eosinophils % 3 % Basophils % 1 % Neutrophils # 4.8 (1.3-7.7) k/uL Lymphocytes # 1.7 (1.0-4.8) k/uL Monocytes # 0.4 (0-1.0) k/uL Eosinophils # 0.2 (0-0.7) k/uL Basophils # 0.1 (0-0.2) k/uL PT 10.9 (9.0-12.0) sec INR 1.0 (<1.2) APTT 25.4 (22.0-30.0) sec Sodium 138 (137-145) mmol/L Potassium 4.2 (3.5-5.1) mmol/L Chloride 101 (98-107) mmol/L Carbon Dioxide 28 (22-30) mmol/L Anion Gap 9 mmol/L BUN 19 (9-20) mg/dL Creatinine 0.55 L (0.66-1.25) mg/dL Est GFR (CKD-EPI)AfAm >90 (>60 ml/min/1.73 sqM) Est GFR (CKD-EPI)NonAf >90 (>60 ml/min/1.73 sqM) Glucose 89 (74-99) mg/dL POC Glucose (mg/dL) (70-110) mg/dL POC Glu Sh[employer] Peeling [employer] Operator ID Calcium 8.9 (8.4-10.2) mg/dL Magnesium 2.1 (1.6-2.3) mg/dL Total Bilirubin 0.6 (0.2-1.3) mg/dL AST 39 (17-59) U/L ALT 66 H (4-49) U/L Alkaline Phosphatase 83 (38-126) U/L Troponin I (0.000-0.034) ng/mL Total Protein 5.5 L (6.3-8.2) g/dL Albumin 3.7 (3.5-5.0) g/dL 03/10/22 03/10/22 Range/Units 13:56 14:44 WBC (3.8-10.6) k/uL RBC (4.30-5.90) m/uL Hgb (13.0-17.5) gm/dL Hct (39.0-53.0) % MCV (80.0-100.0) fL MCH (25.0-35.0) pg MCHC (31.0-37.0) g/dL RDW (11.5-15.5) % Plt Count (150-450) k/uL MPV Neutrophils % % Lymphocytes % % Monocytes % % Eosinophils % % Basophils % % Neutrophils # (1.3-7.7) k/uL Lymphocytes # (1.0-4.8) k/uL Monocytes # (0-1.0) k/uL Eosinophils # (0-0.7) k/uL Basophils # (0-0.2) k/uL PT (9.0-12.0) sec INR (<1.2) APTT (22.0-30.0) sec Sodium (137-145) mmol/L Potassium (3.5-5.1) mmol/L Chloride (98-107) mmol/L Carbon Dioxide (22-30) mmol/L Anion Gap mmol/L BUN (9-20) mg/dL Creatinine (0.66-1.25) mg/dL Est GFR (CKD-EPI)AfAm (>60 ml/min/1.73 sqM) Est GFR (CKD-EPI)NonAf (>60 ml/min/1.73 sqM) Glucose (74-99) mg/dL POC Glucose (mg/dL) 80 (70-110) mg/dL POC Glu [employer] Peeling [employer] Operator Willow Carey Calcium (8.4-10.2) mg/dL Magnesium (1.6-2.3) mg/dL Total Bilirubin (0.2-1.3) mg/dL AST (17-59) U/L ALT (4-49) U/L Alkaline Phosphatase (38-126) U/L Troponin I <0.012 (0.000-0.034) ng/mL Total Protein (6.3-8.2) g/dL Albumin (3.5-5.0) g/dL Disposition Clinical Impression: Syncope Disposition: HOME SELF-CARE Condition: Stable Instructions (If sedation given, give patient instructions): Syncope (ED) Additional Instructions: Please follow-up with your primary care doctor in 2-4 days. return for any new or worsening symptoms Is patient prescribed a controlled substance at d/c from ED?: No Referrals: None,Stated [REFERRING] - 1-2 days Time of Disposition: 15:55
[2022-03-10 14:46] LABS: Glucose,Whole Blood 80 mg/dL (70-110)
--- NOTE | 2022-03-10 15:02 | XR ---
EXAMINATION TYPE: XR chest 2V DATE OF EXAM: 03/10/2022 COMPARISON: NONE HISTORY: Syncope. TECHNIQUE: Frontal and lateral views of the chest are obtained. FINDINGS: There is no focal air space opacity, pleural effusion, or pneumothorax seen. The cardiac silhouette size is within normal limits. The osseous structures are intact. IMPRESSION: No acute cardiopulmonary process.
[2022-03-10 16:26] VITALS: BP 122/74; PULSE 88; TEMP 97.6
== END 2022-03-10 16:30 | disposition home or self-care (01) ==
LOC: EC 13:35
DX: R55 Syncope and collapse (principal); I10 Essential (primary) hypertension; E11.9 Type 2 diabetes mellitus without complications; Z79.84 Long term (current) use of oral hypoglycemic drugs; Z79.899 Other long term (current) drug therapy; Z88.0 Allergy status to penicillin
CPT/HCPCS: 36415; 71046; 80053; 83735; 84484; 85025; 85610; 85730; 93005; 99284

== ENCOUNTER 2022-03-16 13:36 | Emergency (ER) | payer MEDICARE, OTHER ==
[2022-03-16 13:43] VITALS: RESP 16; TEMP 98.3
[2022-03-16] MEDS ORDERED: SODIUM CHLORIDE 0.9% 500 ML 500 ML IV STA (14:15)
[2022-03-16 14:35] LABS: Basophils % (A) 1 %; Eosinophils % (A) 1 %; HCT 35.6 % (39.0-53.0); HGB 12.5 gm/dL (13.0-17.5); Lymphocytes # (A) 0.5 k/uL (1.0-4.8); Lymphocytes % (A) 12 %; MCV 88.5 fL (80.0-100.0); Mean Platelet Volume 8.2; Monocytes # (A) 0.4 k/uL (0-1.0); Monocytes % (A) 10 %; Neutrophils # (A) 3.3 k/uL (1.3-7.7); Neutrophils % (A) 75 %; Platelet Count 144 k/uL (150-450); RBC 4.03 m/uL (4.30-5.90); RDW 13.9 % (11.5-15.5); WBC 4.5 k/uL (3.8-10.6)
[2022-03-16 14:46] LABS: ALT 61 U/L (4-49); African American GFR (CKD) >90 (>60 ml/min/1.73 sqM); Anion Gap 10 mmol/L; Blood Urea Nitrogen 18 mg/dL (9-20); Calcium 8.5 mg/dL (8.4-10.2); Carbon Dioxide 21 mmol/L (22-30); Chloride 102 mmol/L (98-107); Glucose 87 mg/dL (74-99); Non-African American GFR(CKD) >90 (>60 ml/min/1.73 sqM); Sodium 133 mmol/L (137-145)
[2022-03-16 14:50] LABS: INR 1.1 (<1.2); Partial Thromboplastin Time 31.4 sec (22.0-30.0); Prothrombin Time 11.3 sec (9.0-12.0)
[2022-03-16 15:28] LABS: Albumin 3.5 g/dL (3.5-5.0); Magnesium 1.9 mg/dL (1.6-2.3); Potassium 4.7 mmol/L (3.5-5.1); Total Protein 5.6 g/dL (6.3-8.2)
[2022-03-16 15:29] LABS: AST 72 U/L (17-59); Alkaline Phosphatase 80 U/L (38-126)
--- NOTE | 2022-03-16 15:59 | ED ---
General Adult HPI - General Chief complaint: Fall Stated complaint: weakness Time Seen by Provider: 03/16/22 14:15 Source: patient, EMS, RN notes reviewed Mode of arrival: EMS Limitations: no limitations - History of Present Illness Initial comments: 66-year-old male presents emergency Department with chief complaint of slip and fall. Patient states he wants it down as with urinary mood. Patient fell down he is not complaining of any pain denies back pain pelvic pain had injury no loss conscious. Patient was sent here for evaluation. Patient does not understand why he is here he is currently at [facility] for right-sided deficit from CVA. Patient denies any fevers chills cough congestion chest pain no abdominal pain no other complaints. - Related Data Home Medications Medication Instructions Recorded Confirmed Atorvastatin [Lipitor] 40 mg PO HS 03/10/22 03/16/22 Donepezil [Aricept] 10 mg PO HS 03/10/22 03/16/22 Multivitamins, Thera [Multivitamin 1 tab PO DAILY 03/10/22 03/16/22 (formulary)] Ondansetron [Zofran] 4 mg PO TID PRN 03/10/22 03/16/22 Pantoprazole [Protonix] 40 mg PO DAILY 03/10/22 03/16/22 glipiZIDE [Glucotrol] 5 mg PO DAILY@0600 03/10/22 03/16/22 Lactose-Reduced Food [Ensure Plus] 237 ml PO TID@0900,1300,2100 03/16/22 03/16/22 Previous Rx's Medication Instructions Recorded Aspirin 81 mg PO DAILY #30 tab 02/10/21 Metoprolol Tartrate [Lopressor] 25 mg PO BID #30 tab 02/10/21 Clopidogrel [Plavix] 75 mg PO DAILY tab 03/12/21 Allergies Allergy/AdvReac Type Severity Reaction Status Date / Time Penicillins Allergy Itching Verified 03/16/22 15:31 Review of Systems ROS Statement: Those systems with pertinent positive or pertinent negative responses have been documented in the HPI. ROS Other: All systems not noted in ROS Statement are negative. Past Medical History Past Medical History: Diabetes Mellitus, Hypertension Additional Past Medical History / Comment(s): Recent bronchitis-completed ABX/steroid, NIDDM type II, neuropathy R foot, 2008 CVA with very slight R sided weakness, recent vertigo, high cholesterol-not on RX yet, bilateral carpal tunnel syndrome. History of Any Multi-Drug Resistant Organisms: ESBL, MRSA Date of last positivie culture/infection: 03/04/21 MDRO Source:: URINE ESBL, MRSA FOOT Past Surgical History: Tonsillectomy Past Anesthesia/Blood Transfusion Reactions: No Reported Reaction Past Psychological History: No Psychological Hx Reported Smoking Status: Never smoker Past Alcohol Use History: None Reported Past Drug Use History: None Reported - Past Family History Father Additional Family Medical History / Comment(s): Father after a head injury with ruptured blood vessel at the age of 54 yrs. Mother Family Medical History: Cancer Additional Family Medical History / Comment(s): Mother had cervical cancer as a young person. She of colon cancer at the age of 72 yrs. General Exam Limitations: no limitations General appearance: alert, in no apparent distress Head exam: Present: atraumatic, normocephalic, normal inspection Eye exam: Present: normal appearance, PERRL, EOMI. Absent: scleral icterus, conjunctival injection, periorbital swelling ENT exam: Present: normal exam, normal oropharynx, mucous membranes moist Neck exam: Present: normal inspection, full ROM. Absent: tenderness, meningismus, lymphadenopathy Respiratory exam: Present: normal lung sounds bilaterally. Absent: respiratory distress, wheezes, rales, rhonchi, stridor Cardiovascular Exam: Present: regular rate, normal rhythm, normal heart sounds. Absent: systolic murmur, diastolic murmur, rubs, gallop, clicks Extremities exam: Present: other (Minimal right arm and right leg weakness, residual chronic) Neurological exam: Present: alert, oriented X3, CN II-XII intact Course Vital Signs 03/16/22 13:40 Temperature 98.3 F Pulse Rate 58 L Respiratory 16 Rate Blood Pressure 133/81 O2 Sat by Pulse 97 Oximetry Medical Decision Making - Medical Decision Making Patient had full workup, no acute labs no acute findings EKG does not show an acute abnormality. Patient will be discharged back to [facility] return parameters were discussed. - Lab Data Result diagrams: 03/16/22 14:19 03/16/22 14:19 Lab Results 03/16/22 03/16/22 03/16/22 Range/Units 14:19 14:19 14:19 WBC 4.5 (3.8-10.6) k/uL RBC 4.03 L (4.30-5.90) m/uL Hgb 12.5 L (13.0-17.5) gm/dL Hct 35.6 L (39.0-53.0) % MCV 88.5 (80.0-100.0) fL MCH 31.0 (25.0-35.0) pg MCHC 35.0 (31.0-37.0) g/dL RDW 13.9 (11.5-15.5) % Plt Count 144 L (150-450) k/uL MPV 8.2 Neutrophils % 75 % Lymphocytes % 12 % Monocytes % 10 % Eosinophils % 1 % Basophils % 1 % Neutrophils # 3.3 (1.3-7.7) k/uL Lymphocytes # 0.5 L (1.0-4.8) k/uL Monocytes # 0.4 (0-1.0) k/uL Eosinophils # 0.0 (0-0.7) k/uL Basophils # 0.0 (0-0.2) k/uL PT 11.3 (9.0-12.0) sec INR 1.1 (<1.2) APTT 31.4 H (22.0-30.0) sec Sodium 133 L (137-145) mmol/L Potassium 4.7 (3.5-5.1) mmol/L Chloride 102 (98-107) mmol/L Carbon Dioxide 21 L (22-30) mmol/L Anion Gap 10 mmol/L BUN 18 (9-20) mg/dL Creatinine 0.47 L (0.66-1.25) mg/dL Est GFR (CKD-EPI)AfAm >90 (>60 ml/min/1.73 sqM) Est GFR (CKD-EPI)NonAf >90 (>60 ml/min/1.73 sqM) Glucose 87 (74-99) mg/dL Plasma Lactic Acid Trevin (0.7-2.0) mmol/L Calcium 8.5 (8.4-10.2) mg/dL Magnesium 1.9 (1.6-2.3) mg/dL Total Bilirubin 1.0 (0.2-1.3) mg/dL AST 72 H (17-59) U/L ALT 61 H (4-49) U/L Alkaline Phosphatase 80 (38-126) U/L Troponin I (0.000-0.034) ng/mL NT-Pro-B Natriuret Pep pg/mL Total Protein 5.6 L (6.3-8.2) g/dL Albumin 3.5 (3.5-5.0) g/dL 03/16/22 03/16/22 03/16/22 Range/Units 14:19 14:19 14:19 WBC (3.8-10.6) k/uL RBC (4.30-5.90) m/uL Hgb (13.0-17.5) gm/dL Hct (39.0-53.0) % MCV (80.0-100.0) fL MCH (25.0-35.0) pg MCHC (31.0-37.0) g/dL RDW (11.5-15.5) % Plt Count (150-450) k/uL MPV Neutrophils % % Lymphocytes % % Monocytes % % Eosinophils % % Basophils % % Neutrophils # (1.3-7.7) k/uL Lymphocytes # (1.0-4.8) k/uL Monocytes # (0-1.0) k/uL Eosinophils # (0-0.7) k/uL Basophils # (0-0.2) k/uL PT (9.0-12.0) sec INR (<1.2) APTT (22.0-30.0) sec Sodium (137-145) mmol/L Potassium (3.5-5.1) mmol/L Chloride (98-107) mmol/L Carbon Dioxide (22-30) mmol/L Anion Gap mmol/L BUN (9-20) mg/dL Creatinine (0.66-1.25) mg/dL Est GFR (CKD-EPI)AfAm (>60 ml/min/1.73 sqM) Est GFR (CKD-EPI)NonAf (>60 ml/min/1.73 sqM) Glucose (74-99) mg/dL Plasma Lactic Acid Trevin 0.7 (0.7-2.0) mmol/L Calcium (8.4-10.2) mg/dL Magnesium (1.6-2.3) mg/dL Total Bilirubin (0.2-1.3) mg/dL AST (17-59) U/L ALT (4-49) U/L Alkaline Phosphatase (38-126) U/L Troponin I <0.012 (0.000-0.034) ng/mL NT-Pro-B Natriuret Pep 386 pg/mL Total Protein (6.3-8.2) g/dL Albumin (3.5-5.0) g/dL Disposition Clinical Impression: Fall Disposition: HOME SELF-CARE Condition: Stable Instructions (If sedation given, give patient instructions): Fall Prevention for Older Adults (ED) Additional Instructions: Please return to the Emergency Department if symptoms worsen or any other concerns. Is patient prescribed a controlled substance at d/c from ED?: No Referrals: Jesse Bhat MD [Primary Care Provider] - 1-2 days Time of Disposition: 15:59
[2022-03-16 16:28] LABS: Amorphous Sediment,Urine Occasional /hpf; Appearance,Urine Cloudy (Clear); Bilirubin,Urine Negative (Negative); Blood,Urine Negative (Negative); Color,Urine Yellow; Glucose,Urine (UA) Negative (Negative); Ketones,Urine Negative (Negative); Leukocyte Esterase,Urine Large (Negative); Mucus,Urine Rare /hpf; Nitrite,Urine Negative (Negative); PH, Urine 5.5 (5.0-8.0); Protein,Urine Trace (Negative); WBC,Urine 46 /hpf (0-5)
[2022-03-16] MEDS ORDERED: cefTRIAXone IN SWFI 1,000 MG/10 ML SYRINGE IVP STA (16:33)
--- NOTE | 2022-03-16 16:34 | ED ---
Medical Decision Making - Lab Data Result diagrams: 03/16/22 14:19 03/16/22 14:19 <Fede Brumfield - Last Filed: 03/16/22 16:33> - Lab Data Result diagrams: 03/16/22 14:19 03/16/22 14:19 <Pablo Samuel - Last Filed: 03/16/22 20:02> - Medical Decision Making patient has evidence of urinary tract infection. Patient was discharged and oral antibiotics. (Fede Brumfield) This patient had been seen by the physician telecom assistant, Fede Brumfield, and Dr. Bedolla, and had been [facility] for [facility] tract infection. Following the discharge a did receive a call from [facility] Bhat, [facility] who requests patient receive computed tomography scan for some upper extremity weakness, that was outside of the window for TPA administration. He stated that he was okay with the [facility] being [facility] to [facility] and that they would arrange further neurology follow-up as long as there was no acute finding. Computed tomography scan was facilitated and patient to have further follow-up on outpatient basis. (Pablo Samuel) - Lab Data Lab Results 03/16/22 03/16/22 03/16/22 Range/Units 14:19 14:19 14:19 WBC 4.5 (3.8-10.6) k/uL RBC 4.03 L (4.30-5.90) m/uL Hgb 12.5 L (13.0-17.5) gm/dL Hct 35.6 L (39.0-53.0) % MCV 88.5 (80.0-100.0) fL MCH 31.0 (25.0-35.0) pg MCHC 35.0 (31.0-37.0) g/dL RDW 13.9 (11.5-15.5) % Plt Count 144 L (150-450) k/uL MPV 8.2 Neutrophils % 75 % Lymphocytes % 12 % Monocytes % 10 % Eosinophils % 1 % Basophils % 1 % Neutrophils # 3.3 (1.3-7.7) k/uL Lymphocytes # 0.5 L (1.0-4.8) k/uL Monocytes # 0.4 (0-1.0) k/uL Eosinophils # 0.0 (0-0.7) k/uL Basophils # 0.0 (0-0.2) k/uL PT 11.3 (9.0-12.0) sec INR 1.1 (<1.2) APTT 31.4 H (22.0-30.0) sec Sodium (137-145) mmol/L Potassium (3.5-5.1) mmol/L Chloride (98-107) mmol/L Carbon Dioxide (22-30) mmol/L Anion Gap mmol/L BUN (9-20) mg/dL Creatinine (0.66-1.25) mg/dL Est GFR (CKD-EPI)AfAm (>60 ml/min/1.73 sqM) Est GFR (CKD-EPI)NonAf (>60 ml/min/1.73 sqM) Glucose (74-99) mg/dL Plasma Lactic Acid Trevin (0.7-2.0) mmol/L Calcium (8.4-10.2) mg/dL Magnesium (1.6-2.3) mg/dL Total Bilirubin (0.2-1.3) mg/dL AST (17-59) U/L ALT (4-49) U/L Alkaline Phosphatase (38-126) U/L Troponin I (0.000-0.034) ng/mL NT-Pro-B Natriuret Pep pg/mL Total Protein (6.3-8.2) g/dL Albumin (3.5-5.0) g/dL Urine Color Yellow Urine Appearance Cloudy (Clear) Urine pH 5.5 (5.0-8.0) Ur Specific [place] 1.020 (1.001-1.035) Urine Protein Trace H (Negative) Urine Glucose (UA) Negative (Negative) Urine Ketones Negative (Negative) Urine Blood Negative (Negative) Urine Nitrite Negative (Negative) Urine Bilirubin Negative (Negative) Urine Urobilinogen 2.0 (<2.0) mg/dL Ur Leukocyte Esterase Large H (Negative) Urine WBC 46 H (0-5) /hpf Amorphous Sediment Occasional H (None) /hpf Urine Mucus Rare H (None) /hpf 03/16/22 03/16/22 03/16/22 Range/Units 14:19 14:19 14:19 WBC (3.8-10.6) k/uL RBC (4.30-5.90) m/uL Hgb (13.0-17.5) gm/dL Hct (39.0-53.0) % MCV (80.0-100.0) fL MCH (25.0-35.0) pg MCHC (31.0-37.0) g/dL RDW (11.5-15.5) % Plt Count (150-450) k/uL MPV Neutrophils % % Lymphocytes % % Monocytes % % Eosinophils % % Basophils % % Neutrophils # (1.3-7.7) k/uL Lymphocytes # (1.0-4.8) k/uL Monocytes # (0-1.0) k/uL Eosinophils # (0-0.7) k/uL Basophils # (0-0.2) k/uL PT (9.0-12.0) sec INR (<1.2) APTT (22.0-30.0) sec Sodium 133 L (137-145) mmol/L Potassium 4.7 (3.5-5.1) mmol/L Chloride 102 (98-107) mmol/L Carbon Dioxide 21 L (22-30) mmol/L Anion Gap 10 mmol/L BUN 18 (9-20) mg/dL Creatinine 0.47 L (0.66-1.25) mg/dL Est GFR (CKD-EPI)AfAm >90 (>60 ml/min/1.73 sqM) Est GFR (CKD-EPI)NonAf >90 (>60 ml/min/1.73 sqM) Glucose 87 (74-99) mg/dL Plasma Lactic Acid Trevin 0.7 (0.7-2.0) mmol/L Calcium 8.5 (8.4-10.2) mg/dL Magnesium 1.9 (1.6-2.3) mg/dL Total Bilirubin 1.0 (0.2-1.3) mg/dL AST 72 H (17-59) U/L ALT 61 H (4-49) U/L Alkaline Phosphatase 80 (38-126) U/L Troponin I <0.012 (0.000-0.034) ng/mL NT-Pro-B Natriuret Pep pg/mL Total Protein 5.6 L (6.3-8.2) g/dL Albumin 3.5 (3.5-5.0) g/dL Urine Color Urine Appearance (Clear) Urine pH (5.0-8.0) Ur Specific [place] (1.001-1.035) Urine Protein (Negative) Urine Glucose (UA) (Negative) Urine Ketones (Negative) Urine Blood (Negative) Urine Nitrite (Negative) Urine Bilirubin (Negative) Urine Urobilinogen (<2.0) mg/dL Ur Leukocyte Esterase (Negative) Urine WBC (0-5) /hpf Amorphous Sediment (None) /hpf Urine Mucus (None) /hpf 03/16/22 Range/Units 14:19 WBC (3.8-10.6) k/uL RBC (4.30-5.90) m/uL Hgb (13.0-17.5) gm/dL Hct (39.0-53.0) % MCV (80.0-100.0) fL MCH (25.0-35.0) pg MCHC (31.0-37.0) g/dL RDW (11.5-15.5) % Plt Count (150-450) k/uL MPV Neutrophils % % Lymphocytes % % Monocytes % % Eosinophils % % Basophils % % Neutrophils # (1.3-7.7) k/uL Lymphocytes # (1.0-4.8) k/uL Monocytes # (0-1.0) k/uL Eosinophils # (0-0.7) k/uL Basophils # (0-0.2) k/uL PT (9.0-12.0) sec INR (<1.2) APTT (22.0-30.0) sec Sodium (137-145) mmol/L Potassium (3.5-5.1) mmol/L Chloride (98-107) mmol/L Carbon Dioxide (22-30) mmol/L Anion Gap mmol/L BUN (9-20) mg/dL Creatinine (0.66-1.25) mg/dL Est GFR (CKD-EPI)AfAm (>60 ml/min/1.73 sqM) Est GFR (CKD-EPI)NonAf (>60 ml/min/1.73 sqM) Glucose (74-99) mg/dL Plasma Lactic Acid Trevin (0.7-2.0) mmol/L Calcium (8.4-10.2) mg/dL Magnesium (1.6-2.3) mg/dL Total Bilirubin (0.2-1.3) mg/dL AST (17-59) U/L ALT (4-49) U/L Alkaline Phosphatase (38-126) U/L Troponin I (0.000-0.034) ng/mL NT-Pro-B Natriuret Pep 386 pg/mL Total Protein (6.3-8.2) g/dL Albumin (3.5-5.0) g/dL Urine Color Urine Appearance (Clear) Urine pH (5.0-8.0) Ur Specific [place] (1.001-1.035) Urine Protein (Negative) Urine Glucose (UA) (Negative) Urine Ketones (Negative) Urine Blood (Negative) Urine Nitrite (Negative) Urine Bilirubin (Negative) Urine Urobilinogen (<2.0) mg/dL Ur Leukocyte Esterase (Negative) Urine WBC (0-5) /hpf Amorphous Sediment (None) /hpf Urine Mucus (None) /hpf Disposition Is patient prescribed a controlled substance at d/c from ED?: No Time of Disposition: 16:34 <Fede Brumfield - Last Filed: 03/16/22 16:33> <Pablo Samuel - Last Filed: 03/16/22 20:02> Clinical Impression: Fall, UTI (urinary tract infection) Disposition: HOME SELF-CARE Condition: Stable Instructions (If sedation given, give patient instructions): Fall Prevention for Older Adults (ED) Additional Instructions: Please return to the Emergency Department if symptoms worsen or any other concerns. Prescriptions: Sulfamethox-Tmp 800-160Mg [Bactrim Ds] 1 each PO Q12HR #14 tab Referrals: Jesse Bhat MD [Primary Care Provider] - 1-2 days
--- NOTE | 2022-03-16 16:34 | ED ---
Medical Decision Making - Lab Data Result diagrams: 03/16/22 14:19 03/16/22 14:19 <Fede Brumfield - Last Filed: 03/16/22 16:33> - Lab Data Result diagrams: 03/16/22 14:19 03/16/22 14:19 <Pablo Samuel - Last Filed: 03/16/22 20:02> - Medical Decision Making patient has evidence of urinary tract infection. Patient was discharged and oral antibiotics. (Fede Brumfield) This patient had been seen by the physician assistant family teacher, Fede Brumfield, and Dr. Bedolla, and had been cleared to go back to the shelter with further treatment for urinary tract infection. Following the discharge a did receive a call from Dr. Bhat, patient's shelter physician who requests patient receive computed tomography scan for some upper extremity weakness, that was outside of the window for TPA administration. He stated that he was okay with the patient being transported to shelter and that they would arrange further neurology follow-up as long as there was no acute finding. Computed tomography scan was facilitated and patient to have further follow-up on outpatient basis. (Pablo Samuel) - Lab Data Lab Results 03/16/22 03/16/22 03/16/22 Range/Units 14:19 14:19 14:19 WBC 4.5 (3.8-10.6) k/uL RBC 4.03 L (4.30-5.90) m/uL Hgb 12.5 L (13.0-17.5) gm/dL Hct 35.6 L (39.0-53.0) % MCV 88.5 (80.0-100.0) fL MCH 31.0 (25.0-35.0) pg MCHC 35.0 (31.0-37.0) g/dL RDW 13.9 (11.5-15.5) % Plt Count 144 L (150-450) k/uL MPV 8.2 Neutrophils % 75 % Lymphocytes % 12 % Monocytes % 10 % Eosinophils % 1 % Basophils % 1 % Neutrophils # 3.3 (1.3-7.7) k/uL Lymphocytes # 0.5 L (1.0-4.8) k/uL Monocytes # 0.4 (0-1.0) k/uL Eosinophils # 0.0 (0-0.7) k/uL Basophils # 0.0 (0-0.2) k/uL PT 11.3 (9.0-12.0) sec INR 1.1 (<1.2) APTT 31.4 H (22.0-30.0) sec Sodium (137-145) mmol/L Potassium (3.5-5.1) mmol/L Chloride (98-107) mmol/L Carbon Dioxide (22-30) mmol/L Anion Gap mmol/L BUN (9-20) mg/dL Creatinine (0.66-1.25) mg/dL Est GFR (CKD-EPI)AfAm (>60 ml/min/1.73 sqM) Est GFR (CKD-EPI)NonAf (>60 ml/min/1.73 sqM) Glucose (74-99) mg/dL Plasma Lactic Acid Trevin (0.7-2.0) mmol/L Calcium (8.4-10.2) mg/dL Magnesium (1.6-2.3) mg/dL Total Bilirubin (0.2-1.3) mg/dL AST (17-59) U/L ALT (4-49) U/L Alkaline Phosphatase (38-126) U/L Troponin I (0.000-0.034) ng/mL NT-Pro-B Natriuret Pep pg/mL Total Protein (6.3-8.2) g/dL Albumin (3.5-5.0) g/dL Urine Color Yellow Urine Appearance Cloudy (Clear) Urine pH 5.5 (5.0-8.0) Ur Specific [place] 1.020 (1.001-1.035) Urine Protein Trace H (Negative) Urine Glucose (UA) Negative (Negative) Urine Ketones Negative (Negative) Urine Blood Negative (Negative) Urine Nitrite Negative (Negative) Urine Bilirubin Negative (Negative) Urine Urobilinogen 2.0 (<2.0) mg/dL Ur Leukocyte Esterase Large H (Negative) Urine WBC 46 H (0-5) /hpf Amorphous Sediment Occasional H (None) /hpf Urine Mucus Rare H (None) /hpf 03/16/22 03/16/22 03/16/22 Range/Units 14:19 14:19 14:19 WBC (3.8-10.6) k/uL RBC (4.30-5.90) m/uL Hgb (13.0-17.5) gm/dL Hct (39.0-53.0) % MCV (80.0-100.0) fL MCH (25.0-35.0) pg MCHC (31.0-37.0) g/dL RDW (11.5-15.5) % Plt Count (150-450) k/uL MPV Neutrophils % % Lymphocytes % % Monocytes % % Eosinophils % % Basophils % % Neutrophils # (1.3-7.7) k/uL Lymphocytes # (1.0-4.8) k/uL Monocytes # (0-1.0) k/uL Eosinophils # (0-0.7) k/uL Basophils # (0-0.2) k/uL PT (9.0-12.0) sec INR (<1.2) APTT (22.0-30.0) sec Sodium 133 L (137-145) mmol/L Potassium 4.7 (3.5-5.1) mmol/L Chloride 102 (98-107) mmol/L Carbon Dioxide 21 L (22-30) mmol/L Anion Gap 10 mmol/L BUN 18 (9-20) mg/dL Creatinine 0.47 L (0.66-1.25) mg/dL Est GFR (CKD-EPI)AfAm >90 (>60 ml/min/1.73 sqM) Est GFR (CKD-EPI)NonAf >90 (>60 ml/min/1.73 sqM) Glucose 87 (74-99) mg/dL Plasma Lactic Acid Trevin 0.7 (0.7-2.0) mmol/L Calcium 8.5 (8.4-10.2) mg/dL Magnesium 1.9 (1.6-2.3) mg/dL Total Bilirubin 1.0 (0.2-1.3) mg/dL AST 72 H (17-59) U/L ALT 61 H (4-49) U/L Alkaline Phosphatase 80 (38-126) U/L Troponin I <0.012 (0.000-0.034) ng/mL NT-Pro-B Natriuret Pep pg/mL Total Protein 5.6 L (6.3-8.2) g/dL Albumin 3.5 (3.5-5.0) g/dL Urine Color Urine Appearance (Clear) Urine pH (5.0-8.0) Ur Specific [place] (1.001-1.035) Urine Protein (Negative) Urine Glucose (UA) (Negative) Urine Ketones (Negative) Urine Blood (Negative) Urine Nitrite (Negative) Urine Bilirubin (Negative) Urine Urobilinogen (<2.0) mg/dL Ur Leukocyte Esterase (Negative) Urine WBC (0-5) /hpf Amorphous Sediment (None) /hpf Urine Mucus (None) /hpf 03/16/22 Range/Units 14:19 WBC (3.8-10.6) k/uL RBC (4.30-5.90) m/uL Hgb (13.0-17.5) gm/dL Hct (39.0-53.0) % MCV (80.0-100.0) fL MCH (25.0-35.0) pg MCHC (31.0-37.0) g/dL RDW (11.5-15.5) % Plt Count (150-450) k/uL MPV Neutrophils % % Lymphocytes % % Monocytes % % Eosinophils % % Basophils % % Neutrophils # (1.3-7.7) k/uL Lymphocytes # (1.0-4.8) k/uL Monocytes # (0-1.0) k/uL Eosinophils # (0-0.7) k/uL Basophils # (0-0.2) k/uL PT (9.0-12.0) sec INR (<1.2) APTT (22.0-30.0) sec Sodium (137-145) mmol/L Potassium (3.5-5.1) mmol/L Chloride (98-107) mmol/L Carbon Dioxide (22-30) mmol/L Anion Gap mmol/L BUN (9-20) mg/dL Creatinine (0.66-1.25) mg/dL Est GFR (CKD-EPI)AfAm (>60 ml/min/1.73 sqM) Est GFR (CKD-EPI)NonAf (>60 ml/min/1.73 sqM) Glucose (74-99) mg/dL Plasma Lactic Acid [place] (0.7-2.0) mmol/L Calcium (8.4-10.2) mg/dL Magnesium (1.6-2.3) mg/dL Total Bilirubin (0.2-1.3) mg/dL AST (17-59) U/L ALT (4-49) U/L Alkaline Phosphatase (38-126) U/L Troponin I (0.000-0.034) ng/mL NT-Pro-B Natriuret Pep 386 pg/mL Total Protein (6.3-8.2) g/dL Albumin (3.5-5.0) g/dL Urine Color Urine Appearance (Clear) Urine pH (5.0-8.0) Ur Specific [place] (1.001-1.035) Urine Protein (Negative) Urine Glucose (UA) (Negative) Urine Ketones (Negative) Urine Blood (Negative) Urine Nitrite (Negative) Urine Bilirubin (Negative) Urine Urobilinogen (<2.0) mg/dL Ur Leukocyte Esterase (Negative) Urine WBC (0-5) /hpf Amorphous Sediment (None) /hpf Urine Mucus (None) /hpf Disposition Is patient prescribed a controlled substance at d/c from ED?: No Time of Disposition: 16:34 <Fede Brumfield - Last Filed: 03/16/22 16:33> <Pablo Samuel - Last Filed: 03/16/22 20:02> Clinical Impression: Fall, UTI (urinary tract infection) Disposition: HOME SELF-CARE Condition: Stable Instructions (If sedation given, give patient instructions): Fall Prevention for Older Adults (ED) Additional Instructions: Please return to the Emergency Department if symptoms worsen or any other concerns. Prescriptions: Sulfamethox-Tmp 800-160Mg [Bactrim Ds] 1 each PO Q12HR #14 tab Referrals: Jesse Bhat MD [Primary Care Provider] - 1-2 days
[2022-03-16 16:50] VITALS: BP 90/66; PULSE 53
--- NOTE | 2022-03-16 19:13 | CT ---
EXAMINATION TYPE: CT brain wo con for TPA CT DLP: 1777 mGycm, Automated exposure control for dose reduction was used. DATE OF EXAM: 03/16/2022 7:05 PM COMPARISON: 02/27/2021. CLINICAL INDICATION:Male, 66 years old with history of Upper extremity weakness, TECHNIQUE: Brain: Axial CT images of the brain were obtained with coronal and sagittal reformats created and rev iewed. Contrast used: None. Oral contrast used: None. FINDINGS: Brain: Extra-axial spaces: No abnormal extra-axial fluid collections. Ventricular system: Dilatation in proportion to cerebral atrophy. Cerebral parenchyma: Cerebral atrophy. No acute intraparenchymal hemorrhage or mass effect. The navarro -white junction is well differentiated. Scattered hypoattenuating areas are seen within the white mat ter. Cerebellum: Unremarkable. Mass effect: No evidence of midline shift. Intracranial vasculature: Atherosclerotic calcifications of the intracranial vessels. Soft tissues: Normal. Calvarium/osseous structures: No depressed skull fracture. Paranasal sinuses and mastoid air cells: Mild scattered paranasal sinus disease. Visualized orbits: Orbital contents are intact. IMPRESSION: 1. No acute intracranial process. 2. Nonspecific white matter changes, likely secondary to chronic small vessel ischemic disease.
--- NOTE | 2022-03-16 19:43 | CT ---
EXAMINATION TYPE: CT angio head neck CT DLP: 1777 mGycm, Automated exposure control for dose reduction was used. DATE OF EXAM: 03/16/2022 7:27 PM COMPARISON: CT brain same day. CLINICAL INDICATION:Male, 66 years old with history of Upper extremity weakness; TECHNIQUE: Axially acquired helical CT angiogram of the head and neck was obtained with contrast. Axi al images are supplemented with 3D reconstructions which [facility] NASCET criteria used. Contrast used:65ml mL of Isovue 370 with IV Contrast, Oral contrast used: None. FINDINGS: CTA HEAD: No evidence of acute intracranial hemorrhage, mass effect, or midline shift. The ventricles, sulci, a nd cisterns are unremarkable. The visualized portions of the internal carotid arteries, middle cerebral arteries, anterior cerebral arteries, and posterior cerebral arteries are patent. The basilar and vertebral arteries are patent. CTA NECK: Right Carotid System: The common carotid artery and external carotid artery are patent. The carotid bifurcation demonstrate s no evidence of hemodynamically significant stenosis. The remaining portions of the internal carotid artery demonstrate normal size without significant narrowing. Left Carotid System: The common carotid artery and external carotid artery are patent. The carotid bifurcation demonstrate s predominantly calcified plaque with less than 50% stenosis.. The remaining portions of the internal carotid artery demonstrate normal size without significant narrowing. Vertebral arteries are patent without evidence hemodynamically significant stenosis. There is a three-vessel aortic arch. The origins of the great vessels are patent. No evidence of hemo dynamically significant stenosis. IMPRESSION: 1. No evidence of dissection of the cervical internal carotid arteries or vertebral arteries or any e vidence of significant stenosis at the carotid bifurcations. 2. No evidence of intracranial high-grade stenosis or intracranial aneurysm. 3. Atherosclerosis of the carotid bifurcations left greater than right with less than 50% stenosis of the left carotid bifurcation.
== END 2022-03-16 20:16 | disposition home or self-care (01) ==
LOC: EC 13:36
DX: I65.29 Occlusion and stenosis of unspecified carotid artery (principal); E11.9 Type 2 diabetes mellitus without complications; I10 Essential (primary) hypertension; Z88.0 Allergy status to penicillin; W01.0XXA Fall on same level from slipping, tripping and stumbling without subsequent striking against object, initial encounter
CPT/HCPCS: 36415; 93005; 83880; 80053; 83605; 83735; 84484; 85025; 85610; 85730; 81001; 87086; 70496; 70450; 70498; 99285; 96374; 96361; J0696; Q9967

== ENCOUNTER 2022-09-09 09:53 | Inpatient (IN) | payer MEDICARE, OTHER ==
[2022-09-09] MEDS ORDERED: SODIUM CHLORIDE 0.9% 500 ML 500 ML IV STA (10:01)
[2022-09-09 10:06] LABS: Glucose,Whole Blood 79 mg/dL (70-110)
--- NOTE | 2022-09-09 10:06 | ED ---
General Adult HPI - General Chief complaint: Neuro Symptoms/Deficit Stated complaint: Altered Mental Status Time Seen by Provider: 09/09/22 09:55 Source: patient, EMS, RN notes reviewed, old records reviewed Mode of arrival: EMS - History of Present Illness Initial comments: This is a 67-year-old male who presents to the emergency department with some slurred speech and some left arm weakness. According to staff he was last normal last night he woke up this way this morning. Patient states she doesn't feel well but he has no other specifics. Patient denies any fever chills or cough. Patient denies chest pain palpitations or difficulty breathing. Patient denies abdominal pain patient denies nausea vomiting diarrhea. Patient does state that his speech seems a little slurred and his left arm doesn't feel a little weaker than normal. - Related Data Home Medications Medication Instructions Recorded Confirmed Ondansetron [Zofran] 4 mg PO TID PRN 03/10/22 09/09/22 Pantoprazole [Protonix] 40 mg PO DAILY 03/10/22 09/09/22 glipiZIDE [Glucotrol] 5 mg PO DAILY@0600 03/10/22 09/09/22 Acetaminophen Tab [Tylenol Tab] 500 mg PO BID 09/09/22 09/09/22 Acetaminophen Tab [Tylenol Tab] 500 mg PO Q6HR PRN 09/09/22 09/09/22 Magnesium Hydroxide [Milk of 2,400 mg PO ONCE 09/09/22 09/09/22 Magnesia] Previous Rx's Medication Instructions Recorded Aspirin 81 mg PO DAILY #30 tab 02/10/21 Metoprolol Tartrate [Lopressor] 25 mg PO BID #30 tab 02/10/21 Clopidogrel [Plavix] 75 mg PO DAILY tab 03/12/21 Allergies Allergy/AdvReac Type Severity Reaction Status Date / Time Penicillins Allergy Itching Verified 09/09/22 10:25 Review of Systems ROS Statement: Those systems with pertinent positive or pertinent negative responses have been documented in the HPI. ROS Other: All systems not noted in ROS Statement are negative. Past Medical History Past Medical History: Diabetes Mellitus, Hypertension Additional Past Medical History / Comment(s): Recent bronchitis-completed ABX/steroid, NIDDM type II, neuropathy R foot, 2009 CVA with very slight R sided weakness, recent vertigo, high cholesterol-not on RX yet, bilateral carpal tunnel syndrome. History of Any Multi-Drug Resistant Organisms: ESBL, MRSA Date of last positivie culture/infection: 03/04/21 MDRO Source:: URINE ESBL, MRSA FOOT Past Surgical History: Tonsillectomy Past Anesthesia/Blood Transfusion Reactions: No Reported Reaction Past Psychological History: No Psychological Hx Reported Smoking Status: Never smoker Past Alcohol Use History: None Reported Past Drug Use History: None Reported - Past Family History Father Additional Family Medical History / Comment(s): Father after a head injury with ruptured blood vessel at the age of 54 yrs. Mother Family Medical History: Cancer Additional Family Medical History / Comment(s): Mother had cervical cancer as a young person. She of colon cancer at the age of 72 yrs. General Exam - General Exam Comments Initial Comments: GENERAL: Patient is well-developed and well-nourished. Patient is nontoxic and well- hydrated and is in no acute distress. ENT: Neck is soft and supple. No significant lymphadenopathy is noted. Oropharynx is clear. Moist mucous membranes. Neck has full range of motion without eliciting any pain. EYES: The sclera were anicteric and conjunctiva were pink and moist. Extraocular movements were intact and pupils were equal round and reactive to light. Eyelids were unremarkable. PULMONARY: Unlabored respirations. Good breath sounds bilaterally. No audible rales rhonchi or wheezing was noted. CARDIOVASCULAR: There is a regular rate and rhythm without any murmurs gallops or rubs. ABDOMEN: Soft and nontender with normal bowel sounds. SKIN: Skin is clear with no lesions or rashes and otherwise unremarkable. NEUROLOGIC: Patient is alert and oriented x3. Cranial nerves II through XII are grossly intact. Patient has a little weakness recently arm up off the bed. Patient's speech is slurred. Symmetrical smile. Patient could do finger to nose but extremely slow bilaterally. MUSCULOSKELETAL: Normal extremities with adequate strength and full range of motion. No lower extremity swelling or edema. No calf tenderness. LYMPHATICS: No significant lymphadenopathy is noted PSYCHIATRIC: Normal psychiatric evaluation. Course Vital Signs 09/09/22 09/09/22 09/09/22 09:55 10:02 10:17 Temperature 98 F 98 F 98.1 F Pulse Rate 88 65 62 Respiratory 16 18 17 Rate Blood Pressure 133/64 144/80 129/72 O2 Sat by Pulse 98 98 99 Oximetry 09/09/22 09/09/22 09/09/22 10:32 10:47 11:02 Temperature 98 F 98 F 98 F Pulse Rate 71 66 62 Respiratory 19 16 17 Rate Blood Pressure 125/80 132/76 137/81 O2 Sat by Pulse 99 99 99 Oximetry 09/09/22 09/09/22 11:17 11:32 Temperature 98.1 F 98 F Pulse Rate 61 70 Respiratory 17 19 Rate Blood Pressure 145/77 134/76 O2 Sat by Pulse 99 99 Oximetry Medical Decision Making - Medical Decision Making EKG was interpreted by myself shows a sinus rhythm at 63 bpm DE interval 194 QRS is 98 QT interval is 425 QTC is 433. Patient's EKG shows no ST segment elevation or depression. Was pt. sent in by a medical professional or institution (SHANEKA Granados, COMMERCIAL CONSTRUCTION SUPERINTENDENT, urgent care, hospital, or snf...) When possible be specific @ -Patient was sent in from the snf Did you speak to anyone other than the patient for history (EMS, parent, family, police, friend...)? What history was obtained from this source @ -EMS gave us the majority of the history Did you review nursing and triage notes (agree or disagree)? Why? @ -I reviewed and agree with nursing and triage notes Were old charts reviewed (outside hosp., previous admission, EMS record, old EKG, old radiological studies, urgent care reports/EKG's, snf records)? Report findings @ -I reviewed prior lab work from prior charts on this patient Differential Diagnosis (chest pain, altered mental status, abdominal pain women, abdominal pain men, vaginal bleeding, weakness, fever, dyspnea, syncope, headache, dizziness, GI bleed, back pain, seizure, CVA, palpatations, mental health, musculoskeletal)? @ -Differential CVA Ischemic stroke, hemorrhagic stroke, brain tumor, atypical migraine, Wernicke's encephalopathy, seizure, multiple sclerosis, meningitis, encephalitis, hypoglycemia, Guillain-Hammond, electrolytes disturbance, myasthenia gravis.... This is not meant to be an all-inclusive list EKG interpreted by me (3pts min.). @ -As above X-rays interpreted by me (1pt min.). @ -Chest x-ray is interpreted by myself shows no acute abnormality. CT interpreted by me (1pt min.). @ -None done U/S interpreted by me (1pt. min.). @ -None done What testing was considered but not performed or refused? (CT, X-rays, U/S, labs)? Why? @ -CT of the brain was interpreted by myself I see no acute abnormalities. CTA showed no acute abnormalities. What meds were considered but not given or refused? Why? @ -None Did you discuss the management of the patient with other professionals (professionals i.e. , PA, COMMERCIAL CONSTRUCTION SUPERINTENDENT, lab, RT, psych nurse, social secretary, sales associate fishing, teacher, chief green officer, hospice case manager)? Give summary @ -[facility] agreed to admit the patient to the patient wrote admitting orders. I spoke with Dr. Brooks when he did not believe alteplase was required I was in agreement with this. The risks are outweighed the benefits Was smoking cessation discussed for >3mins.? @ -No Was critical care preformed (if so, how long)? @ -35 minutes Were there social determinants of health that impacted care today? How? (Homelessness, low income, unemployed, alcoholism, drug addiction, transportation, low edu. Level, literacy, decrease access to med. care, nursing home, rehab)? @ -No Was there de-escalation of care discussed even if they declined (Discuss DNR or withdrawal of care, Hospice)? DNR status @ -No What co-morbidities impacted this encounter? (DM, HTN, Smoking, COPD, CAD, Cancer, CVA, ARF, Chemo, Hep., AIDS, mental health diagnosis, sleep apnea, morbid obesity)? @ -Previous CVA Was patient admitted / discharged? Hospital course, mention meds given and route, prescriptions, significant lab abnormalities, going to OR and other pertinent info. @ -I went in and saw the patient he was having some left arm weakness and slurred speech. After the patient had CAT scans and lab work was back I went back in and reevaluated the patient patient stated that his arm weakness is completely resolved but he was still having some slurred speech. I spoke with the patient [place] hospitalist agreed to admit the patient admitted the patient I wrote admitting orders Undiagnosed new problem with uncertain prognosis? @ -No Drug Therapy requiring intensive monitoring for toxicity (Heparin, Nitro, Insulin, Cardizem)? @ -No Were any procedures done? @ -No Diagnosis/symptom? @ -CVA Acute, or Chronic, or Acute on Chronic? @ -Acute Uncomplicated (without systemic symptoms) or Complicated (systemic symptoms)? @ -Complicated Side effects of treatment? @ -No Exacerbation, Progression, or Severe Exacerbation? @ -No Poses a threat to life or bodily function? How? (Chest pain, [place], [place], pneumonia, PE, COPD, DKA, ARF, appy, cholecystitis, CVA, Diverticulitis, Homicidal, Suicidal, threat to staff... and all critical care pts) @ -Yes. This could lead to more paralysis further deficits - Lab Data Result diagrams: 09/09/22 10:22 09/09/22 10:22 Lab Results 09/09/22 09/09/22 09/09/22 Range/Units 10:05 10:20 10:22 WBC 7.3 (3.8-10.6) k/uL RBC 4.80 (4.30-5.90) m/uL Hgb 13.8 (13.0-17.5) gm/dL Hct 42.2 (39.0-53.0) % MCV 87.8 (80.0-100.0) fL MCH 28.8 (25.0-35.0) pg MCHC 32.8 (31.0-37.0) g/dL RDW 14.0 (11.5-15.5) % Plt Count 204 (150-450) k/uL MPV 6.8 Neutrophils % 67 % Lymphocytes % 21 % Monocytes % 5 % Eosinophils % 5 % Basophils % 0 % Neutrophils # 4.8 (1.3-7.7) k/uL Lymphocytes # 1.5 (1.0-4.8) k/uL Monocytes # 0.4 (0-1.0) k/uL Eosinophils # 0.3 (0-0.7) k/uL Basophils # 0.0 (0-0.2) k/uL PT (9.0-12.0) sec INR (<1.2) APTT (22.0-30.0) sec Sodium (137-145) mmol/L Potassium (3.5-5.1) mmol/L Chloride (98-107) mmol/L Carbon Dioxide (22-30) mmol/L Anion Gap mmol/L BUN (9-20) mg/dL Creatinine (0.66-1.25) mg/dL Est GFR (CKD-EPI)AfAm (>60 ml/min/1.73 sqM) Est GFR (CKD-EPI)NonAf (>60 ml/min/1.73 sqM) Glucose (74-99) mg/dL POC Glucose (mg/dL) 79 (70-110) mg/dL POC Glu Tie Cutter ID Arti Enciso Calcium (8.4-10.2) mg/dL Total Bilirubin (0.2-1.3) mg/dL AST (17-59) U/L ALT (4-49) U/L Alkaline Phosphatase (38-126) U/L Creatine Kinase 47 L (55-170) U/L Troponin I (0.000-0.034) ng/mL Total Protein (6.3-8.2) g/dL Albumin (3.5-5.0) g/dL 09/09/22 09/09/22 09/09/22 Range/Units 10:22 10:22 10:22 WBC (3.8-10.6) k/uL RBC (4.30-5.90) m/uL Hgb (13.0-17.5) gm/dL Hct (39.0-53.0) % MCV (80.0-100.0) fL MCH (25.0-35.0) pg MCHC (31.0-37.0) g/dL RDW (11.5-15.5) % Plt Count (150-450) k/uL MPV Neutrophils % % Lymphocytes % % Monocytes % % Eosinophils % % Basophils % % Neutrophils # (1.3-7.7) k/uL Lymphocytes # (1.0-4.8) k/uL Monocytes # (0-1.0) k/uL Eosinophils # (0-0.7) k/uL Basophils # (0-0.2) k/uL PT 11.7 (9.0-12.0) sec INR 1.1 (<1.2) APTT 27.6 (22.0-30.0) sec Sodium 139 (137-145) mmol/L Potassium 4.3 (3.5-5.1) mmol/L Chloride 107 (98-107) mmol/L Carbon Dioxide 26 (22-30) mmol/L Anion Gap 6 mmol/L BUN 15 (9-20) mg/dL Creatinine 0.56 L (0.66-1.25) mg/dL Est GFR (CKD-EPI)AfAm >90 (>60 ml/min/1.73 sqM) Est GFR (CKD-EPI)NonAf >90 (>60 ml/min/1.73 sqM) Glucose 72 L (74-99) mg/dL POC Glucose (mg/dL) (70-110) mg/dL POC Glu Tie Cutter ID Calcium 9.1 (8.4-10.2) mg/dL Total Bilirubin 0.6 (0.2-1.3) mg/dL AST 21 (17-59) U/L ALT 21 (4-49) U/L Alkaline Phosphatase 78 (38-126) U/L Creatine Kinase (55-170) U/L Troponin I <0.012 (0.000-0.034) ng/mL Total Protein 6.1 L (6.3-8.2) g/dL Albumin 3.9 (3.5-5.0) g/dL Critical Care Time Critical Care Time: Yes Total Critical Care Time: 35 Disposition Clinical Impression: Cerebrovascular accident (CVA) Disposition: ADMITTED IP TO THIS HOSP Referrals: Jesse Bhat MD [Primary Care Provider] - 1-2 days Time of Disposition: 12:46
--- NOTE | 2022-09-09 10:26 | CT ---
EXAMINATION TYPE: CT brain wo con CT DLP: 1176.6. mGycm, Automated exposure control for dose reduction was used. DATE OF EXAM: 09/09/2022 10:19 AM COMPARISON: CT brain 03/16/2022, 02/27/2021 CLINICAL INDICATION:Male, 67 years old with history of Neuro deficit, acute, stroke suspected, Left s ided weakness. TECHNIQUE: Brain: Multiple axial CT images of the brain were obtained without IV contrast. Coronal and sagittal reformats reviewed. FINDINGS: Brain: Extra-axial spaces: No abnormal extra-axial fluid collections. Ventricular system: Within normal limits Cerebral parenchyma: No acute intraparenchymal hemorrhage or mass effect. The navarro-white junction is well differentiated. Scattered hypoattenuating areas are seen within the white matter. Remote left t halamus lacunar injury. Cerebellum: Unremarkable. Mass effect: No evidence of midline shift. Intracranial vasculature: Atherosclerotic calcifications of the intracranial vessels. Soft tissues: Normal. Calvarium/osseous structures: No depressed skull fracture. Paranasal sinuses and mastoid air cells: Clear Visualized orbits: Orbital contents are intact. IMPRESSION: 1. No acute intracranial process. 2. Remote left thalamus lacunar injury along with nonspecific white matter changes likely secondary t o chronic microangiopathy.
[2022-09-09 10:36] LABS: Basophils % (A) 0 %; Eosinophils # (A) 0.3 k/uL (0-0.7); Eosinophils % (A) 5 %; HCT 42.2 % (39.0-53.0); HGB 13.8 gm/dL (13.0-17.5); Lymphocytes # (A) 1.5 k/uL (1.0-4.8); Lymphocytes % (A) 21 %; MCH 28.8 pg (25.0-35.0); MCHC 32.8 g/dL (31.0-37.0); MCV 87.8 fL (80.0-100.0); Mean Platelet Volume 6.8; Monocytes # (A) 0.4 k/uL (0-1.0); Monocytes % (A) 5 %; Neutrophils # (A) 4.8 k/uL (1.3-7.7); Neutrophils % (A) 67 %; Platelet Count 204 k/uL (150-450); WBC 7.3 k/uL (3.8-10.6)
--- NOTE | 2022-09-09 10:45 | CT ---
EXAMINATION TYPE: CT angio head neck CT DLP: 591.4 mGycm, Automated exposure control for dose reduction was used. DATE OF EXAM: 09/09/2022 10:35 AM COMPARISON: CTA head neck 03/16/2022. CLINICAL INDICATION:Male, 67 years old with history of Neuro deficit, acute, stroke suspected; PHH, L eft sided weakness. TECHNIQUE: Axially acquired helical CT angiogram of the head and neck was obtained with contrast util izing 65 cc of Isovue-370 administered intravenously. Axial images are supplemented with 3D reconstru ctions which were post-processed at an independent workstation. NASCET criteria used. FINDINGS: CTA HEAD: No evidence of acute intracranial hemorrhage, mass effect, or midline shift. The ventricles, sulci, a nd cisterns are unremarkable. The visualized portions of the internal carotid arteries, middle cerebral arteries, anterior cerebral arteries, and posterior cerebral arteries are patent. The basilar and vertebral arteries are patent. CTA NECK: Right Carotid System: The common carotid artery and external carotid artery are patent. Minimal atherosclerotic calcified p laque in the right carotid bulb. The carotid bifurcation demonstrates no evidence of hemodynamically significant stenosis. The remaining portions of the internal carotid artery demonstrate normal size w ithout significant narrowing. Left Carotid System: The common carotid artery and external carotid artery are patent. The carotid bifurcation demonstrate s no evidence of hemodynamically significant stenosis. The remaining portions of the internal carotid artery demonstrate normal size without significant narrowing. Vertebral arteries are patent without evidence hemodynamically significant stenosis. There is a three-vessel aortic arch. The origins of the great vessels are patent. No evidence of hemo dynamically significant stenosis. Secretions demonstrated within the trachea. Degenerative changes of the cervical spine. IMPRESSION: 1. No evidence of dissection of the cervical internal carotid arteries or vertebral arteries or any e vidence of significant stenosis at the carotid bifurcations. 2. No evidence of high-grade stenosis or intracranial aneurysm.
[2022-09-09 10:47] LABS: INR 1.1 (<1.2); Partial Thromboplastin Time 27.6 sec (22.0-30.0); Prothrombin Time 11.7 sec (9.0-12.0)
[2022-09-09 10:58] LABS: ALT 21 U/L (4-49); AST 21 U/L (17-59); African American GFR (CKD) >90 (>60 ml/min/1.73 sqM); Albumin 3.9 g/dL (3.5-5.0); Alkaline Phosphatase 78 U/L (38-126); Anion Gap 6 mmol/L; Blood Urea Nitrogen 15 mg/dL (9-20); Calcium 9.1 mg/dL (8.4-10.2); Carbon Dioxide 26 mmol/L (22-30); Chloride 107 mmol/L (98-107); Glucose 72 mg/dL (74-99); Non-African American GFR(CKD) >90 (>60 ml/min/1.73 sqM); Potassium 4.3 mmol/L (3.5-5.1); Sodium 139 mmol/L (137-145); Total Bilirubin 0.6 mg/dL (0.2-1.3); Total Protein 6.1 g/dL (6.3-8.2)
--- NOTE | 2022-09-09 12:13 | XR ---
EXAMINATION TYPE: XR chest 2V DATE OF EXAM: 09/09/2022 10:56 AM COMPARISON: Chest radiographs from 03/10/2022 TECHNIQUE: XR chest 2V Frontal and lateral views of the chest. CLINICAL INDICATION:Male, 67 years old with history of altered mental status; FINDINGS: Lungs/Pleura: Low lung volumes are present. There is no evidence of pleural effusion, focal consolida tion, or pneumothorax. Pulmonary vascularity: Unremarkable. Heart/mediastinum: Cardiomediastinal silhouette is unremarkable. Musculoskeletal: No acute osseous pathology. IMPRESSION: No acute cardiopulmonary disease/process.
[2022-09-09 12:46] LABS: Glucose,Whole Blood 105 mg/dL (70-110)
[2022-09-09] MEDS ORDERED: ASPIRIN 325 MG TAB PO STA (12:46)
[2022-09-09] MEDS ORDERED: ONDANSETRON 4 MG TAB PO PRN (13:14)
[2022-09-09 14:56] LABS: Glucose,Whole Blood 142 mg/dL (70-110)
[2022-09-09] MEDS ORDERED: CLOPIDOGREL 75 MG TAB PO SCH (15:15)
--- NOTE | 2022-09-09 15:27 | P.CNNES ---
History of Present Illness Consult date: 09/09/22 Requesting physician: Lior Nguyen Reason for Consult: cva History of Present Illness: This is a 67-year-old gentleman with history of old stroke in 02/2021, diabetes mellitus, peripheral neuropathy who presented emergency department on 09/09/2022 because of slurred speech and left arm weakness. Patient to the is a poor historian but he stated that he felt his left arm was weak today but cannot tell me what time. He cannot tell me what times the last normal. Per the ED note last normal is seems was last night and when he woke up this morning he was having the slurring of the speech and left arm weakness. He notified the ED team that his left arm is not weaker than normal. Patient could not tell me what medication he is on for stroke prevention but according to the medical record is seems she is on aspirin 81 and Plavix 75 mg daily. Of note patient was seen in our facility last on 2020 and at that time was felt the patient had acute left thalamic infarct as well as possibility of another punctate focus involving the left occipital. Was recommended for the patient to be on dual antiplatelets. Please refer to Dr. Elias's note for further details. Some other workup during this hospital visit consisted of: CT of the head is reported no acute intracranial process. Remote left on a lacunar infarct along with nonspecific white matter changes likely secondary to chronic microangiopathy. I personally reviewed the CT and I agree with the report. The angiography of the head and neck was reported as no evidence of dissection of the cervical internal carotid arteries or vertebral artery or any evidence of significant stenosis at the carotid bifurcation. No evidence of high-grade stenosis or intracranial aneurysm. Initial serum glucose on presentation of 72. POC glucose is 79. EKG is reported as sinus rhythm. ED reexamine him and they felt his left arm weakness has resolved but continued to have some slurred speech. ED spoke with Dr. Brooks and no IV TPA since the symptoms is improving and last normal appears was last night. No IV TPA since the risk outweighed the benefit. Review of Systems Review of system: The 12 point system was reviewed and apparent positive and negative per HPI. Past Medical History Past Medical History: Diabetes Mellitus, Hypertension Additional Past Medical History / Comment(s): Recent bronchitis-completed ABX/steroid, NIDDM type II, neuropathy R foot, 2009 CVA with very slight R sided weakness, recent vertigo, high cholesterol-not on RX yet, bilateral carpal tunnel syndrome. History of Any Multi-Drug Resistant Organisms: ESBL, MRSA Date of last positivie culture/infection: 03/04/21 MDRO Source:: URINE ESBL, MRSA FOOT Past Surgical History: Tonsillectomy Past Anesthesia/Blood Transfusion Reactions: No Reported Reaction Past Psychological History: No Psychological Hx Reported Smoking Status: Never smoker Past Alcohol Use History: None Reported Past Drug Use History: None Reported - Past Family History Father Additional Family Medical History / Comment(s): Father after a head injury with ruptured blood vessel at the age of 54 yrs. Mother Family Medical History: Cancer Additional Family Medical History / Comment(s): Mother had cervical cancer as a young person. She of colon cancer at the age of 72 yrs. Medications and Allergies Home Medications Medication Instructions Recorded Confirmed Type Aspirin 81 mg PO DAILY #30 tab 02/10/21 09/09/22 Rx Metoprolol Tartrate [Lopressor] 25 mg PO BID #30 tab 02/10/21 09/09/22 Rx Clopidogrel [Plavix] 75 mg PO DAILY tab 03/12/21 09/09/22 Rx Ondansetron [Zofran] 4 mg PO TID PRN 03/10/22 09/09/22 History Pantoprazole [Protonix] 40 mg PO DAILY 03/10/22 09/09/22 History glipiZIDE [Glucotrol] 5 mg PO DAILY@0600 03/10/22 09/09/22 History Acetaminophen Tab [Tylenol Tab] 500 mg PO BID 09/09/22 09/09/22 History Acetaminophen Tab [Tylenol Tab] 500 mg PO Q6HR PRN 09/09/22 09/09/22 History Magnesium Hydroxide [Milk of 2,400 mg PO ONCE 09/09/22 09/09/22 History Magnesia] Allergies Allergy/AdvReac Type Severity Reaction Status Date / Time Penicillins Allergy Itching Verified 09/09/22 10:25 Physical Examination - Vital Signs Vital Signs: Vital Signs Temp Pulse Resp BP Pulse Ox 09/09/22 14:23 67 16 130/75 99 09/09/22 12:55 62 18 136/80 99 09/09/22 11:32 98 F 70 19 134/76 99 09/09/22 11:17 98.1 F 61 17 145/77 99 09/09/22 11:02 98 F 62 17 137/81 99 09/09/22 10:47 98 F 66 16 132/76 99 09/09/22 10:32 98 F 71 19 125/80 99 09/09/22 10:17 98.1 F 62 17 129/72 99 09/09/22 10:02 98 F 65 18 144/80 98 09/09/22 09:55 98 F 88 16 133/64 98 Intake and Output 09/09/22 09/09/22 09/09/22 06:59 14:59 22:59 Other: Weight 92.533 kg GENERAL: The patient is lying in bed and is not in acute distress. CHEST: The heart rate is regular rate rhythm. No murmurs to auscultation. LUNG: Clear to auscultation bilaterally no wheezing noted throughout. Not labored breathing. ABDOMEN/GI: Bowel sounds present in all 4 quadrants. No tenderness to palpation throughout. NEUROLOGICAL: Higher mental function: The patient is awake, alert, oriented to self, place and time. Patient is following simple commands. Somewhat slow responding. No aphasia and no neglect. Cranial nerves: The pupils are round, equal and reactive to light. Visual maldonado are full to confrontation throughout. Extraocular movement is intact no nystagmus is noted. Facial sensation is normal to touch throughout. The facial strength is normal throughout. Hearing is moderately bilaterally to hand rub. Tongue is midline and moved [id number] without any difficulty. Moderate dysarthria is noted. Shoulder shrug is normal bilaterally. Motor: The strength is moving all extremities above gravity without focality. Normal tone and bulk. Cerebellum: Normal finger to nose bilaterally. Sensation: Sensation is normal to touch throughout. Reflexes (right/left):1+ throughout. Plantars are downgoing bilaterally. Results - Laboratory Findings CBC and BMP: 09/09/22 10:22 09/09/22 10:22 Abnormal Lab Findings: Abnormal Labs 09/09/22 09/09/22 09/09/22 10:20 10:22 14:55 Creatinine 0.56 L Glucose 72 L POC Glucose (mg/dL) 142 H Creatine Kinase 47 L Total Protein 6.1 L Assessment and Plan Assessment: This is a 67-year-old gentleman who presented to the emergency because of slurred speech and the left arm weakness. In the ED the arm weakness was improved Acute dysarthria and left arm weakness seems due to acute ischemic stroke. History of old stroke left thalamus and possible punctate left occipital in 02/2021. Reported stroke in 07/2020 with mild residual on right DM Peripheral neuropathy Plan: I ordered the stroke workup; MRI the brain, 2-D echo. The potentials ordered and is pending I started the patient on his home dose of aspirin 81. I will stop Plavix his home dose since patient failed the medication and will start on Brilinta 90mg 1 tab bid. Chart on Lipitor 40 mg daily at bedtime for secondary stroke prophyla xis Neurochecks Cardiac monitoring PT OT PRORATION CLERK are consulted We'll defer the rest of the medical management to primary team For DVT prophylaxis I started the patient on subcu heparin 5000 units every 8 hours Thank you for the consultation Time with Patient: Greater than 30
[2022-09-09] MEDS: HEPARIN SODIUM,PORCINE/PF 5,000 UNIT/0.5 ML SYRINGE SQ SCH ×2 (16:30→23:04)
[2022-09-09 16:48] LABS: Glucose,Whole Blood 76 mg/dL (70-110)
[2022-09-09 20:03] LABS: Glucose,Whole Blood 91 mg/dL (70-110)
[2022-09-09] MEDS: METOPROLOL TARTRATE 25 MG TAB PO SCH (20:03)
[2022-09-09] MEDS: ATORVASTATIN 40 MG TAB PO SCH (20:03)
[2022-09-09] MEDS: TICAGRELOR 90 MG TAB PO SCH (20:03)
--- NOTE | 2022-09-10 03:26 | P.HPIM ---
History of Present Illness This is a pleasant 67 years old male from senior living with past medical history of TIA, encephalopathy, stroke on 07/2020, diabetes mellitus and peripheral neuropathy Patient was sent from his senior living for left sided weakness which is resolved now with no tingling. Patient originally came from senior living, he states is been living there for a year and he was taking medication as he supposed to be occluded his aspirin and Plavix Also has slowed dissipation admission but also resolved Patient denies dizziness or headache, no blurred vision He denies chest pain dyspnea. No change in urine or bowel habits. No fever. No smoking alcohol or illicit drug Vitals are stable Labs show an unremarkable CBC, INR, BMP, liver enzymes. Troponin is negative. CT of the brain: No acute stroke, remote left thalamus injury CTA of the head and neck: No evidence of dissection of carotid arteries or vertebral arteries, no significant stenosis or intracranial aneurysm chest x-ray: No acute process. and emergency room patient received aspirin 325 mg and neurology team consulted Review of Systems Review of systems CONSTITUTIONAL: No fever, no malaise, no fatigue. HEENT: No recent visual problems or hearing problems. Denied any sore throat. CARDIOVASCULAR: No orthopnea, PND, no palpitations, no syncope. PULMONARY: No shortness of breath, no cough, no hemoptysis. GASTROINTESTINAL: No diarrhea, no nausea, no vomiting, no abdominal pain. Normoactive bowel sounds. NEUROLOGICAL: No headaches, no weakness, no numbness. HEMATOLOGICAL: Denies any bleeding or petechiae. GENITOURINARY: Denies any burning micturition, frequency, or urgency. MUSCULOSKELETAL/RHEUMATOLOGICAL: Denies any joint pain, swelling, or any muscle pain. ENDOCRINE: Denies any polyuria or polydipsia. Past Medical History Past Medical History: Diabetes Mellitus, Hypertension Additional Past Medical History / Comment(s): Recent bronchitis-completed ABX/steroid, NIDDM type II, neuropathy R foot, 2009 CVA with very slight R sided weakness, recent vertigo, high cholesterol-not on RX yet, bilateral carpal tunnel syndrome. History of Any Multi-Drug Resistant Organisms: ESBL, MRSA Date of last positivie culture/infection: 03/04/21 MDRO Source:: URINE ESBL, MRSA FOOT Past Surgical History: Tonsillectomy Past Anesthesia/Blood Transfusion Reactions: No Reported Reaction Past Psychological History: No Psychological Hx Reported Smoking Status: Never smoker Past Alcohol Use History: None Reported Past Drug Use History: None Reported - Past Family History Father Additional Family Medical History / Comment(s): Father after a head injury with ruptured blood vessel at the age of 54 yrs. Mother Family Medical History: Cancer Additional Family Medical History / Comment(s): Mother had cervical cancer as a young person. She of colon cancer at the age of 72 yrs. Medications and Allergies Home Medications Medication Instructions Recorded Confirmed Type Aspirin 81 mg PO DAILY #30 tab 02/10/21 09/09/22 Rx Metoprolol Tartrate [Lopressor] 25 mg PO BID #30 tab 02/10/21 09/09/22 Rx Clopidogrel [Plavix] 75 mg PO DAILY tab 03/12/21 09/09/22 Rx Ondansetron [Zofran] 4 mg PO TID PRN 03/10/22 09/09/22 History Pantoprazole [Protonix] 40 mg PO DAILY 03/10/22 09/09/22 History glipiZIDE [Glucotrol] 5 mg PO DAILY@0600 03/10/22 09/09/22 History Acetaminophen Tab [Tylenol Tab] 500 mg PO BID 09/09/22 09/09/22 History Acetaminophen Tab [Tylenol Tab] 500 mg PO Q6HR PRN 09/09/22 09/09/22 History Magnesium Hydroxide [Milk of 2,400 mg PO ONCE 09/09/22 09/09/22 History Magnesia] Allergies Allergy/AdvReac Type Severity Reaction Status Date / Time Penicillins Allergy Itching Verified 09/09/22 10:25 Physical Exam Vitals: Vital Signs Temp Pulse Resp BP Pulse Ox 09/09/22 12:55 62 18 136/80 99 09/09/22 11:32 98 F 70 19 134/76 99 09/09/22 11:17 98.1 F 61 17 145/77 99 09/09/22 11:02 98 F 62 17 137/81 99 09/09/22 10:47 98 F 66 16 132/76 99 09/09/22 10:32 98 F 71 19 125/80 99 09/09/22 10:17 98.1 F 62 17 129/72 99 09/09/22 10:02 98 F 65 18 144/80 98 09/09/22 09:55 98 F 88 16 133/64 98 Intake and Output 09/08/22 09/09/22 09/09/22 22:59 06:59 14:59 Other: Weight 92.533 kg GENERAL: The patient is alert and oriented x3, not in any acute distress. Well developed, well nourished. HEENT: Pupils are round and equally reacting to light. EOMI. No scleral icterus. No conjunctival pallor. Normocephalic, atraumatic. No pharyngeal erythema. No thyromegaly. CARDIOVASCULAR: S1 and S2 present. No murmurs, rubs, or gallops. PULMONARY: Chest is clear to auscultation, no wheezing or crackles. ABDOMEN: Soft, nontender, nondistended, normoactive bowel sounds. No palpable organomegaly. MUSCULOSKELETAL: No joint swelling or deformity. EXTREMITIES: No cyanosis, clubbing, or pedal edema. NEUROLOGICAL: Gross neurological examination did not reveal any focal deficits. SKIN: No rashes. no petechiae. Results CBC & Chem 7: 09/09/22 10:22 09/09/22 10:22 Labs: Abnormal Lab Results - Last 24 Hours (Table) 09/09/22 09/09/22 Range/Units 10:20 10:22 Creatinine 0.56 L (0.66-1.25) mg/dL Glucose 72 L (74-99) mg/dL Creatine Kinase 47 L (55-170) U/L Total Protein 6.1 L (6.3-8.2) g/dL Assessment and Plan Assessment: Transient ischemic attack with left arm weakness resolved with slurred speech Previous history of TIA and stroke Diabetes mellitus Chronic heart failure with no acute exacerbation Hypertension Plan: Continue with higher dose of aspirin 325 mg hold on Plavix to recommended by neurologist Neurology consult follow-up Check hemoglobin A1c Labs and medication were reviewed.. Continue same treatment. Continue with symptomatic treatment. Resume home medication. Monitor labs and vitals. DVT and GI prophylaxis. Further recommendations as per clinical course of the patient DVT prophylaxis: Subcutaneous heparin GI Prophylaxis: Pepcid PT/OT: Pending Prognosis is guarded
[2022-09-10 05:55] LABS: Glucose,Whole Blood 72 mg/dL (70-110)
[2022-09-10] MEDS: glipiZIDE 5 MG TAB PO SCH (06:17)
[2022-09-10] MEDS ORDERED: ASPIRIN 325 MG TAB PO SCH (09:00)
[2022-09-10] MEDS: HEPARIN SODIUM,PORCINE/PF 5,000 UNIT/0.5 ML SYRINGE SQ SCH ×3 (09:10→23:01)
[2022-09-10] MEDS: ASPIRIN 81 MG PO SCH (09:10)
[2022-09-10] MEDS: METOPROLOL TARTRATE 25 MG TAB PO SCH ×2 (09:10→20:23)
[2022-09-10] MEDS: TICAGRELOR 90 MG TAB PO SCH ×2 (09:10→20:23)
[2022-09-10] MEDS: PANTOPRAZOLE 40 MG TABLET PO SCH (09:10)
--- NOTE | 2022-09-10 09:59 | CA ---
Transthoracic Echo Report Name: Mario Srinivasan Age: 67 Gender: M : 1955 Exam Date: 09/09/2022 15:27 Exam Location: [facility] Ht (in): 70 Wt (lb): 204 Ordering Physician: Carlos Arrington MD Attending/Referring Phys: Manager Art Henry Coon RDCS Procedure CPT: Indications: stroke Cardiac Hx: Technical Quality: Fair Contrast 1: Total Dose (mL): Contrast 2: Total Dose (mL): MEASUREMENTS (Male / Female) Normal Values 2D ECHO LV Diastolic Diameter PLAX 5.2 cm 4.2 - 5.9 / 3.9 - 5.3 cm LV Systolic Diameter PLAX 3.7 cm IVS Diastolic Thickness 1.2 cm 0.6 - 1.0 / 0.6 - 0.9 cm LVPW Diastolic Thickness 1.0 cm 0.6 - 1.0 / 0.6 - 0.9 cm LV Relative Wall Thickness 0.4 M-MODE Aortic Root Diameter MM 2.9 cm AV Cusp Separation MM 1.2 cm DOPPLER AV Peak Velocity 149.6 cm/s AV Peak Gradient 9.0 mmHg LVOT Peak Velocity 69.2 cm/s LVOT Peak Gradient 1.9 mmHg MV Area PHT 3.1 cm??? Mitral E Point Velocity 72.8 cm/s Mitral A Point Velocity 94.5 cm/s Mitral E to A Ratio 0.8 MV Deceleration Time 242.6 ms PV Peak Velocity 50.6 cm/s PV Peak Gradient 1.0 mmHg FINDINGS Left Ventricle Mildly increased septal wall thickness. Left ventricular ejection fraction is estimated at 50-55 %. Grade 1 diastolic dysfunction. Right Ventricle Normal right ventricular size and function. Right ventricular systolic pressure within normal limits. Right Atrium Normal right atrial size. Left Atrium Normal left atrial size. Mitral Valve Mild mitral regurgitation. Aortic Valve Trileaflet aortic valve. Aortic valve sclerosis. Trace aortic regurgitation. Tricuspid Valve Structurally normal tricuspid valve. Pulmonic Valve Pulmonic valve not well visualized. Pericardium Small pericardial effusion. No pleural effusion. Aorta Normal size aortic root and proximal ascending aorta. CONCLUSIONS Mildly increased left ventricular wall thickness Left ventricular ejection fraction 50-55% Trace aortic regurgitation Small pericardial effusion without tamponade physiology Previewed by: Dr. Chavo Aviles DO (Electronically Signed) Final Date: 10 September 2022 09:58
[2022-09-10 10:46] LABS: Basophils % (A) 0 %; Eosinophils # (A) 0.3 k/uL (0-0.7); Eosinophils % (A) 5 %; HCT 44.8 % (39.0-53.0); HGB 14.3 gm/dL (13.0-17.5); Lymphocytes # (A) 1.5 k/uL (1.0-4.8); Lymphocytes % (A) 24 %; MCH 28.2 pg (25.0-35.0); MCHC 31.8 g/dL (31.0-37.0); MCV 88.6 fL (80.0-100.0); Mean Platelet Volume 6.9; Monocytes # (A) 0.3 k/uL (0-1.0); Monocytes % (A) 5 %; Neutrophils # (A) 3.9 k/uL (1.3-7.7); Neutrophils % (A) 63 %; Platelet Count 207 k/uL (150-450); RBC 5.06 m/uL (4.30-5.90); RDW 13.8 % (11.5-15.5); WBC 6.2 k/uL (3.8-10.6)
[2022-09-10 10:59] LABS: African American GFR (CKD) >90 (>60 ml/min/1.73 sqM); Anion Gap 5 mmol/L; Blood Urea Nitrogen 9 mg/dL (9-20); Calcium 9.1 mg/dL (8.4-10.2); Carbon Dioxide 28 mmol/L (22-30); Chloride 105 mmol/L (98-107); Glucose 57 mg/dL (74-99); Non-African American GFR(CKD) >90 (>60 ml/min/1.73 sqM); Sodium 138 mmol/L (137-145)
[2022-09-10 11:42] LABS: Glucose,Whole Blood 103 mg/dL (70-110)
--- NOTE | 2022-09-10 12:06 | P.PN ---
Subjective Progress Note Date: 09/10/22 The patient is seen at [facility] and feels slurred speech is much better. Denies of any new neurological issues. Objective - Vital Signs Vital signs: Vital Signs Temp 97.8 F 09/10/22 11:50 Pulse 64 09/10/22 11:50 Resp 16 09/10/22 11:50 BP 135/85 09/10/22 11:50 Pulse Ox 99 09/10/22 11:50 FiO2 Intake & Output 09/09/22 09/10/22 09/10/22 18:59 06:59 18:59 Intake Total 5 Output Total 250 975 200 Balance -245 -975 -200 Weight 92.533 kg Intake: IV 5 Invasive Line 1 5 Output: Urine 250 975 200 Other: Voiding Method Urinal Urinal # Voids 1 # Bowel Movements 1 - Exam GENERAL: The patient is lying in bed and is not in acute distress. NEUROLOGICAL: Higher mental function: The patient is awake, alert, oriented to self, place and time. Patient is following simple commands. Somewhat slow responding. No aphasia and no neglect. Cranial nerves: The pupils are round, equal and reactive to light. Visual maldonado are full to confrontation throughout. Extraocular movement is intact no nystagmus is noted. Facial sensation is normal to touch throughout. The facial strength is normal throughout.Tongue is midline and moved [id number] without any difficulty. No dysarthria. Shoulder shrug is normal bilaterally. Motor: The strength is moving all extremities above gravity without focality. Normal tone and bulk. Cerebellum: Normal finger to nose bilaterally. Sensation: Sensation is normal to touch throughout. Reflexes (right/left):1+ throughout. Plantars are downgoing bilaterally. Some other workup during this hospital visit consisted of: CT of the head is reported no acute intracranial process. Remote left on a lacunar infarct along with nonspecific white matter changes likely secondary to chronic microangiopathy. I personally reviewed the CT and I agree with the report. The angiography of the head and neck was reported as no evidence of dissection of the cervical internal carotid arteries or vertebral artery or any evidence of significant stenosis at the carotid bifurcation. No evidence of high-grade stenosis or intracranial aneurysm. Initial serum glucose on presentation of 72. POC glucose is 79. EKG is reported as sinus rhythm. 2D echo: It is reported as mild increased left ventricular wall thickness. Left ventricular ejection fraction of 50-55%. Trace aortic regurgitation. Small pericardial effusion without temper not the physiology. Normal left atrial size - Labs CBC & Chem 7: 09/10/22 09:54 09/10/22 09:54 Labs: Abnormal Lab Results - Last 24 Hours (Table) 09/09/22 09/10/22 Range/Units 14:55 09:54 Creatinine 0.58 L (0.66-1.25) mg/dL Glucose 57 L (74-99) mg/dL POC Glucose (mg/dL) 142 H (70-110) mg/dL Assessment and Plan Assessment: This is a 67-year-old gentleman who presented to the emergency because of slurred speech and the left arm weakness. In the ED the arm weakness was improved Acute transient dysarthria and left arm weakness. Likely TIA. History of old stroke left thalamus and possible punctate left occipital in 02/2021. Reported stroke in 07/2020 with mild residual on right DM Peripheral neuropathy Plan: MRI the brain and lipid panel are pending. Continue home dose of aspirin 81mg daily. I will stop Plavix his home dose since patient failed the medication and started on Brilinta 90mg 1 tab bid. Continued Lipitor 40 mg daily at bedtime for secondary stroke prophylaxis Neurochecks Cardiac monitoring PT OT CHILD CARE SUPERVISOR are consulted We'll defer the rest of the medical management to primary team For DVT prophylaxis On subcu heparin 5000 units every 8 hours The plan is discussed with primary team. Time with Patient: Less than 30
--- NOTE | 2022-09-10 14:53 | P.PN ---
Subjective This is a pleasant 67 years old male from shelter with past medical history of TIA, encephalopathy, stroke on 07/2020, diabetes mellitus and peripheral neuropathy Patient was sent from his shelter for left sided weakness which is resolved now with no tingling. Patient originally came from shelter, he states is been living there for a year and he was taking medication as he supposed to be occluded his aspirin and Plavix Also has slowed dissipation admission but also resolved Patient denies dizziness or headache, no blurred vision He denies chest pain dyspnea. No change in urine or bowel habits. No fever. No smoking alcohol or illicit drug Vitals are stable Labs show an unremarkable CBC, INR, BMP, liver enzymes. Troponin is negative. CT of the brain: No acute stroke, remote left thalamus injury CTA of the head and neck: No evidence of dissection of carotid arteries or vertebral arteries, no significant stenosis or intracranial aneurysm chest x-ray: No acute process. and emergency room patient received aspirin 325 mg and neurology team consulted 09/10/2022 Patient was admitted with signs and symptoms of TIA, less likely stroke however MRI of the brain is still pending His slurred speech and left-sided weakness is significantly improving. He remains on aspirin and Brilinta No other new complaints He has mild asymptomatic bradycardia but also he is on metoprolol 25 mg which recommend to continue, echocardiogram showed ejection fraction of 50-55% Objective - Vital Signs Vital signs: Vital Signs Temp 97.4 F L 09/10/22 09:05 Pulse 68 09/10/22 09:05 Resp 16 09/10/22 09:05 BP 152/77 09/10/22 09:05 Pulse Ox 98 09/10/22 09:05 FiO2 Intake & Output 09/09/22 09/10/22 09/10/22 18:59 06:59 18:59 Intake Total 5 Output Total 250 975 200 Balance -245 -975 -200 Weight 92.533 kg Intake: IV 5 Invasive Line 1 5 Output: Urine 250 975 200 Other: Voiding Method Urinal # Voids 1 # Bowel Movements 1 - Exam GENERAL: The patient is alert and oriented x3, not in any acute distress. Well developed, well nourished. HEENT: Pupils are round and equally reacting to light. EOMI. No scleral icterus. No conjunctival pallor. Normocephalic, atraumatic. No pharyngeal erythema. No thyromegaly. CARDIOVASCULAR: S1 and S2 present. No murmurs, rubs, or gallops. PULMONARY: Chest is clear to auscultation, no wheezing or crackles. ABDOMEN: Soft, nontender, nondistended, normoactive bowel sounds. No palpable organomegaly. MUSCULOSKELETAL: No joint swelling or deformity. EXTREMITIES: No cyanosis, clubbing, or pedal edema. NEUROLOGICAL: Gross neurological examination did not reveal any focal deficits. SKIN: No rashes. no petechiae. - Labs CBC & Chem 7: 09/10/22 09:54 09/10/22 09:54 Labs: Abnormal Lab Results - Last 24 Hours (Table) 09/09/22 09/09/22 09/09/22 Range/Units 10:20 10:22 14:55 Creatinine 0.56 L (0.66-1.25) mg/dL Glucose 72 L (74-99) mg/dL POC Glucose (mg/dL) 142 H (70-110) mg/dL Creatine Kinase 47 L (55-170) U/L Total Protein 6.1 L (6.3-8.2) g/dL Assessment and Plan Assessment: Transient ischemic attack with left arm weakness resolved with slurred speech Previous history of TIA and stroke Diabetes mellitus Chronic heart failure with no acute exacerbation Hypertension Plan: Continue with higher dose of aspirin 81 mg and brillinta MRI of the brain is pending Neurology consult follow-up Labs and medication were reviewed.. Continue same treatment. Continue with symptomatic treatment. Resume home medication. Monitor labs and vitals. DVT and GI prophylaxis. Further recommendations as per clinical course of the patient DVT prophylaxis: Subcutaneous heparin GI Prophylaxis: Pepcid PT/OT: Pending Prognosis is guarded
[2022-09-10 16:19] LABS: Glucose,Whole Blood 84 mg/dL (70-110)
[2022-09-10 20:20] LABS: Glucose,Whole Blood 87 mg/dL (70-110)
[2022-09-10] MEDS: ATORVASTATIN 40 MG TAB PO SCH (20:23)
[2022-09-11 06:15] LABS: Glucose,Whole Blood 77 mg/dL (70-110)
[2022-09-11] MEDS: glipiZIDE 5 MG TAB PO SCH (06:21)
[2022-09-11 08:15] LABS: Chol/HDL Ratio 4.47 Ratio; LDL Cholesterol,Calculated 124.7 mg/dL (0.0-131.0)
[2022-09-11] MEDS: ASPIRIN 81 MG PO SCH (08:22)
[2022-09-11] MEDS: PANTOPRAZOLE 40 MG TABLET PO SCH (08:22)
[2022-09-11] MEDS: METOPROLOL TARTRATE 25 MG TAB PO SCH ×2 (08:22→20:01)
[2022-09-11] MEDS: TICAGRELOR 90 MG TAB PO SCH ×2 (08:22→20:01)
[2022-09-11] MEDS: HEPARIN SODIUM,PORCINE/PF 5,000 UNIT/0.5 ML SYRINGE SQ SCH ×3 (08:22→23:51)
[2022-09-11 11:36] LABS: Glucose,Whole Blood 52 mg/dL (70-110)
[2022-09-11 11:57] LABS: Glucose,Whole Blood 65 mg/dL (70-110)
[2022-09-11 12:17] LABS: Glucose,Whole Blood 77 mg/dL (70-110)
[2022-09-11 16:31] LABS: Glucose,Whole Blood 90 mg/dL (70-110)
[2022-09-11 19:58] LABS: Glucose,Whole Blood 126 mg/dL (70-110)
[2022-09-11 19:59] VITALS: TEMP 98.3
[2022-09-11] MEDS: ATORVASTATIN 40 MG TAB PO SCH (20:01)
--- NOTE | 2022-09-12 01:51 | P.PN ---
Subjective Progress Note Date: 09/11/22 This is a pleasant 67 years old male from longterm with past medical history of TIA, encephalopathy, stroke on 07/2020, diabetes mellitus and peripheral neuropathy Patient was sent from his longterm for left sided weakness which is resolved now with no tingling. Patient originally came from longterm, he states is been living there for a year and he was taking medication as he supposed to be occluded his aspirin and Plavix Also has slowed dissipation admission but also resolved Patient denies dizziness or headache, no blurred vision He denies chest pain dyspnea. No change in urine or bowel habits. No fever. No smoking alcohol or illicit drug Vitals are stable Labs show an unremarkable CBC, INR, BMP, liver enzymes. Troponin is negative. CT of the brain: No acute stroke, remote left thalamus injury CTA of the head and neck: No evidence of dissection of carotid arteries or vertebral arteries, no significant stenosis or intracranial aneurysm chest x-ray: No acute process. and emergency room patient received aspirin 325 mg and neurology team consulted 09/10/2022 Patient was admitted with signs and symptoms of TIA, less likely stroke however MRI of the brain is still pending His slurred speech and left-sided weakness is significantly improving. He remains on aspirin and Brilinta No other new complaints He has mild asymptomatic bradycardia but also he is on metoprolol 25 mg which recommend to continue, echocardiogram showed ejection fraction of 50-55% 09/11/2022 Patient is currently sitting in the chair. Awake alert oriented x3. Slurred speech is much improved. No complaints of left-sided weakness. Awaiting MRI likely tomorrow. Patient is tolerating oral diet. No nausea vomiting or abdominal pain or diarrhea. No cough or sputum production. No other acute overnight issues. Current medications reviewed. Objective - Vital Signs Vital signs: Vital Signs Temp 97.9 F 09/11/22 13:05 Pulse 63 09/11/22 13:05 Resp 16 09/11/22 13:05 BP 118/74 09/11/22 13:05 Pulse Ox 98 09/11/22 13:05 FiO2 Intake & Output 09/10/22 09/11/22 09/11/22 18:59 06:59 18:59 Intake Total 598 580 Output Total 200 250 Balance 398 330 Intake: Oral 598 580 Output: Urine 200 250 Other: Voiding Method Urinal Urinal Urinal # Voids 3 # Bowel Movements 1 - Exam - Exam GENERAL: The patient is alert and oriented x3, not in any acute distress. Well developed, well nourished. HEENT: Pupils are round and equally reacting to light. EOMI. No scleral icterus. No conjunctival pallor. Normocephalic, atraumatic. No pharyngeal erythema. No thyromegaly. CARDIOVASCULAR: S1 and S2 present. No murmurs, rubs, or gallops. PULMONARY: Chest is clear to auscultation, no wheezing or crackles. ABDOMEN: Soft, nontender, nondistended, normoactive bowel sounds. No palpable or ganomegaly. MUSCULOSKELETAL: No joint swelling or deformity. EXTREMITIES: No cyanosis, clubbing, or pedal edema. NEUROLOGICAL: Gross neurological examination did not reveal any focal deficits. SKIN: No rashes. no petechiae. - Labs CBC & Chem 7: 09/10/22 09:54 09/10/22 09:54 Labs: Abnormal Lab Results - Last 24 Hours (Table) 09/11/22 09/11/22 Range/Units 11:33 11:53 POC Glucose (mg/dL) 52 L 65 L (70-110) mg/dL Assessment and Plan Assessment: Transient ischemic attack with left arm weakness resolved with slurred speech. improved Previous history of TIA and stroke Diabetes mellitus Chronic heart failure with no acute exacerbation Hypertension Plan: Continue with higher dose of aspirin 81 mg and brillinta MRI of the brain is pending Neurology consult follow-up Labs and medication were reviewed.. DVT prophylaxis: Subcutaneous heparin GI Prophylaxis: Pepcid PT/OT: Pending Prognosis is guarded
[2022-09-12 05:45] LABS: Glucose,Whole Blood 77 mg/dL (70-110)
[2022-09-12] MEDS: glipiZIDE 5 MG TAB PO SCH (06:21)
[2022-09-12] MEDS: HEPARIN SODIUM,PORCINE/PF 5,000 UNIT/0.5 ML SYRINGE SQ SCH (08:08)
[2022-09-12] MEDS: ASPIRIN 81 MG PO SCH (08:08)
[2022-09-12] MEDS: TICAGRELOR 90 MG TAB PO SCH (08:08)
[2022-09-12] MEDS: METOPROLOL TARTRATE 25 MG TAB PO SCH (08:08)
[2022-09-12] MEDS: PANTOPRAZOLE 40 MG TABLET PO SCH (08:08)
[2022-09-12 08:12] VITALS: RESP 16
[2022-09-12 09:34] LABS: Basophils % (A) 0 %; Eosinophils # (A) 0.3 k/uL (0-0.7); Eosinophils % (A) 4 %; HCT 45.6 % (39.0-53.0); HGB 15.1 gm/dL (13.0-17.5); Lymphocytes # (A) 1.7 k/uL (1.0-4.8); Lymphocytes % (A) 21 %; MCH 28.5 pg (25.0-35.0); MCHC 33.2 g/dL (31.0-37.0); Mean Platelet Volume 7.3; Monocytes # (A) 0.4 k/uL (0-1.0); Monocytes % (A) 5 %; Neutrophils # (A) 5.2 k/uL (1.3-7.7); Neutrophils % (A) 67 %; Platelet Count 202 k/uL (150-450); WBC 7.7 k/uL (3.8-10.6)
[2022-09-12 10:00] LABS: African American GFR (CKD) >90 (>60 ml/min/1.73 sqM); Anion Gap 7 mmol/L; Blood Urea Nitrogen 14 mg/dL (9-20); Calcium 9.2 mg/dL (8.4-10.2); Carbon Dioxide 26 mmol/L (22-30); Chloride 105 mmol/L (98-107); Glucose 86 mg/dL (74-99); Non-African American GFR(CKD) >90 (>60 ml/min/1.73 sqM); Potassium 4.3 mmol/L (3.5-5.1); Sodium 138 mmol/L (137-145)
--- NOTE | 2022-09-12 10:54 | MR ---
EXAMINATION TYPE: MR brain wo con DATE OF EXAM: 09/12/2022 COMPARISON: MRI brain March 01, 2021 HISTORY: Dysarthria, stroke TECHNIQUE: Multiplanar, multisequence imaging of the brain and brainstem is performed without IV cont rast. FINDINGS: Diffusion weighted images demonstrate no evidence of a recent infarct or other diffusion abnormality. There is moderate ventricular and sulcal prominence redemonstrated. There are focal and confluent are as of T2 hyperintensity seen throughout the white matter bilaterally redemonstrated greatest in promi nence at the periventricular levels. Lesion is nonspecific in appearance and distribution. Old lacuna r infarct left thalamus axial image 17 redemonstrated. Midline structures redemonstrate normal morphology. The craniocervical junction remains within ahsan l limits. Normal vascular flow voids are present. Mild mucosal thickening involving ethmoid sinuses b ilaterally. Nasal septum is deviated to right of midline. The globes are intact bilaterally. IMPRESSION: 1. No MRI evidence for a recent infarct. 2. There is moderate diffuse cerebral atrophy and advanced nonspecific white matter changes favor pro duct of chronic small vessel ischemic change in patient of this age redemonstrated. Other etiologies not entirely excluded. Old lacunar infarct left thalamus redemonstrated. No significant change from m ost recent prior MRI.
[2022-09-12 11:32] LABS: Glucose,Whole Blood 90 mg/dL (70-110)
[2022-09-12 12:35] VITALS: BP 106/66; PULSE 69
--- NOTE | 2022-09-12 14:15 | P.PN ---
Subjective Progress Note Date: 09/12/22 Patient initially seen by Dr. Carlos Arrington. Please refer to his note for details. Patient is a 67-year-old right-handed male, who has presented with TIA. Symptoms consisted of slurred speech and left arm weakness. Patient currently on aspirin and Brilinta. Patient tells me that he went to a restaurant, he was waiting for the lunch to be served. He was eating a piece of toast. He was feeling fine. He went into the room and suddenly he did not feel right, and did not feel like eating anything, and he felt some slurred speech and his right arm and hand was weak. He also has some issues with the right leg. Symptoms lasted for the day. The next day he was back to normal. Some other workup during this hospital visit consisted of: CT of the head is reported no acute intracranial process. Remote left on a lacunar infarct along with nonspecific white matter changes likely secondary to chronic microangiopathy. I personally reviewed the CT and I agree with the rep ort. The angiography of the head and neck was reported as no evidence of dissection of the cervical internal carotid arteries or vertebral artery or any evidence of significant stenosis at the carotid bifurcation. No evidence of high-grade stenosis or intracranial aneurysm. Initial serum glucose on presentation of 72. POC glucose is 79. EKG is reported as sinus rhythm. 2D echo: It is reported as mild increased left ventricular wall thickness. Left ventricular ejection fraction of 50-55%. Trace aortic regurgitation. Small pericardial effusion without tamponade physiology. Normal left atrial size Objective - Vital Signs Vital signs: Vital Signs Temp 98.3 F 09/12/22 08:00 Pulse 69 09/12/22 12:00 Resp 16 09/12/22 12:00 BP 106/66 09/12/22 12:00 Pulse Ox 95 09/12/22 12:00 FiO2 Intake & Output 09/11/22 09/12/22 09/12/22 18:59 06:59 18:59 Intake Total 816 360 Output Total 850 400 Balance -34 -400 360 Intake: Oral 816 360 Output: Urine 850 400 Other: Voiding Method Urinal Urinal Urinal # Bowel Movements 1 - Exam Patient is alert and awake, laying comfortably in bed. No distress. Speech is mildly dysarthric, which is partly related to being edentulous. No aphasia. He states it is July and the year is 2022 and that he is in [facility] in [place]. Cranial nerves are normal. Visual maldonado full. Face symmetric. On muscle strength testing, patient has normal strength except deltoid which are bilaterally weak, 2 on the right, 3+ left, likely from underlying rotator cuff issues. Strength is completely normal in both lower limbs distally and proximally. Sensations are equal with no neglect. No ataxia for [id number] testing. - Labs CBC & Chem 7: 09/12/22 08:36 09/12/22 08:36 Labs: Abnormal Lab Results - Last 24 Hours (Table) 09/11/22 09/12/22 Range/Units 19:57 08:36 Creatinine 0.60 L (0.66-1.25) mg/dL POC Glucose (mg/dL) 126 H (70-110) mg/dL Assessment and Plan Assessment: This is a 67-year-old gentleman who presented to the emergency because of slurred speech and the left arm weakness (patient tells me was involved in the right arm, not the left). In the ED the arm weakness was improved. His symptoms resolved in 24 hours. Acute transient dysarthria and left arm weakness. Likely TIA. (Patient told me his symptoms were involving the right arm with his TIA) Confirmed history of recurrent strokes with involvement of left thalamus and possible punctate left occipital inon 03/01/2021, and also multiple areas of acute ischemia noted on MRI from 08/21/2019. Patient has residual deficit on the right with his stroke from 03/01/2021. DM, well controlled now. Hypertension Peripheral neuropathy Plan: MRI the brain revealed no MRI evidence for recent infarct. There is moderate diffuse cerebral atrophy and advanced nonspecific white matter changes, favored product of chronic small vessel ischemic change in patient of this age redemonstrated. Other etiologies not entirely excluded. Old lacunar infarct left thalamus redemonstrated. No significant change from most recent prior MRI. I personally reviewed MRI, agree with the findings. Lipid panel with cholesterol 181, LDL 124, HDL [address] Arrington started patient on Lipitor 40 mg daily. Patient was not taking any statins prior to arrival. Hemoglobin A1c 5.5. Diabetes is well controlled. Avoid episodes of hypoglycemia. Continue home dose of aspirin 81mg daily. Dr. Arrington has stopped Plavix his home dose since patient failed the medication and started on Brilinta 90mg 1 tab bid. Continue Lipitor 40 mg daily at bedtime for secondary stroke prophylaxis. Suggest aspirin and Brilinta for 30 days, and then may bring back to aspirin 81 mg and Plavix 75 mg daily. Cardiac monitoring Recommend 30 day event monitoring to rule out paroxysmal atrial fibrillation. Suggest GIOVANNY to rule out any embolic source. Discussed with primary team. Patient to follow up with the field investigator as an outpatient. PT OT ROAD ROLLER OPERATOR are consulted We'll defer the rest of the medical management to primary team For DVT prophylaxis On subcu heparin 5000 units every 8 hours
--- NOTE | 2022-09-12 14:20 | P.DS ---
Providers Date of admission: 09/09/22 12:49 Attending physician: Gurvinder Amador MD Consults: 09/09/22 12:47 Consult Physician Routine Consulting Provider: Carlos Arrington Consult Reason/Comments: CVA Do you want consulting provider notified?: Yes Primary care physician: Jesse Bhat Hospital Course: Final Diagnosis Transient ischemic attack with left arm weakness resolved with slurred speech. improved Previous history of TIA and stroke Diabetes mellitus Chronic heart failure with no acute exacerbation Hypertension Hx peripheral neuropathy Carpal Tunnel Syndrome Discharge Disposition Patient is stable for discharge to subacute rehab. Symptoms have improved. He has been started on brilinta BID and recommended to continue on aspirin 81 mg daily. Plavix has been discontinued. Patient to also discharge on atorvastatin 40 mg HS. Recommend to follow up with primary care in 1 to 2 days, Dr Bhat. Patient to also see neurology on discharge in 1 to 2 weeks. Patient to continue on regular diet as tolerated. Hospital Course This is a pleasant 67 years old male from residential with past medical history of TIA, encephalopathy, stroke on 07/2020, diabetes mellitus and peripheral neuropathy. Patient was sent from his residential for left sided weakness which is resolved now with no tingling. Patient originally came from residential, he states is been living there for a year and he was taking medication as he supposed to be. He is maintained on aspirin and plavix outpatient. He also had reported slurred speech on admission which has since resolved. Patient denies dizziness, headache, denies blurry vision. He does have some residual right sided weakness from old stroke. CT of the brain: No acute stroke, remote left thalamus injury. CTA of the head and neck: No evidence of dissection of carotid arteries or vertebral arteries, no significant stenosis or intracranial aneurysm. Chest x-ray: No acute process. Neurology has been following the patient. Left sided weakness has improved. He was taken off the plavix and transitioned to brilinta BID. He has mild asymptomatic bradycardia but also he is on metoprolol 25 mg which recommend to continue, echocardiogram showed ejection fraction of 50-55%. He has trace pericardial effusion without evidence of tamponade physiology. Patient had MRI done showing no MRI evidence for recent infarct. There is moderate diffuse cerebral atrophy and advanced nonspecific white matter changes favor product of chronic small vessel ischemic change in patient of this age redemonstrated. Old lacunar infarct left thalamus redemonstrated. No significant change from prior MRI. Labs are essentially unremarkable, normal CBC, normal electrolytes. Blood glucose normal 112, A1C 5.5. Troponin negative. Lipid panel showing trigylcerides of 79, cholesterol 18 1, LDL 124, HDL 40.50. Afebrile and on room air. 09/12/2022 Patient evaluated today sitting up in chair. No acute events overnight. Patient denies chest pain, denies shortness of breath. He reports improvement in weakness. He reports that he was actually having right sided weakness on admission although all reports states left sided weakness. He has residual right sided weakness from prior stroke. He had negative brain MRI and also speech therapy cleared for regular diet. He is noted to have some mild cognitive impairment on speech therapy evaluation. Labs are unremarkable. Patient is febri le, heart rate 69, blood pressure 106/66, 95% room air. Please see medication reconciliation for a list of current medication. Thank you for allowing us to participate in the care of this patient. The impression and plan of care has been dictated by Qiana Stringer, Nurse Practitioner as directed. Dr. Sandor MD I have performed a history and physical examination and medical decision making of this patient, discussed the same with the dictator, and agree with the dictators assessment and plan as written, documented as a scribe. Based on total visit time, I have performed more than 50% of this visit. Patient Condition at Discharge: Stable Plan - Discharge Summary Discharge Rx Participant: No New Discharge Prescriptions: New Atorvastatin [Lipitor] 40 mg PO HS tab Ticagrelor [Brilinta] 90 mg PO BID tab Continue Pantoprazole [Protonix] 40 mg PO DAILY Acetaminophen Tab [Tylenol] 500 mg PO Q6HR PRN PRN Reason: Pain Acetaminophen Tab [Tylenol] 500 mg PO BID Aspirin 81 mg PO DAILY #30 tab Metoprolol Tartrate [Lopressor] 25 mg PO BID #30 tab glipiZIDE [Glucotrol] 5 mg PO DAILY@0600 Ondansetron [Zofran] 4 mg PO TID PRN PRN Reason: Nausea Magnesium Hydroxide [Milk of Magnesia] 2,400 mg PO ONCE Discontinued Clopidogrel [Plavix] 75 mg PO DAILY tab Discharge Medication List Aspirin 81 mg PO DAILY #30 tab 02/10/21 [Rx] Metoprolol Tartrate [Lopressor] 25 mg PO BID #30 tab 02/10/21 [Rx] Ondansetron [Zofran] 4 mg PO TID PRN 03/10/22 [History] Pantoprazole [Protonix] 40 mg PO DAILY 03/10/22 [History] glipiZIDE [Glucotrol] 5 mg PO DAILY@0600 03/10/22 [History] Acetaminophen Tab [Tylenol] 500 mg PO BID 09/09/22 [History] Acetaminophen Tab [Tylenol] 500 mg PO Q6HR PRN 09/09/22 [History] Magnesium Hydroxide [Milk of Magnesia] 2,400 mg PO ONCE 09/09/22 [History] Atorvastatin [Lipitor] 40 mg PO HS tab 09/12/22 [Rx] Ticagrelor [Brilinta] 90 mg PO BID tab 09/12/22 [Rx] Follow up Appointment(s)/Referral(s): Jesse Bhat MD [Primary Care Provider] - 1-2 days Giselle Boggs MD [REFERRING] - 1 Week Activity/Diet/Wound Care/Special Instructions: Follow up with neurology in 1 to 2 weeks Continue on Brilinta 90 mg BID and Aspirin 81 mg daily Discharge Disposition: TRANSFER TO SNF/ECF
[2022-09-12 16:31] LABS: Glucose,Whole Blood 101 mg/dL (70-110)
== END 2022-09-12 16:36 | DRG 69 ==
LOC: EC 09:53 → 3SCARD 12:49 → EEVIPCON 12:49 → 3SCARD 15:12
PROVIDERS: ADMIT Internal Medicine; ATTEND Internal Medicine
DX: G45.9 Transient cerebral ischemic attack, unspecified (principal); I69.351 Hemiplegia and hemiparesis following cerebral infarction affecting right dominant side; E11.42 Type 2 diabetes mellitus with diabetic polyneuropathy; I11.0 Hypertensive heart disease with heart failure; I25.10 Atherosclerotic heart disease of native coronary artery without angina pectoris; I50.9 Heart failure, unspecified; Z79.02 Long term (current) use of antithrombotics/antiplatelets; Z79.82 Long term (current) use of aspirin; Z79.84 Long term (current) use of oral hypoglycemic drugs; Z79.899 Other long term (current) drug therapy; G56.00 Carpal tunnel syndrome, unspecified upper limb; Z88.0 Allergy status to penicillin
CPT/HCPCS: 36415; 70450; 70496; 70498; 70551; 71046; 80048; 80053; 80061; 82550; 83036; 84484; 85025; 85610; 85730; 93005; 93270; 93306; 96360; 99291

== ENCOUNTER 2022-11-30 10:23 | Day surgery (SDC) | payer MEDICARE, OTHER ==
[2022-11-23 12:54] VITALS: BMI 29.4
[2022-11-30] MEDS ORDERED: SODIUM CHLORIDE 0.9% 500 ML 500 ML IV ONE (10:40)
[2022-11-30 10:59] LABS: Glucose,Whole Blood 89 mg/dL (70-110)
[2022-11-30 11:20] VITALS: TEMP 97.8
[2022-11-30] MEDS ORDERED: fentaNYL (PF) 50 MCG/ML 2 ML AMP ONE (11:31)
[2022-11-30] MEDS ORDERED: BENZOCAINE SPRAY 1 CAN TOPICAL ONE (11:36)
[2022-11-30] MEDS ORDERED: MIDAZOLAM 2 MG/2 ML VIAL IV ONE ×2 (11:57→11:58)
[2022-11-30] MEDS ORDERED: fentaNYL (PF) 50 MCG/ML 2 ML AMP IV ONE ×2 (11:58)
--- NOTE | 2022-11-30 13:17 | P.TEE ---
Description of Procedure(s): Procedure performed: Transesophageal Echocardiogram with color flow doppler, pulsed wave doppler and continuous wave doppler, moderate conscious sedation Moderate conscious sedation: Moderate conscious sedation was supplied with direct supervision of myself using Versed and Fentanyl. Complications: none Indications: Cryptogenic stroke PROCEDURE: After the risks, benefits and alternatives of the above mentioned procedure was explained in detail with the patient, informed consent was obtained. Patient was brought to the lab in a fasting state. Patient was given IV Versed and Fentanyl for sedation. The throat was sprayed with Hurricane to anesthetize the throat. A lubricated Omni probe was then introduced into the es ophagus and stomach and multiple views were obtained. 2D echo with color flow doppler, pulsed wave doppler and continuous wave doppler was utilized. Agitated saline bubbles were injected to assess for any intra-atrial shunt. The probe was then removed. Patient tolerated the procedure well. Patient was transferred to the post procedure area in stable and satisfactory condition. FINDINGS: 1. The aortic valve is tricuspid with mild aortic sclerosis and no significant aortic stenosis or aortic insufficiency. 2. The mitral valve appears be normal is trace mitral regurgitation. 3. Tricuspid valve appears to be normal. 4. The interatrial septum is intact. No evidence of PFO. 5. Left atrial appendage is free of clot. 6. Left ventricular ejection fraction 55%
[2022-11-30 14:55] VITALS: RESP 16
[2022-11-30 15:04] VITALS: BP 124/64; PULSE 64
== END 2022-11-30 13:44 | disposition home or self-care (01) ==
LOC: CATHCVL 10:23
PROVIDERS: ATTEND Internal Medicine
DX: I35.8 Other nonrheumatic aortic valve disorders (principal); I63.9 Cerebral infarction, unspecified; I25.2 Old myocardial infarction; I10 Essential (primary) hypertension; E11.9 Type 2 diabetes mellitus without complications; E78.5 Hyperlipidemia, unspecified; Z86.73 Personal history of transient ischemic attack (TIA), and cerebral infarction without residual deficits; I42.9 Cardiomyopathy, unspecified; Z82.49 Family history of ischemic heart disease and other diseases of the circulatory system; Z88.0 Allergy status to penicillin; Z79.82 Long term (current) use of aspirin; Z79.84 Long term (current) use of oral hypoglycemic drugs; Z79.899 Other long term (current) drug therapy
CPT/HCPCS: 93312; 93320; 93325; J2250; J3010

== ENCOUNTER 2023-02-14 08:12 | Day surgery (SDC) | payer MEDICARE, OTHER ==
[~2023-02-14 08:12] MED LIST: ALPRAZolam 0.25 MG TAB PO PRN; ALPRAZolam 0.5 MG TAB PO PRN; ASPIRIN 325 MG TAB PO STA; HEPARIN SODIUM,PORCINE (1 ML) 2,500 UNIT in SODIUM CHLORIDE 0.9% 250 ML IRRIGATION PRN; HEPARIN SODIUM,PORCINE 10,000 UNIT in SODIUM CHLORIDE 0.9% 1,000 ML IRRIGATION PRN; NITROGLYCERIN SL TABS 0.4 MG TAB SUBLINGUAL PRN; SODIUM CHLORIDE 0.9% 1,000 ML in EMPTY BAG 1 BAG IV SCH
[2023-02-14 08:37] LABS: Glucose,Whole Blood 84 mg/dL (70-110)
[2023-02-14] MEDS ORDERED: SODIUM CHLORIDE 0.9% 1,000 ML IV ONE ×2 (08:38→11:43)
[2023-02-14 08:42] LABS: Basophils % (A) 0 %; Eosinophils # (A) 0.5 k/uL (0-0.7); Eosinophils % (A) 5 %; HCT 50.1 % (39.0-53.0); HGB 15.9 gm/dL (13.0-17.5); Lymphocytes # (A) 1.9 k/uL (1.0-4.8); Lymphocytes % (A) 22 %; MCHC 31.8 g/dL (31.0-37.0); MCV 91.4 fL (80.0-100.0); Mean Platelet Volume 7.5; Monocytes # (A) 0.4 k/uL (0-1.0); Monocytes % (A) 4 %; Neutrophils # (A) 5.7 k/uL (1.3-7.7); Neutrophils % (A) 66 %; Platelet Count 204 k/uL (150-450); RBC 5.49 m/uL (4.30-5.90); RDW 14.3 % (11.5-15.5); WBC 8.6 k/uL (3.8-10.6)
[2023-02-14] MEDS ORDERED: METOPROLOL TARTRATE 25 MG TAB PO STA (08:45)
[2023-02-14 08:46] VITALS: RESP 16; TEMP 97
[2023-02-14 09:07] LABS: African American GFR (CKD) >90 (>60 ml/min/1.73 sqM); Anion Gap 6 mmol/L; Blood Urea Nitrogen 22 mg/dL (9-20); Calcium 9.7 mg/dL (8.4-10.2); Carbon Dioxide 28 mmol/L (22-30); Chloride 107 mmol/L (98-107); Glucose 97 mg/dL (74-99); Non-African American GFR(CKD) >90 (>60 ml/min/1.73 sqM); Potassium 4.2 mmol/L (3.5-5.1); Sodium 141 mmol/L (137-145)
[2023-02-14] MEDS ORDERED: fentaNYL (PF) 50 MCG/ML 2 ML AMP ONE (11:54)
[2023-02-14] MEDS: VERAPAMIL SYRINGE (5 MG/10 ML) INTRAARTER ONE ×2 (12:19→12:21)
[2023-02-14] MEDS ORDERED: LIDOCAINE 1% INJ 10MG/ML (20 ML MDV) SQ ONE (12:19)
[2023-02-14] MEDS ORDERED: MIDAZOLAM 2 MG/2 ML VIAL IVP ONE (12:24)
[2023-02-14] MEDS ORDERED: HEPARIN SODIUM 1,000 UN/ML (10ML VL) IV ONE (12:24)
[2023-02-14] MEDS ORDERED: fentaNYL (PF) 50 MCG/1 ML VIAL IVP ONE (12:24)
--- NOTE | 2023-02-14 12:46 | P.CARDCATH ---
Description of Procedure: PROCEDURES PERFORMED: Left heart catheterization, bilateral coronary angiography, ultrasound guided arterial access INDICATION: Abnormal stress test, CMP CONSENT:I have discussed the risks, benefits and alternative therapies for the above-mentioned procedure and for both sedation/analgesia as well as necessary blood product administration, if indicated, as they pertain to this patient. The patient has indicated understanding and acceptance of the risks and procedures discussed. PROCEDURE: After the risks, benefits and alternatives of the above mentioned procedure explained in detail with the patient, informed consent was obtained. Patient was taken to the catheterization lab and prepped and draped in usual fashion. Ultrasound guidance was used to assess for arterial access. 1% lidocaine was used to anesthetize the right radial artery. A 6-Angolan sheath was placed in the right radial artery using modified Seldinger technique and ultrasound guidance. Left coronary angiography was performed with a 5-Angolan JL 4.0 catheter and right coronary angiography was performed with a 5-Angolan JR5 catheter in various views. A 5-Angolan FR5 catheter was inserted into the left ventricle and pressure measurements were obtained. The right radial sheath was removed and a TR band was placed with hemostasis achieved. The patient tolerated the procedure well. Patient was transported back to the post catheterization holding area in stable condition. Conscious Sedation: Patient was monitored under the direct supervision of myself for conscious sedation using Versed and fentanyl for a total duration of 16 minutes HEMODYNAMICS: Ao: 136/75 D: 131/2, LVEDP 6 SELECTIVE CORONARY ARTERIOGRAPHY: LEFT MAIN: The left main is a large caliber vessel which bifurcates into the LAD and circumflex. There is mild distal left main 10-20% stenosis. LEFT ANTERIOR DESCENDING CORONARY ARTERY: LAD is a large caliber vessel which wr aps around to the apex. There is 100% stenosis of the proximal LAD at the origin. There are some left to left collaterals LEFT CIRCUMFLEX CORONARY ARTERY: Left circumflex is a moderate caliber vessel with proximal 50% stenosis RIGHT CORONARY ARTERY: The right coronary artery is a large caliber vessel which gives off a PDA and PLV branch and is the dominant vessel. There is distal RCA 30-40% stenosis. There are right to left collaterals. FINAL IMPRESSION: 1. CAD as described above including 100% ostial LAD, 50% proximal circumflex and distal RCA 30-40% stenosis. 2. Low normal left sided filling pressures PLAN: 1. Aggressive risk factor modification per most recent ACC/AHA guidelines. 2. Patient with right to left as well as left to left collaterals and consider medical therapy. Does not appear amenable to percutaneous FAMILY NURSE intervention.
[2023-02-14 19:55] VITALS: BP 127/82; PULSE 65
== END 2023-02-14 16:00 ==
LOC: CATHCVL 08:12
PROVIDERS: ATTEND Internal Medicine
DX: I25.10 Atherosclerotic heart disease of native coronary artery without angina pectoris (principal); I10 Essential (primary) hypertension; E78.5 Hyperlipidemia, unspecified; E11.9 Type 2 diabetes mellitus without complications; I25.2 Old myocardial infarction; I42.9 Cardiomyopathy, unspecified; Z86.73 Personal history of transient ischemic attack (TIA), and cerebral infarction without residual deficits; Z79.82 Long term (current) use of aspirin; Z79.84 Long term (current) use of oral hypoglycemic drugs; Z79.899 Other long term (current) drug therapy; Z88.0 Allergy status to penicillin; Z79.02 Long term (current) use of antithrombotics/antiplatelets
CPT/HCPCS: 93458; 76937; 80048; 85025; C1769 ×2; C1894; J2250; J2001; J1644; J3010

== ENCOUNTER 2023-05-15 00:21 | Emergency (ER) | payer MEDICARE, OTHER ==
[2023-05-15 00:47] VITALS: TEMP 97.3
[2023-05-15] MEDS ORDERED: SODIUM CHLORIDE 0.9% 500 ML 500 ML IV STA (00:49)
--- NOTE | 2023-05-15 00:51 | ED ---
General Adult HPI - General Source: patient, EMS, RN notes reviewed Mode of arrival: EMS Limitations: no limitations <Fede Brumfield - Last Filed: 05/15/23 00:50> <Phuong Ramos - Last Filed: 05/15/23 07:12> - General Chief complaint: Urogenital Stated complaint: Blood in urine Time Seen by Provider: 05/15/23 00:31 - History of Present Illness Initial comments: 67-year-old male presents emergency Department via EMS from [facility] for evaluation of hematuria. His been off for last few days. Patient lab work urinalysis of recent. Patient states he's unsure why he is sent over to emergency department. He denies any associated pain. Patient states he does not have a catheter and he denies any flank pain denies fevers. Denies any nausea vomiting. (Fede Brumfield) - Related Data Home Medications Medication Instructions Recorded Confirmed Ondansetron [Zofran] 4 mg PO TID PRN 03/10/22 02/13/23 glipiZIDE [Glucotrol] 5 mg PO DAILY 03/10/22 02/14/23 Acetaminophen Tab [Tylenol] 500 mg PO Q12HR PRN 09/09/22 02/13/23 Omeprazole 20 mg PO DAILY 11/04/22 02/14/23 Metoprolol Tartrate [Lopressor] 25 mg PO Q12HR 11/24/22 02/14/23 Ticagrelor [Brilinta] 90 mg PO Q12HR 11/24/22 02/14/23 Previous Rx's Medication Instructions Recorded Aspirin 81 mg PO DAILY #30 tab 02/10/21 Atorvastatin [Lipitor] 40 mg PO HS tab 09/12/22 Ciprofloxacin HCl [Cipro] 500 mg PO Q12HR #14 tablet 05/15/23 Allergies Allergy/AdvReac Type Severity Reaction Status Date / Time Penicillins Allergy Itching Verified 02/13/23 10:56 Review of Systems ROS Other: All systems not noted in ROS Statement are negative. <Fede Brumfield - Last Filed: 05/15/23 00:50> ROS Other: All systems not noted in ROS Statement are negative. <Phuong Ramos - Last Filed: 05/15/23 07:12> ROS Statement: Those systems with pertinent positive or pertinent negative responses have been documented in the HPI. Past Medical History Past Medical History: Heart Failure, CVA/TIA, Diabetes Mellitus, Hyperlipidemia, Hypertension, Musculoskeletal Disorder Additional Past Medical History / Comment(s): See Dr Aviles's H&P. TIA 08/2022 with admission to [facility]. Chronic systolic heart failure. 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 No current wounds. 1 person standby assist and physical assitance PRN/no mauricio lift/no assistive devices are used per nursing staff at [facility]. History of Any Multi-Drug Resistant Organisms: ESBL, MRSA Date of last positivie culture/infection: 03/04/21 MDRO Source:: URINE ESBL, MRSA FOOT Past Surgical History: Tonsillectomy Past Anesthesia/Blood Transfusion Reactions: No Reported Reaction Past Psychological History: No Psychological Hx Reported Smoking Status: Never smoker - Past Family History Father Additional Family Medical History / Comment(s): Father after a head injury with ruptured blood vessel at the age of 54 yrs. Mother Family Medical History: Cancer Additional Family Medical History / Comment(s): Mother had cervical cancer as a young person. She of colon cancer at the age of 72 yrs. <Fede Brumfield M - Last Filed: 05/15/23 00:50> General Exam Limitations: no limitations General appearance: alert, in no apparent distress Head exam: Present: atraumatic, normocephalic, normal inspection Neck exam: Present: normal inspection, full ROM. Absent: tenderness, meningismus, lymphadenopathy Respiratory exam: Present: normal lung sounds bilaterally. Absent: respiratory distress, wheezes, rales, rhonchi, stridor Cardiovascular Exam: Present: regular rate, normal rhythm, normal heart sounds. Absent: systolic murmur, diastolic murmur, rubs, gallop, clicks GI/Abdominal exam: Present: soft, normal bowel sounds. Absent: distended, te nderness, guarding, rebound, rigid <Fede Brumfield - Last Filed: 05/15/23 00:50> Course Vital Signs 05/15/23 05/15/23 05/15/23 00:24 01:30 02:30 Temperature 97.3 F L Pulse Rate 63 67 63 Respiratory 18 16 16 Rate Blood Pressure 140/87 108/73 123/74 O2 Sat by Pulse 98 96 98 Oximetry 05/15/23 05/15/23 05/15/23 03:30 04:30 05:00 Temperature Pulse Rate 62 64 62 Respiratory 16 14 18 Rate Blood Pressure 120/83 120/84 121/75 O2 Sat by Pulse 99 98 98 Oximetry 05/15/23 06:44 Temperature Pulse Rate 61 Respiratory 16 Rate Blood Pressure 115/86 O2 Sat by Pulse 96 Oximetry Medical Decision Making - Lab Data Result diagrams: 05/15/23 01:02 05/15/23 01:02 <Phuong Ramos A - Last Filed: 05/15/23 07:12> - Medical Decision Making Was pt. sent in by a medical professional or institution ([facility] Granados, CALCINER OPERATOR HELPER, urgent care, hospital, or assisted...) When possible be specific @ -[facility] Did you speak to anyone other than the patient for history (EMS, parent, family, police, friend...)? What history was obtained from this source @ -EMS Did you review nursing and triage notes (agree or disagree)? Why? @ -I reviewed and agree with nursing and triage notes Were old charts reviewed (outside hosp., previous admission, EMS record, old EKG, old radiological studies, urgent care reports/EKG's, assisted records)? Report findings @ -Reviewed patient's previous microbiology from 2020 Differential Diagnosis (chest pain, altered mental status, abdominal pain women, abdominal pain men, vaginal bleeding, weakness, fever, dyspnea, syncope, headache, dizziness, GI bleed, back pain, seizure, CVA, palpatations, mental health, musculoskeletal)? @ -Differential: UTI, bladder mass, kidney stone EKG interpreted by me (3pts min.). @ -Not done X-rays interpreted by me (1pt min.). @ -None done CT interpreted by me (1pt min.). @ -Yes and demonstrates possible questionable 2 mm midureteral calculus. There is 6 cm area within the bladder concerning for blood products versus mass. U/S interpreted by me (1pt. min.). @ -None done What testing was considered but not performed or refused? (CT, X-rays, U/S, labs)? Why? @ -Bladder ultrasound however not available at night What meds were considered but not given or refused? Why? @ -None Did you discuss the management of the patient with other professionals (professionals i.e. , PA, CALCINER OPERATOR HELPER, lab, RT, psych nurse, social services coordinator, motors assembler, teacher, custody officer, continuous pillowcase cutter)? Give summary @ -No Was smoking cessation discussed for >3mins.? @ -No Was critical care preformed (if so, how long)? @ -No Were there social determinants of health that impacted care today? How? (Homelessness, low income, unemployed, alcoholism, drug addiction, transportation, low edu. Level, literacy, decrease access to med. care, usp, rehab)? @ -No Was there de-escalation of care discussed even if they declined (Discuss DNR or withdrawal of care, Hospice)? DNR status @ -No What co-morbidities impacted this encounter? (DM, HTN, Smoking, COPD, CAD, Cancer, CVA, ARF, Chemo, Hep., AIDS, mental health diagnosis, sleep apnea, morbid obesity)? @ -CVA Was patient admitted / discharged? Hospital course, mention meds given and route, prescriptions, significant lab abnormalities, going to OR and other pertinent info. @ -Discharged. Upon arrival patient was seen in room 19. Thorough history and physical exam was performed. Patient does void on his own. Post void residual was 150. Urinalysis does demonstrate red blood cells and white blood cells. Ultrasound available therefore CT was performed which demonstrates questionable blood products within the bladder. Previous microbiology demonstrates that the patient has been susceptible to Cipro. The results are discussed with Dr. Osorio. Recommends that the patient may continue voiding on his own if post void residuals remained reasonable and patient has no difficulties with uri nation. Recommends treating for hemorrhagic cystitis. Patient will require cystoscopy however this will be done within a few weeks. Patient is to call the office to make an appointment. Patient is already on Cipro 250 however this will be increased to Cipro 500 twice a day area did call and make an appointment in the office and return for any worsening symptoms. Patient agreeable to plan and was discharged in stable condition Drug Therapy requiring intensive monitoring for toxicity (Heparin, Nitro, Insulin, Cardizem)? @ -No Were any procedures done? @ -No Diagnosis/symptom? @ -Acute hematuria, suspected hemorrhagic cystitis, possible midureteral stone Acute, or Chronic, or Acute on Chronic? @ -Acute Uncomplicated (without systemic symptoms) or Complicated (systemic symptoms)? @ -complicated Side effects of treatment? @ -No Exacerbation, Progression, or Severe Exacerbation? @ -No Poses a threat to life or bodily function? How? (Chest pain, [place], [place], pneumonia, PE, COPD, DKA, ARF, appy, cholecystitis, CVA, Diverticulitis, Homicidal, Suicidal, threat to staff... and all critical care pts) @ -No (Phuong Ramos) - Lab Data Lab Results 05/15/23 05/15/23 05/15/23 Range/Units 01:02 01:02 04:47 WBC 12.0 H (3.8-10.6) k/uL RBC 4.95 (4.30-5.90) m/uL Hgb 14.5 (13.0-17.5) gm/dL Hct 44.0 (39.0-53.0) % MCV 88.9 (80.0-100.0) fL MCH 29.3 (25.0-35.0) pg MCHC 32.9 (31.0-37.0) g/dL RDW 13.9 (11.5-15.5) % Plt Count 239 (150-450) k/uL MPV 6.9 Neutrophils % 74 % Lymphocytes % 18 % Monocytes % 4 % Eosinophils % 3 % Basophils % 0 % Neutrophils # 8.9 H (1.3-7.7) k/uL Lymphocytes # 2.2 (1.0-4.8) k/uL Monocytes # 0.5 (0-1.0) k/uL Eosinophils # 0.3 (0-0.7) k/uL Basophils # 0.0 (0-0.2) k/uL Sodium 138 (137-145) mmol/L Potassium 3.9 (3.5-5.1) mmol/L Chloride 106 (98-107) mmol/L Carbon Dioxide 23 (22-30) mmol/L Anion Gap 9 mmol/L BUN 21 H (9-20) mg/dL Creatinine 0.57 L (0.66-1.25) mg/dL Est GFR (CKD-EPI)AfAm >90 (>60 ml/min/1.73 sqM) Est GFR (CKD-EPI)NonAf >90 (>60 ml/min/1.73 sqM) Glucose 98 (74-99) mg/dL Calcium 9.2 (8.4-10.2) mg/dL Total Bilirubin 0.6 (0.2-1.3) mg/dL AST 24 (17-59) U/L ALT 31 (4-49) U/L Alkaline Phosphatase 89 (38-126) U/L Total Protein 5.6 L (6.3-8.2) g/dL Albumin 3.4 L (3.5-5.0) g/dL Urine Color Dark Red Urine Appearance Turbid (Clear) Urine pH 7.5 (5.0-8.0) Ur Specific [place] 1.022 (1.001-1.035) Urine Protein 2+ H (Negative) Urine Glucose (UA) Negative (Negative) Urine Ketones Trace H (Negative) Urine Blood Large H (Negative) Urine Nitrite Negative (Negative) Urine Bilirubin Negative (Negative) Urine Urobilinogen <2.0 (<2.0) mg/dL Ur Leukocyte Esterase Large H (Negative) Urine RBC >182 H (0-5) /hpf Urine WBC >182 H (0-5) /hpf Disposition <Fede Brumfield - Last Filed: 05/15/23 00:50> Is patient prescribed a controlled substance at d/c from ED?: No Time of Disposition: 06:28 <Phuong Ramos - Last Filed: 05/15/23 07:12> Clinical Impression: Hematuria, UTI (urinary tract infection) Disposition: HOME SELF-CARE Condition: Stable Instructions (If sedation given, give patient instructions): Urinary Tract Infection in Men (ED) Additional Instructions: Please take the antibiotic as directed. We recommend following PVRs to ensure that you are not retaining too much urine. Please follow-up with the urologists in office as you are going to need a scope of your bladder. Return should you be unable to void Prescriptions: Ciprofloxacin HCl [Cipro] 500 mg PO Q12HR #14 tablet Referrals: Jesse Bhat MD [Primary Care Provider] - 1-2 days Nghia Osorio MD [STAFF PHYSICIAN] - 1-2 days
[2023-05-15 01:19] LABS: Basophils % (A) 0 %; Eosinophils # (A) 0.3 k/uL (0-0.7); Eosinophils % (A) 3 %; HGB 14.5 gm/dL (13.0-17.5); Lymphocytes # (A) 2.2 k/uL (1.0-4.8); Lymphocytes % (A) 18 %; MCH 29.3 pg (25.0-35.0); MCHC 32.9 g/dL (31.0-37.0); MCV 88.9 fL (80.0-100.0); Mean Platelet Volume 6.9; Monocytes # (A) 0.5 k/uL (0-1.0); Monocytes % (A) 4 %; Neutrophils # (A) 8.9 k/uL (1.3-7.7); Neutrophils % (A) 74 %; Platelet Count 239 k/uL (150-450); RBC 4.95 m/uL (4.30-5.90); RDW 13.9 % (11.5-15.5)
[2023-05-15 01:28] LABS: ALT 31 U/L (4-49); AST 24 U/L (17-59); African American GFR (CKD) >90 (>60 ml/min/1.73 sqM); Albumin 3.4 g/dL (3.5-5.0); Alkaline Phosphatase 89 U/L (38-126); Anion Gap 9 mmol/L; Blood Urea Nitrogen 21 mg/dL (9-20); Calcium 9.2 mg/dL (8.4-10.2); Carbon Dioxide 23 mmol/L (22-30); Chloride 106 mmol/L (98-107); Glucose 98 mg/dL (74-99); Non-African American GFR(CKD) >90 (>60 ml/min/1.73 sqM); Potassium 3.9 mmol/L (3.5-5.1); Sodium 138 mmol/L (137-145); Total Bilirubin 0.6 mg/dL (0.2-1.3); Total Protein 5.6 g/dL (6.3-8.2)
[2023-05-15 05:10] LABS: Appearance,Urine Turbid (Clear); Bilirubin,Urine Negative (Negative); Blood,Urine Large (Negative); Color,Urine Dark Red; Glucose,Urine (UA) Negative (Negative); Ketones,Urine Trace (Negative); Leukocyte Esterase,Urine Large (Negative); Nitrite,Urine Negative (Negative); PH, Urine 7.5 (5.0-8.0); Protein,Urine 2+ (Negative); RBC,Urine >182 /hpf (0-5); Urobilinogen,Urine <2.0 mg/dL (<2.0); WBC,Urine >182 /hpf (0-5)
[2023-05-15 05:13] LABS: Specific Gravity,Urine 1.022 (1.001-1.035)
--- NOTE | 2023-05-15 05:57 | CT ---
EXAM: CT Abdomen and Pelvis Without Intravenous Contrast CLINICAL HISTORY: ITS.REASON CT Reason: Hematuria TECHNIQUE: Axial computed tomography images of the abdomen and pelvis without intravenous contrast. CTDI is 11.2 mGy and DLP is 837.5 mGy-cm. This CT exam was performed using one or more of the following dose reduction techniques: automated exposure control, adjustment of the mA and/or kV according to patient size, and/or use of iterative reconstruction technique. COMPARISON: No relevant prior studies available. FINDINGS: Lung bases: Unremarkable. No mass. No consolidation. Heart: Coronary calcifications. ABDOMEN: Liver: Unremarkable. Gallbladder and bile ducts: Unremarkable. No calcified stones. No ductal dilation. Pancreas: Unremarkable. No ductal dilation. Spleen: Unremarkable. No splenomegaly. Adrenals: Nodular left adrenal gland with 15 mm nodule/adenoma. Kidneys and ureters: Small high-density foci in the kidneys bilaterally may be calculi, vascular calcifications or small amount of excreted contrast (correlate if any contrast has been administered). Query 2 mm left midureteral calculus on series 201 image 51. No hydronephrosis. Stomach and bowel: No bowel obstruction. No mucosal thickening. PELVIS: Appendix: Normal appendix. Bladder: Approximately 6 cm heterogeneous/hyperdense area within the urinary bladder may represent blood products in the bladder. Underlying mass not excluded. Bladder wall thickening of moderately distended bladder and mild surrounding stranding. Reproductive: Enlarged prostate indents the bladder base. ABDOMEN and PELVIS: Intraperitoneal space: Unremarkable. No free air. No significant fluid collection. Bones/joints: Degenerative changes of the spine. Query 1.7 cm lytic lesion in the right pubic body. No obvious cortical destruction. No acute fracture. No dislocation. Soft tissues: Small fat-containing right inguinal hernia. Vasculature: No abdominal aortic aneurysm. Lymph nodes: Unremarkable. No enlarged lymph nodes. Other: 3.3 cm lobular lesion anterior to the aorta at the level of the left renal vein and abutting the horizontal duodenum. IMPRESSION: 1. Approximately 6 cm heterogeneous/hyperdense area within the urinary bladder may represent blood products in the bladder. Underlying mass not excluded. Recommend further workup. 2. Enlarged prostate indents the bladder base. Recommend further workup. 3. Bladder wall thickening of moderately distended bladder and mild surrounding stranding. May represent cystitis. 4. Small high-density foci in the kidneys bilaterally may be calculi, vascular calcifications or small amount of excreted contrast (correlate if any contrast has been administered). Query 2 mm left midureteral calculus on series 201 image 51. No hydronephrosis. 5. Nodular left adrenal gland with 15 mm nodule/adenoma. 6. 3.3 cm lobular lesion anterior to the aorta at the level of the left renal vein and abutting the horizontal duodenum. Unclear if this represents a node/mass or a duodenal diverticulum. 7. Query 1.7 cm lytic lesion in the right pubic body. No obvious cortical destruction. May be benign or malignant. Correlate with priors if available and attention on follow-up.
[2023-05-15 06:53] VITALS: BP 115/86; PULSE 61; RESP 16
== END 2023-05-15 07:45 | disposition home or self-care (01) ==
LOC: EC 00:21
DX: N39.0 Urinary tract infection, site not specified (principal); B96.4 Proteus (mirabilis) (morganii) as the cause of diseases classified elsewhere; E11.9 Type 2 diabetes mellitus without complications; I11.0 Hypertensive heart disease with heart failure; I50.22 Chronic systolic (congestive) heart failure; Z86.73 Personal history of transient ischemic attack (TIA), and cerebral infarction without residual deficits; Z86.16 Personal history of COVID-19; Z88.0 Allergy status to penicillin; Z79.899 Other long term (current) drug therapy
CPT/HCPCS: 36415; 51798; 74176; 80053; 81001; 85025; 87077; 87086; 87186; 99285